=== PATIENT | female | born 1960 | race Caucasian/White ===

== ENCOUNTER 2017-10-15 10:32 | Outpatient (RCR) | payer MEDICAID, SELFPAY ==
[2017-10-15 11:37] VITALS: BP 133/98; PULSE 84; RESP 18; TEMP 37.3; BMI 32.3
--- NOTE | 2017-10-15 20:39 | PCM.WC.PN ---
Type of Wound Date of Service: 10/15/17 Chief Complaint: Nonhealing ulcer proximal dorsal ulnar aspect left forearm. History of Wound: Surgery 08/28/17 - Surgical preparation proximal dorsal ulnar aspect left forearm with extension to elbow with incision and drainage and excisional debridement abscess (60 cm2). Wound care - VAC. Operative culture - Staphylococcus aureus. She was discharged on Doxycycline and has finished them. Prealbumin from 08/28/17 was 12.0. Encourage nutritional supplementation with protein to help the healing process. CT Left Forearm on 08/27/17 showed diffuse subcutaneous edema overlying the medial posterior aspect of the. forearm and region of the elbow joint with findings suggestive of a. localized abscess collection just medial to the proximal ulna. Today patient denies fever. Her appetite is good. Progress of Wound: Improved. - Physical Exam Vital Signs Temp Pulse Resp BP 99.1 F 84 18 133/98 H 10/15/17 11:37 10/15/17 11:37 10/15/17 11:37 10/15/17 11:37 Debridement Note Post-Debridement Measurements/Treatment WC - Nurse 2 - General Ulcer CM Notes Start: 10/15/17 11:32 Freq: Status: Active Protocol: Activity Type Activity Date Activity User E-Sign Co-Sign Detail Recorded Client Recorded Date Recorded By Document 10/15/17 12:27 [id number] 10/15/17 12:28 10/15/17 12:27 Wound Center Nurse 2 #1 left elbow -Time 12:27 -Correct Patient Yes -Correct Side, Site, Position Yes -Correct Procedure Yes -Procedure Performed Yes -Type of Procedure Debridement -Clinical Debridement Subcutaneous -Post Debridement Size (cm) - Length 7.5 -Post Debridement Size (cm) - Width 3.4 -Post Debridement Size (cm) - Depth 0.3 -Total Square Cm 25.50 -Wound/Ulcer Outcome Not Healed -Ulcer Cleansing Rinsed/ Irrigated with Saline -Foul Odor after Cleansing No -Bioengineered Tissue No -Cetacaine [place] No -Bleeding Controlled with Pressure -Treatment Response Procedure Tolerated Well Pain Scale: 0-10 Numeric Is Patient Pain Free? Yes Wound debrided: #1 Left forearm. Laterality: Left Wound Grade/Stage: 2. Type of Debridement: Excisional debridement Anesthesia Used: 4% Lidocaine Solution Depth: Down to and including healthy tissue, in the subcutaneous layer Percentage of wound debrided: 100 Instrument Used: 5mm curette Tissue Removed: subcutaneous tissue. Severity: Fat Layer Exposed Amount of bleeding with debridement: Mild Bleeding Controlled with: Pressure Patient tolerated procedure well Assessment/Plan Assessment: 1. Abscess proximal dorsal ulnar aspect left forearm with extension to elbow. 2. Nonhealing ulcer proximal dorsal ulnar aspect left forearm. 3. Smoker. 4. s/p surgical preparation proximal dorsal ulnar aspect left forearm with extension to elbow with incision and drainage and excisional debridement abscess (60 cm2). Plan: The VAC can be removed. Continue daily dressing changes with Aquacel Silver. Encourage range of motion exercises to minimize stiffness. Operative culture showed Staphylococcus aureus. She was discharged on Doxycycline and has finished them. Prealbumin in the hospital was 12.0 on 08/28/17. Encourage nutritional supplementation with protein to help the healing process. Encouraged the patient to stop smoking as it may have deleterious effects on wound healing. Followup 2 weeks.
--- NOTE | 2017-10-18 21:50 | PN.PCM_ITS ---
Type of Wound Date of Service: 10/15/17 Chief Complaint: Nonhealing ulcer proximal dorsal ulnar aspect left forearm. History of Wound: Surgery 08/28/17 - Surgical preparation proximal dorsal ulnar aspect left forearm with extension to elbow with incision and drainage and excisional debridement abscess (60 cm2). Wound care - VAC. Operative culture - Staphylococcus aureus. She was discharged on Doxycycline and has finished them. Prealbumin from 08/28/17 was 12.0. Encourage nutritional supplementation with protein to help the healing process. CT Left Forearm on showed diffuse subcutaneous edema overlying the medial posterior aspect of the. forearm and region of the elbow joint with findings suggestive of a. localized abscess collection just medial to the proximal ulna. Today patient denies fever. Her appetite is good. Progress of Wound: Improved. - Physical Exam Vital Signs Temp Pulse Resp BP 99.1 F 84 18 133/98 H 10/15/17 11:37 10/15/17 11:37 10/15/17 11:37 10/15/17 11:37 Debridement Note Post-Debridement Measurements/Treatment WC - Nurse 2 - General Ulcer CM Notes Start: 10/15/17 11:32 Freq: Status: Active Protocol: Activity Type Activity Date Activity User E-Sign Co-Sign Detail Recorded Client Recorded Date Recorded By Document 10/15/17 12:27 [id number] 10/15/17 12:28 10/15/17 12:27 Wound Center Nurse 2 #1 left elbow -Time 12:27 -Correct Patient Yes -Correct Side, Site, Position Yes -Correct Procedure Yes -Procedure Performed Yes -Type of Procedure Debridement -Clinical Debridement Subcutaneous -Post Debridement Size (cm) - Length 7.5 -Post Debridement Size (cm) - Width 3.4 -Post Debridement Size (cm) - Depth 0.3 -Total Square Cm 25.50 -Wound/Ulcer Outcome Not Healed -Ulcer Cleansing Rinsed/ Irrigated with Saline -Foul Odor after Cleansing No -Bioengineered Tissue No -Cetacaine [place] No -Bleeding Controlled with Pressure -Treatment Response Procedure Tolerated Well Pain Scale: 0-10 Numeric Is Patient Pain Free? Yes Wound debrided: #1 Left forearm. Laterality: Left Wound Grade/Stage: 2. Type of Debridement: Excisional debridement Anesthesia Used: 4% Lidocaine Solution Depth: Down to and including healthy tissue, in the subcutaneous layer Percentage of wound debrided: 100 Instrument Used: 5mm curette Tissue Removed: subcutaneous tissue. Severity: Fat Layer Exposed Amount of bleeding with debridement: Mild Bleeding Controlled with: Pressure Patient tolerated procedure well Assessment/Plan Assessment: 1. Abscess proximal dorsal ulnar aspect left forearm with extension to elbow. 2. Nonhealing ulcer proximal dorsal ulnar aspect left forearm. 3. Smoker. 4. s/p surgical preparation proximal dorsal ulnar aspect left forearm with extension to elbow with incision and drainage and excisional debridement abscess (60 cm2). Plan: The VAC can be removed. Continue daily dressing changes with Aquacel Silver. Encourage range of motion exercises to minimize stiffness. Operative culture showed Staphylococcus aureus. She was discharged on Doxycycline and has finished them. Prealbumin in the hospital was 12.0 on 08/28/17. Encourage nutritional supplementation with protein to help the healing process. Encouraged the patient to stop smoking as it may have deleterious effects on wound healing. Followup 2 weeks.
== END 2017-10-17 23:59 ==
LOC: WC 10:32
PROVIDERS: Family Provider Family Medicine Geriatric Medicine; PCP Family Medicine Geriatric Medicine; Visit Provider Surgery
DX: L98.492 Non-pressure chronic ulcer of skin of other sites with fat layer exposed (principal); F17.200 Nicotine dependence, unspecified, uncomplicated
CPT/HCPCS: 11042; 11045; 99213; G0463

== ENCOUNTER → 2017-10-16 15:59 | Outpatient (CLI) | payer MEDICAID, SELFPAY ==
[2017-10-16 17:13] LABS: Absolute Lymphocyte Count 3.86 X10^3/ul (0.83-4.51); Absolute Neutrophil Count 6.4 X10^3/uL (2.0-7.7); Basophil# 0.11 X10^3/uL; Basophil% 0.9 % (0-1); Eosinophil# 0.49 X10^3/uL; Eosinophils% 4.2 % (0-5); Hematocrit 47.2 % (37-47); Hemoglobin 15.6 g/dl (12.0-15.0); Lymphocyte # 3.86 X10^3/ul (4.0); Lymphocyte % 33.1 % (19-41); Mean Corp Hgb Conc 33.1 g/gl (32-36); Mean Corpuscular Hgb 31.7 pg (27.0-32.0); Mean Corpuscular Volume 95.9 fL (81-99); Mean Platelet Vol. 9.4 fl (6.2-12.0); Monocyte% 6.9 % (0-10); Neutrophil # 6.37 X10^3/uL (2.7-7.7); Neutrophil % 54.7 % (47-70); Platelet Count 429 K/mm3 (150-450); RBC Distribution Width CV 13.3 % (11.6-14.6); RBC Distribution Width SD 46.8 fl (35.1-43.9); Red Blood Count 4.92 M/mm3 (4.2-5.4); White Blood Count 11.7 K/mm3 (4.4-11.0)
[2017-10-16 17:14] LABS: POSITIVE COUNT NO; POSITIVE DIFFERENTIAL NO; POSITIVE MORPHOLOGY NO
[2017-10-16 17:37] LABS: ALB/GLOB Ratio 0.8 RATIO (0.9-2.4); AST(SGOT) 24 U/L (15-37); Alanine Aminotransfer ALT/SGPT 28 U/L (13-56); Albumin, Serum 3.8 g/dL (3.2-5.0); Alkaline Phosphatase 135 U/L (45-117); Anion Gap 9 (5-15); BUN 25 mg/dL (7-18); BUN/Creat Ratio 22.3 RATIO (10-20); Calcium,Total 9.1 mg/dL (8.5-10.1); Chloride 99 mmol/L (98-107); Creatinine, Serum 1.12 mg/dL (0.55-1.02); EST Glomerular Filtration Rate 54 mL/min (>60); Est Glom Filt Rate - Afr Amer 65 mL/min (>60); Globulin 4.6 g/dL (2.2-4.2); Glucose 124 mg/dL (70-110); Potassium 4.3 mmol/L (3.5-5.1); Protein, Total 8.4 g/dL (6.4-8.2); Sodium Level 135 mmol/L (136-145); Thyroid Stim Hormone (TSH) 1.09 uIU/mL (0.358-3.74)
[2017-10-17 10:05] LABS: Vitamin D,25 Hydroxy 9.4 ng/mL (19.95-100.01)
== END ==
PROVIDERS: Family Provider Family Medicine Geriatric Medicine; PCP Family Medicine Geriatric Medicine; Visit Provider Family Medicine Geriatric Medicine
DX: I10 Essential (primary) hypertension (principal); E55.9 Vitamin D deficiency, unspecified
CPT/HCPCS: 36415; 80053; 82306; 84443; 85025

== ENCOUNTER → 2018-02-26 16:57 | Outpatient (CLI) | payer MEDICAID, SELFPAY ==
[2018-02-26 17:17] LABS: Absolute Lymphocyte Count 4.33 X10^3/ul (0.83-4.51); Basophil# 0.09 X10^3/uL; Basophil% 0.6 % (0-1); Eosinophil# 0.33 X10^3/uL; Eosinophils% 2.3 % (0-5); Hematocrit 44.5 % (37-47); Lymphocyte # 4.33 X10^3/ul (4.0); Lymphocyte % 29.5 % (19-41); Mean Corp Hgb Conc 33.7 g/gl (32-36); Mean Corpuscular Hgb 31.3 pg (27.0-32.0); Mean Corpuscular Volume 92.9 fL (81-99); Mean Platelet Vol. 9.6 fl (6.2-12.0); Monocyte# 0.85 X10^3/uL; Monocyte% 5.8 % (0-10); Neutrophil # 9.01 X10^3/uL (2.7-7.7); Neutrophil % 61.5 % (47-70); Platelet Count 423 K/mm3 (150-450); RBC Distribution Width CV 14.4 % (11.6-14.6); RBC Distribution Width SD 47.4 fl (35.1-43.9); Red Blood Count 4.79 M/mm3 (4.2-5.4); White Blood Count 14.7 K/mm3 (4.4-11.0)
[2018-02-26 17:28] LABS: POSITIVE COUNT NO; POSITIVE DIFFERENTIAL NO; POSITIVE MORPHOLOGY NO
[2018-02-26 17:55] LABS: ALB/GLOB Ratio 0.9 RATIO (0.9-2.4); AST(SGOT) 12 U/L (15-37); Alanine Aminotransfer ALT/SGPT 29 U/L (13-56); Albumin, Serum 3.7 g/dL (3.2-5.0); Alkaline Phosphatase 147 U/L (45-117); Anion Gap 10 (5-15); BUN 24 mg/dL (7-18); BUN/Creat Ratio 21.2 RATIO (10-20); Calcium,Total 9.2 mg/dL (8.5-10.1); Chloride 104 mmol/L (98-107); Creatinine, Serum 1.13 mg/dL (0.55-1.02); EST Glomerular Filtration Rate 53 mL/min (>60); Est Glom Filt Rate - Afr Amer 64 mL/min (>60); Globulin 4.3 g/dL (2.2-4.2); Glucose 103 mg/dL (74-106); Potassium 4.6 mmol/L (3.5-5.1); Sodium Level 140 mmol/L (136-145); Thyroid Stim Hormone (TSH) 1.37 uIU/mL (0.358-3.74)
[2018-03-01 07:11] LABS: Hep C Antibodies <0.1 s/co ratio (0.0-0.9)
== END ==
PROVIDERS: Family Provider Family Medicine Geriatric Medicine; PCP Family Medicine Geriatric Medicine; Visit Provider Family Medicine Geriatric Medicine
DX: I10 Essential (primary) hypertension (principal); Z13.89 Encounter for screening for other disorder
CPT/HCPCS: 36415; 80053; 84443; 85025; 86803

== ENCOUNTER → 2018-03-11 15:25 | Outpatient (CLI) | payer MEDICAID, SELFPAY ==
--- NOTE | 2018-03-11 15:27 | CT_ITS ---
STUDY: LOW DOSE CT LUNG CANCER SCREENING REASON FOR EXAM: Female, 57 years old. 30 pack-year smoker. One month history of shortness of breath. History of renal cell carcinoma. RADIATION DOSAGE (If Supplied By Facility): CTDIvol = ( 4.02 ) mGy, DLP = ( 156.02 ) mGycm TECHNIQUE: No contrast was administered. Low dose technique was utilized (average mAS-38 and kVp 120). 1.25 mm axial source images with a slice interval of 1.25-mm were reconstructed in lung windows. 2.5 mm axial source images with a slice interval of 2.5-mm were reconstructed in lung windows. 5.0 mm axial source images with a slice interval of 5.0-mm were reconstructed in soft tissue windows. Nodule measured using lung windows on PACS and/or independent workstation with automated measurement of minimum and maximum diameter. Nodule measurement reported as average diameter rounded to the nearest whole number. Growth is defined as an increase ins size of greater than 1.5 mm. COMPARISON: Comparison is made with prior chest radiograph dated March 23, 2016. NODULES: 2 mm calcified granuloma in the posterior aspect of the right upper lobe as seen on axial image #62. Findings suggest mild scarring in both lung apices. Aorta: Atherosclerotic calcification of the aortic arch. Coronary arteries: Mild coronary artery calcification. Mediastinal nodes: Several small benign-appearing mediastinal lymph nodes. CT/Low Dose CT Lung Screening IMPRESSION: Lung-RADS category 2 - Continue annual screening with LDCT in 12 months. IMPORTANT NOTES FOR USE: ACR Lung-RADS Version 1.0 Assessment Categories Release Date: January 12, 2014 Category: Coded 0-4 bases on nodule(s) with highest degree of suspicion. Negative screen is defined as categories 1 and 2; a positive screen is defined as categories 3 and 4. Category 3 and 4A nodules that are unchanged on interval CT should be coded as category 2, and individuals returned to screening in 12 months. Category 4X: Category 3 or 4 nodules with additional imaging findings that increase the suspicion of lung cancer, such as spiculation, GGN that doubles in size in 1 year, enlarged lymph notes, etc. Category Modifiers: S (significant finding unrelated to lung cancer) and C (prior history of treated lung cancer) may be added to the 0-4 Lung-RADS Electronically Signed: Mario Mckenzie MD at 12:56 EDT Tel [phone], Service support ,
== END ==
PROVIDERS: Family Provider Family Medicine Geriatric Medicine; PCP Family Medicine Geriatric Medicine; Visit Provider Family Medicine Geriatric Medicine
DX: Z12.2 Encounter for screening for malignant neoplasm of respiratory organs (principal); Z87.891 Personal history of nicotine dependence
CPT/HCPCS: G0297

== ENCOUNTER → 2019-02-27 | Outpatient (CLI) | payer MEDICAID, SELFPAY ==
[2019-02-27 17:28] LABS: Absolute Lymphocyte Count 4.66 X10^3/ul (0.83-4.51); Absolute Neutrophil Count 4.9 X10^3/uL (2.0-7.7); Basophil# 0.11 X10^3/uL; Eosinophil# 0.73 X10^3/uL; Eosinophils% 6.6 % (0-5); Hematocrit 42.9 % (37-47); Hemoglobin 14.4 g/dl (12.0-15.0); Lymphocyte # 4.66 X10^3/ul (4.0); Lymphocyte % 41.9 % (19-41); Mean Corp Hgb Conc 33.6 g/gl (32-36); Mean Corpuscular Hgb 31.1 pg (27.0-32.0); Mean Corpuscular Volume 92.7 fL (81-99); Mean Platelet Vol. 9.7 fl (6.2-12.0); Monocyte# 0.75 X10^3/uL; Monocyte% 6.8 % (0-10); Neutrophil # 4.85 X10^3/uL (2.7-7.7); Neutrophil % 43.6 % (47-70); POSITIVE COUNT NO; POSITIVE DIFFERENTIAL NO; POSITIVE MORPHOLOGY NO; Platelet Count 500 K/mm3 (150-450); RBC Distribution Width CV 13.8 % (11.6-14.6); RBC Distribution Width SD 46.4 fl (35.1-43.9); Red Blood Count 4.63 M/mm3 (4.2-5.4); White Blood Count 11.1 K/mm3 (4.4-11.0)
[2019-02-27 17:37] LABS: ALB/GLOB Ratio 0.9 RATIO (0.9-2.4); AST(SGOT) 22 U/L (15-37); Alanine Aminotransfer ALT/SGPT 25 U/L (13-56); Albumin, Serum 3.6 g/dL (3.2-5.0); Alkaline Phosphatase 174 U/L (45-117); Anion Gap 6 (5-15); BUN 19 mg/dL (7-18); BUN/Creat Ratio 15.4 RATIO (10-20); Calcium,Total 8.8 mg/dL (8.5-10.1); Chloride 106 mmol/L (98-107); Creatinine, Serum 1.23 mg/dL (0.55-1.02); EST Glomerular Filtration Rate 48 mL/min (>60); Est Glom Filt Rate - Afr Amer 58 mL/min (>60); Glucose 104 mg/dL (74-106); Potassium 3.9 mmol/L (3.5-5.1); Protein, Total 7.6 g/dL (6.4-8.2); Sodium Level 135 mmol/L (136-145); Thyroid Stim Hormone (TSH) 1.59 uIU/mL (0.358-3.74)
== END | disposition home or self-care (01) ==
LOC: POLAB3 08:56
PROVIDERS: Family Provider Family Medicine Geriatric Medicine; PCP Family Medicine Geriatric Medicine; Visit Provider Family Medicine Geriatric Medicine
DX: I10 Essential (primary) hypertension (principal)
CPT/HCPCS: 36415; 80053; 84443; 85025

== ENCOUNTER 2019-11-13 19:18 | Emergency (ER) | payer MEDICAID, SELFPAY ==
[2019-11-13 19:19] VITALS: BP 125/93; PULSE 98; RESP 18; TEMP 36.6; O2SAT 97; BMI 32.3
--- NOTE | 2019-11-13 20:48 | ED.DCSUM_ITS ---
History of Present Illness Chief Complaint: Upper Extremity Injury Informant: Patient Onset: Today - 14-15 hrs, approx Context: Gradual Onset Timing: Continuous Quality of Pain: - - swollen, not painful Location: right elbow Current Severity: Mild Maximum Severity: Mild Worsened by: n/a Relieved by: n/a Associated Symptoms: Negative for: Parasthesia, Weakness, Loss of Funtion Narrative: Patient has had mild swelling at her right olecranon since early this morning. She denies any pain or fevers or redness or discharge or injury or resting her elbow on anything repetitively recently. She had something similar on the left side and states that it was infectious. She takes medicines for the issues below but is on no immunocompromising medications and is not a diabetic. - Past Medical History (1) Hyperlipidemia Status: Chronic (2) Arthritis Status: Chronic (3) Hypertension Status: Chronic (4) Asthma Status: Chronic (5) Anxiety and depression Status: Chronic Past Medical History - Allergies and Home Meds Allergies/Adverse Reactions: Allergies amoxicillin trihydrate [From Augmentin] Allergy (Severe, Verified 11/13/19 19:22) Vomiting potassium clavulanate [From Augmentin] Allergy (Severe, Verified 11/13/19 19:22) Vomiting acetaminophen [From Vicodin] Adverse Reaction (Verified 11/13/19 19:22) Vomiting hydrocodone bitartrate [From Vicodin] Adverse Reaction (Verified 11/13/19 19:22) Vomiting oxycodone HCl [From Percocet] Adverse Reaction (Verified 11/13/19 19:22) Vomiting Primary Care Physician: Pro Brown Chi, MD [Primary Care Provider] - Surgical History: cholecystectomy, - - kidney surgery for cancer. Smoking Status: Current every day smoker - Family History Maternal Family History: Reports: No pertinent history Review of Systems General: Denies: Chills, Fever, Sweats Musculoskeletal: Reports: Swelling. Denies: Extremity Pain Neurological: Denies: Headache, Weakness, Numbness Physical Exam Vital Signs/Narrative: Vital Signs Temp Pulse Resp BP Pulse Ox 11/13/19 19:19 97.8 F 98 18 125/93 H 97 General: Well nourished, Well developed, - - Well-appearing, NAD Head: Normocephalic, Atraumatic Extremeties: Full range of motion right elbow. She has a mildly boggy swollen bursa at the right olecranon. It is nontender and without erythema or signs of a foreign body entry site or nidus for infection. Skin: Normal color - No erythema right elbow, No rash Neurological: Alert, Oriented x3, Cranial nerves II-XII grossly intact, Normal Strength, Normal Sensation, Normal Gait Psychological: Normal affect, Normal Mood Diagnostic/Tx/Re-eval - Medical Decision Making The patient's right olecranon has no excessive warmth, erythema, pain, or tenderness. Therefore I suspect this is inflammatory in nature. She was given some ibuprofen, and I sent the fluid that we aspirated for culture. I do not think she needs antibiotics empirically. If the culture returns positive, or if she worsens, she was advised to return to the ER. She is comfortable with this overall plan. Procedures Procedure(s): Needle aspiration, right olecranon bursitis. After prep with isopropanol, and locally anesthetizing with 0.5 cc 1% plain lidocaine, and re- prepping/sterilizing, an 18-gauge needle was used and inserted into the bursa, approximately 5 cc of bloody mildly viscous fluid that was otherwise transparent was aspirated. Patient tolerated well without any pain. Dressing placed. ED Disposition - Plan for ED Patient: Disposition: Home or Assisted Living Diagnosis: Olecranon bursitis of right elbow Instructions: Bursitis, Elbow (Olecranon) Referrals: Pro Brown Chi, MD [Primary Care Provider] - 3-5 Days if not improving
[2019-11-13 21:20] VITALS: BP 125/87; PULSE 81; RESP 18; TEMP 36.9; O2SAT 94
[2019-11-13] MEDS: Ibuprofen 600 MG Tablet PO (22:26)
[2019-11-13 22:30] VITALS: RESP 18
== END 2019-11-13 22:32 | disposition home or self-care (01) ==
PROVIDERS: Emergency Provider Emergency Medicine; PCP Family Medicine Geriatric Medicine
DX: M70.21 Olecranon bursitis, right elbow (principal); I10 Essential (primary) hypertension; Z72.0 Tobacco use; Z79.899 Other long term (current) drug therapy; E78.5 Hyperlipidemia, unspecified; M19.90 Unspecified osteoarthritis, unspecified site; J45.909 Unspecified asthma, uncomplicated; F32.9 Major depressive disorder, single episode, unspecified; F41.9 Anxiety disorder, unspecified
CPT/HCPCS: 20605; 20610; 87070; 87075; 87205; 99283

== ENCOUNTER → 2019-11-26 16:43 | Outpatient (CLI) | payer MEDICAID, SELFPAY ==
[2019-11-13 19:19] VITALS: BMI 32.3
[2019-11-26 18:08] LABS: ALB/GLOB Ratio 0.9 RATIO (0.9-2.4); AST(SGOT) 15 U/L (15-37); Alanine Aminotransfer ALT/SGPT 28 U/L (13-56); Albumin, Serum 3.5 g/dL (3.2-5.0); Alkaline Phosphatase 143 U/L (45-117); Anion Gap 4 (5-15); BUN 22 mg/dL (7-18); BUN/Creat Ratio 19.8 RATIO (10-20); Calcium,Total 8.6 mg/dL (8.5-10.1); Chloride 107 mmol/L (98-107); Creatinine, Serum 1.11 mg/dL (0.55-1.02); EST Glomerular Filtration Rate 54 mL/min (>60); Est Glom Filt Rate - Afr Amer 65 mL/min (>60); Globulin 3.8 g/dL (2.2-4.2); Glucose 99 mg/dL (74-106); Potassium 4.4 mmol/L (3.5-5.1); Protein, Total 7.3 g/dL (6.4-8.2); Sodium Level 138 mmol/L (136-145); Thyroid Stim Hormone (TSH) 1.38 uIU/mL (0.358-3.74)
[2019-11-26 18:09] LABS: Absolute Lymphocyte Count 2.69 X10^3/uL (0.83-4.51); Absolute Neutrophil Count 4.4 X10^3/uL (2.0-7.7); Basophil# 0.13 X10^3/uL; Basophil% 1.7 % (0-1); Eosinophil# 0.28 X10^3/uL; Eosinophils% 3.6 % (0-5); Hematocrit 40.6 % (37-47); Hemoglobin 13.2 g/dL (12.0-15.0); Lymphocyte # 2.69 X10^3/ul (4.0); Lymphocyte % 34.2 % (19-41); Mean Corp Hgb Conc 32.5 g/dL (32-36); Mean Corpuscular Hgb 30.7 pg (27.0-32.0); Mean Corpuscular Volume 94.4 fL (81-99); Monocyte# 0.36 X10^3/uL; Monocyte% 4.6 % (0-10); NRBC Flagged by Analyzer 0 % (0-5); Neutrophil # 4.38 X10^3/uL (2.7-7.7); Neutrophil % 55.6 % (47-70); Platelet Count 374 K/mm3 (150-450); RBC Distribution Width CV 13.2 % (11.6-14.6); RBC Distribution Width SD 45.9 fl (35.1-43.9); White Blood Count 7.9 K/mm3 (4.4-11.0)
== END ==
PROVIDERS: PCP Family Medicine Geriatric Medicine; Visit Provider Family Medicine Geriatric Medicine
DX: I10 Essential (primary) hypertension (principal)
CPT/HCPCS: 36415; 80053; 84443; 85025

== ENCOUNTER → 2020-03-10 | Outpatient (CLI) | payer MEDICAID, SELFPAY ==
[2020-03-10 16:51] LABS: Absolute Lymphocyte Count 3.55 X10^3/uL (0.83-4.51); Absolute Neutrophil Count 5.8 X10^3/uL (2.0-7.7); Basophil# 0.13 X10^3/uL; Basophil% 1.2 % (0-1); Eosinophil# 0.46 X10^3/uL; Eosinophils% 4.3 % (0-5); Hematocrit 39.6 % (37-47); Hemoglobin 12.7 g/dL (12.0-15.0); Lymphocyte # 3.55 X10^3/ul (4.0); Lymphocyte % 33.4 % (19-41); Mean Corp Hgb Conc 32.1 g/dL (32-36); Mean Corpuscular Volume 93.6 fL (81-99); Mean Platelet Vol. 9.8 fl (6.2-12.0); Monocyte# 0.68 X10^3/uL; Monocyte% 6.4 % (0-10); NRBC Flagged by Analyzer 0 % (0-5); Neutrophil % 54.5 % (47-70); Platelet Count 412 K/mm3 (150-450); RBC Distribution Width CV 13.3 % (11.6-14.6); RBC Distribution Width SD 45.4 fl (35.1-43.9); Red Blood Count 4.23 M/mm3 (4.2-5.4); White Blood Count 10.6 K/mm3 (4.4-11.0)
[2020-03-10 17:20] LABS: Vitamin D,25 Hydroxy 49.3 ng/mL
[2020-03-10 17:26] LABS: ALB/GLOB Ratio 0.8 RATIO (0.9-2.4); AST(SGOT) 16 U/L (15-37); Alanine Aminotransfer ALT/SGPT 33 U/L (13-56); Albumin, Serum 3.4 g/dL (3.2-5.0); Alkaline Phosphatase 179 U/L (45-117); Anion Gap 8 (5-15); BUN 15 mg/dL (7-18); BUN/Creat Ratio 15.3 RATIO (10-20); Calcium,Total 8.9 mg/dL (8.5-10.1); Chloride 107 mmol/L (98-107); Creatinine, Serum 0.98 mg/dL (0.55-1.02); EST Glomerular Filtration Rate 62 mL/min (>60); Est Glom Filt Rate - Afr Amer 75 mL/min (>60); Glucose 108 mg/dL (74-106); Potassium 4.1 mmol/L (3.5-5.1); Protein, Total 7.4 g/dL (6.4-8.2); Sodium Level 138 mmol/L (136-145); Thyroid Stim Hormone (TSH) 1.38 uIU/mL (0.358-3.74)
== END | disposition home or self-care (01) ==
PROVIDERS: PCP Family Medicine Geriatric Medicine; Visit Provider Family Medicine Geriatric Medicine
DX: I10 Essential (primary) hypertension (principal); E55.9 Vitamin D deficiency, unspecified
CPT/HCPCS: 36415; 80053; 82306; 84443; 85025

== ENCOUNTER → 2020-03-30 14:36 | Outpatient (CLI) | payer MEDICAID, SELFPAY ==
--- NOTE | 2020-03-30 14:40 | CT_ITS ---
STUDY: LOW DOSE CT LUNG CANCER SCREENING REASON FOR EXAM: Female, 59 years old. LUNG CANCER SCREEN. 1PPD X 42 YEARS RADIATION DOSAGE (If Supplied By Facility): CTDIvol = ( 2.55 ) mGy, DLP = ( 79.77 ) mGycm TECHNIQUE: No contrast was administered. Low dose technique was utilized (average mAS-38 and kVp 120). 1.25 mm axial source images with a slice interval of 1.25-mm were reconstructed in lung windows. 2.5 mm axial source images with a slice interval of 2.5-mm were reconstructed in lung windows. 5.0 mm axial source images with a slice interval of 5.0-mm were reconstructed in soft tissue windows. Nodule measured using lung windows on PACS and/or independent workstation with automated measurement of minimum and maximum diameter. Nodule measurement reported as average diameter rounded to the nearest whole number. Growth is defined as an increase ins size of greater than 1.5 mm. COMPARISON: CT of the chest, March 11, 2018 NODULES: Nodule #: 1 Density: Solid Lung location: Right upper lobe: Pleural-based Location in series: Series Number: 1002 Image: 28 Size - D1 x D2 mm: 2 x 2 mm: 2 mm average diameter Margin: Smooth Shape: Round Calcification: No Fat: No Temporal comparison: Stable Nodule #: 2 Density: Solid Lung location: Right upper lobe: Pleural-based Location in series: Series Number: [id number] Image: 52 Size - D1 x D2 mm: 2.5 x 2.5 mm: 2.5 mm average diameter Margin: Smooth Shape: Round Calcification: Yes Fat: No Temporal comparison: Stable Total lung nodules (excluding granulomas): 1 Emphysema: None Endobronchial lesion: None Aorta: Stable calcifications without aneurysm. Coronary arteries: Stable coronary artery calcifications. Heart: Normal Pulmonary artery: Normal Mediastinal nodes: Nonspecific subcentimeter mediastinal lymphadenopathy unchanged from prior study. Other chest and abdominal findings: Degenerative changes of the thoracic spine. CT/Low Dose CT Lung Screening IMPRESSION: No major interval change from the prior study. Lung-RADS category 2 - Continue annual screening with LDCT in 12 months. IMPORTANT NOTES FOR USE: ACR Lung-RADS Version 1.0 Assessment Categories Release Date: January 12, 2014 Category: Coded 0-4 bases on nodule(s) with highest degree of suspicion. Negative screen is defined as categories 1 and 2; a positive screen is defined as categories 3 and 4. Category 3 and 4A nodules that are unchanged on interval CT should be coded as category 2, and individuals returned to screening in 12 months. Category 4X: Category 3 or 4 nodules with additional imaging findings that increase the suspicion of lung cancer, such as spiculation, GGN that doubles in size in 1 year, enlarged lymph notes, etc. Category Modifiers: S (significant finding unrelated to lung cancer) and C (prior history of treated lung cancer) may be added to the 0-4 Lung-RADS Electronically Signed: Christiano Alston DO at 16:02 EDT Tel [phone], Service support ,
== END ==
PROVIDERS: PCP Family Medicine Geriatric Medicine; Referring Provider Family Medicine Geriatric Medicine; Visit Provider Family Medicine Geriatric Medicine
DX: T65.222S Toxic effect of tobacco cigarettes, intentional self-harm, sequela (principal)
CPT/HCPCS: G0297

== ENCOUNTER → 2020-09-21 13:57 | Outpatient (CLI) | payer MEDICAID, SELFPAY ==
[2020-09-21 16:11] LABS: Absolute Lymphocyte Count 3.51 X10^3/uL (0.83-4.51); Absolute Neutrophil Count 4.6 X10^3/uL (2.0-7.7); Basophil# 0.11 X10^3/uL; Basophil% 1.1 % (0-1); Eosinophil# 0.81 X10^3/uL; Eosinophils% 8.4 % (0-5); Hematocrit 37.8 % (37-47); Hemoglobin 11.7 g/dL (12.0-15.0); Lymphocyte # 3.51 X10^3/ul (4.0); Lymphocyte % 36.6 % (19-41); Mean Corpuscular Hgb 27.7 pg (27.0-32.0); Mean Corpuscular Volume 89.4 fL (81-99); Mean Platelet Vol. 9.6 fl (6.2-12.0); Monocyte# 0.57 X10^3/uL; Monocyte% 5.9 % (0-10); NRBC Flagged by Analyzer 0 % (0-5); Neutrophil # 4.57 X10^3/uL (2.7-7.7); Neutrophil % 47.8 % (47-70); POSITIVE MORPHOLOGY YES; Platelet Count 442 K/mm3 (150-450); RBC Distribution Width CV 13.2 % (11.6-14.6); RBC Distribution Width SD 43.2 fl (35.1-43.9); Red Blood Count 4.23 M/mm3 (4.2-5.4); White Blood Count 9.6 K/mm3 (4.4-11.0)
[2020-09-21 16:20] LABS: Differential Indicated SCAN CRITERIA MET
[2020-09-21 16:39] LABS: ALB/GLOB Ratio 0.8 RATIO (0.9-2.4); AST(SGOT) 12 U/L (15-37); Alanine Aminotransfer ALT/SGPT 22 U/L (13-56); Albumin, Serum 3.3 g/dL (3.2-5.0); Alkaline Phosphatase 163 U/L (45-117); Anion Gap 8 (5-15); BUN 22 mg/dL (7-18); BUN/Creat Ratio 16.7 RATIO (10-20); Calcium,Total 8.5 mg/dL (8.5-10.1); Chloride 107 mmol/L (98-107); Creatinine, Serum 1.32 mg/dL (0.55-1.02); EST Glomerular Filtration Rate 44 mL/min (>60); Est Glom Filt Rate - Afr Amer 53 mL/min (>60); Glucose 113 mg/dL (74-106); Potassium 3.7 mmol/L (3.5-5.1); Protein, Total 7.3 g/dL (6.4-8.2); Sodium Level 138 mmol/L (136-145); Thyroid Stim Hormone (TSH) 1.64 uIU/mL (0.358-3.74)
== END ==
PROVIDERS: PCP Family Medicine Geriatric Medicine; Visit Provider Family Medicine Geriatric Medicine
DX: E55.9 Vitamin D deficiency, unspecified (principal); I10 Essential (primary) hypertension
CPT/HCPCS: 36415; 80053; 82306; 84443; 85025; 87086

== ENCOUNTER → 2021-05-25 15:23 | Outpatient (CLI) | payer MEDICAID, SELFPAY ==
[2021-05-25 16:58] LABS: ALB/GLOB Ratio 0.8 RATIO (0.9-2.4); AST(SGOT) 15 U/L (15-37); Alanine Aminotransfer ALT/SGPT 32 U/L (13-56); Albumin, Serum 3.4 g/dL (3.2-5.0); Alkaline Phosphatase 225 U/L (45-117); Anion Gap 5 (5-15); BUN 16 mg/dL (7-18); Calcium,Total 8.9 mg/dL (8.5-10.1); Chloride 108 mmol/L (98-107); Cholesterol 142 mg/dL (200); Creatinine, Serum 1.07 mg/dL (0.55-1.02); EST Glomerular Filtration Rate 56 mL/min (>60); Est Glom Filt Rate - Afr Amer 68 mL/min (>60); Globulin 4.5 g/dL (2.2-4.2); Glucose 106 mg/dL (74-106); High Density Lipoprotein 47 mg/dL; Potassium 4.4 mmol/L (3.5-5.1); Protein, Total 7.9 g/dL (6.4-8.2); Sodium Level 137 mmol/L (136-145); Triglycerides 148 mg/dL; Very Low Density Lipoprotein 30 mg/dL (5-40)
[2021-05-25 17:04] LABS: Absolute Lymphocyte Count 2.37 X10^3/uL (0.83-4.51); Absolute Neutrophil Count 5.1 X10^3/uL (2.0-7.7); Basophil# 0.11 X10^3/uL; Basophil% 1.3 % (0-1); Eosinophil# 0.46 X10^3/uL; Eosinophils% 5.4 % (0-5); Hematocrit 38.1 % (37-47); Hemoglobin 11.7 g/dL (12.0-15.0); Lymphocyte # 2.37 X10^3/ul (0.83-4.51); Lymphocyte % 27.7 % (19-41); Mean Corp Hgb Conc 30.7 g/dL (32-36); Mean Corpuscular Hgb 27.5 pg (27.0-32.0); Mean Corpuscular Volume 89.6 fL (81-99); Mean Platelet Vol. 9.6 fl (6.2-12.0); Monocyte# 0.46 X10^3/uL; Monocyte% 5.4 % (0-10); NRBC Flagged by Analyzer 0 % (0-5); Neutrophil # 5.14 X10^3/uL (2.7-7.7); Neutrophil % 59.8 % (47-70); Platelet Count 479 K/mm3 (150-450); RBC Distribution Width CV 15.1 % (11.6-14.6); RBC Distribution Width SD 49.7 fl (35.1-43.9); Red Blood Count 4.25 M/mm3 (4.2-5.4); White Blood Count 8.6 K/mm3 (4.4-11.0)
[2021-05-31 09:25] LABS: Ferritin 15 ng/mL (8-252); Iron 57 ug/dL (50-170); Iron Binding Capacity,Total 358 ug/dL (250-450)
== END ==
PROVIDERS: PCP Internal Medicine; Referring Provider Internal Medicine; Visit Provider Internal Medicine
DX: E78.5 Hyperlipidemia, unspecified (principal); I10 Essential (primary) hypertension; E66.9 Obesity, unspecified
CPT/HCPCS: 36415; 80053; 80061; 82728; 83036; 83540; 83550; 85025

== ENCOUNTER 2021-06-20 15:00 | Outpatient (RCR) | payer MEDICAID, SELFPAY ==
--- NOTE | 2021-06-06 15:16 | HP.PTEVAL ---
Patient's Visit Information YULISA WHEELER is a 61 year old F referred to Physical Therapy by Dr. J Carlos Casey DO with a diagnosis of LUMBAR STENOSIS AND RADICULITIS. VIK HIP DJD.. Date of Evaluation: 06/06/21 Physical Therapist: Jolene Resendiz, PT, Cert MDT - Visit Plan Frequency: 2X'S A WK PER PATIENT Duration: 3 WKS PER PATIENT Plan: POSTURE CORRECTION/STRENGTHENING, INSTRUCTION IN APPROPRIATE BODY MECHANICS AND ACTIVITY MODIFICATIONS. DLS WITH A NEUTRAL SPINE ONLY TOLERATED. VIK LE ROM, STRETCHING AND STRENGTHENING. HEP INSTRUCTION. - Subjective Work/Leisure: UNEMPLOYEED. Disability: SINCE 2017 BUT PATIENT REPORTS SHE ISN'T SURE WHY. OTHER: PATIENT LIVES BY HERSELF AND HER DAUGHTER LIVES UPSTAIRS AND HELPS NEEDED. Present symptoms: VIK LOW BACK AND HIP PAIN. CURRENTLY PAIN IS WORSE ON THE RIGHT. Present since: ABOUT 4 YEARS AGO. Pain Scale: WORSE 9/10, LEAST 4/10. Currently: 5/10. Commenced as a result of: NO APPARENT REASON. Symptoms at onset: LOW BACK PAIN. Worse: MOVING AROUND, WALKING AND STANDING. Better: SITTING. Disturbed sleep: YES. Previous history/Previous treatment: PATIENT REPORTS SHE BROKE HER BACK ABOUT 30 YEARS AGO. L5 WAS CRUSHED, HOSPITALIZED AND WORE A BRACE FOR ABOUT 6 MONTHS. EPISODIC LBP EVER SINCE. PHYSICAL THERAPY. CHIROPRACTOR. MOST RECENT CHIROPRACTIC SESSIONS WERE ABOUT A YEAR AGO BUT IT DIDN'T HELP PER PATIENT REPORT. NO BACK SURGERY. NO GOGO'S. PATIENT REPORTS DR. CASEY ASKED HER TO CONSIDER GOGO'S BUT SHE REFUSED. I DON'T WANT TO DO THE INJECTION THINGS. I WOULD RATHER SUFFER WITH THE PAIN THAN DO THE SHOTS. Coughing/sneezing/straining: NEGATIVE. Gait: PATIENT REPORTS GREAT DIFFICULTY WALKING FOR ABOUT SIX MONTHS. USES CANE AND WALKER TO GET AROUND - PREFERS TO USE THE CANE. LESS PAIN WITH WALKER THOUGH. Difficulty initiating urination: NO. Accidents: JUMPED OUT 2ND STORY WINDOW AND BROKE BACK A LONG TIME AGO. Unexplained weight loss: NO. Imaging: RECENT X-RAYS OF LOW BACK SEE [facility] EMR. NOTE UNHEALED RIGHT RIB FRACTURES ON X-RAY THAT PATIENT REPORTS SHE IS NOT AWARE OF AND DENIES ANY FALLS. SEVERE VIK HIP OA ALSO SEEN ON HIP X-RAYS. PATIENT REPORTS SHE HAS TO LOSE 10 LBS BEFORE SHE CAN HAVE HIP SURGERY. REPORTS SHE IS SCARED TO HAVE HER HIPS REPLACED BUT SHE IS GOING TO DO IT THIS TIME BECAUSE SHE IS IN SO MUCH PAIN. - Objective Sitting/Standing Posture: POOR. FH. RS'S. INCREASED TRUNK FLEXION. RIGHT ILIAC CREST HIGHER THAN LEFT. Active Correction of posture: BETTER. Other Observations: THIS PATIENT REPORTS SHE CAN'T WALK VERY FAR AND WAS FOUND IN LOBBY IN W/C. ASKED TO BE BROUGHT BACK IN W/C. AMUBLATED INDEP'LY WITH STRAIGHT CANE ABOUT 10 FEET INTO TREATMENT ROOM. PATIENT IS VERY UE DEPENDENT TO TRANSFER FROM SIT TO STAND AND REVERSE. VERY ANTALGIC SLOW GAIT WITH STRAIGHT CANE - INCREASED TRUNK FLEXION. Motor deficit: VIK LE WEAKNESS: HIPS 3+/5, KNEE EXT 4-/5, KNEE FLEX 4/5, ANKLES 5/5. Sensory deficit: VIK LE LIGHT TOUCH SENSATION APPEARS INTACT AND SYMMETRICAL. ROM deficit: VIK HIP FLEXOR TIGHTNESS. Dural Signs: NEGATIVE VIK LE'S. Lumbar mvmt loss: flex - MIN. ext - JHONATAN. R SG - JHONATAN. L SG - JHONATAN. PATIENT C/O INCREASED BACK AND VIK HIP PAIN WITH LUMBAR ROM TESTING ALL PLANES RIGHT HIP > LEFT. Core strength: POOR. Palpation: RIGHT LATERAL HIP TENDERNESS. TREATMENT: NEUROMUSCULAR REEDUCATION - RETRAINING OF MVMT AND POSTURE FOR SITTING, LYING AND STANDING ACTIVITIES. PATIENT IS A HIGH FALL RISK AND THIS PT STRONGLY ENCOURAGED PATIENT TO USE WALKER VS CANE AND SHE WILL CONSIDER BUT STATES IT IS EMBARRASING. CANE ADJUSTED FOR PROPER FIT. PATIENT REPORTED SOME IMMEDIATE PAIN RELIEF WITH USE OF LUMBAR SUPPORT IN SITTING IN CLINIC TODAY. - Balance/Special Test Scores Oswestry Low Back Score: 34 - Goals Goal 1:: DECREASE C/O LOW BACK AND VIK HIP PAIN. Goal Time Frame: 4-6 Weeks Goal 2:: IMPROVE PERSONAL CARE, LIFTING, WALKING, SITTING, STANDING, SLEEP, SOCIAL LIFE, TREAVEL AND HOMEMAKING FUNCTION. Goal Time Frame: 4-6 Weeks Goal 3:: INSTRUCT IN PROPHYLAXIS Goal Time Frame: 4-6 Weeks - Anticipated Interventions Patient/Client Instruction: Educate patient on: Condition, Plan of Care, Risk Factors For the Purpose of:: To improve self management Therapeutic Exercise to Include: Strength training, Balance training, Body mechanics, Postural training, Flexibilty training, Gait and locomotor training, Neuromotor development, In an aquatic setting, Dynamic Lumbar Stabilization For the Purpose of:: To decrease pain, To improve muscle performance and motor function, To increase tolerance to activity/condition/position, To improve ability of physical actions for home/community/work/leisure, To improve gait and locomotor functions Thank you for the opportunity to evaluate your patient. For Medicare and Medicare HMO plans, please review the plan of care and approve it. It will need to be FAXED BACK to us at [phone] for Medicare purposes. For Medicare only, by signing this I certify the plan of care. Please let me know if there are questions or concerns regarding this plan of care. Physician Signature: Date:
--- NOTE | 2021-06-23 11:24 | HP.PT.NRP ---
YULISA WHEELER was seen in my office for initial evaluation on 06/06/21. The following Plan of Care was established for this patient: Initial Frequency: 2X'S A WK PER PATIENT Initial Duration: 3 WKS PER PATIENT Patient/Client Instruction: Educate patient on: Condition, Plan of Care, Risk Factors For the Purpose of:: To improve self management Therapeutic Exercise to Include: Strength training, Balance training, Body mechanics, Postural training, Flexibilty training, Gait and locomotor training, Neuromotor development, In an aquatic setting, Dynamic Lumbar Stabilization For the Purpose of:: To decrease pain, To improve muscle performance and motor function, To increase tolerance to activity/condition/position, To improve ability of physical actions for home/community/work/leisure, To improve gait and locomotor functions This patient was last seen in our office . Pertinent comments regarding their Physical therapy will appear below: This patient has not returned to Physical Therapy and is appropriate to return to MD for further follow-up as needed. This PT rec'd a note stating patient cancelled all remaining manuel'ts and wants to save her visits for after surgery. At this point I will be discontinuing this patient from physical therapy. I would be happy to see this patient again in the future if found appropriate by the physician. Thank you! Jolene Resendiz, PT, Cert MDT Balance/Gait/Functional tests - Balance/Special Test Scores Oswestry Low Back Score: 34
== END 2021-06-20 19:00 | disposition home or self-care (01) ==
LOC: PT 15:00
PROVIDERS: PCP Internal Medicine; Referring Provider Orthopaedic Surgery; Visit Provider Orthopaedic Surgery
DX: M16.0 Bilateral primary osteoarthritis of hip (principal); M48.061 Spinal stenosis, lumbar region without neurogenic claudication; M54.16 Radiculopathy, lumbar region
CPT/HCPCS: 97110; 97112; 97162

== ENCOUNTER → 2022-01-20 | Outpatient (CLI) | payer MEDICAID, SELFPAY ==
[2022-01-20 14:56] LABS: Absolute Lymphocyte Count 2.71 X10^3/uL (0.83-4.51); Absolute Neutrophil Count 7.6 X10^3/uL (2.0-7.7); Basophil% 0.9 % (0-1); Eosinophils% 1.8 % (0-5); Hematocrit 38.8 % (37-47); Hemoglobin 11.8 g/dL (12.0-15.0); Lymphocyte # 2.71 X10^3/ul (0.83-4.51); Lymphocyte % 23.9 % (19-41); Mean Corp Hgb Conc 30.4 g/dL (32-36); Mean Corpuscular Hgb 26.1 pg (27.0-32.0); Mean Corpuscular Volume 85.8 fL (81-99); Mean Platelet Vol. 9.4 fl (6.2-12.0); Monocyte# 0.65 X10^3/uL; Monocyte% 5.7 % (0-10); NRBC Flagged by Analyzer 0 % (0-5); Neutrophil # 7.63 X10^3/uL (2.7-7.7); Neutrophil % 67.4 % (47-70); Platelet Count 507 K/mm3 (150-450); RBC Distribution Width CV 14.6 % (11.6-14.6); RBC Distribution Width SD 45.9 fl (35.1-43.9); Red Blood Count 4.52 M/mm3 (4.2-5.4); White Blood Count 11.3 K/mm3 (4.4-11.0)
[2022-01-20 15:07] LABS: Anion Gap 4 (5-15); BUN 18 mg/dL (7-18); BUN/Creat Ratio 20.2 RATIO (10-20); Calcium,Total 9.2 mg/dL (8.5-10.1); Chloride 103 mmol/L (98-107); Creatinine, Serum 0.89 mg/dL (0.55-1.02); EST Glomerular Filtration Rate 69 mL/min (>60); Est Glom Filt Rate - Afr Amer 83 mL/min (>60); Glucose 119 mg/dL (74-106); Potassium 4.3 mmol/L (3.5-5.1); Sodium Level 136 mmol/L (136-145)
[2022-01-20 15:56] LABS: Hemoglobin A1c 6.3 % (3.8-5.6)
== END | disposition home or self-care (01) ==
LOC: BIMLAB 14:04
PROVIDERS: PCP Internal Medicine; Referring Provider Internal Medicine; Visit Provider Internal Medicine
DX: I10 Essential (primary) hypertension (principal); R73.03 Prediabetes
CPT/HCPCS: 36415; 80048; 83036; 85025

== ENCOUNTER 2022-03-06 16:30 | Outpatient (RCR) | payer MEDICAID, SELFPAY ==
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
== END 2022-03-06 19:00 | disposition home or self-care (01) ==
LOC: PT 16:30
PROVIDERS: PCP Internal Medicine; Referring Provider Specialist; Visit Provider Specialist
DX: M16.0 Bilateral primary osteoarthritis of hip (principal); E66.8 Other obesity; Z68.42 Body mass index [BMI] 45.0-49.9, adult
CPT/HCPCS: 97113; 97162

== ENCOUNTER → 2023-04-24 | Outpatient (CLI) | payer MEDICAID, SELFPAY ==
[2023-04-24 15:57] LABS: Absolute Lymphocyte Count 3.01 X10^3/uL (0.83-4.51); Absolute Neutrophil Count 4.2 X10^3/uL (2.0-7.7); Basophil% 1.2 % (0-1); Eosinophil# 0.26 X10^3/uL; Eosinophils% 3.2 % (0-5); Hematocrit 44.2 % (37-47); Hemoglobin 14.4 g/dL (12.0-15.0); Lymphocyte # 3.01 X10^3/ul (0.83-4.51); Lymphocyte % 36.8 % (19-41); Mean Corp Hgb Conc 32.6 g/dL (32-36); Mean Corpuscular Volume 89.1 fL (81-99); Mean Platelet Vol. 9.8 fl (6.2-12.0); Monocyte# 0.55 X10^3/uL; Monocyte% 6.7 % (0-10); NRBC Flagged by Analyzer 0 % (0-5); Neutrophil # 4.24 X10^3/uL (2.7-7.7); Platelet Count 424 K/mm3 (150-450); RBC Distribution Width CV 15.7 % (11.6-14.6); RBC Distribution Width SD 51.3 fl (35.1-43.9); Red Blood Count 4.96 M/mm3 (4.2-5.4); White Blood Count 8.2 K/mm3 (4.4-11.0)
[2023-04-24 16:12] LABS: Erythrocyte Sedimentation Rate 23 mm/hr (0-30)
[2023-04-24 18:03] LABS: ALB/GLOB Ratio 0.8 RATIO (0.9-2.4); AST(SGOT) 17 U/L (15-37); Alanine Aminotransfer ALT/SGPT 31 U/L (13-56); Albumin, Serum 3.3 g/dL (3.2-5.0); Alkaline Phosphatase 122 U/L (45-117); Anion Gap 6 (5-15); BUN 10 mg/dL (7-18); BUN/Creat Ratio 9.5 RATIO (10-20); Calcium,Total 8.7 mg/dL (8.5-10.1); Chloride 110 mmol/L (98-107); Creatinine, Serum 1.05 mg/dL (0.55-1.02); EST Glomerular Filtration Rate 57 mL/min (>60); Est Glom Filt Rate - Afr Amer 69 mL/min (>60); Glucose 89 mg/dL (74-106); Potassium 4.3 mmol/L (3.5-5.1); Protein, Total 7.3 g/dL (6.4-8.2); Rheumatoid Factor < 10.0 IU/mL (<15); Sodium Level 138 mmol/L (136-145)
[2023-04-26 14:09] LABS: CCP IgG Antibodies 7 units (0-19)
== END | disposition home or self-care (01) ==
LOC: BIMLAB 14:57
PROVIDERS: PCP Internal Medicine; Visit Provider Internal Medicine
DX: M19.90 Unspecified osteoarthritis, unspecified site (principal); I10 Essential (primary) hypertension
CPT/HCPCS: 36415; 80053; 85025; 85652; 86200; 86431

== ENCOUNTER → 2023-08-01 | Outpatient (CLI) | payer MEDICAID, SELFPAY ==
[2023-08-01 16:50] LABS: Absolute Lymphocyte Count 2.96 X10^3/uL (0.83-4.51); Absolute Neutrophil Count 5.6 X10^3/uL (2.0-7.7); Basophil# 0.07 X10^3/uL; Basophil% 0.7 % (0-1); Eosinophil# 0.28 X10^3/uL; Eosinophils% 2.9 % (0-5); Hematocrit 42.5 % (37-47); Hemoglobin 13.1 g/dL (12.0-15.0); Lymphocyte # 2.96 X10^3/ul (0.83-4.51); Lymphocyte % 30.3 % (19-41); Mean Corp Hgb Conc 30.8 g/dL (32-36); Mean Corpuscular Hgb 28.2 pg (27.0-32.0); Mean Corpuscular Volume 91.6 fL (81-99); Mean Platelet Vol. 9.5 fl (6.2-12.0); Monocyte# 0.71 X10^3/uL; Monocyte% 7.3 % (0-10); NRBC Flagged by Analyzer 0 % (0-5); Neutrophil # 5.59 X10^3/uL (2.7-7.7); Neutrophil % 57.3 % (47-70); Platelet Count 472 K/mm3 (150-450); RBC Distribution Width CV 13.6 % (11.6-14.6); RBC Distribution Width SD 45.9 fl (35.1-43.9); Red Blood Count 4.64 M/mm3 (4.2-5.4); White Blood Count 9.8 K/mm3 (4.4-11.0)
[2023-08-01 17:10] LABS: ALB/GLOB Ratio 0.9 RATIO (0.9-2.4); AST(SGOT) 14 U/L (15-37); Alanine Aminotransfer ALT/SGPT 26 U/L (13-56); Albumin, Serum 3.5 g/dL (3.2-5.0); Alkaline Phosphatase 166 U/L (45-117); Anion Gap 7 (5-15); BUN 14 mg/dL (7-18); BUN/Creat Ratio 14.3 RATIO (10-20); Calcium,Total 8.6 mg/dL (8.5-10.1); Chloride 106 mmol/L (98-107); Cholesterol 127 mg/dL (200); Creatinine, Serum 0.98 mg/dL (0.55-1.02); EST Glomerular Filtration Rate 61 mL/min (>60); Est Glom Filt Rate - Afr Amer 74 mL/min (>60); Globulin 4.1 g/dL (2.2-4.2); Glucose 115 mg/dL (74-106); High Density Lipoprotein 46 mg/dL; Potassium 4.3 mmol/L (3.5-5.1); Protein, Total 7.6 g/dL (6.4-8.2); Sodium Level 139 mmol/L (136-145); Triglycerides 164 mg/dL; Very Low Density Lipoprotein 33 mg/dL (5-40)
== END | disposition home or self-care (01) ==
LOC: BIMLAB 15:23
PROVIDERS: PCP Internal Medicine; Referring Provider Internal Medicine; Visit Provider Internal Medicine
DX: Z01.818 Encounter for other preprocedural examination (principal); I10 Essential (primary) hypertension
CPT/HCPCS: 36415; 80053; 80061; 85025

== ENCOUNTER 2023-11-14 09:40 | Inpatient (IN) | payer MEDICAID, SELFPAY ==
--- NOTE | 2023-10-31 11:55 | RAD_ITS ---
STUDY: X-RAY CHEST REASON FOR EXAM: Female, 63 years old. PREOP TECHNIQUE: PA and lateral views of the chest. COMPARISON: Comparison is made with prior study dated March 23, 2016. FINDINGS: Hyperinflation. The lungs are clear. There is no demonstrated pleural abnormality. Normal size heart. Normal mediastinum and song. Normal visualized pulmonary arteries. Normal visualized aortic arch and descending thoracic aorta. There are degenerative changes of the visualized thoracic spine. Normal visualized ribs, clavicles, and shoulders. There is no demonstrated abnormality of the visualized soft tissue structures of the upper abdomen. RAD/Chest PA and Lateral IMPRESSION: Hyperinflation. The lungs are clear. Electronically Signed: Mario Mckenzie MD at 15:21 EST ,
--- NOTE | 2023-10-31 11:55 | EKG12_ITS ---
Test Reason : PRE OP Blood Pressure : / mmHG Vent. Rate : 083 BPM Atrial Rate : 083 BPM P-R Int : 166 ms QRS Dur : 080 ms QT Int : 364 ms P-R-T Axes : 042 021 062 degrees QTc Int : 427 ms Normal sinus rhythm NORMAL LIMITS Confirmed by Edward Gamboa ([id number]), book or script editor JACQUELINE RICHARDS ([id number]) on 10/31/2023 1:45:19 PM Referred By: FREDO Confirmed By:Edward Gamboa
[2023-10-31 13:11] LABS: Absolute Lymphocyte Count 3.06 X10^3/uL (0.83-4.51); Absolute Neutrophil Count 7.1 X10^3/uL (2.0-7.7); Basophil% 0.9 % (0-1); Eosinophil# 0.02 X10^3/uL; Eosinophils% 0.2 % (0-5); Hematocrit 39.6 % (37-47); Lymphocyte # 3.06 X10^3/ul (0.83-4.51); Mean Corp Hgb Conc 30.3 g/dL (32-36); Mean Corpuscular Hgb 26.7 pg (27.0-32.0); Mean Corpuscular Volume 88.2 fL (81-99); Mean Platelet Vol. 9.3 fl (6.2-12.0); Monocyte# 0.65 X10^3/uL; Monocyte% 5.9 % (0-10); NRBC Flagged by Analyzer 0 % (0-5); Neutrophil # 7.06 X10^3/uL (2.7-7.7); Neutrophil % 64.6 % (47-70); Platelet Count 482 K/mm3 (150-450); RBC Distribution Width SD 42.1 fl (35.1-43.9); Red Blood Count 4.49 M/mm3 (4.2-5.4); White Blood Count 10.9 K/mm3 (4.4-11.0)
[2023-10-31 13:41] LABS: Albumin, Serum 3.3 g/dL (3.2-5.0); Anion Gap 5 (5-15); BUN 21 mg/dL (7-18); BUN/Creat Ratio 21.7 RATIO (10-20); Calcium,Total 8.8 mg/dL (8.5-10.1); Chloride 104 mmol/L (98-107); Creatinine, Serum 0.97 mg/dL (0.55-1.02); EST Glomerular Filtration Rate 62 mL/min (>60); Est Glom Filt Rate - Afr Amer 75 mL/min (>60); Glucose 123 mg/dL (74-106); Potassium 4.2 mmol/L (3.5-5.1); Sodium Level 136 mmol/L (136-145)
[2023-10-31 14:10] LABS: Magnesium 1.9 mg/dL (1.6-2.6)
--- NOTE | 2023-11-08 06:12 | HP.PCM_ITS ---
History and Physical History and Physical? Patient Name: Teena Lawrence : 1960 From:? LYNDA HERNANDEZ PA-C? DATE OF PRE-OPERATIVE EXAM: 11/05/2023 DATE OF SURGERY:? 11/14/2023 SCHEDULED PROCEDURE:? Revision right total hip arthroplasty femoral component with possible acetabular component posterior approach HISTORY OF PRESENT ILLNESS: Preoperative history and physical exam was performed on November 05, 2023.? This is a 63-year-old female who underwent a direct anterior right total hip arthroplasty by Dr. Edd Trejo on August 28, 2023.? Initially after the surgery while in the hospital patient stated that she was doing much better than preoperatively.? While at [facility] they attempted to set her up with multiple agencies for home health in which no agencies were able to be found with her insurance.? She fell at that time she was able to go home with outpatient therapy with help from friends in [place].? On postoperative day #2 she was having a very difficult time and was readmitted into the hospital.? At that time she was placed in a senior living facility however she left as she was concerned due to the hygiene and poor care she was getting.? While at home she continued to struggle.? At her 2 week postoperative visit she was continued to have problems at home taking care of herself and went back to the emergency room in which she was placed in a senior living facility.? She felt as if she was doing better but then progressively became worse with more difficulty with weightbearing.? At her 6 week follow-up repeat x-rays were obtained which did show subsidence of the component.? She presents in a wheelchair.? She has been using Tylenol for pain.? She was participating in physical therapy in the care home.? She has increased pain with any walking, stairs, sitting.? Postoperatively she was treated with oxycodone and meloxicam.? She was also treated with 2 weeks doxycycline postoperatively due to BMI greater than 40.0.? There has been no change in medical history.? She has had repeat clearance from primary care physician Dr. Thornton.? She currently denies any chest pain, shortness of breath, fevers chills or recent infections.? She did have repeat lab work which did show one of 2 low nutritional markers.? Our office attempted to get a hold of her but was unable to due to her phone not accepting messages.? I did discuss with the patient today that she should be doing diabetic friendly protein drinks twice daily.? She voiced understanding.? Patient denies past history of DVT or pulmonary embolism.? After discussion with Dr. Edd Trejo, the patient does wish to proceed with a revision right total hip arthroplasty femoral component and possible acetabulum posterior approach. REVIEW OF SYSTEMS: Review Of Systems: Constitutional: Reports weight change, but denies change in appetite and fever. Cardiovasular: Denies chest pain, heart murmur and irregular heartbeat. Respiratory: Denies cough, pneumonia, shortness of breath, tuberculosis and wheezing. Gastrointestinal: Denies constipation, diarrhea, heartburn, nausea, rectal itching, bloody stools and vomiting. Genitourinary: Denies incontinence. Musculoskeletal: Reports gait disturbance, leg swelling, pain, trouble walking and weakness. Skin: Denies Raynaud's, history of shingles and tattoo. Neurological: Denies ambulatory dysfunction, dizziness, numbness/tingling and tremor. Psychiatric: Denies anxiety, insomnia and stress. Hematologic/Lymphatic: Reports anemia, but denies bleeding/bruising tendency and past transfusion. Reviewed and updated. PAST MEDICAL HISTORY: Advance Care Plan: No Advance Directives Effective Date: 12/20/2021 Past Medical History: Medical Problems: Arthritis, High Blood Pressure, Hypercholesterolemia Cancer - KIDNEY-PAST Diabetes, restless leg syndrome anemia - history? edema -? history? Accidents: None Surgical Hx: Gallbladder - (2014) [facility] Kidney Cancer Removal - (2013) [facility] LT Elbow Infection - (2017) Hip Replacement RT - (08/28/2023) DIRECT ANTERIOR DR. TREJO AT [facility] Anesthesia Complications: None Assistive Devices: Dentures Reviewed and updated. SOCIAL HISTORY: Social History: Marital: Single.Occupation: Retired.Work Status: Retired.Hand Dominance: Right- handed. Personal Habits:? Cigarette Use: Former.Smokeless Tobacco: Never Used Smokeless Tobacco.E-Cigarette Use: Never used.Alcohol: Has consumed alcohol in the past.Drug Use: Denies Use.Enjoy Exercising: Never Exercises. Reviewed, no changes. VITALS: Ht: 64 Wt: 242lb Wt k.771 BMI: 41.5 BP: 130/84 Pulse: 88 Resp: 14 T: 96.8 T: 36.0C Pain Level: 8 O2SatR: 100 ALLERGIES: No Known Drug Allergy? MEDICATIONS: Acetaminophen Extra Strength 500 mg take 2 tablets (1,000 mg) every 8 hours as needed for pain, Aspirin 81 81 mg dose : 81 mg = 1 tab(s), oral, bid, take 81 mg aspirin twice daily with food for 4 weeks postoperatively for dvt prophylaxis., # 60 tab(s), 0 refill(s), pharmacy: [facility] #[id number], 167.6, cm, 08/28/23 14:23:00 est, height, kg, 08/28/23 14:23:00 est, dosing weight, Oxycodone HCL 5 mg 1 tab by mouth every 6 hours as needed pain, Doxepin HCL 25 mg take 1 capsule by mouth at bedtime, Bupropion Hydrochloride ER (SR) 100 mg take 1 tablet by mouth twice a day, Vitamin D3 25 mcg (1000 Ut) 1 a day, Atorvastatin Calcium 40 mg 1 by mouth every day, Doxepin HCL 100 mg 1po qday, Amlodipine Besylate 10 mg 1 by mouth every day, Valsartan 80 mg take 1 tablet by mouth every day, Meloxicam 15 mg take 1 tablet by mouth daily with food, Metformin HCL 500 mg take 1 tablet by mouth twice daily PRE-OP EXAM:? General appearance:NORMAL? ? ? Other: Eyes: Conjunctivae and lids: NORMAL? Pupils: ERR Ears, Nose, Mouth, and Throat: NORMAL? Other: Inspection of lips, teeth and gums: NORMAL? ?Other: Neck: Examination of neck: no masses noted. Respiratory: Assessment of respiratory effort: NORMAL? ?Other: ?Auscultation of lungs: clear to auscultation no wheezes, rhonchi or rales. Cardiovascular:? Auscultation of heart: regular rate and rhythm, no murmurs, gallops or rubs. PHYSICAL EXAMINATION: Patient does present in a wheelchair at the preoperative visit.? The incision is overall well healed with the anterior hip.? There is no erythema or signs of infection.? Range of motion was deferred due to difficulty in wheelchair.? She had increased pain with any attempted motion.? Sensation was intact to light touch. IMAGING STUDIES: Previous x-rays of the right hip revealed significant subsidence of the femoral implant without distinct fracture.? The femoral component is further subsided and more varus position.? The acetabulum does appear to be stably fixed. IMPRESSION: 1.? Painful right total hip arthroplasty with subsidence 2.? Hypertension 3.? Type 2 diabetes mellitus:? A1c 6.0 4.? Restless leg syndrome 5.? History of anemia 6.? History of bilateral edema 7.? Morbid obesity with BMI 41.5 PLAN: Dr. Edd Trejo did discuss and review with the patient all treatment options including surgical versus nonsurgical options.? Patient does wish to proceed with the above-stated procedure.? Potential risks, benefits, and complications of the procedure were discussed in detail including but not limited to , infection, nerve and blood vessel damage, persistent pain, numbness, tingling, paresthesias, blood clot, pulmonary embolism, and requirement for possible further surgery.? The patient expressed full understanding and has no further questions for the doctor.? Patient does agree to proceed with the above-stated procedure and has signed the surgery consent form. POST-OP MEDICATION PLAN: Pain Medications:? Postoperative pain regimen will be initiated by Dr. Edd Trejo at the hospital.? Due to patient's revision and morbid obesity she will be placed on doxycycline postoperatively while following cultures.? I did discuss with the patient hypersensitivity to sunlight and taking appropriate precautions.? Also recommended probiotic.? I did discuss with the patient today her lab work and instructed her to take diabetic friendly protein drinks twice daily.? She voiced understanding.? Also due to patient living home alone we will have case management involved for appropriate discharge planning.? Patient had significant difficulty after primary right total hip arthroplasty and did require senior living facility placement. DVT Prophylaxis:? Aspirin 81 mg twice daily for 4 weeks postoperatively.? Denies past history of DVT or pulmonary embolism This dictation was created using voice recognition software. Phonetic and/or grammatical errors may exist. ___? I have re-examined the patient.? There are no clinical changes since date of exam. ___? See progress notes for changes. ___? Dictated on admission Date: ? ? ?Time: Signature:
[2023-11-14] VITALS (18 sets, daily range): BP systolic 91–136; BP diastolic 55–73; PULSE 77–92; RESP 16–20; TEMP 36.4–37.4; O2SAT 95–100; BMI 48.0; BMI 58.4
--- NOTE | 2023-11-14 10:20 | RAD_ITS ---
STUDY: X-RAY - PELVIS AND RIGHT HIP REASON FOR EXAM: Female, 63 years old. Pain. Preoperative planning. TECHNIQUE: 3 views of the pelvis and hip. COMPARISON: X-rays of the pelvis and hips dated 05/26/2021 FINDINGS: Right total hip arthroplasty in anatomic alignment without complications. Severe stable arthrosis of the left hip. RAD/HIP, UNI W/ Pelvis 2-3 Views IMPRESSION: Uncomplicated right total hip arthroplasty. Severe arthrosis of the left hip unchanged. No acute abnormality. Electronically Signed: Cruz Syed MD at 10:41 EST ,
[2023-11-14] MEDS: Acetaminophen 500 MG Tablet 1000 MG PO ×2 (10:50→22:20)
[2023-11-14] MEDS: Lactated Ringers 1,000 ML 999 ML IV (10:50)
[2023-11-14] MEDS: Gabapentin 600 MG Tablet PO (10:51)
[2023-11-14] MEDS: Celecoxib 200 MG Capsule 400 MG PO (10:51)
[2023-11-14] MEDS: Magnesium 2 GM for ERAS IV (10:52)
[2023-11-14] MEDS: Lactated Ringers 1,000 ML 75 ML IV ×2 (11:51→14:31)
[2023-11-14 11:54] LABS: Bedside Glucose 117 mg/dL (74-106)
[2023-11-14] MEDS: Cefazolin 2 GM in 0.9% Normal Saline (100mL Bag) 100 ML IV (13:03)
[2023-11-14] MEDS: TXA 1000mg in NS100 100ml (IVPB at Incision) 660 MG IV (13:20)
[2023-11-14] MEDS: dexAMETHasone 10 MG/ML Vial IV (13:24)
[2023-11-14] MEDS: Heparin 10,000 UNITS/10 ML Vial 10000 UNITS (13:39)
[2023-11-14] MEDS: TXA 1000mg in NS100 100ml (IVPB at Closure) 660 MG IV (15:14)
[2023-11-14] MEDS: JPS (Morphine 10mg/ml) OPERA.SITE (15:24)
--- NOTE | 2023-11-14 15:56 | PCM.OPRPT ---
Report of Operation Date of Procedure: 11/14/23 Pre-Operative Diagnosis: Failed right total replacement subsidence and loosening Post-Operative Diagnosis: Failed right total replacement, subsidence loosening and calcar fracture with interval healing. Surgery/Procedure Performed:: Revision right total replacement femoral and acetabular components. Description of Surgical Findings:: Acetabular component was revised to an MDM liner for greater stability due to posterior approach and patient's body habitus. Femoral stem was grossly loose. Calcar showed evidence of healed fracture. Surgeon: Edd Trejo concrete stone finishing supervisor: Bunny Escalera concrete stone finishing supervisor: Ana Allen Type of Anesthesia: General Anesthesiologist: Brock Roldan Special Medications: 3 g Ancef, 1 g TXA at incision, 1 g TXA closure, 10 mg Decadron, joint cocktail (5 mg Duramorph, 30 mL of 0.5% Ropivicaine, 1000 units of epinephrine, 30 mg of Toradol) Estimated Blood Loss (mL): 750 mL Fluids Replaced: 1500 mL crystalloid, 155 mL Cell Saver Description of Procedure: 63-year-old female presents today for operation on her right hip. Patient has a history of morbid obesity and avascular necrosis bilaterally with right total replacement in August of last year. Patient presented at the 6-week visit with evidence of subsidence of her implant and increased pain. Abnormal appearance of the lesser trochanter. Based on this I discussed with the patient returning to the operating room for revision to a diaphyseal fitting stem versus cemented stem. Patient's previous anterior approach would be difficult to proceed with the diaphyseal fitting stem based on her body habitus therefore we also discussed a posterior approach. Risk and benefits of the procedure were discussed the patient is noted in the H&P the patient wished to proceed with the right revision total hip replacement. On the date of the procedure patient was seen and evaluated in the preoperative area. Right hip was marked verified and the operative site. Patient was then brought back to the operating room with her transferred the table in the supine position. Anesthesia assumed control of the C-spine and airway and remained controlled throughout the remainder of the procedure. Once the patient was appropriately anesthetized patient was placed in the lateral decubitus position with the help my assistanceS. This required multiple assistance based on patient's morbid obesity. Once the patient was adequately positioned and secured with axillary roll placed using the pegboard we verified all bony prominences were identified and well-padded and the right lower extremity was then prepped in a sterile fashion while the surgeon scrubbed. Upon reentering the room the right lower extremity was draped in a standard orthopedic fashion with Ioban placed over the exposed skin. Incision was then marked out and timeout was called. Everyone agreed upon the side, the site, the procedure to be performed, patient's identity. Incision was then taken down through skin and subcutaneous tissue. There were numerous layers of subcutaneous tissue to get down to the fascia. Hemostasis was obtained as we approached the fascia and prior to incising it. Once we had hemostasis and identified the fascia the fascia was incised in line with the incision and over the greater trochanter. Charnley retractor was placed we carefully identified the posterior aspect of the greater trochanter and took down the posterior external rotators. Once were able to identify the capsule and get into the joint we able to identify the femoral neck and release it enough so that we could dislocate the hip. Once the hip was dislocated still difficult to access. Based on this we need to do greater releases this was based on her morbid obese body habitus. Additionally we had to extend the incision proximally and distally to obtain better visualization. Once we are able to do this we were able to remove the femoral stem which had no evidence of ingrowth. Once removed the femoral stem we then exposed the acetabulum and remove the polyethylene acetabular minor so we could place an MDM the acetabulum liner for improved stability based on her posterior approach and multiple surgeries. Once this was completed we again directed our attention back to the femur. Further releases were required in order to fully expose it based on the depth of the incision and working wound. Once we are able to expose the femur we then reamed the femur for a 22 mm x 155 mm stem. Once this was completed the wound was copiously irrigated out with normal saline under low-pressure lavage 6 total liters. Once this was completed the acetabulum was again exposed and the MDM metal liner was impacted into place. Locking mechanism was verified. Proximal femur was again exposed and the 22 mm x 155 mm MDM restorationist modular stem was impacted into place. Once this was impacted into place we carefully reamed the proximal femur to 21 mm and used a 21 mm cone body. We trialed using a neutral cone body with a -2.7 mm femoral head which gave us good stability with flexion and 30 degrees internal rotation. Based on patient's body habitus we did require an additional physical therapy assistant instructor during reduction of the hip. Once this was completed we then dislocated the hip. Proximal femur was again exposed. Again additional physical therapy assistant instructor was needed. Final cone body was opened and impacted into place. Final MDM femoral head and polyethylene liner were opened and assembled. Trunnion was cleaned and this was impacted into place. Hip was then again reduced and remained stable as noted before. Posterior structures were repaired where appropriate and able. There was a small portion of the abductors that we were able to repair which had chronic tear which was worsened during exposure. The wound was copiously irrigated out with a 500 mL dilute Betadine lavage for 3 minutes then a chlorhexidine lavage for 1 minute followed by copious amounts of normal saline. Fascia was closed with #1 Vicryl first with interrupted sutures then with runners proximally distally. Deep tissue was closed #1 Vicryl. Skin was closed with 2-0 Vicryl and final skin closure was done with 2-0 nylon sutures. Prevena wound VAC was then placed on the incision. Patient was placed in the supine position and anesthesia awaken the patient. Patient was transferred to the [facility] and to the PACU for recovery. Implants: Femur?Mark Anthony restorationist modular 122 mm x 155 mm diaphyseal fitting conical stem. Conical proximal body 21 mm, standard Femoral head?28 mm -2.7 mm Biolox delta ceramic femoral head from Mark Anthony, Mark Anthony X3 polyethylene 42 E liner Acetabulum?Mark Anthony alpha code E cobalt-chromium MDM liner Postop plan: Weightbearing as tolerated. Posterior hip precautions for 6 weeks. 81 mg aspirin p.o. twice daily for DVT prophylaxis. Doxycycline 100 mg p.o. twice daily for 2 weeks due to revision surgery and patient's morbid obesity resulting in increased risk factors for this patient. During the course of the procedure the physician bindery library technical assistant (PE) played a vital role. Their intimate knowledge of my steps in the procedure aided in safe and expedient completion of the procedure. The PE played a vital rolls in positioning particularly in obtaining the appropriate lateral decubitus position. The PE was also vital in the retraction of soft tissues during the exposure and especially the femoral work as this is a vital part of the procedure to prevent complications and fractures. The PE was also vital and protecting soft tissues during times of bony cuts and reaming. He also played a vital role in closure with my direct supervision. The PE was also important during reduction and dislocation of the joint and trials intraoperatively. Modifier 22: Patient's body habitus increased the difficulty of this case should be accounted for. It took additional assistance, as well as additional time. This included additional time with closure as well as additional time during the procedure due to extensive nature of the exposure as we had to extend the exposure multiple times in order to obtain appropriate visualization in relation to the depth of the patient's wound. Complications No intraoperative complications Admit VTE Documentation VTE Present on Admission: No VTE Mechan Device Prophylaxis: SCD's and Thigh High GREG Hose VTE Pharm Prophylaxis ordered?: Yes
--- NOTE | 2023-11-14 17:00 | RAD_ITS ---
EXAM: XR RIGHT HIP WITH PELVIS WHEN PERFORMED, 2 OR 3 VIEWS CLINICAL INDICATION: Post Op -- AP both hips on single swathi/lateral of op hip PACU TECHNIQUE: Two or three views of the right hip with pelvis when performed. COMPARISON: 11/14/2023 at 1016 hours FINDINGS: BONES/JOINTS: There is been a revision of a right hip prosthesis which is in anatomic alignment. There are severe degenerative changes in the left hip. No displaced fracture. No destructive or sclerotic lesions. Note that overlapping bowel shadows may however obscure fine detail. Sacroiliac joint is unremarkable. No widening of the pubic symphysis. SOFT TISSUES: Unremarkable. No soft tissue swelling or gas. RAD/Hip Min 2 Views (Portable) IMPRESSION: 1. Revision of a right hip prosthesis which is in anatomic alignment. There are no acute osseous abnormalities. 2. Severe arthritic changes in the left hip with loss of hip joint space and sclerosis. Electronically Signed: Herbert Owusu MD at 18:13 EST ,
[2023-11-14 18:08] LABS: Bedside Glucose 179 mg/dL (74-106)
--- NOTE | 2023-11-14 18:54 | PCM.PN.HOSP ---
Reason for Visit Reason for Visit: Diagnoses Encounter for other preprocedural examination (11/14/23) Subjective Subjective Patient was seen and examined today at the request of orthopedic surgery, she underwent a revision of her right total replacement femoral and acetabular component, medical history includes type 2 diabetes, essential hypertension, morbid obesity, and hyperlipidemia. Patient was seen in PACU, she does not appear to be in any distress and she has no complaints of chest discomfort or shortness of breath. Objective Data Objective Data Vital Signs: Vital Signs Temp Pulse Resp BP Pulse Ox O2 Del Method O2 Flow Rate 97.5 F L 86 16 115/73 98 Room Air 4 11/14/23 18:30 11/14/23 18:30 11/14/23 18:30 11/14/23 18:30 11/14/23 18:30 11/14/23 18:30 11/14/23 18:15 Oxygen Flow Rate (L/min) 4 Oxygen Delivery Method Room Air Weight: 127 kg Body Mass Index (BMI) 48.0 Intake & Output: Intake and Output for Last 24 Hours 11/12/23 11/13/23 11/14/23 23:59 23:59 23:59 Intake Total 2434 / 2434 Balance 2434 / 2434 Lab / Micro Data 10/31/23 12:24 10/31/23 12:24 Labs: Laboratory Results - last 24 hr 11/14/23 10:31: POC Glucose 117 H 11/14/23 17:44: POC Glucose 179 H Micro: Microbiology 10/31/23 12:24 Swab (Method) Nasal Screen MRSA/MSSA - Final Radiography Diagnostic Testing: Radiology Impression Hip/Pelvis X-Ray 11/14/23 10:20 IMPRESSION: Uncomplicated right total hip arthroplasty. Severe arthrosis of the left hip unchanged. No acute abnormality. Electronically Signed: Cruz Syed MD at 10:41 EST , Hip X-Ray 11/14/23 17:00 IMPRESSION: 1. Revision of a right hip prosthesis which is in anatomic alignment. There are no acute osseous abnormalities. 2. Severe arthritic changes in the left hip with loss of hip joint space and sclerosis. Electronically Signed: Herbert Owusu MD at 18:13 EST , Physical Exam Const alert, oriented x3 and no apparent distress Constitutional Narrative: Patient is morbidly obese General Appearance: cooperative, well kempt and well developed Orientation / Consciousness: awake, oriented to person, oriented to place and oriented to time HEENT normocephalic, head/scalp atraumatic and moist oral mucous membranes Eyes PERRL, EOMs intact bilaterally and conjunctivae normal Neck supple, no JVD, thyroid normal and no carotid bruits General: trachea midline Resp normal respiratory effort, no retractions, no use of accessory muscles and clear to auscultation bilaterally Auscultation: Negative for rales, rhonchi or wheezes Cardio regular rate, regular rhythm, S1 normal heart sound, S2 normal heart sound, no murmurs, no rub and no gallops GI normal to inspection, nondistended, normoactive bowel sounds, soft to palpation, non-tender and non-distended GI Narrative: Patient is morbidly obese Extremity no clubbing, cyanosis or edema Skin no rashes or lesions noted Neuro oriented x3, CN's II-XII intact bilaterally, no focal motor deficits and no sensory deficits noted Sensorium / Orientation: awake and alert Speech: speech normal Psych affect normal Assessment & Plan Assessment/Plan (1) Hypertension: QUALIFIERS: Hypertension type: primary hypertension Qualified Code(s): I10 - Essential (primary) hypertension PLAN: Plan 1. Essential hypertension-patient will remain on her current medications, blood pressure medicines will be adjusted if needed #2 type 2 diabetes-patient will have fingerstick blood sugars and sliding scale insulin will be administered as needed #3 hyperlipidemia-patient is on atorvastatin #4 morbid obesity-complicates care, medical course, recovery, and prognosis #5 failed right total knee replacement-postop day 0 revision right total knee replacement femoral and acetabular components-patient will be seen by PT and OT, orthopedic surgery will manage her orthopedic care Total clinical time spent by myself addressing the patient's medical issues, reviewing all of her data, and collaborating with patient's care team: 35 minutes Charges/Coding Visit Charges Inpatient E&M: 05907 Subs Hosp L2
[2023-11-14] MEDS: oxyCODONE 5 MG Tablet PO (20:12)
[2023-11-14] MEDS: Cefazolin 1 GM/50 ML BAG IV (21:58)
[2023-11-14] MEDS: Insulin Lispro 100 UNIT/ML INSULN.PEN SC (22:16)
[2023-11-14] MEDS: Aspirin 81 MG TAB.CHEW PO (22:17)
[2023-11-14] MEDS: Senna/Docusate Sodium 1 Tablet 2 TABLET PO (22:20)
[2023-11-14] MEDS: Atorvastatin Calcium 40 MG Tablet PO (22:20)
[2023-11-14] MEDS: Doxepin Hcl 25 MG Capsule PO (22:23)
--- NOTE | 2023-11-14 22:37 | NURSING ---
needed to replace the suction piece since it plastic eliezer weaver while assisting her to the bsc.
[2023-11-14] MEDS: Morphine 4 MG/ML Syringe IV (23:51)
[2023-11-15] VITALS (8 sets, daily range): BP systolic 99–117; BP diastolic 58–69; PULSE 78–110; RESP 16–18; TEMP 36.5–37.6; O2SAT 94–99
[2023-11-15 00:06] LABS: Bedside Glucose 162 mg/dL (74-106)
[2023-11-15] MEDS: Cefazolin 1 GM/50 ML BAG IV (04:35)
[2023-11-15] MEDS: Acetaminophen 500 MG Tablet 1000 MG PO ×3 (06:00→21:57)
[2023-11-15 06:57] LABS: Bedside Glucose 136 mg/dL (74-106)
[2023-11-15 08:29] LABS: Hematocrit 28.8 % (37-47); Hemoglobin 8.9 g/dL (12.0-15.0); Mean Corp Hgb Conc 30.9 g/dL (32-36); Mean Corpuscular Hgb 26.6 pg (27.0-32.0); Mean Platelet Vol. 9.5 fl (6.2-12.0); Platelet Count 436 K/mm3 (150-450); RBC Distribution Width CV 13.8 % (11.6-14.6); Red Blood Count 3.35 M/mm3 (4.2-5.4); White Blood Count 18.3 K/mm3 (4.4-11.0)
[2023-11-15] MEDS: oxyCODONE 5 MG Tablet PO ×2 (08:47→13:43)
[2023-11-15] MEDS: metFORMIN HCl 500 MG Tablet PO ×2 (08:48→17:15)
[2023-11-15] MEDS: Aspirin 81 MG TAB.CHEW PO ×2 (08:48→17:14)
[2023-11-15] MEDS: Famotidine 20 MG Tablet PO (08:49)
[2023-11-15] MEDS: Glucerna Shake 120 ML LIQUID PO ×3 (08:53→17:14)
[2023-11-15 09:06] LABS: Anion Gap 5 (5-15); BUN 33 mg/dL (7-18); BUN/Creat Ratio 30.8 RATIO (10-20); Calcium,Total 8.2 mg/dL (8.5-10.1); Chloride 106 mmol/L (98-107); Creatinine, Serum 1.07 mg/dL (0.55-1.02); EST Glomerular Filtration Rate 55 mL/min (>60); Est Glom Filt Rate - Afr Amer 67 mL/min (>60); Estimated Creatinine Clearance 82.47 ml/min; Glucose 133 mg/dL (74-106); Sodium Level 134 mmol/L (136-145)
--- NOTE | 2023-11-15 09:11 | CASEMGMT ---
Discharge Planning A list of?SNF providers including quality and resource use data and consistent with the patient's preferred geographic region, medical needs, and insurance network was created in [employer] Guide.? This list was provided to the SW. Kizzy Jain Discharge Planning Asst.
--- NOTE | 2023-11-15 10:57 | CASEMGMT ---
Discharge Planning Referral sent to [facility] via [facility]. Kizzy Jain, Discharge Planning Asst.
--- NOTE | 2023-11-15 11:05 | CASEMGMT ---
Social Work SW?to room to meet with patient for initial transition planning/care coordination?assessment.?SW?introduced self and role at [facility].? Pt voices understanding and consents to?assessment.? Pt is A/Ox4 and answers all questions appropriately.?? Care providers, pharmacy, and demographics verified. PCP: Norberto Specialists: oscar Trejo Pref[facility]: [facility] Insurance: [place] Medicaid Prescription Benefit:?yes Living Will/HPOA:?No, pt would like additional information and SW will provide LNOK: Yesenia Lawrence, daughter Living Arrangements: Pt lives at home alone in a one story apartment in a care home community. Pt has been wheelchair bound at home and is able to transfer independently. Pt is independent with bathing, dressing, cooking and household tasks. Transportation:? pt is currently not able to drive due to hip issues. Pt uses a taxi or friends and family for transportation and has no trouble getting in and out of a car. DME: ? wheelchair, walker, cane, high rise toilet, shower chair, grab bars HHC/SNF: No previous home health care. Pt was at [facility] for two days and chose to leave AMA as she did not feel this facility was clean or safe. Pt then went to [facility] and was there for 28 days with discharge home on 10/18/23. [facility] had set pt up with services through [facility]. Phone call to Coverage Team at [facility] and informed that has been approved for services and although pt has not been assigned a Embedded Systems Software Engineer, it will most likely be Jessica Siddiqui. Pt has been approved for 14 home delivered meals a week and 9 hours of home aids a week. No services have been started as pt was to come in the hospital for surgery and then to rehab. Services to start after rehab. PLAN: Pt feels she will need a SNF at time of discharge for short term rehab prior to returning home alone and starting services through [facility]. A list of SNF providers including quality and resource use data and consistent with the patient?s preferred geographic region, medical needs, and insurance network were provided from the [employer]Port Guide. Pt's preferred provider is [facility]. [place] certified registered dental assistant updated and to send referral. [facility] to be updated when pt is discharged. S. Gucker, CASE REVIEWER
[2023-11-15] MEDS: Cholecalciferol (VIT D3) 25 MCG TABLET (1,000 UNITS) 50 MCG PO (11:12)
[2023-11-15] MEDS: Senna/Docusate Sodium 1 Tablet 2 TABLET PO ×2 (11:12→21:57)
--- NOTE | 2023-11-15 11:15 | PN.ORTHO_ITS ---
Subjective Subjective The patient was sitting in bedside chair upon examination. Patient denies any chest pain, shortness of breath, dizziness, lightheadedness, nausea or vomiting, or calf pain. Pain is controlled on medications. No adverse overnight events. Patient overall is doing well. She does have incisional wound VAC due to body habitus and prevention of infection. She is on antibiotics due to revision. Patient will require additional care upon discharge in which case management is currently involved for discharge planning to detention facility. After patient's initial right hip replacement she had very difficult time for home health therapy secondary to her insurance. This did require her to go to the emergency room in which she was admitted into detention facility as she was unable to care for herself. Objective Data Objective Data Vital Signs: Vital Signs Temp Pulse Resp BP Pulse Ox O2 Del Method O2 Flow Rate 98.0 F 78 18 99/58 L 99 Room Air 2 11/15/23 09:23 11/15/23 09:23 11/15/23 09:23 11/15/23 09:23 11/15/23 10:30 11/15/23 09:23 11/15/23 02:45 Oxygen Flow Rate (L/min) 2 Oxygen Delivery Method Room Air Weight: 154.5 kg Body Mass Index (BMI) 58.4 Intake & Output: Intake and Output for Last 24 Hours 11/13/23 11/14/23 11/15/23 23:59 23:59 23:59 Intake Total 2484 / 2484 810.00 / 810.00 Balance 2484 / 2484 810.00 / 810.00 Lab / Micro Data 11/15/23 08:01 11/15/23 08:01 Labs: Laboratory Results - last 24 hr 11/14/23 10:31: POC Glucose 117 H 11/14/23 17:44: POC Glucose 179 H 11/14/23 22:06: POC Glucose 162 H 11/15/23 06:40: POC Glucose 136 H 11/15/23 08:01: WBC 18.3 H, RBC 3.35 L, Hgb 8.9 L, Hct 28.8 L, MCV 86.0, MCH 26.6 L, MCHC 30.9 L, RDW Std Deviation 43.0, RDW Coeff of Nitza 13.8, Plt Count 436, MPV 9.5, Sodium 134 L, Potassium 5.0, Chloride 106, Carbon Dioxide 23.0, Anion Gap 5, BUN 33 H, Creatinine 1.07 H, Estim Creat Clear Calc 82.47, Est GFR (MDRD) Af Amer 67, Est GFR (MDRD) Non-Af 55 L, BUN/Creatinine Ratio 30.8 H, Glucose 133 H, Calcium 8.2 L Micro: Microbiology 10/31/23 12:24 Swab (Method) Nasal Screen MRSA/MSSA - Final Radiography Diagnostic Testing: Radiology Impression Hip X-Ray 11/14/23 17:00 IMPRESSION: 1. Revision of a right hip prosthesis which is in anatomic alignment. There are no acute osseous abnormalities. 2. Severe arthritic changes in the left hip with loss of hip joint space and sclerosis. Electronically Signed: Herbert Owusu MD at 18:13 EST , Physical Exam Narrative Vital signs stable and afebrile. SCDs and GREG hose are in place bilaterally Patient is able to plantarflex and dorsiflex actively. Sensation is intact to light touch to saphenous, sural, superficial and deep peroneal, and tibial distribution. Incisional wound VAC in place without any drainage and tubing or canister. Negative Homans bilaterally, negative signs and symptoms of DVT. Const alert, oriented x3 and no apparent distress Assessment & Plan Assessment/Plan (1) History of revision of total replacement of right hip joint: PLAN: 1. S/P revision right total hip arthroplasty posterior approach POD #1 2. Continue Pain Medications: Tylenol, meloxicam and oxycodone. I am going to place meloxicam on hold at this time as she has had some postoperative elevation in kidney function and GFR was lower. 3. DVT Prophylaxis: Take 81 mg aspirin twice daily for 4 weeks postoperatively for DVT prophylaxis. Patient denies past history of DVT or pulmonary embolism 4. PT/OT: Weightbearing as tolerated with walker. Continue posterior dislocation precautions. Also appreciate recommendations for discharge planning as there is concern for safety upon discharge. Patient will require detention facility. 5. H & H: 8.9/28.8, asymptomatic. Patient does have past history of anemia in which she has seen a drop in her hemoglobin postoperatively secondary to blood loss versus delusional component. Estimated blood loss was 750 mL in which patient had 1500 mL crystalloid fluid replacement and 155 mL Cell Saver re placement. She will be placed on ferrous sulfate and folic acid postoperatively. We will continue to monitor while in the hospital. Repeat CBC and BMP tomorrow 6. Reactive leukocytosis: 18.3, Afebrile. Patient did receive Decadron intraoperatively. No clinical signs of infection. 7. Continue postoperative medical management per medicine 8. Currently on doxycycline for 2 weeks postoperatively due to revision total hip arthroplasty and BMI greater than 40.0. I discussed with the patient p otential side effects of doxycycline including sensitivity to the sunlight and increased risk of skin burn. Recommend patient take appropriate precautions. Also recommend patient to take probiotic while on the antibiotic. Patient voiced understanding agreement. 9. Continue incisional wound VAC postoperatively for 1 week 10. Encouraged Incentive Spirometry 11. Disposition: Due to patient's morbid obesity as well as concern for safety and increased risk for fall postoperatively case management is currently involved for appropriately discharge planning. Patient will require detention facility and they are currently on board. States insurance requires pre-CERT. We will continue with physical therapy while in the hospital. Continue with posterior dislocation precautions. Patient was having some difficulty with her pulse ox in the room. This is being addressed by nursing. I have reviewed the [place] Automated Rx Reporting System (OARRS) report for this patient for refill pattern and other prescriber involvement as part of the appropriate surveillance for the provision of acute and chronic controlled medications. The report was requested and reviewed on the date of this entry and was considered in the prescribing process. This dictation was created using voice recognition software. Phonetic and/or grammatical errors may exist.
--- NOTE | 2023-11-15 11:16 | PCM.PN.HOSP ---
Reason for Visit Reason for Visit: Diagnoses Essential (primary) hypertension (11/14/23) Encounter for other preprocedural examination (11/14/23) Subjective Subjective Feels well. Got up with therapy but only could walk to her side of her bed and she had to return. Objective Data Objective Data Vital Signs: Vital Signs Temp Pulse Resp BP Pulse Ox O2 Del Method O2 Flow Rate 36.7 C 78 18 99/58 L 99 Room Air 2 11/15/23 09:23 11/15/23 09:23 11/15/23 09:23 11/15/23 09:23 11/15/23 10:30 11/15/23 09:23 11/15/23 02:45 Oxygen Flow Rate (L/min) 2 Oxygen Delivery Method Room Air Weight: 154.5 kg Body Mass Index (BMI) 58.4 Intake & Output: Intake and Output for Last 24 Hours 11/13/23 11/14/23 11/15/23 23:59 23:59 23:59 Intake Total 2484 / 2484 810.00 / 810.00 Balance 2484 / 2484 810.00 / 810.00 Lab / Micro Data 11/15/23 08:01 11/15/23 08:01 Labs: Laboratory Results - last 24 hr 11/14/23 10:31: POC Glucose 117 H 11/14/23 17:44: POC Glucose 179 H 11/14/23 22:06: POC Glucose 162 H 11/15/23 06:40: POC Glucose 136 H 11/15/23 08:01: WBC 18.3 H, RBC 3.35 L, Hgb 8.9 L, Hct 28.8 L, MCV 86.0, MCH 26.6 L, MCHC 30.9 L, RDW Std Deviation 43.0, RDW Coeff of Nitza 13.8, Plt Count 436, MPV 9.5, Sodium 134 L, Potassium 5.0, Chloride 106, Carbon Dioxide 23.0, Anion Gap 5, BUN 33 H, Creatinine 1.07 H, Estim Creat Clear Calc 82.47, Est GFR (MDRD) Af Amer 67, Est GFR (MDRD) Non-Af 55 L, BUN/Creatinine Ratio 30.8 H, Glucose 133 H, Calcium 8.2 L Micro: Microbiology 10/31/23 12:24 Swab (Method) Nasal Screen MRSA/MSSA - Final Radiography Diagnostic Testing: Radiology Impression Hip X-Ray 11/14/23 17:00 IMPRESSION: 1. Revision of a right hip prosthesis which is in anatomic alignment. There are no acute osseous abnormalities. 2. Severe arthritic changes in the left hip with loss of hip joint space and sclerosis. Electronically Signed: Herbert Owusu MD at 18:13 EST , Physical Exam Const alert HEENT head/scalp atraumatic Resp normal respiratory effort, no retractions, no use of accessory muscles and clear to auscultation bilaterally Cardio regular rate, regular rhythm, S1 normal heart sound and S2 normal heart sound GI normal to inspection, nondistended, normoactive bowel sounds, soft to palpation, non-tender and non-distended Assessment & Plan Assessment/Plan (1) Hypertension: QUALIFIERS: Hypertension type: primary hypertension Qualified Code(s): I10 - Essential (primary) hypertension PLAN: Plan Status post replacement of right total knee. Management per orthopedics. Chronic conditions: Asthma, arthritis, hypertension. Stable. Continue with aspirin, atorvastatin, valsartan. Patient waiting on insurance authorization for placement. Patient medically stable for discharge. The hospital service will follow peripherally over the weekend. Please call with questions or concerns, however. Charges/Coding Visit Charges Inpatient E&M: 09778 Subs Hosp L1
[2023-11-15] MEDS: Insulin Lispro 100 UNIT/ML INSULN.PEN SC ×2 (11:34→17:16)
[2023-11-15 11:43] LABS: Bedside Glucose 201 mg/dL (74-106)
--- NOTE | 2023-11-15 13:04 | CASEMGMT ---
Discharge Planning Patient has been accepted by [facility] and precert will be submitted today. Kizzy Jain, Discharge Planning Asst.
--- NOTE | 2023-11-15 15:40 | CHAPLAIN ---
Type of Pastoral Visit _x__ Initial Visit ___ Follow-up Visit ___ On-call Visit ___ General Patient Visit ___ Spiritual Assessment ___ Family Conference ___ Bereavement ___ Rapid Response ___ Code Blue ___ Other (describe below) Pastoral Care Referral From _x__ Patient ___ Family ___ Nurse ___ Physician ___ Cloth Bleaching Range Operator Chief ___ Coil Tier ___ Other (describe below) Sacrament/Intervention _x__ Active listening ___ Anointing ___ Spiritism ___ Bereavement ___ Communion ___ Gerri exploration ___ _x__ Life review _x__ Prayer ___ Reconciliation ___ Sacrament of Sick ___ Supportive presence ___ Wedding ___ Other (describe below) Pastoral Comments patient and family members are in the room; pt is welcoming and invites a prayer for her recovery; pt gives some life review and interacts with her family members well
--- NOTE | 2023-11-15 16:31 | CASEMGMT ---
Social Work [facility] is able to accept pt. Per [facility], pt's insurance has changed and precert is not needed but a level of care is. BERNICE updated registration on change of insurance. Level of Care will be obtained tomorrow. BERNIEC met with pt and updated that [facility] has accepted and that pt can discharge tomorrow if she is medically ready. Pt is agreeable. Plan: [facility], when medically ready OZZY Ortega
[2023-11-15] MEDS: Ketorolac 15 MG/ML Vial IV (17:13)
[2023-11-15] MEDS: Doxycycline 100 MG CAPSULE PO ×2 (17:14→21:58)
[2023-11-15 17:38] LABS: Bedside Glucose 155 mg/dL (74-106)
[2023-11-15] MEDS: Doxepin Hcl 25 MG Capsule PO (21:58)
[2023-11-15] MEDS: Atorvastatin Calcium 40 MG Tablet PO (21:58)
[2023-11-15 22:19] LABS: Bedside Glucose 117 mg/dL (74-106)
[2023-11-15] MEDS: Morphine 4 MG/ML Syringe IV (23:59)
[2023-11-16] MEDS: oxyCODONE 5 MG Tablet PO ×3 (02:21→17:37)
[2023-11-16 02:30] VITALS: BP 125/72; PULSE 98; RESP 16; TEMP 37; O2SAT 100
[2023-11-16] MEDS: Morphine 2 MG/ML Syringe IV ×3 (05:00→14:10)
[2023-11-16] MEDS: Acetaminophen 500 MG Tablet 1000 MG PO ×2 (05:01→14:10)
[2023-11-16 07:02] LABS: Hematocrit 24.7 % (37-47); Hemoglobin 7.6 g/dL (12.0-15.0); Mean Corp Hgb Conc 30.8 g/dL (32-36); Mean Corpuscular Hgb 26.6 pg (27.0-32.0); Mean Corpuscular Volume 86.4 fL (81-99); Mean Platelet Vol. 9.6 fl (6.2-12.0); Platelet Count 369 K/mm3 (150-450); RBC Distribution Width CV 14.5 % (11.6-14.6); RBC Distribution Width SD 44.6 fl (35.1-43.9); Red Blood Count 2.86 M/mm3 (4.2-5.4); White Blood Count 11.4 K/mm3 (4.4-11.0)
--- NOTE | 2023-11-16 07:19 | PN.ORTHO_ITS ---
Subjective Subjective The patient was sitting in bed upon examination. Patient denies any chest pain, shortness of breath, dizziness, lightheadedness, nausea or vomiting, or calf pain. No adverse overnight events. Patient states she was having increased pain but she was not asking for her narcotics. Patient did not understand that the narcotics are as needed. We did have a lengthy discussion about appropriate pain regimen. She will have the scheduled Tylenol however she can use the oxycodone 1-2 tablets every 4 hours as needed for pain. She is aware that she must ask the nursing staff for this medication. When she takes the medications they are helpful with her pain. Patient again today accidentally pulled off some of the drape on the wound VAC and now the unit constantly beeps. We are having wound nurse evaluate patient to put on an appropriate VAC via versus Prevena. I explained to the patient she has to be very careful with this area. She pulled her blanket this morning causing this to affect the wound VAC. Medicine is also on board for medical management. Patient did have a drop in hemoglobin from 8.9 down to 7.6. She is asymptomatic and her vitals are stable. I did discuss case with Edd Trejo. Patient is on ferrous sulfate and folic acid. Patient did get approval to go to [facility] today. Objective Data Objective Data Vital Signs: Vital Signs Temp Pulse Resp BP Pulse Ox O2 Del Method O2 Flow Rate 98.6 F 98 16 125/72 H 100 Room Air 2 11/16/23 02:30 11/16/23 02:30 11/16/23 02:30 11/16/23 02:30 11/16/23 02:30 11/16/23 02:30 11/15/23 02:45 Oxygen Flow Rate (L/min) 2 Oxygen Delivery Method Room Air Weight: 154.5 kg Body Mass Index (BMI) 58.4 Intake & Output: Intake and Output for Last 24 Hours 11/14/23 11/15/23 11/16/23 23:59 23:59 23:59 Intake Total 2484 / 2484 810.00 / 810.00 Output Total 400 / 400 Balance 2484 / 2484 810.00 / 810.00 -400 / -400 Lab / Micro Data 11/16/23 06:29 11/15/23 08:01 Labs: Laboratory Results - last 24 hr 11/15/23 08:01: WBC 18.3 H, RBC 3.35 L, Hgb 8.9 L, Hct 28.8 L, MCV 86.0, MCH 26.6 L, MCHC 30.9 L, RDW Std Deviation 43.0, RDW Coeff of Nitza 13.8, Plt Count 436, MPV 9.5, Sodium 134 L, Potassium 5.0, Chloride 106, Carbon Dioxide 23.0, Anion Gap 5, BUN 33 H, Creatinine 1.07 H, Estim Creat Clear Calc 82.47, Est GFR (MDRD) Af Amer 67, Est GFR (MDRD) Non-Af 55 L, BUN/Creatinine Ratio 30.8 H, Glucose 133 H, Calcium 8.2 L 11/15/23 11:26: POC Glucose 201 H 11/15/23 16:41: POC Glucose 155 H 11/15/23 21:54: POC Glucose 117 H 11/16/23 06:29: WBC 11.4 H, RBC 2.86 L, Hgb 7.6 L, Hct 24.7 L, MCV 86.4, MCH 26.6 L, MCHC 30.8 L, RDW Std Deviation 44.6 H, RDW Coeff of Nitza 14.5, Plt Count 369, MPV 9.6 Micro: Microbiology 10/31/23 12:24 Swab (Method) Nasal Screen MRSA/MSSA - Final Physical Exam Narrative Vital signs stable and afebrile. Vitals are stable. Patient did have 1 reading of low blood pressure yesterday evening with some mild tachycardia. She is currently with pulse rate of 98 and blood pressure 125/72. Patient is able to plantarflex and dorsiflex actively. Sensation is intact to light touch to saphenous, sural, superficial and deep peroneal, and tibial distribution. Prevena incisional wound VAC appears to be intact however the unit keeps beeping. We are having wound nurse evaluate the wound VAC and may have to replace this with either a another Prevena or VAC via. Case was discussed with wound nurse Negative Homans bilaterally, negative signs and symptoms of DVT. Const alert, oriented x3 and no apparent distress Assessment & Plan Assessment/Plan (1) History of revision of total replacement of right hip joint: PLAN: 1. S/P revision right total hip arthroplasty posterior approach POD #2 2. Continue Pain Medications: Tylenol, meloxicam and oxycodone. We did discontinue the meloxicam secondary to some elevated kidney function. 3. DVT Prophylaxis: Take 81 mg aspirin twice daily for 4 weeks postoperatively for DVT prophylaxis. Patient denies past history of DVT or pulmonary embolism 4. PT/OT: Weightbearing as tolerated with walker. Continue posterior dislocation precautions. Patient states she had some dizziness with therapy yes terday and had to stop. However today she has not had any dizziness. Also appreciate recommendations for discharge planning as there is concern for safety upon discharge. 5. H & H: 7.6/24.7, asymptomatic. Patient does have past history of anemia in which she has seen a drop in her hemoglobin postoperatively secondary to blood loss versus delusional component. Estimated blood loss was 750 mL in which patient had 1500 mL crystalloid fluid replacement and 155 mL Cell Saver replacement. She was placed on ferrous sulfate and folic acid postoperatively. We will have patient repeat CBC and BMP in the long term in which orders will be placed on discharge instructions. I have also reached out to medicine to evaluate patient with regards to discharge planning and any further treatment. 6. Reactive leukocytosis: Trending down and currently 11.4, patient afebrile. Patient did receive Decadron intraoperatively. No clinical signs of infection. 7. Continue postoperative medical management per medicine 8. Currently on doxycycline for 2 weeks postoperatively due to revision total hip arthroplasty and BMI greater than 40.0. I discussed with the patient potential side effects of doxycycline including sensitivity to the sunlight and increased risk of skin burn. Recommend patient take appropriate precautions. Also recommend patient to take probiotic while on the antibiotic. Patient voiced understanding agreement. 9. Continue incisional wound VAC postoperatively for 1 week 10. Encouraged Incentive Spirometry 11. Disposition: Due to patient's morbid obesity as well as concern for safety and increased risk for fall postoperatively case management is currently involved for appropriately discharge planning. Patient will require jail facility and they are currently on board. Per case management note patient does not need pre-CERT and she is able to go to [facility] once level of care has been established. We will continue with physical therapy while in the hospital. Continue with posterior dislocation precautions. I would also like physical therapy to evaluate patient to make sure she is appropriate for discharge to jail facility today. She did have some dizziness yesterday with therapy but today she denies any dizziness or lightheadedness. I do appreciate recommendations from medicine with regards to discharge planning today. If she is medically stable plan will be for discharge to jail facility with continued monitoring of her CBC and BMP while at the long term. [facility] facility documentation will be filled out with narcotic medication prescription placed on chart. Patient will follow-up per posto perative instructions. I do recommend when she is out of the long term she should schedule appointment with her primary care physician. I have reviewed the [place] Automated Rx Reporting System (OARRS) report for this patient for refill pattern and other prescriber involvement as part of the [facility] surveillance for the provision of acute and chronic controlled medications. The report was requested and reviewed on the date of this entry and was considered in the prescribing process. This dictation was created using voice recognition software. Phonetic and/or grammatical errors may exist.
--- NOTE | 2023-11-16 07:31 | PCM.TXEXTCAR ---
Diet Diet Order/Speech Therapy: 11/15/23 07:15 Diet: Carbohydrate Controlled Is pt able to select menu?: Yes Routine Orders/Code Status Routine Lab Work: CBC (Repeat CBC BMP on November 18, 2023) and BMP Code Status: Full Code Wound(s) RIGHT HIP: Wound Type: Surgical Incision Therapies Weight Bearing: Weight bearing as tolerated (With walker) Extremity Affected:: Right Lower Physical Therapy: Eval and Treat (Weightbearing as tolerated with walker, continue posterior hip dislocation precautions) Occupational Therapy: Eval and Treat (Weightbearing as tolerated with walker, continue posterior hip dislocation precautions) Problem/Diagnosis (1) History of revision of total replacement of right hip joint: Status: Acute Code(s): Z96.641 - Presence of right artificial hip joint Plan: 1. S/P revision right total hip arthroplasty posterior approach POD #2 2. Continue Pain Medications: Tylenol, meloxicam and oxycodone. We did discontinue the meloxicam secondary to some elevated kidney function. 3. DVT Prophylaxis: Take 81 mg aspirin twice daily for 4 weeks postoperatively for DVT prophylaxis. Patient denies past history of DVT or pulmonary embolism 4. PT/OT: Weightbearing as tolerated with walker. Continue posterior dislocation precautions. Patient states she had some dizziness with therapy yesterday and had to stop. However today she has not had any dizziness. Also appreciate recommendations for discharge planning as there is concern for safety upon discharge. 5. H & H: 7.6/24.7, asymptomatic. Patient does have past history of anemia in which she has seen a drop in her hemoglobin postoperatively secondary to blood loss versus delusional component. Estimated blood loss was 750 mL in which patient had 1500 mL crystalloid fluid replacement and 155 mL Cell Saver replacement. She was placed on ferrous sulfate and folic acid postoperatively. We will have patient repeat CBC and BMP in the retirement in which orders will be placed on discharge instructions. I have also reached out to medicine to evaluate patient with regards to discharge planning and any further treatment. 6. Reactive leukocytosis: Trending down and currently 11.4, patient afebrile. Patient did receive Decadron intraoperatively. No clinical signs of infection. 7. Continue postoperative medical management per medicine 8. Currently on doxycycline for 2 weeks postoperatively due to revision total hip arthroplasty and BMI greater than 40.0. I discussed with the patient potential side effects of doxycycline including sensitivity to the sunlight and increased risk of skin burn. Recommend patient take appropriate precautions. Also recommend patient to take probiotic while on the antibiotic. Patient voiced understanding agreement. 9. Continue incisional wound VAC postoperatively for 1 week 10. Encouraged Incentive Spirometry 11. Disposition: Due to patient's morbid obesity as well as concern for safety and increased risk for fall postoperatively case management is currently involved for appropriately discharge planning. Patient will require detention facility and they are currently on board. Per case management note patient does not need pre-CERT and she is able to go to [facility] once level of care has been established. We will continue with physical therapy while in the hospital. Continue with posterior dislocation precautions. I would also like physical therapy to evaluate patient to make sure she is appropriate for discharge to detention facility today. She did have some dizziness yesterday with therapy but today she denies any dizziness or lightheadedness. I do appreciate recommendations from medicine with regards to discharge planning today. If she is medically stable plan will be for discharge to detention facility with continued monitoring of her CBC and BMP while at the retirement. long term facility documentation will be filled out with narcotic medication prescription placed on chart. Patient will follow-up per postoperative instructions. I do recommend when she is out of the retirement she should schedule appointment with her primary care physician. I have reviewed the [place] Automated Rx Reporting System (OARRS) report for this patient for refill pattern and other prescriber involvement as part of the appropriate surveillance for the provision of acute and chronic controlled medications. The report was requested and reviewed on the date of this entry and was considered in the prescribing process. This dictation was created using voice recognition software. Phonetic and/or grammatical errors may exist. Allergies/Procedures Done in Hospital Allergies amoxicillin trihydrate [From Augmentin] Allergy (Severe, Verified 11/14/23 10:12) Vomiting potassium clavulanate [From Augmentin] Allergy (Severe, Verified 11/14/23 10:12) Vomiting acetaminophen [From Vicodin] Adverse Reaction (Verified 11/14/23 10:12) Vomiting hydrocodone bitartrate [From Vicodin] Adverse Reaction (Verified 11/14/23 10:12) Vomiting oxycodone HCl [From Percocet] Adverse Reaction (Verified 11/14/23 10:12) Vomiting Procedures: Wound Vac placement (Remove incisional wound VAC on November 21, 2023. Do not get dressing wet. Once removed okay to shower and get incision wet. Only placed gentle soap and water on incision. No tape on skin) Type of Care/Length of Stay Estimated LOS: Convalescent Care Less Than 30 days Type of Care Needed: Skilled Rehab Potential: Good Prognosis: Good Additional Orders/Day of Discharge Day of Discharge: 11/16/23 Discharge Plan Admission Admit Date/Time: 11/14/23 09:40 Attending Provider: Edd Trejo Primary Care Provider: Muriel Thornton Consulting Providers: Cirilo Teran Instructions Additional Instructions / Restrictions: I would recommend upon discharge from the detention facility that patient will need postoperative follow-up with her primary care physician to continue to follow her acute on chronic anemia. Discharge Orders/Prescriptions Prescriptions: New acetaminophen 500 mg Tablet 1,000 mg PO TID Qty: 0 0RF Rx Instructions: Do not take more than 3000 mg Tylenol in a 24-hour period. famotidine 20 mg Tablet 20 mg PO DAILY 30 Days Qty: 30 0RF doxycycline monohydrate 100 mg Capsule 100 mg PO BID 12 Days Qty: 24 0RF Rx Instructions: Take for 2 weeks postoperatively aspirin 81 mg Tablet,Chewable 81 mg PO BIDCM Qty: 0 0RF Rx Instructions: Take 81 mg aspirin twice daily for 4 weeks postoperatively for DVT prophylaxis. Glucerna 1.2 Vasu 0.06-1.2 gram-kcal/mL Liquid 120 ml PO BID 14 Days Qty: 0 0RF oxycodone 5 mg Tablet 5 - 10 mg PO Q4H PRN PRN (Reason: Pain Score 4-10) 7 Days Qty: 30 0RF Continued (DME) blood pressure monitor Kit See Rx Instructions .MEDSUPPLY Qty: 1 0RF Rx Instructions: Check blood pressure daily for hypertension I10 (DME) blood-glucose meter [FreeStyle Lite Meter] Kit See Rx Instructions .MEDSUPPLY Qty: 1 0RF Rx Instructions: As directed, check blood glucose daily for type 2 DM (DME) FreeStyle Lite Strips Strip See Rx Instructions .MEDSUPPLY Qty: 100 3RF Rx Instructions: check blood glucose daily for type 2 DM (DME) lancets [FreeStyle Lancets] 28 gauge misc See Rx Instructions .MEDSUPPLY Qty: 200 3RF Rx Instructions: check blood glucose daily for type 2 DM (DME) Handicap Marcelleard See Rx Instructions .ROUTE .MEDSUPPLY Qty: 1 0RF Rx Instructions: As directed, length of time 3 years atorvastatin 40 mg tablet 40 mg PO QHS Qty: 90 1RF metformin 500 mg tablet 500 mg PO BID Qty: 180 1RF cholecalciferol (vitamin D3) [Vitamin D3] 25 mcg (1,000 unit) capsule 2,000 unit PO DAILY Qty: 90 1RF doxepin 25 mg capsule 25 mg PO QHS Qty: 90 1RF valsartan 80 mg tablet 80 mg PO DAILY Rx Instructions: TAKE 1 TABLET BY MOUTH EVERY DAY (DME) compr.stocking,knee,long,large Misc See Rx Instructions .ROUTE .MEDSUPPLY Qty: 12 0RF Rx Instructions: Wear Daily cyclobenzaprine 5 mg tablet 5 mg PO TID PRN (Reason: muscle spasm) Qty: 30 0RF Discontinued acetaminophen 325 mg capsule 650 mg PO QHS PRN (Reason: MILD PAIN) aspirin 81 mg tablet,chewable 81 mg PO DAILY Referrals / Follow Up: Muriel Thornton MD [Primary Care Provider] - Bunny Escalera PA-C [Med Staff - Adv Practice Prof] - 11/29/23 3:15 pm Disposition Disposition (needs filled in before D/C Order can be placed): Longterm Facility
[2023-11-16 07:35] LABS: Bedside Glucose 107 mg/dL (74-106)
[2023-11-16 08:19] LABS: Anion Gap 5 (5-15); BUN 31 mg/dL (7-18); BUN/Creat Ratio 31.1 RATIO (10-20); Calcium,Total 7.7 mg/dL (8.5-10.1); Chloride 109 mmol/L (98-107); EST Glomerular Filtration Rate 60 mL/min (>60); Est Glom Filt Rate - Afr Amer 73 mL/min (>60); Estimated Creatinine Clearance 88.25 ml/min; Glucose 111 mg/dL (74-106); Potassium 3.9 mmol/L (3.5-5.1); Sodium Level 137 mmol/L (136-145)
[2023-11-16] MEDS: Doxycycline 100 MG CAPSULE PO (08:51)
[2023-11-16] MEDS: Senna/Docusate Sodium 1 Tablet 2 TABLET PO (08:51)
[2023-11-16] MEDS: Aspirin 81 MG TAB.CHEW PO ×2 (08:51→16:28)
[2023-11-16] MEDS: Cholecalciferol (VIT D3) 25 MCG TABLET (1,000 UNITS) 50 MCG PO (08:51)
[2023-11-16] MEDS: Famotidine 20 MG Tablet PO (08:51)
[2023-11-16] MEDS: Losartan Potassium 25 MG Tablet PO (08:51)
[2023-11-16] MEDS: metFORMIN HCl 500 MG Tablet PO ×2 (08:52→16:27)
[2023-11-16] MEDS: Ensure Surgery 237 ML LIQUID PO ×3 (08:54→16:26)
[2023-11-16] MEDS: Glucerna Shake 120 ML LIQUID PO ×3 (08:54→16:29)
[2023-11-16 09:08] VITALS: BP 100/53; PULSE 89; RESP 16; TEMP 36.8; O2SAT 96
--- NOTE | 2023-11-16 09:45 | WOUNDNOTE ---
wound photo: right hip
[2023-11-16 10:15] LABS: Absolute Lymphocyte Count 4.53 X10^3/uL (0.83-4.51); Absolute Neutrophil Count 7.5 X10^3/uL (2.0-7.7); Basophil# 0.09 X10^3/uL; Basophil% 0.7 % (0-1); Eosinophil# 0.39 X10^3/uL; Eosinophils% 2.9 % (0-5); Hematocrit 27.6 % (37-47); Hemoglobin 8.3 g/dL (12.0-15.0); Lymphocyte # 4.53 X10^3/ul (0.83-4.51); Lymphocyte % 33.6 % (19-41); Mean Corp Hgb Conc 30.1 g/dL (32-36); Mean Corpuscular Hgb 26.4 pg (27.0-32.0); Mean Corpuscular Volume 87.9 fL (81-99); Mean Platelet Vol. 9.5 fl (6.2-12.0); Monocyte% 6.7 % (0-10); NRBC Flagged by Analyzer 0 % (0-5); Neutrophil # 7.52 X10^3/uL (2.7-7.7); Neutrophil % 55.7 % (47-70); POSITIVE MORPHOLOGY YES; Platelet Count 403 K/mm3 (150-450); RBC Distribution Width CV 14.3 % (11.6-14.6); RBC Distribution Width SD 45.4 fl (35.1-43.9); Red Blood Count 3.14 M/mm3 (4.2-5.4); White Blood Count 13.5 K/mm3 (4.4-11.0)
[2023-11-16 10:18] LABS: Differential Indicated SCAN CRITERIA MET
[2023-11-16 10:40] LABS: Differential Comment SCANNED
[2023-11-16 11:28] VITALS: BP 124/75; PULSE 105; RESP 16; TEMP 36.9; O2SAT 100
--- NOTE | 2023-11-16 11:53 | PCM.PN.HOSP ---
Reason for Visit Reason for Visit: Diagnoses Essential (primary) hypertension (11/14/23) Encounter for other preprocedural examination (11/14/23) Presence of right artificial hip joint (11/14/23) Subjective Subjective Feels well. Objective Data Objective Data Vital Signs: Vital Signs Temp Pulse Resp BP Pulse Ox O2 Del Method O2 Flow Rate 36.9 C 105 H 16 124/75 H 100 Room Air 2 11/16/23 11:11/16/23 11:11/16/23 11:11/16/23 11:11/16/23 11:11/16/23 11:11/15/23 02:45 Oxygen Flow Rate (L/min) 2 Oxygen Delivery Method Room Air Weight: 154.5 kg Body Mass Index (BMI) 58.4 Intake & Output: Intake and Output for Last 24 Hours 11/14/23 11/15/23 11/16/23 23:59 23:59 23:59 Intake Total 2484 / 2484 810.00 / 810.00 450 / 450 Output Total 400 / 400 Balance 2484 / 2484 810.00 / 810.00 50 / 50 Lab / Micro Data 11/16/23 09:50 11/16/23 06:29 Labs: Laboratory Results - last 24 hr 11/15/23 16:41: POC Glucose 155 H 11/15/23 21:54: POC Glucose 117 H 11/16/23 06:29: WBC 11.4 H, RBC 2.86 L, Hgb 7.6 L, Hct 24.7 L, MCV 86.4, MCH 26.6 L, MCHC 30.8 L, RDW Std Deviation 44.6 H, RDW Coeff of Nitza 14.5, Plt Count 369, MPV 9.6, Sodium 137, Potassium 3.9, Chloride 109 H, Carbon Dioxide 23.0, Anion Gap 5, BUN 31 H, Creatinine 1.00, Estim Creat Clear Calc 88.25, Est GFR (MDRD) Af Amer 73, Est GFR (MDRD) Non-Af 60, BUN/Creatinine Ratio 31.1 H, Glucose 111 H, Calcium 7.7 L 11/16/23 07:13: POC Glucose 107 H 11/16/23 09:50: WBC 13.5 H, RBC 3.14 L, Hgb 8.3 L, Hct 27.6 L, MCV 87.9, MCH 26.4 L, MCHC 30.1 L, RDW Std Deviation 45.4 H, RDW Coeff of Nitza 14.3, Plt Count 403, MPV 9.5, Immature Gran % (Auto) 0.400, Neut % (Auto) 55.7, Lymph % (Auto) 33.6, [place] % (Auto) 6.7, Eos % (Auto) 2.9, Baso % (Auto) 0.7, Absolute Neuts (auto) 7.5, Absolute Lymphs (auto) 4.53 H, Nucleated RBC % 0, Differential Comment SCANNED Micro: Microbiology 10/31/23 12:24 Swab (Method) Nasal Screen MRSA/MSSA - Final Physical Exam Const alert and no apparent distress HEENT head/scalp atraumatic Assessment & Plan Assessment/Plan (1) Acute blood loss anemia: PLAN: Acute blood loss. 8.9 post op. Stable. No additional work up. Notified Bunny Escalera. PLAN: Plan Medically stable for discharge. Will sign off. Please call with questions. Charges/Coding Visit Charges Inpatient E&M: 52576 Subs Hosp L1
[2023-11-16 11:57] LABS: Bedside Glucose 141 mg/dL (74-106)
[2023-11-16] MEDS: Ondansetron 4 MG/2 ML Vial IV (12:51)
[2023-11-16] MEDS: 0.9% Saline Lock 10 ML Syringe IV ×2 (12:51→14:11)
--- NOTE | 2023-11-16 14:11 | CASEMGMT ---
Social Work PASRR completed in [facility] and Level of Care submitted to [facility] [place]. Pt approved for admission to [facility] under Skilled level of care. Physician updated and pt is ready for discharge today. DC pharmacy technician assistant notified and to complete discharge. Dispostion: [facility] at [facility], skilled level of care OZZY Aponte
[2023-11-16 14:52] VITALS: BP 110/68; PULSE 102; RESP 16; TEMP 37.1; O2SAT 100
[2023-11-16 16:05] LABS: Bedside Glucose 114 mg/dL (74-106)
--- NOTE | 2023-11-16 16:06 | CASEMGMT ---
Discharge Planning Discharge orders, signed med list, and transport time sent to [facility] via [facility]. Physicians will transport patient by cot at 7p. Nursing, SW, and patient updated. VM left for patients daughter. Kizzy Jian, Discharge Planning Asst.
--- NOTE | 2023-11-16 17:35 | NURSING ---
attempted to call report to ron but no answer
== END 2023-11-16 19:50 | disposition skilled nursing facility (03) | DRG 323 ==
LOC: ACINP 09:43 → MS3 18:37
PROVIDERS: Anesthesiology; Physician Assistant Surgical; Admitting Provider Specialist; PCP Internal Medicine; Referring Provider Specialist; Visit Provider Specialist
PROC: 0SP90JZ Removal of Synthetic Substitute from Right Hip Joint, Open Approach (ICD-10-PCS; CPT 27134; principal; 2023-11-14 12:05)
DX: T84.030A Mechanical loosening of internal right hip prosthetic joint, initial encounter (principal); D62 Acute posthemorrhagic anemia; E66.01 Morbid (severe) obesity due to excess calories; E11.9 Type 2 diabetes mellitus without complications; Z68.41 Body mass index [BMI] 40.0-44.9, adult; G25.81 Restless legs syndrome; I10 Essential (primary) hypertension; E78.00 Pure hypercholesterolemia, unspecified; X58.XXXA Exposure to other specified factors, initial encounter; Z96.641 Presence of right artificial hip joint; Z90.5 Acquired absence of kidney; Z79.1 Long term (current) use of non-steroidal anti-inflammatories (NSAID); Z79.84 Long term (current) use of oral hypoglycemic drugs; Z79.899 Other long term (current) drug therapy; Z85.528 Personal history of other malignant neoplasm of kidney; Z87.891 Personal history of nicotine dependence
CPT/HCPCS: 36415; 71046; 73502; 80048; 82040; 82962; 83036; 83735; 85025; 85027; 87081; 93005; 94668; 97162; 97166; 97530; 99252; C1776; J7120; A4216; G0463; J2405

== ENCOUNTER → 2023-12-03 | Outpatient (CLI) | payer MEDICAID, SELFPAY ==
[2023-12-03 17:03] LABS: Absolute Neutrophil Count 4.6 X10^3/uL (2.0-7.7); Basophil# 0.08 X10^3/uL; Eosinophil# 0.73 X10^3/uL; Eosinophils% 8.7 % (0-5); Hematocrit 30.8 % (37-47); Hemoglobin 9.2 g/dL (12.0-15.0); Lymphocyte % 28.7 % (19-41); Mean Corp Hgb Conc 29.9 g/dL (32-36); Mean Corpuscular Hgb 25.6 pg (27.0-32.0); Mean Corpuscular Volume 85.8 fL (81-99); Mean Platelet Vol. 8.7 fl (6.2-12.0); NRBC Flagged by Analyzer 0 % (0-5); Neutrophil # 4.62 X10^3/uL (2.7-7.7); Neutrophil % 55.4 % (47-70); POSITIVE MORPHOLOGY YES; Platelet Count 582 K/mm3 (150-450); RBC Distribution Width CV 14.1 % (11.6-14.6); RBC Distribution Width SD 43.8 fl (35.1-43.9); Red Blood Count 3.59 M/mm3 (4.2-5.4); White Blood Count 8.4 K/mm3 (4.4-11.0)
[2023-12-03 17:35] LABS: Ferritin 20 ng/mL (8-252); Iron 25 ug/dL (50-170); Iron Binding Capacity,Total 369 ug/dL (250-450); Vitamin D,25 Hydroxy 44.2 ng/mL
[2023-12-03 17:48] LABS: Differential Indicated SCAN CRITERIA MET
== END | disposition home or self-care (01) ==
LOC: BIMLAB 15:06
PROVIDERS: PCP Internal Medicine; Visit Provider Nurse Practitioner
DX: M16.0 Bilateral primary osteoarthritis of hip (principal); D62 Acute posthemorrhagic anemia
CPT/HCPCS: 36415; 82306; 82728; 83540; 83550; 85025

== ENCOUNTER → 2024-01-28 | Outpatient (CLI) | payer MEDICAID, SELFPAY ==
[2024-01-28 15:51] LABS: Absolute Lymphocyte Count 3.32 X10^3/uL (0.83-4.51); Absolute Neutrophil Count 5.4 X10^3/uL (2.0-7.7); Basophil# 0.12 X10^3/uL; Basophil% 1.2 % (0-1); Eosinophil# 0.37 X10^3/uL; Eosinophils% 3.8 % (0-5); Hematocrit 37.5 % (37-47); Hemoglobin 11.1 g/dL (12.0-15.0); Lymphocyte # 3.32 X10^3/ul (0.83-4.51); Lymphocyte % 33.8 % (19-41); Mean Corp Hgb Conc 29.6 g/dL (32-36); Mean Corpuscular Hgb 24.2 pg (27.0-32.0); Mean Corpuscular Volume 81.7 fL (81-99); Mean Platelet Vol. 9.3 fl (6.2-12.0); Monocyte# 0.55 X10^3/uL; Monocyte% 5.6 % (0-10); NRBC Flagged by Analyzer 0 % (0-5); Neutrophil # 5.42 X10^3/uL (2.7-7.7); Neutrophil % 55.3 % (47-70); Platelet Count 627 K/mm3 (150-450); RBC Distribution Width CV 15.3 % (11.6-14.6); RBC Distribution Width SD 45.4 fl (35.1-43.9); Red Blood Count 4.59 M/mm3 (4.2-5.4); White Blood Count 9.8 K/mm3 (4.4-11.0)
[2024-01-28 16:14] LABS: ALB/GLOB Ratio 0.8 RATIO (0.9-2.4); AST(SGOT) 21 U/L (15-37); Alanine Aminotransfer ALT/SGPT 26 U/L (13-56); Albumin, Serum 3.5 g/dL (3.2-5.0); Alkaline Phosphatase 141 U/L (45-117); Anion Gap 7 (5-15); BUN 15 mg/dL (7-18); BUN/Creat Ratio 15.6 RATIO (10-20); Calcium,Total 9.2 mg/dL (8.5-10.1); Chloride 107 mmol/L (98-107); Creatinine, Serum 0.96 mg/dL (0.55-1.02); EST Glomerular Filtration Rate 62 mL/min (>60); Est Glom Filt Rate - Afr Amer 76 mL/min (>60); Globulin 4.2 g/dL (2.2-4.2); Glucose 121 mg/dL (74-106); Potassium 4.2 mmol/L (3.5-5.1); Protein, Total 7.7 g/dL (6.4-8.2); Sodium Level 138 mmol/L (136-145)
== END | disposition home or self-care (01) ==
LOC: BIMLAB 14:32
PROVIDERS: PCP Internal Medicine; Visit Provider Internal Medicine
DX: I10 Essential (primary) hypertension (principal)
CPT/HCPCS: 36415; 80053; 83735; 85025

== ENCOUNTER → 2024-04-23 | Outpatient (CLI) | payer MEDICAID, SELFPAY ==
--- NOTE | 2024-04-23 12:38 | CT_ITS ---
INDICATION: adrenal mass COMPARISON: 05/12/[address] IV Contrast dosage and agent: 75 cc [id number]-300 IV. A radiation dose optimization technique was used for this scan. RADIATION DOSAGE (If Supplied By Facility): CTDIvol/DLP = ( 35.78 ) / ( 2890.31 ) mGy/mGycm FINDINGS: Serial CT axial images through the abdomen and pelvis with noncontrast, arterial, and delayed series. Coronal and sagittal reformatted series of the abdomen and pelvis provided. PANCREAS: No peripancreatic fat stranding. BOWEL/MESENTERY: No dilated bowel loops. No significant free fluid. No free air. Colonic diverticulosis without focus of diverticulitis. GALLBLADDER: Absent gallbladder with surgical clips in the gallbladder fossa. LIVER/STOMACH: No obvious abnormality. URINARY COLLECTING SYSTEM/ KIDNEYS: No obstructing ureteral calculus. Dysmorphic appearing right kidney, consistent with stated history of partial nephrectomy with 4 hypoattenuating renal lesions, which do not measure simple fluid attenuation. Noncontrast series [id number] only includes superior most, exophytic, simple fluid attenuating lesion. APPENDIX: Normal caliber gas containing appendix. ADRENALS: Left adrenal nodule 14 mm size is unchanged from 2016 although now containing punctate calcification, which results in suboptimal evaluation for washout characteristics. LUNG BASES: Unremarkable. BONES: Severe left femoral acetabular joint degenerative change. Right total hip arthroplasty, incompletely imaged, although no obvious hardware complication. Again is noted lateral L1 vertebral body height loss. Old right posterior rib fracture deformities. CT/CT Abd/Pelvis W/WO Contrast IMPRESSION: Stable left adrenal nodule from 2016 as above. Dysmorphic appearing right kidney, consistent with stated history of partial nephrectomy with 4 hypoattenuating renal lesions, which do not measure simple fluid attenuation. Although these likely represent milk of calcium or proteinaceous cyst, recommend nonemergent follow-up renal ultrasound to better characterize as solid neoplastic process is not excluded. Severe left hip degenerative change. Electronically Signed: Jose Miles MD at 0:22 EDT ,
[2024-04-23 13:05] LABS: CREATININE FINGERSTICK < 1.0 mg/dL (0.55-1.02); EGFR FINGERSTICK > 60.0000 mL/min (>60)
== END | disposition home or self-care (01) ==
PROVIDERS: PCP Internal Medicine; Referring Provider Nurse Practitioner; Visit Provider Nurse Practitioner
DX: E27.8 Other specified disorders of adrenal gland (principal)
CPT/HCPCS: 74178; Q9967

== ENCOUNTER → 2024-04-30 | Outpatient (CLI) | payer MEDICAID, SELFPAY ==
--- NOTE | 2024-04-30 12:46 | US_ITS ---
STUDY: RENAL ULTRASOUND - COMPLETE REASON FOR EXAM: Female, 63 [address] TECHNIQUE: Ultrasound evaluation of the kidneys was performed with real-time and static marie-scale imaging. COMPARISON: 04/03/2016, CT 04/23/2024 FINDINGS: RIGHT KIDNEY: Normal location of the right kidney, which is normal in size. The right kidney measures 10.7 cm. There is a normal cortex of the right kidney. The renal cortex measures 1.1 cm. There is no right renal mass or cyst. 2.3 cm cyst in the midsection of right kidney. 1.2 cm cyst lower pole right kidney. Another 1.3 cm cyst lower pole right kidney. Another 1.7 cm cyst lower pole right kidney. There is no right hydronephrosis. DISTAL RIGHT URETER: There is non-visualization of the distal right ureter. There is no demonstrated right ureterovesical junction calculus. There is a visualized right ureteral jet. LEFT KIDNEY: Normal location of the left kidney, which is normal in size. The left kidney measures 12.3 cm. There is a normal cortex of the left kidney. The renal cortex measures 1.5 cm. There is no left renal mass or cyst. There are no left renal calculi. There is no left hydronephrosis. DISTAL LEFT URETER: There is non-visualization of the distal left ureter. There is no demonstrated left ureterovesical junction calculus. There is a visualized left ureteral jet. BLADDER: The distended urinary bladder has a volume of 48 ml. The empty urinary bladder has a volume of ml. There is a normal wall thickness of the distended urinary bladder. There is no demonstrated mass within the urinary bladder. There are no demonstrated bladder calculi. US/Kidney and Bladder IMPRESSION: Ultrasound confirms multiple right renal cysts. Electronically Signed: Surya Mena MD at 11:56 EDT ,
[2024-04-30 13:28] LABS: Absolute Lymphocyte Count 3.47 X10^3/uL (0.83-4.51); Absolute Neutrophil Count 6.5 X10^3/uL (2.0-7.7); Basophil# 0.12 X10^3/uL; Basophil% 1.1 % (0-1); Eosinophil# 0.03 X10^3/uL; Eosinophils% 0.3 % (0-5); Hematocrit 41.7 % (37-47); Hemoglobin 12.8 g/dL (12.0-15.0); Lymphocyte # 3.47 X10^3/ul (0.83-4.51); Lymphocyte % 32.3 % (19-41); Mean Corp Hgb Conc 30.7 g/dL (32-36); Mean Corpuscular Hgb 25.9 pg (27.0-32.0); Mean Corpuscular Volume 84.2 fL (81-99); Mean Platelet Vol. 9.6 fl (6.2-12.0); Monocyte# 0.59 X10^3/uL; Monocyte% 5.5 % (0-10); NRBC Flagged by Analyzer 0 % (0-5); Neutrophil # 6.51 X10^3/uL (2.7-7.7); Neutrophil % 60.5 % (47-70); Platelet Count 518 K/mm3 (150-450); RBC Distribution Width CV 18.3 % (11.6-14.6); RBC Distribution Width SD 55.8 fl (35.1-43.9); Red Blood Count 4.95 M/mm3 (4.2-5.4); White Blood Count 10.8 K/mm3 (4.4-11.0)
[2024-04-30 14:03] LABS: ALB/GLOB Ratio 0.9 RATIO (0.9-2.4); AST(SGOT) 15 U/L (15-37); Alanine Aminotransfer ALT/SGPT 21 U/L (13-56); Albumin, Serum 3.4 g/dL (3.2-5.0); Alkaline Phosphatase 143 U/L (45-117); Anion Gap 11 (5-15); BUN 10 mg/dL (7-18); BUN/Creat Ratio 9.8 RATIO (10-20); Chloride 105 mmol/L (98-107); Creatinine, Serum 1.02 mg/dL (0.55-1.02); EST Glomerular Filtration Rate 58 mL/min (>60); Est Glom Filt Rate - Afr Amer 71 mL/min (>60); Globulin 3.8 g/dL (2.2-4.2); Glucose 141 mg/dL (74-106); Potassium 3.9 mmol/L (3.5-5.1); Protein, Total 7.2 g/dL (6.4-8.2); Sodium Level 139 mmol/L (136-145)
== END | disposition home or self-care (01) ==
LOC: US 12:37
PROVIDERS: PCP Internal Medicine; Referring Provider Internal Medicine; Visit Provider Internal Medicine
DX: E78.5 Hyperlipidemia, unspecified (principal); R93.429 Abnormal radiologic findings on diagnostic imaging of unspecified kidney; I10 Essential (primary) hypertension; Z85.528 Personal history of other malignant neoplasm of kidney
CPT/HCPCS: 36415; 76770; 80053; 85025

== ENCOUNTER → 2024-12-19 | Outpatient (CLI) | payer MEDICAID, SELFPAY ==
[2024-12-19 18:10] LABS: Absolute Neutrophil Count 4.8 X10^3/uL (2.0-7.7); Basophil# 0.11 X10^3/uL; Basophil% 1.1 % (0-1); Eosinophil# 0.25 X10^3/uL; Eosinophils% 2.6 % (0-5); Hematocrit 41.2 % (37-47); Hemoglobin 13.4 g/dL (12.0-15.0); Lymphocyte % 40.7 % (19-41); Mean Corp Hgb Conc 32.5 g/dL (32-36); Mean Corpuscular Hgb 29.3 pg (27.0-32.0); Mean Platelet Vol. 10.2 fl (6.2-12.0); Monocyte# 0.49 X10^3/uL; Monocyte% 5.1 % (0-10); NRBC Flagged by Analyzer 0 % (0-5); Neutrophil # 4.81 X10^3/uL (2.7-7.7); Neutrophil % 50.3 % (47-70); Platelet Count 420 K/mm3 (150-450); RBC Distribution Width CV 13.8 % (11.6-14.6); RBC Distribution Width SD 45.5 fl (35.1-43.9); Red Blood Count 4.58 M/mm3 (4.2-5.4); White Blood Count 9.6 K/mm3 (4.4-11.0)
[2024-12-19 18:34] LABS: ALB/GLOB Ratio 1.4 RATIO (0.9-2.4); AST(SGOT) 19 U/L (<=31); Alanine Aminotransfer ALT/SGPT 16 U/L (<=34); Albumin, Serum 4.2 g/dL (3.4-4.8); Alkaline Phosphatase 149 U/L (35-104); Anion Gap 12 (5-15); BUN 18 mg/dL (4-19); BUN/Creat Ratio 19.7 RATIO (10-20); Calcium,Total 9.3 mg/dL (7.6-11.0); Carbon Dioxide 23.6 mmol/L (21.0-32.0); Chloride 103 mmol/L (98-108); Cholesterol 122 mg/dL (<=200); EST Glomerular Filtration Rate 72 (>60); Globulin 3.1 g/dL (2.2-4.2); Glucose 117 mg/dL (70-99); High Density Lipoprotein 46 mg/dL; Low Density Lipoprotein Calc. 43 mg/dL; Potassium 4.7 mmol/L (3.3-5.1); Protein, Total 7.3 g/dL (5.9-8.4); Sodium Level 139 mmol/L (133-145); Total Bilirubin 0.32 mg/dL (0.00-1.30); Triglycerides 163 mg/dL; Very Low Density Lipoprotein 33 mg/dL (5-40); cholesterol:hdl ratio screen 2.65
== END | disposition home or self-care (01) ==
LOC: BIMLAB 15:04
PROVIDERS: PCP Internal Medicine; Referring Provider Physician Assistant; Visit Provider Physician Assistant
DX: E78.5 Hyperlipidemia, unspecified (principal); I10 Essential (primary) hypertension
CPT/HCPCS: 36415; 80053; 80061; 84443; 85025

== ENCOUNTER → 2025-03-31 | Outpatient (CLI) | payer MEDICAID, SELFPAY ==
--- NOTE | 2025-03-31 12:22 | RAD_ITS ---
EXAM: XR Left Wrist, 2 Views CLINICAL INDICATION: POLYARTHRITIS TECHNIQUE: Frontal and lateral views of the left wrist. COMPARISON: No relevant prior studies available. FINDINGS: BONES/JOINTS: Moderate to severe degenerative changes of the intercarpal joints. Severe degenerative changes of the radiocarpal joint. Moderate degenerative change of the 1st carpometacarpal joint. No acute fracture. No dislocation. SOFT TISSUES: Soft tissue swelling. No radiopaque foreign body. RAD/Wrist 2 Views IMPRESSION: Degenerative changes as above. Reading Location: [id number]
--- NOTE | 2025-03-31 12:22 | RAD_ITS ---
EXAM: XR Lumbosacral Spine, 2 or 3 Views CLINICAL INDICATION: POLYARTHRITIS TECHNIQUE: Frontal and lateral views of the lumbar spine and sacrum. COMPARISON: No relevant prior studies available. FINDINGS: VERTEBRAE: Moderate endplate degenerative changes and disc disease of the visualized spine, most prominent at L4-L5. Moderate facet arthropathy of L3-S1. No acute fracture. Normal alignment. SACRUM/COCCYX: Unremarkable as visualized. No acute fracture. DISC SPACES: See above. SOFT TISSUES: Unremarkable. RAD/Lumbar Spine 2 or 3 Views IMPRESSION: Degenerative changes as above. [facility]
--- NOTE | 2025-03-31 12:22 | RAD_ITS ---
EXAM: XR Left Knee Complete, 4 or More Views CLINICAL INDICATION: POLYARTHRITIS TECHNIQUE: Four or more views of the left knee. COMPARISON: No relevant prior studies available. FINDINGS: BONES/JOINTS: [id number] degenerative changes of the medial compartment of the knee joint. No acute fracture. No dislocation. SOFT TISSUES: Unremarkable. RAD/Knee 4 or More Views IMPRESSION: Degenerative changes as above. Reading Location: [facility]
--- NOTE | 2025-03-31 12:22 | RAD_ITS ---
EXAM: XR Right Wrist, 2 Views CLINICAL INDICATION: POLYARTHRITIS TECHNIQUE: Frontal and lateral views of the right wrist. COMPARISON: No relevant prior studies available. FINDINGS: BONES/JOINTS: Moderate degenerative change of the intercarpal joints. Severe degenerative change of the 1st carpometacarpal joint. No acute fracture. No dislocation. SOFT TISSUES: Soft tissue swelling. No radiopaque foreign body. RAD/Wrist 2 Views IMPRESSION: Degenerative changes as above. Reading [facility]
--- NOTE | 2025-03-31 12:22 | RAD_ITS ---
EXAM: XR Right Hand, 2 Views CLINICAL INDICATION: POLYARTHRITIS TECHNIQUE: Frontal and lateral views of the right hand. COMPARISON: No relevant prior studies available. FINDINGS: BONES/JOINTS: Moderate degenerative changes of the intercarpal joint. Severe degenerative change of the 1st carpometacarpal joint. Moderate degenerative change of the D IP joints. No acute fracture. No dislocation. SOFT TISSUES: Soft tissue swelling. No radiopaque foreign body. RAD/Hand 2 Views IMPRESSION: Degenerative changes as above. Reading Location: [facility]
--- NOTE | 2025-03-31 12:22 | RAD_ITS ---
EXAM: XR Right Knee Complete, 4 or More Views CLINICAL INDICATION: POLYARTHRITIS TECHNIQUE: Four or more views of the right knee. COMPARISON: No relevant prior studies available. FINDINGS: BONES/JOINTS: Moderate tricompartmental degenerative change of the knee joint. No acute fracture. No dislocation. SOFT TISSUES: Soft tissue swelling. RAD/Knee 4 or More Views IMPRESSION: Degenerative changes as above. Reading [facility]
--- NOTE | 2025-03-31 12:22 | RAD_ITS ---
EXAM: XR Left Knee Complete, 4 or More Views CLINICAL INDICATION: POLYARTHRITIS TECHNIQUE: Four or more views of the left knee. COMPARISON: No relevant prior studies available. FINDINGS: BONES/JOINTS: [id number] degenerative changes of the medial compartment of the knee joint. No acute fracture. No dislocation. SOFT TISSUES: Unremarkable. RAD/Knee 4 or More Views IMPRESSION: Degenerative changes as above. Reading Location: [facility]
--- NOTE | 2025-03-31 12:22 | RAD_ITS ---
EXAM: XR Right Wrist, 2 Views CLINICAL INDICATION: POLYARTHRITIS TECHNIQUE: Frontal and lateral views of the right wrist. COMPARISON: No relevant prior studies available. FINDINGS: BONES/JOINTS: Moderate degenerative change of the intercarpal joints. Severe degenerative change of the 1st carpometacarpal joint. No acute fracture. No dislocation. SOFT TISSUES: Soft tissue swelling. No radiopaque foreign body. RAD/Wrist 2 Views IMPRESSION: Degenerative changes as above. Reading [facility]
--- NOTE | 2025-03-31 12:22 | RAD_ITS ---
EXAM: XR Right Knee Complete, 4 or More Views CLINICAL INDICATION: POLYARTHRITIS TECHNIQUE: Four or more views of the right knee. COMPARISON: No relevant prior studies available. FINDINGS: BONES/JOINTS: Moderate tricompartmental degenerative change of the knee joint. No acute fracture. No dislocation. SOFT TISSUES: Soft tissue swelling. RAD/Knee 4 or More Views IMPRESSION: Degenerative changes as above. Reading [facility]: [facility]
--- NOTE | 2025-03-31 12:22 | RAD_ITS ---
EXAM: XR Left Wrist, 2 Views CLINICAL INDICATION: POLYARTHRITIS TECHNIQUE: Frontal and lateral views of the left wrist. COMPARISON: No relevant prior studies available. FINDINGS: BONES/JOINTS: Moderate to severe degenerative changes of the intercarpal joints. Severe degenerative changes of the radiocarpal joint. Moderate degenerative change of the 1st carpometacarpal joint. No acute fracture. No dislocation. SOFT TISSUES: Soft tissue swelling. No radiopaque foreign body. RAD/Wrist 2 Views IMPRESSION: Degenerative changes as above. Reading Location: [id number]
--- NOTE | 2025-03-31 12:22 | RAD_ITS ---
EXAM: XR Left Hand, 2 Views CLINICAL INDICATION: POLYARTHRITIS TECHNIQUE: Frontal and lateral views of the left hand. COMPARISON: No relevant prior studies available. FINDINGS: BONES/JOINTS: Moderate degenerative change of the intercarpal joints. Moderate degenerative change of the 1st and 2nd carpometacarpal joint. Moderate degenerative changes of the D IP joints. No acute fracture. No dislocation. SOFT TISSUES: Soft tissue swelling. No radiopaque foreign body. RAD/Hand 2 Views IMPRESSION: Degenerative changes as above. Reading Location: [facility]
--- NOTE | 2025-03-31 12:22 | RAD_ITS ---
EXAM: XR Lumbosacral Spine, 2 or 3 Views CLINICAL INDICATION: POLYARTHRITIS TECHNIQUE: Frontal and lateral views of the lumbar spine and sacrum. COMPARISON: No relevant prior studies available. FINDINGS: VERTEBRAE: Moderate endplate degenerative changes and disc disease of the visualized spine, most prominent at L4-L5. Moderate facet arthropathy of L3-S1. No acute fracture. Normal alignment. SACRUM/COCCYX: Unremarkable as visualized. No acute fracture. DISC SPACES: See above. SOFT TISSUES: Unremarkable. RAD/Lumbar Spine 2 or 3 Views IMPRESSION: Degenerative changes as above. Reading [facility]
--- NOTE | 2025-03-31 12:22 | RAD_ITS ---
EXAM: XR Right Hand, 2 Views CLINICAL INDICATION: POLYARTHRITIS TECHNIQUE: Frontal and lateral views of the right hand. COMPARISON: No relevant prior studies available. FINDINGS: BONES/JOINTS: Moderate degenerative changes of the intercarpal joint. Severe degenerative change of the 1st carpometacarpal joint. Moderate degenerative change of the D IP joints. No acute fracture. No dislocation. SOFT TISSUES: Soft tissue swelling. No radiopaque foreign body. RAD/Hand 2 Views IMPRESSION: Degenerative changes as above. Reading Location: [facility]
--- NOTE | 2025-03-31 12:22 | RAD_ITS ---
EXAM: XR Left Hand, 2 Views CLINICAL INDICATION: POLYARTHRITIS TECHNIQUE: Frontal and lateral views of the left hand. COMPARISON: No relevant prior studies available. FINDINGS: BONES/JOINTS: Moderate degenerative change of the intercarpal joints. Moderate degenerative change of the 1st and 2nd carpometacarpal joint. Moderate degenerative changes of the D IP joints. No acute fracture. No dislocation. SOFT TISSUES: Soft tissue swelling. No radiopaque foreign body. RAD/Hand 2 Views IMPRESSION: Degenerative changes as above. Reading Location: [facility]
== END | disposition home or self-care (01) ==
LOC: RAD 12:01
PROVIDERS: PCP Internal Medicine; Referring Provider Anesthesiology; Visit Provider Anesthesiology
DX: M13.0 Polyarthritis, unspecified (principal)
CPT/HCPCS: 72100; 73100; 73120; 73564

== ENCOUNTER → 2025-04-09 | Outpatient (CLI) | payer MEDICAID, SELFPAY | END | disposition home or self-care (01) | LOC: SL 21:17 | PROVIDERS: PCP Internal Medicine; Referring Provider Internal Medicine; Visit Provider Internal Medicine | DX: G47.10 Hypersomnia, unspecified (principal) | CPT/HCPCS: 95810 ==

== ENCOUNTER → 2025-04-23 | Outpatient (CLI) | payer MEDICAID, SELFPAY ==
--- OUTSIDE RECORDS SUMMARY | 2025-04-23 22:36 | XMS RPT_ITS | CCD ---
Author Organization [facility] ion Partnership [facility] ([facility] Care Team Providers Care Retail Customer Service Representative Name Role Phone Abhi King MD Unavailable Jenni Thornton Primary Care Provider Dr. Jenni Thornton Primary Care Provider [phone] Dr. Jenni Thornton Attending Provider [phone] Dr. Jenni Thornton Referring Provider [phone] JUAN Cleary Attending Provider Unavailab Dr. Jenni Genao Primary Care Provider [phone] [phone]) Dr. Jenni Thornton Referring Provider [phone] KRISSY Mccarty NP Attending Provider [phone] Dr. Jenni Thornton Primary Care Provider [phone] [phone]) Dr. Jenni Thornton Attending Provider [phone] Dr. Jenni Thornton Referring Provider [phone] Dr. Jenni Thornton Primary Care Provider 1(33 0) Dr. Jenni Thornton Attending Provider [phone] Dr. Jenni Thornton Referring Provider [phone] Dr. Jenni Thornton Primary Care Provider 1(33 0) Dr. Jenni Thornton Attending Provider [phone] Dr. Jenni Thornton Referring Provider [phone] JUAN Maldonado Attending Provider Dr. Edward Gamboa Attending Provider Dr. Jamie Yoo Referring Provider Dr. Jamie Yoo Admit Provider Dr. Jamie Yoo Other Provider Dr. Brandon Mckeon Attending Provider Dr. Brandon Mckeon Other Provider Dr. Cirilo Teran Attending Provider Dr. Cirilo Teran Other Provider Dr. Jenni Thornton Primary Care Provider [phone] Dr. Jenni Thornton Referring Provider [phone] JUNA Maldonado Attending Provider [phone] Dr. Edward Gamboa Attending Provider Dr. Jamie Yoo Referring Provider Dr. Jenni Thornton Attending Provider [phone] Jamie Yoo Admit Provider Dr. Jamie Yoo Other Provider Dr. Brandon Mckeon Attending Provider Dr. Brandon Mckeon Other Provider Dr. Cirilo Teran Attending Provider Dr. Cirilo Teran Other Provider KRISSY Poole Attending Provider NORBERTO ARCOS, JENNI Salinas Primary Care Unavailab MAHNAZ Genao MD Admitting Unavailable ANABELLE CARPENTER MD Attending Rosalva Genao MD, JENNI Salinas Consulting Unavailab tevin RUBY MD, AZAEL Consulting Unavailable LEANN ARCOS, WESLEY Consulting Unavailable ERICKSON JASSO MD Consulting Unavailable SHABNAM ARCOS, JI Reich Consulting Unavailable SHAHID ARCOS, DR KYAW Schaeffer Consulting Unavailable FREDO ARCOS, DR JAMIE Ramos Attending Unavailab le PHYSICIAN, NONE Primary Care Unavailable DAVID MOORE, BUNNY Vasquez Attending Unavailable JENNI THORNTON MD Primary Care Unavailab tevin HERNANDEZ PA-C, BUNNY Vasquez Attending Unavailable NORBERTO ARCOS, JENNI Salinas Primary Care Unavailab tevin YOO MD, DR JAMIE Ramos Admitting Unavailab tevin THORNTON MD, JENNI Salinas Consulting Unavailab tevin THORNTON MD, JENNI Salinas Primary Care Unavailab tevin YOO MD, DR JAMIE Ramos Referring Unavailab le KAPPMAXI CLINICAL APPEALS AUDITOR-MANAGER PROCESS IMPROVEMENT, FREDRICK Vincent Attending Unavaila lauri PEPE CLINICAL APPEALS AUDITOR-MANAGER PROCESS IMPROVEMENT, WILY Jacob Consulting Jb THORNTON MD, JENNI Salinas Primary Care Unavailab le KAPPMAXI CLINICAL APPEALS AUDITOR-MANAGER PROCESS IMPROVEMENT, FREDRICK Vincent Admitting Unavaila ble KAPPMAXI CLINICAL APPEALS AUDITOR-MANAGER PROCESS IMPROVEMENT, FREDRICK Vincent Attending Unavaila SHAHEED Zambrano DO Referring Unavailable NORBERTO ARCOS, JENNI Salinas Primary Care Unavailab tevin BOWERS DO, GUILLERMO Attending Unavailable MAHNAZ HEADLEY MD Consulting Unavailable TANIA QUIÑONES, DR NICOLÁS Jacob Attending Unavailabl bradley THORNTON MD, JENNI Salinas Primary Care Unavailab tevin Thornton MD, Dr. Llamas Primary Care Provider Norberto ARCOS, Dr. Llamas Referring Provider [phone] Tyson Maldonado Attending Provider [phone] Tyson Maldonado Referring Provider [phone] Norberto ARCOS, Dr. Llamas Attending Provider [phone] Dr. Dontae Thomas MD Attending Provider [phone] Dr. Dnotae Thomas MD Referring Provider [phone] Tyson Maldonado Attending Unavailable Oleghe, Efewongfadia Referring Unavailable Oleghe, Efewongbe Primary Care Unavailable Oleghe, Efewongbe Attending Unavailable Oleghe, Efewongbe Referring Unavailable Oleghe, Efewongbe Primary Care Unavailable Oleghe, Efewongbe Attending Unavailable Oleghe, Efewongbe Referring Unavailable Oleghe, Efewongbe Primary Care Unavailable Oleghe, Efewongbe Attending Unavailable Shylae, Efewongbe Referring Unavailable Oleghe, Efewongbe Primary Care Unavailable Oleghe, Efewongbe Attending Unavailable Oleghe, Efewongbe Referring Unavailable Oleghe, Efewongbe Primary Care Unavailable Oleghe, Efewongbe Primary Care Unavailable Aida Thomass Attending Unavailable Prayson Dontae Referring Unavailable Oleghe, Efewongbe Primary Care Unavailable Oleghe, Efewongbe Attending Unavailable Oleghe, Efewongbe Referring Unavailable Tyson Maldonado Attending Unavailable Noemy MARTINEZ, Tyson Referring Unavailable Oleghe, Efewongbe Primary Care Unavailable HairTerrenceBennett Attending Unavailable Oleghe, Efewongbe Referring Unavailable Oleghe, Efewongbe Primary Care Unavailable Oleghe, Efewongbe Attending Unavailable Oleghe, Efewongbe Referring Unavailable Oleghe, Efewongbe Primary Care Unavailable Oleghe, Efewongbe Primary Care Unavailable Oleghe, Efewongbe Attending Unavailable Oleghe, Efewongbe Referring Unavailable Oleghe, Efewongbe Attending Unavailable Oleghe, Efewongbe Referring Unavailable Oleghe, Efewongbe Primary Care Unavailable Allergies Allergy Classification Reported Allergen(s) Allergy Type Date of Onset Reaction(s) Facility (10 sources) Acetaminophen Drug Allergy 2 [facility] (11 sources) Amoxicillin; Translations: [amoxicillin trihydrate] Drug Allergy 2 [facility] (11 sources) HYDROcodone; Translations: [hydrocodone bitartrate] Drug Allergy 2 [facility] (11 sources) oxyCODONE; Translations: [oxycodone HCl] Drug Allergy 2 [facility] (11 sources) potassium clavulanate; Translations: [potassium clavulanate] Allergy to substance 2 [facility] (1 source) Acetaminophen Drug Allergy 5 [facility] Repository Medications Current Medications Medication Drug Class(es) Dates Sig (Normalized) Sig (Original) Blood Pressure Monitor (6 sources) Start: 11-17-2021 Blood Pressure Monitor Active 0 .MEDSUPPLY 1 November 17, 2021 5:54pm Check blood pressure daily for hypertension I10 Start: 11-17-2021 Blood Pressure Monitor Active 0 .MEDSUPPLY 1 November 17, 2021 1:00am Check blood pressure daily for hypertension I10 Start: 11-17-2021 Blood Pressure Monitor Active 0 .MEDSUPPLY 1 November 17, 2021 12:00am Check blood pressure daily for hypertension I10 Blood Pressure Monitor kit (4 sources) Start: 11-17-2021 Blood Pressure Monitor kit Active 0 .MEDSUPPLY 1 0 November 17, 2021 1:00am Essential (primary) hypertension Check blood pressure daily for hypertension I10 Start: 11-17-2021 Blood Pressure Monitor kit Active 0 .MEDSUPPLY 1 November 17, 2021 1:00am Check blood pressure daily for hypertension I10 Blood-Glucose Meter (Freesty le Lite Meter) kit (14 sources) Start: 05-05-2024 Blood-Glucose Meter (Freestyle Lite Meter) kit Active 0 .MEDSUPPLY 1 0 May 05, 2024 12:00am Type 2 diabetes mellitus with hyperglycemia As directed, check blood glucose daily for type 2 DM Start: 05-05-2024 Blood-Glucose Meter (Freestyle Lite Meter) kit Active 0 .MEDSUPPLY 1 May 05, 2024 12:00am As directed, check blood glucose daily for type 2 DM Start: 01-20-2022 Blood-Glucose Meter (Freestyle Lite Meter) kit Active 0 .MEDSUPPLY 1 January 20, 2022 4:16pm As directed, check blood glucose daily for type 2 DM Start: 01-20-2022 Blood-Glucose Meter (Freestyle Lite Meter) kit Active 0 .MEDSUPPLY 1 0 January 20, 2022 12:00am Type 2 diabetes mellitus with hyperglycemia As directed, check blood glucose daily for type 2 DM Start: 01-20-2022 Blood-Glucose Meter (Freestyle Lite Meter) kit Active 0 .MEDSUPPLY 1 January 20, 2022 12:00am As directed, check blood glucose daily for type 2 DM Start: 01-20-2022 Blood-Glucose Meter (Freestyle Lite Meter) kit Active 0 .MEDSUPPLY 1 January 19, 2022 11:00pm As directed, check blood glucose daily for type 2 DM cholecalciferol 0.025 mg oral capsule (20 sources) Vitamin D Start: 03-18-2025 take 1 capsule by mouth once daily Cholecalciferol (Vitamin D3) (Vitamin D3) 25 mcg (1,000 unit) capsule Active 1000 U PO DAILY March 18, 2025 4:18pm SUPPLEMENT Start: 10-19-2023 End: 03-18-2025 take 1 capsule by mouth once daily Cholecalciferol (Vitamin D3) (Vitamin D3) 25 mcg (1,000 unit) capsule Discontinued 2000 U PO DAILY 90 December 19, 2024 2:23pm March 18, 2025 4:18pm SUPPLEMENT Start: 08-01-2023 End: 10-19-2023 Cholecalciferol (Vitamin D3) (Vitamin D3) 25 mcg (1,000 unit) capsule Discontinued PO August 01, 2023 1:00am October 19, 2023 11:33am Compr.Stocking,Knee,Long,Lar ge (16 sources) Start: 03-24-2022 Compr.Stocking,Knee,Long,Lar ge Active 0 .ROUTE .MEDSUPPLY March 24, 2022 4:13pm Wear Daily Start: 03-24-2022 Compr.Stocking ,Knee,Long,Large Active 0 .ROUTE .MEDSUPPLY March 24, 2022 3:13pm Wear Daily Start: 02-20-2022 End: 03-24-2022 Compr.Stocking,Knee,Long,Lar ge Discontinued 0 .ROUTE .MEDSUPPLY February 20, 2022 1:47pm March 24, 2022 4:14pm Wear Daily Start: 02-20-2022 End: 03-24-2022 Compr.Stocking,Knee,Long,Lar ge Discontinued 0 .ROUTE .MEDSUPPLY February 20, 2022 12:47pm March 24, 2022 3:14pm Wear Daily Start: 12-05-2021 Compr.Stocking ,Knee,Long,Large Active 0 .ROUTE .MEDSUPPLY December 05, 2021 2:24pm Wear Daily Start: 12-05-2021 End: 02-20-2022 Compr.Stocking,Knee,Long,Lar ge Discontinued 0 .ROUTE .MEDSUPPLY December 05, 2021 12:00am February 20, 2022 1:47pm Wear Daily Start: 12-05-2021 End: 02-20-2022 Compr.Stocking,Knee,Long,Lar ge Discontinued 0 .ROUTE .MEDSUPPLY December 04, 2021 11:00pm February 20, 2022 12:47pm Wear Daily Compr.Stocking,Knee,Long,Lar ge misc (12 sources) Start: 03-24-2022 Compr.Stocking,Knee,Long,Lar ge misc Active 0 .ROUTE .MEDSUPPLY 12 0 March 24, 2022 4:13pm Edema of both lower extremities Localized edema 20-30mmHg, R60.0 Wear Daily Start: 03-24-2022 Compr.Stocking ,Knee,Long,Large misc Active 0 .ROUTE .MEDSUPPLY March 24, 2022 4:13pm Wear Daily Start: 02-20-2022 End: 03-24-2022 Compr.Stocking,Knee,Long,Lar ge misc Discontinued 0 .ROUTE .MEDSUPPLY 12 0 February 20, 2022 1:47pm March 24, 2022 4:14pm Edema of both lower extremities Localized edema Wear Daily Start: 02-20-2022 End: 03-24-2022 Compr.Stocking,Knee,Long,Lar ge misc Discontinued 0 .ROUTE .MEDSUPPLY February 20, 2022 1:47pm March 24, 2022 4:14pm Wear Daily Start: 12-05-2021 End: 02-20-2022 Compr.Stocking,Knee,Long,Lar ge misc Discontinued 0 .ROUTE .MEDSUPPLY 12 0 December 05, 2021 12:00am February 20, 2022 1:47pm Edema of both lower extremities Localized edema Wear Daily Start: 12-05-2021 End: 02-20-2022 Compr.Stocking,Knee,Long,Lar ge misc Discontinued 0 .ROUTE .MEDSUPPLY December 05, 2021 12:00am February 20, 2022 1:47pm Wear Daily ferrous sulfate 60 mg/ml oral solution (20 sources) Start: 12-19-2024 take 300 mg by mouth once daily Ferrous Sulfate 300 mg (60 mg iron)/5 mL liquid Active 300 mg PO daily 120 December 19, 2024 12:00am Start: 12-10-2023 End: 12-19-2024 take 1 tablet by mouth every other day Ferrous Sulfate (Feosol) 325 mg (65 mg iron) tablet Discontinued 325 mg PO every other day 45 90 2 May 05, 2024 4:17pm December 19, 2024 2:01pm Anemia due to acute blood loss Restless legs syndrome Acute posthemorrhagic anemia Restless legs syndrome Start: 12-04-2023 End: 12-10-2023 take 1 tablet by mouth once daily Ferrous Sulfate 324 mg (65 mg iron) tablet,delayed release (DR/EC) Discontinued 324 mg PO DAILY 30 December 04, 2023 12:00am December 10, 2023 3:56pm Start: 07-08-2015 take 1 tablet by emeterio th once daily, then take 1 tablet by mouth twice daily FERROUS SULFATE 324 (65 Fe) MG TBEC One tablet by mouth daily for 2 days; then one tablet by mouth twice daily for 2 days; followed by one tablet by mouth three times daily. FERROUS SULFATE [id number] Fidelina Buckleyen [employer] Handicap Placard (8 sources) Start: 04-20-[address] Active 0 .ROUTE .MEDSUPPLY 1 April 20, 2023 12:00am Other reduced mobility As directed, length of time 3 years Start: 04-20-[address] Active 0 .ROUTE .MEDSUPPLY April 19, 2023 11:00pm As directed, length of time 3 years Start: 04-20-[address] Active 0 .ROUTE .MEDSUPPLY April 20, 2023 12:00am As directed, length of time 3 years Tirzepatide (Weight Loss) (3 sources) Start: 04-14-2025 Tirzepatide (W eight Loss) (Zepbound) 2.5 mg/0.5 mL pen injector Active 2.5 mg SC EVERY WEEK 2 0 April 14, 2025 11:51am Obstructive sleep apnea syndrome Morbid obesity Borderline type 2 diabetes mellitus Obstructive sleep apnea (adult) (pediatric) Morbid (severe) obesity due to excess calories Prediabetes for 4 weeks Start: 04-14-2025 End: 04-14-2025 Tirzepatide (Weight Loss) (Z epbound) 2.5 mg/0.5 mL pen injector Discontinued 2.5 mg SC EVERY WEEK 2 0 April 14, 2025 10:50am April 14, 2025 11:51am Obstructive sleep apnea syndrome Morbid obesity Borderline type 2 diabetes mellitus Obstructive sleep apnea (adult) (pediatric) Morbid (severe) obesity due to excess calories Prediabetes for 4 weeks Start: 04-13-2025 End: 04-13-2025 Tirzepatide (Weight Loss) (Z epbound) 2.5 mg/0.5 mL pen injector Discontinued 2.5 mg SC EVERY WEEK 2 April 13, 2025 12:00am April 13, 2025 6:38pm for 4 weeks Completed/Discontinued Medications Medication Drug Class(es) Dates Sig (Normalized) Sig (Original) acetaminophen 500 mg oral tablet (20 sources) Start: 11-16-2023 End: 01-02-2024 Acetaminophen 500 mg tablet Discontinued 1000 mg PO THREE TIMES A DAY 180 30 0 December 03, 2023 2:52pm January 01, 2024 12:00am January 02, 2024 12:10am Do not take more than 3000 mg Tylenol in a 24-hour period. Start: 11-16-2023 End: 12-03-2023 take 3000 mg by mouth three times daily Acetaminophen Active 1000 MG PO THREE TIMES A DAY 180 30 December 03, 2023 2:52pm Do not take more than 3000 mg Tylenol in a 24-hour period. Start: 10-19-2023 End: 10-19-2023 take 1 capsule by mouth every six hours as needed for pain Acetaminophen 325 mg capsule Discontinued 325 mg PO EVERY 6 HOURS as needed for pain October 19, 2023 1:00am October 19, 2023 12:24pm Start: 10-19-2023 End: 11-16-2023 take 2 capsules by mouth at bedtime as needed for pain Acetaminophen 325 mg capsule Discontinued 650 mg PO AT BEDTIME as needed for MILD PAIN October 19, 2023 1:00am November 16, 2023 8:41am Start: 10-19-2023 End: 11-16-2023 take 650 mg by mouth at bedtime Acetaminophen Disconti nued 650 MG PO AT BEDTIME October 19, 2023 1:00am November 16, 2023 8:41am Start: 06-22-2023 End: 10-19-2023 take 8 tablets by mouth once as needed for pain Acetaminophen 500 mg tablet Discontinued 1000 mg PO .Q8 as needed for fever or pain 240 3 June 22, 2023 12:00am October 19, 2023 11:33am Start: 06-22-2023 End: 10-19-2023 Acetaminophen Discontinued 1 000 MG PO .Q8 240 June 22, 2023 12:00am October 19, 2023 11:33am Start: 05-25-2021 End: 11-17-2021 take 1 capsule by mouth every six hours as needed Acetaminophen 500 mg capsule Discontinued 500 mg PO EVERY 6 HOURS as needed May 25, 2021 12:00am November 17, 2021 5:26pm acetaminophen / phenylephrine (4 sources) alpha-1 Adrenergic Agonist take 2 tablets by mouth every four hours as needed PAIN RELIEF SINUS PE DAYTIME TABS Two tablets by mouth every 4 hours as needed PHENYLEPHRINE-ACETAMINOPHEN TABS [id number] Natasha Welchpie [facility] [id number] actuat albuterol 0.09 mg/actuat metered dose inhaler (14 sources) beta2-Adrenergic Agonist Start: 2016 End: 2020 Albuterol Sulfate (Ventolin Hfa) 108 HFA aerosol inhaler Discontinued 2 NMA 4 TIMES DAILY NEEDED as needed for Dyspnea/Wheezing/Sob August 28, 2017 1:00am May 25, 2021 2:21pm Start: 08-28-2017 End: 05-25-2021 take 1 puff(s) by inhalation four times daily as needed Albuterol Sulfate (Ventolin Hfa) 108 HFA aerosol inhaler Discontinued 2 PUFF 4 TIMES DAILY NEEDED August 28, 2017 1:00am May 25, 2021 2:21pm PROAIR HFA 108 ( 90 Base) MCG/ACT AERS as needed ALBUTEROL SULFATE [id number] Devan Schwartz DO amLODIPine 5 mg oral tablet (20 sources) Dihydropyridine Calcium Channel Amrita Start: 01-20-2022 End: 10-19-2023 take 1 tablet by mouth once daily Amlodipine 5 mg tablet Discontinued 5 mg PO DAILY 90 0 July 17, 2023 11:58am October 19, 2023 12:20pm Start: 12-05-2021 End: 01-20-2022 take 5 mg by mouth once daily Amlodipine 10 mg tablet Discontinued 5 mg PO DAILY December 05, 2021 2:19pm January 20, 2022 1:54pm Start: 12-05-2021 End: 01-20-2022 take 5 mg by mouth once daily Amlodipine Discontinued 5 MG PO DAILY December 05, 2021 2:19pm January 20, 2022 1:54pm Start: 11-17-2021 End: 12-05-2021 take 1 tablet by mouth once daily Amlodipine 10 mg tablet Discontinued 10 mg PO DAILY 90 November 17, 2021 1:00am December 05, 2021 2:19pm take 1 tablet by emeterio once daily NORVASC 10 MG TABS One tablet by mouth daily AMLODIPINE BESYLATE [id number] Natasha Welchpie [employer] amoxicillin 875 mg / clavulanate 125 mg oral tablet (4 sources) Penicillin-class Antibacterial Start: 04-02-2024 End: 05-05-2024 Amoxicillin-Pot Clavulanate 875-125 mg tablet Discontinued 1 {tbl} PO TWICE A DAY April 02, 2024 12:00am May 05, 2024 2:47pm ascorbic acid 500 mg oral tablet (4 sources) Start: 07-08-2015 take 1 tablet by mouth once daily VITAMIN C 500 MG TABS One tablet by mouth daily. ASCORBIC ACID [id number] Fidelina Burns [employer] aspirin 81 mg chewable tablet (20 sources) Platelet Aggregation Inhibitor, Nonsteroidal Anti-inflammatory Drug Start: 12-19-2024 take 1 tablet by mouth once daily Aspirin 81 mg tablet,delayed release (DR/EC) Active 81 mg PO daily 100 1 December 19, 2024 12:00am Start: 11-16-2023 End: 12-19-2024 take 1 tablet by mouth twice daily Aspirin 81 mg tablet,chewable Discontinued 81 mg PO ONCE 100 December 19, 2024 2:32pm December 19, 2024 2:32pm Take 81 mg aspirin twice daily for 4 weeks postoperatively for DVT prophylaxis. Start: 10-19-2023 End: 11-16-2023 take 1 tablet by mouth once daily Aspirin 81 mg tablet,chewable Discontinued 81 mg PO DAILY October 19, 2023 1:00am November 16, 2023 8:41am HEART atorvastatin 40 mg oral tablet (20 sources) HMG-CoA Reductase Inhibitor Start: 05-25-2021 End: 12-19-2024 take 1 tablet by mouth at bedtime Atorvastatin 40 mg tablet Discontinued 40 mg PO AT BEDTIME 90 0 July 17, 2023 11:58am October 19, 2023 12:24pm 12 hr buPROPion hydrochloride 100 mg extended release oral tablet (20 sources) Aminoketone Start: 04-19-2023 End: 10-19-2023 take 1 tablet by mouth twice daily Bupropion Hcl 100 mg tablet sustained-release 12 hr Discontinued 0 .ROUTE .COMPLEX 180 0 August 17, 2023 3:47pm October 19, 2023 12:19pm TAKE 1 TABLET BY MOUTH TWICE A DAY cyclobenzaprine hydrochloride 5 mg oral tablet (20 sources) Muscle Relaxant Start: 10-19-2023 End: 05-05-2024 take 1 tablet by mouth three times daily as needed for muscle spasms Cyclobenzaprine 5 mg tablet Discontinued 5 mg PO THREE TIMES A DAY as needed for muscle spasm 30 0 November 12, 2023 1:21pm December 03, 2023 2:54pm take 1 tablet by mouth at bedtim e CYCLOBENZAPRINE HCL 10 MG TABS One tablet by mouth at bedtime. CYCLOBENZAPRINE HCL [id number] Natasha Shields LPN dapagliflozin 10 mg oral tablet (9 sources) Sodium-Glucose Cotransporter 2 Inhibitor Start: 05-11-2022 End: 04-19-2023 take 1 tablet by mouth once daily in the morning Dapagliflozin Propanediol (Farxiga) 10 mg tablet Discontinued 10 mg PO EVERY MORNING 90 1 May 11, 2022 12:00am April 19, 2023 4:54pm diclofenac sodium 0.01 mg/mg topical gel (18 sources) Nonsteroidal Anti-inflammatory Drug Start: 04-27-2023 End: 10-19-2023 Diclofenac Sodium (Voltaren Arthritis Pain) 1 % gel Discontinued 2 g TOPICAL ONCE 100 3 April 27, 2023 12:00am October 19, 2023 11:32am apply to single elbow, wrist or hand; for hand includes palm/fingers/back of hand Start: 04-27-2023 End: 10-19-2023 Diclofenac Sodium (Voltaren Arthritis Pain) 1 % gel Discontinued 2 GM TOPICAL ONCE 100 April 27, 2023 12:00am October 19, 2023 11:32am apply to single elbow, wrist or hand; for hand includes palm/fingers/back of hand Start: 05-25-2021 End: 07-18-2021 take 1 tablet by mouth twice daily Diclofenac Sodium 75 mg tablet,delayed release (DR/EC) Discontinued 75 mg PO TWICE A DAY May 25, 2021 12:00am July 18, 2021 2:55pm docusate sodium 100 mg oral tablet (4 sources) Start: 07-08-2015 take 1 tablet by mouth once daily DOCUSATE SODIUM 100 MG TABS One tablet by mouth daily. DOCUSATE SODIUM [id number] Fidelina A Posten [employer] doxepin hydrochloride 25 mg oral capsule (20 sources) Tricyclic Antidepressant Start: 10-19-2023 End: 10-19-2023 take 4 capsules by mouth at bedtime Doxepin 25 mg capsule Discontinued 100 mg PO AT BEDTIME October 19, 2023 11:28am October 19, 2023 12:24pm Start: 10-19-2023 End: 10-19-2023 take 100 mg by mouth at bedtime Doxepin Discontinued 1 00 MG PO AT BEDTIME October 19, 2023 11:28am October 19, 2023 12:24pm Start: 04-19-2023 End: 04-02-2024 take 1 capsule by mouth at bedtime Doxepin 25 mg capsule Discontinued 25 mg PO AT BEDTIME 30 2 July 24, 2023 6:14pm October 19, 2023 11:33am Start: 05-25-2021 End: 04-19-2023 take 1 capsule by mouth at bedtime Doxepin 100 mg capsule Discontinued 100 mg PO AT BEDTIME 30 0 March 29, 2022 1:48pm April 19, 2023 4:54pm doxycycline monohydrate 100 mg oral capsule (6 sources) Tetracycline-class Drug Start: 11-16-2023 End: 12-03-2023 take 1 capsule by mouth twice daily Doxycycline Monohydrate 100 mg Capsule Discontinued 100 mg PO TWICE A DAY 24 12 November 16, 2023 1:00am December 03, 2023 2:53pm Take for 2 weeks postoperatively famotidine 20 mg oral tablet (10 sources) Histamine-2 Receptor Antagonist Start: 11-16-2023 End: 12-03-2023 take 1 tablet by mouth once daily Famotidine 20 mg Tablet Discontinued 20 mg PO DAILY 30 30 0 November 16, 2023 1:00am December 03, 2023 2:53pm take 1 tablet by mouth twice beronica ly FAMOTIDINE 20 MG TABS One tablet by mouth twice daily FAMOTIDINE [id number] Natasha Cornelius ZHOU flu vac qs 2019(4 yr up)CD(PF) (1 source) Start: 05-25-2021 End: 05-25-2021 inject 60 ug by intramuscular injection once flu vac qs 2019(4 yr up)CD(PF) Discontinued 60 MCG IM ONCE 0.5 May 25, 2021 2:01pm May 25, 2021 5:37pm FLUoxetine 20 mg oral tablet (10 sources) Serotonin Reuptake Inhibitor Start: 05-25-2021 End: 05-25-2021 take 1 tablet by mouth once daily Fluoxetine 20 mg tablet Discontinued 20 mg PO DAILY May 25, 2021 12:00am May 25, 2021 2:48pm gabapentin 300 mg oral tablet (4 sources) Anti-epileptic Agent take 1 tablet by mouth at bedtime NEURONTIN 300 MG CAPS One tablet by mouth at bedtime. GABAPENTIN [id number] Natasha Shields LPN 12 hr guaiFENesin 600 mg extended release oral tablet (4 sources) Start: 04-02-2024 End: 05-05-2024 take 1 mg by mouth every twelve hours Guaifenesin (Mucus Relief Er) 600 mg tablet extended release 12hr Discontinued mg PO April 02, 2024 12:00am May 05, 2024 2:47pm hydroCHLOROthiazide 25 mg / valsartan 320 mg oral tablet (10 sources) Thiazide Diuretic, Angiotensin 2 Receptor Amrita Start: 08-25-2017 End: 05-25-2021 Valsartan-Hydroc hlorothiazide 1 EACH tablet Discontinued 1 NMA PO DAILY August 25, 2017 1:00am May 25, 2021 2:21pm Start: 08-25-2017 End: 05-25-2021 Valsartan-Hydrochlorothiazid e Discontinued 1 EACH PO DAILY August 25, 2017 1:00am May 25, 2021 2:21pm LEVOMILNACIPRAN HCL (4 sources) Serotonin and Norepinephrine Reuptake Inhibitor take 1 tablet by mouth once daily FETZIMA 40 MG [id number] One tablet by mouth daily LEVOMILNACIPRAN HCL [id number] Natasha Shields [employer] metFORMIN hydrochloride 500 mg oral tablet (20 sources) Biguanide Start: 024 End: 025 take 1 tablet by mouth twice daily Metformin 500 mg tablet Discontinued 500 mg PO TWICE A DAY 180 May 05, 2024 3:16pm December 19, 2024 2:23pm DIABETES Start: 01-20-2022 End: 05-11-2022 take 1 tablet by mouth twice daily Metformin 500 mg tablet Discontinued 500 mg PO TWICE A DAY 60 January 20, 2022 12:00am May 11, 2022 3:23pm 24 hr metoprolol succinate 50 mg extended release oral tablet (12 sources) beta-Adrenergic Amrita Start: 04-02-2024 End: 12-19-2024 take 1 tablet by mouth once daily Metoprolol Succinate 50 mg tablet extended release 24 hr Discontinued 50 mg PO daily 90 May 05, 2024 3:16pm December 19, 2024 2:23pm nortriptyline 25 mg oral capsule (10 sources) Tricyclic Antidepressant Start: 08-25-2017 End: 05-25-2021 take 1 capsule by mouth at bedtime Nortriptyline 25 MG capsule Discontinued 25 mg PO AT BEDTIME August 25, 2017 1:00am May 25, 2021 2:21pm Nut.Tx.Gluc Intol,Lf,Soy-Fiber (Glucerna 1.2 Vasu) 0.06-1.2 gram-kcal/mL Liquid (6 sources) Start: 11-16-2023 End: 01-28-2024 take 1 mL by mouth twice daily Nut.Tx.Gluc Intol,Lf,Soy-Fiber (Glucerna 1.2 Vasu) 0.06-1.2 gram-kcal/mL Liquid Discontinued 120 mL PO TWICE A DAY 0 14 0 November 16, 2023 1:00am January 28, 2024 2:11pm Start: 11-16-2023 End: 01-28-2024 take 1 mL by mouth twice daily Nut.Tx.Gluc Intol,Lf,Soy-Fiber (Glucerna 1.2 Vasu) 0.06-1.2 gram-kcal/mL Liquid Discontinued 120 mL PO TWICE A DAY 0 14 November 16, 2023 1:00am January 28, 2024 2:11pm Start: 11-16-2023 take 1 mL by mouth t wice daily Nut.Tx.Gluc Intol,Lf,Soy-Fiber (Glucerna 1.2 Vasu) 0.06-1.2 gram-kcal/mL Liquid Active 120 ML PO TWICE A DAY 0 November 16, 2023 1:00am Start: 11-16-2023 take 1 mL by mouth t wice daily Nut.Tx.Gluc Intol,Lf,Soy-Fiber (Glucerna 1.2 Vasu) 0.06-1.2 gram-kcal/mL Liquid Active 120 ML PO TWICE A DAY 0 November 16, 2023 12:00am nystatin 100 unt/mg topical powder (6 sources) Polyene Antifungal Start: 10-19-2023 End: 10-19-2023 Nystatin 100,000 unit/gram powder Discontinued 1 NMA TOPICAL TWICE A DAY as needed October 19, 2023 1:00am October 19, 2023 12:19pm APPLY TO GROIN TOPICALLY EVERY 12 HOURS NEEDED FOR SKIN INTEGRITY Start: 10-19-2023 End: 10-19-2023 Nystatin Discontinued 1 APPL IC TOPICAL TWICE A DAY October 19, 2023 1:00am October 19, 2023 12:19pm APPLY TO GROIN TOPICALLY EVERY 12 HOURS NEEDED FOR SKIN INTEGRITY oxyCODONE hydrochloride 5 mg oral tablet (6 sources) Opioid Agonist Start: 11-16-2023 End: 01-28-2024 take 5-10 mg by mouth every four hours as needed for pain Oxycodone 5 mg Tablet Discontinued 5 - 10 mg PO EVERY 4 HOURS NEEDED as needed for Pain Score 4-10 30 7 0 November 16, 2023 January 28, 2024 2:11pm History of revision of total replacement of right hip joint Presence of right artificial hip joint PARoxetine hydrochloride 20 mg oral tablet (10 sources) Serotonin Reuptake Inhibitor Start: 08-25-2017 End: 05-25-2021 take 1 tablet by mouth once daily Paroxetine Hcl 20 MG tablet Discontinued 20 mg PO DAILY August 25, 2017 1:00am May 25, 2021 2:18pm POTASSIUM CHLORIDE (4 sources) take 1 tablet by mouth once daily KLOR-CON 10 10 MEQ CR-TABS One tablet by mouth daily POTASSIUM CHLORIDE [id number] Natasha Shields LPN pravastatin sodium 40 mg oral tablet (10 sources) HMG-CoA Reductase Inhibitor Start: 08-25-2017 End: 05-25-2021 take 1 tablet by mouth once daily Pravastatin 40 MG tablet Discontinued 40 mg PO DAILY August 25, 2017 1:00am May 25, 2021 2:19pm rOPINIRole 0.25 mg oral tablet (15 sources) Nonergot Dopamine Agonist Start: 12-03-2023 End: 05-05-2024 take 1 tablet by mouth at bedtime Ropinirole 0.25 mg tablet Discontinued 0.25 mg PO AT BEDTIME 30 December 03, 2023 12:00am May 05, 2024 2:53pm administer 1-3 hours before bedtime Start: 05-25-2021 End: 11-17-2021 take 1 tablet by mouth at bedtime Ropinirole 0.5 mg tablet Discontinued 0.5 mg PO AT BEDTIME May 25, 2021 12:00am November 17, 2021 5:26pm administer 1-3 hours before bedtime sacubitril 24 mg / valsartan 26 mg oral tablet (12 sources) Angiotensin 2 Receptor Amrita Start: 04-02-2024 End: 12-19-2024 Sacubitril-Valsartan (Entresto) 24-26 mg tablet Discontinued 1 {tbl} PO TWICE A DAY 180 May 05, 2024 3:15pm December 19, 2024 2:23pm traMADol hydrochloride 50 mg oral tablet (4 sources) Opioid Agonist take 1 tablet by mouth once daily as needed TRAMADOL HCL 50 MG TABS One tablet by mouth daily as needed TRAMADOL HCL [id number] Natasha Shields LPN valsartan 80 mg oral tablet (20 sources) Angiotensin 2 Receptor Amrita Start: 12-05-2021 End: 04-02-2024 take 1 tablet by mouth once daily Valsartan 80 mg tablet Discontinued 0 .ROUTE .COMPLEX 90 August 22, 2023 11:29am October 19, 2023 12:24pm TAKE 1 TABLET BY MOUTH EVERY DAY Problems Active Problems Problem Classification Problem Date Documented Date Episodic/Chronic Acute myocardial infarction (4 sources) Acute non-ST segment elevation myocardial infarction; Translations: [Non-ST elevation (NSTEMI) myocardial infarction] Onset: 03-28-2024 05-01-2024 Chronic Acute posthemorrhagic anemia (9 sources) Acute posthemorrhagic anemia; Translations: [Acute posthemorrhagic anemia] 11-16-2023 Episodic Administrative/social admission (10 sources) Counseling procedure with explicit context; Translations: [Tobacco abuse counseling] 04-19-2023 Episodic Anxiety disorders (14 sources) Mixed anxiety and depressive disorder; Translations: [Anxiety disorder, unspecified] Chronic Asthma (10 sources) Asthma; Translations: [Unspecified asthma, uncomplicated] 11-13-2019 Chronic Cancer of kidney and renal pelvis (4 sources) Clear cell carcinoma of kidney; Translations: [Malignant neoplasm of right kidney, except renal pelvis] Onset: 08-09-2015 08-09-2015 Chronic Cancer of kidney and renal pelvis (4 sources) History of malignant neoplasm of retroperitoneum; Translations: [Personal history of other malignant neoplasm of kidney] 04-02-2024 Episodic Congestive heart failure; nonhypertensive (8 sources) Congestive heart failure; Translations: [Heart failure, unspecified] Onset: 03-18-2025 04-02-2024 Chronic Congestive heart failure; nonhypertensive (6 sources) Congestive heart failure; nonhypertensive Deficiency and other anemia (10 sources) Anemia; Translations: [Anemia, unspecified] 05-30-2021 Episodic Diabetes mellitus with complications (1 source) Type 2 diabetes mellitus with other specified complication; Translations: [Type 2 diabetes mellitus with other specified complication] Onset: 03-18-2025 Chronic Diabetes mellitus without complication (8 sources) Diabetes mellitus; Translations: [Type 2 diabetes mellitus without complications] 12-19-2024 Chronic Comment on above: ON MED Diseases of white blood cells (4 sources) Leukocytosis; Translations: [Elevated white blood cell count, unspecified] Onset: 07-08-2015 07-08-2015 Chronic Disorders of lipid metabolism (19 sources) Hyperlipidemia; Translations: [Hyperlipidemia, unspecified] Onset: 12-22-2024 01-04-2022 Chronic Esophageal disorders (4 sources) Gastroesophageal reflux disease; Translations: [Gastro-esophageal reflux disease without esophagitis] 05-01-2024 Chronic Essential hypertension (20 sources) Hypertensive disorder; Translations: [Essential (primary) hypertension] Onset: 12-19-2024 01-04-2022 Chronic Immunizations and screening for infectious disease (7 sources) Needs influenza immunization; Translations: [Encounter for immunization] 05-25-2021 Episodic Malaise and fatigue (7 sources) Asthenia; Translations: [Other malaise] 09-18-2023 Episodic Nausea and vomiting (1 source) Nausea with vomiting, unspecified; Translations: [Nausea with vomiting] Episodic Nonspecific chest pain (2 sources) Chest pain, unspecified; Translations: [Chest pain, unspecified] Onset: 03-27-2024 Episodic Osteoarthritis (20 sources) Osteoarthritis of bilateral hip joints; Translations: [Bilateral primary osteoarthritis of hip] Onset: 03-18-2025 Chronic Other connective tissue disease (6 sources) History of revision of right total hip arthroplasty; Translations: [Presence of right artificial hip joint] 11-15-2023 Chronic Other connective tissue disease (3 sources) Presence of right artificial hip joint; Translations: [Hip joint replacement] 11-16-2023 Chronic Other connective tissue disease (10 sources) Bursitis of olecranon of right elbow; Translations: [Olecranon bursitis, right elbow] 11-14-2019 Episodic Other diseases of kidney and ureters (4 sources) Cyst of kidney; Translations: [Cyst of kidney, acquired] 05-07-2024 Episodic Other endocrine disorders (4 sources) Adrenal mass; Translations: [Other specified disorders of adrenal gland] 04-02-2024 Chronic Other hereditary and degenerative nervous system conditions (5 sources) Restless legs; Translations: [Restless legs syndrome] 12-03-2023 Chronic Comment on above: OCC Other hereditary and degenerative nervous system conditions (1 source) Restless legs syndrome; Translations: [Restless legs syndrome (RLS)] 12-03-2023 Chronic Other lower respiratory disease (4 sources) Nodule of lung; Translations: [Solitary pulmonary nodule] 04-02-2024 Episodic Other lower respiratory disease (4 sources) Dyspnea; Translations: [Shortness of breath] 05-05-2024 Episodic Other nervous system disorders (1 source) Other chronic pain; Translations: [Other chronic pain] Onset: 03-18-2025 Chronic Other non-traumatic joint disorders (1 source) Polyarthritis, unspecified; Translations: [Polyarthritis, unspecified] Onset: 04-06-2025 Chronic Other non-traumatic joint disorders (6 sources) Pain in right knee; Translations: [Pain in both knees] Onset: 03-18-2025 03-18-2025 Episodic Other non-traumatic joint disorders (1 source) Pain in left knee; Translations: [Pain in left knee] Onset: 03-18-2025 Episodic Other nutritional; endocrine; and metabolic disorders (13 sources) Morbid obesity; Translations: [Morbid (severe) obesity due to excess calories] Onset: 12-30-2021 12-30-2021 Chronic Other nutritional; endocrine; and metabolic disorders (6 sources) Obesity; Translations: [Obesity, unspecified] 05-26-2021 Chronic Other nutritional; endocrine; and metabolic disorders (1 source) Morbid (severe) obesity due to excess calories; Translations: [Morbid obesity] Chronic Other nutritional; endocrine; and metabolic disorders (2 sources) Obesity, unspecified; Translations: [Obesity, unspecified] 10-19-2023 Chronic Other screening for suspected conditions (not mental disorders or infectious disease) (4 sources) Imaging of genitourinary system abnormal; Translations: [Abnormal radiologic findings on diagnostic imaging of unspecified kidney] 04-24-2024 Episodic Monica-; endo-; and myocarditis; cardiomyopathy (except that caused by tuberculosis or sexually transmitted disease) (8 sources) Cardiomyopathy; Translations: [Cardiomyopathy, unspecified] Onset: 03-18-2025 05-01-2024 Chronic Prolapse of female genital organs (10 sources) Uterine prolapse; Translations: [Uterovaginal prolapse, unspecified] 05-25-2021 Chronic Residual codes; unclassified (5 sources) Hypersomnia; Translations: [Hypersomnia, unspecified] 03-18-2025 Chronic Residual codes; unclassified (1 source) Obstructive sleep apnea syndrome; Translations: [Obstructive sleep apnea (adult) (pediatric)] 04-14-2025 Chronic Residual codes; unclassified (1 source) Obstructive sleep apnea (adult) (pediatric); Translations: [Obstructive sleep apnea (adult) (pediatric)] Onset: 04-22-2025 Chronic Residual codes; unclassified (1 source) Hypersomnia, unspecified; Translations: [Hypersomnia, unspecified] Onset: 04-16-2025 Chronic Residual codes; unclassified (6 sources) Chronic back pain Episodic Spondylosis; intervertebral disc disorders; other back problems (17 sources) Backache; Translations: [Dorsalgia, unspecified] Onset: 03-18-2025 2 Episodic Unclassified (6 sources) M54.9 - Dorsalgia, unspecified,G89.29 - Other chronic pain Unclassified (3 sources) Pain in both knees Unclassified (3 sources) Osteoarthritis of left hip Unclassified (3 sources) Osteoarthritis of right hip Unclassified (3 sources) M54.9 - Dorsalgia, unspecified,G89.29 - Other chronic pain,M25.561 - Pain in right knee,M25.562 - Pain in left knee,M16.12 - Unilateral primary osteoarthritis, left hip,M16.11 - Unilateral primary osteoarthritis, right hip Past or Other Problems Problem Classification Problem Date Documented Da te Episodic/Chronic Deficiency and other anemia (8 sources) Iron deficiency anemia; Translations: [Anemia] Onset: 07-08-2015 07-20-2015 Episodic Diabetes mellitus without complication (20 sources) Prediabetes; Translations: [Prediabetes] Onset: 12-19-2024 Episodic Other bone disease and musculoskeletal deformities (4 sources) Bone pain; Translations: [Disorder of bone, unspecified] Onset: 08-11-2015 08-11-2015 Episodic Other hematologic conditions (4 sources) Thrombocytosis; Translations: [Essential (hemorrhagic) thrombocythemia] Onset: 07-08-2015 07-08-2015 Episodic Other lower respiratory disease (1 source) Shortness of breath; Translations: [Shortness of breath] Onset: 05-14-2024 Episodic Unclassified (12 sources) Family history of malignant melanoma; Translations: [Family history of stroke] 07-08-2015 Episodic Results Test Name Value Interpretation Reference Range Facility Hand 2 Viewson 03-31-2025 Hand 2 Views [facility] Imaging Services [address] [place], [place] [id number] Hand 2 Views MR#: [id number] Acct: [id number] Name: TEENA LAWRENCE Rep #: [id number] : 1960 F 64 From: Brandon Hassan MD PCP: Dr. Jenni Thornton MD Status: [facility] CLI Study: Hand 2 Views Date of Exam: 03/31/25 Exam# [id number] Ordering Dr: Dontae Thomas MD EXAM: XR Right Hand, 2 Views CLINICAL INDICATION: POLYARTHRITIS TECHNIQUE: Frontal and lateral views of the right hand. COMPARISON: No relevant prior studies available. FINDINGS: BONES/JOINTS: Moderate degenerative changes of the intercarpal joint. Severe degenerative change of the 1st carpometacarpal joint. Moderate degenerative change of the D IP joints. No acute fracture. No dislocation. SOFT TISSUES: Soft tissue swelling. No radiopaque foreign body. RAD/Hand 2 Views IMPRESSION: Degenerative changes as above. Reading Location: [facility] CC: Dr. Jenni Thornton MD; Dr. Dontae Thomas MD Television Schedule Coordinator: Signed Normal [facility] Hand 2 Views [facility] Imaging Services [address] [place] [address] Hand 2 Views MR#: [id number] Acct: [id number] Name: TEENA LAWRENCE Rep #: [id number] : 1960 F 64 From: Brandon Hassan MD PCP: Dr. Jenni Thornton MD Status: REG CLI Study: Hand 2 Views Date of Exam: 03/31/25 Exam# [id number] Ordering Dr: Dontae Thomas MD EXAM: XR Left Hand, 2 Views CLINICAL INDICATION: POLYARTHRITIS TECHNIQUE: Frontal and lateral views of the left hand. COMPARISON: No relevant prior studies available. FINDINGS: BONES/JOINTS: Moderate degenerative change of the intercarpal joints. Moderate degenerative change of the 1st and 2nd carpometacarpal joint. Moderate degenerative changes of the D IP joints. No acute fracture. No dislocation. SOFT TISSUES: Soft tissue swelling. No radiopaque foreign body. RAD/Hand 2 Views IMPRESSION: Degenerative changes as above. Reading Location: [facility] CC: Dr. Jenni Thornton MD; Dr. Dontae Thomas MD Television Schedule Coordinator: Signed Normal [facility] Knee 4 or More Viewson 03-31 Knee 4 or More Views [facility] Imaging Services [address] [place] [address] Knee 4 or More Views MR#: [id number] Acct: [id number] Name: TEENA LAWRENCE Rep #: [id number] : 1960 F 64 From: Brandon Hassan MD PCP: Dr. Jenni Thornton MD Status: REG CLI Study: Knee 4 or More Views Date of Exam: 03/31/25 Exam# [id number] Ordering Dr: Dontae Thomas MD EXAM: XR Left Knee Complete, 4 or More Views CLINICAL INDICATION: POLYARTHRITIS TECHNIQUE: Four or more views of the left knee. COMPARISON: No relevant prior studies available. FINDINGS: BONES/JOINTS: [id number] degenerative changes of the medial compartment of the knee joint. No acute fracture. No dislocation. SOFT TISSUES: Unremarkable. RAD/Knee 4 or More Views IMPRESSION: Degenerative changes as above. Reading Location: [facility] CC: Dr. Jenni Thornton MD; Dr. Dontae Thomas MD Television Schedule Coordinator: Signed Normal [facility] Knee 4 or More Views [facility] Imaging Services [address] [place] [id number] Knee 4 or More Views MR#: [id number] Acct: [id number] Name: TEENA LAWRENCE Rep #: [id number] : 1960 F 64 From: Brandon Hassan MD PCP: Dr. Jenni Thornton MD Status: REG CLI Study: Knee 4 or More Views Date of Exam: 03/31/25 Exam# [id number] Ordering Dr: Dontae Thomas MD EXAM: XR Right Knee Complete, 4 or More Views CLINICAL INDICATION: POLYARTHRITIS TECHNIQUE: Four or more views of the right knee. COMPARISON: No relevant prior studies available. FINDINGS: BONES/JOINTS: Moderate tricompartmental degenerative change of the knee joint. No acute fracture. No dislocation. SOFT TISSUES: Soft tissue swelling. RAD/Knee 4 or More Views IMPRESSION: Degenerative changes as above. Reading Location: [facility] CC: Dr. Jenni Thornton MD; Dr. Dontae Thomas MD Television Schedule Coordinator: Signed Normal [facility] Lumbar Spine 2 or 3 Viewson 03-31-2025 Lumbar Spine 2 or 3 Views [facility] Imaging Services [address] [place], [place] [id number] Lumbar Spine 2 or 3 Views MR#: [id number] Acct: [id number] Name: TEENA LAWRENCE Rep #: [id number] : 1960 F 64 From: Brandon Hassan MD PCP: Dr. Jenni Thornton MD Status: REG CLI Study: Lumbar Spine 2 or 3 Views Date of Exam: Exam# [id number] Ordering Dr: Dontae Thomas MD EXAM: XR Lumbosacral Spine, 2 or 3 Views CLINICAL INDICATION: POLYARTHRITIS TECHNIQUE: Frontal and lateral views of the lumbar spine and sacrum. COMPARISON: No relevant prior studies available. FINDINGS: VERTEBRAE: Moderate endplate degenerative changes and disc disease of the visualized spine, most prominent at L4-L5. Moderate facet arthropathy of L3-S1. No acute fracture. Normal alignment. SACRUM/COCCYX: Unremarkable as visualized. No acute fracture. DISC SPACES: See above. SOFT TISSUES: Unremarkable. RAD/Lumbar Spine 2 or 3 Views IMPRESSION: Degenerative changes as above. Reading Location: [facility] CC: Dr. Jenni Thornton MD; Dr. Dontae Thomas MD Television Schedule Coordinator: Signed Normal [facility] Wrist 2 Viewson 03-31-2025 Wrist 2 Views [facility] Imaging Services [address] [place], [place] [id number] Wrist 2 Views MR#: [id number] Acct: [id number] Name: TEENA LAWRENCE Rep #: [id number] : 1960 F 64 From: Brandon Hassan MD PCP: Dr. Jenni Thornton MD Status: REG CLI Study: Wrist 2 Views Date of Exam: 03/31/25 Exam# [id number] Ordering Dr: Dontae Thomas MD EXAM: XR Right Wrist, 2 Views CLINICAL INDICATION: POLYARTHRITIS TECHNIQUE: Frontal and lateral views of the right wrist. COMPARISON: No relevant prior studies available. FINDINGS: BONES/JOINTS: Moderate degenerative change of the intercarpal joints. Severe degenerative change of the 1st carpometacarpal joint. No acute fracture. No dislocation. SOFT TISSUES: Soft tissue swelling. No radiopaque foreign body. RAD/Wrist 2 Views IMPRESSION: Degenerative changes as above. Reading Location: [facility] CC: Dr. Jenni Thornton MD; Dr. Dontae Thomas MD Television Schedule Coordinator: Signed Normal [facility] Wrist 2 Views [facility] Imaging Services [address] [place], [place] [address] Wrist 2 Views MR#: [id number] Acct: [id number] Name: TEENA LAWRENCE Rep #: [id number] : 1960 F 64 From: Brandon Hassan MD PCP: Dr. Jenni Thornton MD Status: REG CLI Study: Wrist 2 Views Date of Exam: 03/31/25 Exam# [id number] Ordering Dr: Dontae Thomas MD EXAM: XR Left Wrist, 2 Views CLINICAL INDICATION: POLYARTHRITIS TECHNIQUE: Frontal and lateral views of the left wrist. COMPARISON: No relevant prior studies available. FINDINGS: BONES/JOINTS: Moderate to severe degenerative changes of the intercarpal joints. Severe degenerative changes of the radiocarpal joint. Moderate degenerative change of the 1st carpometacarpal joint. No acute fracture. No dislocation. SOFT TISSUES: Soft tissue swelling. No radiopaque foreign body. RAD/Wrist 2 Views IMPRESSION: Degenerative changes as above. Reading Location: [facility] CC: Dr. Jenni Thornton MD; Dr. Dontae Thomas MD Television Schedule Coordinator: Signed Normal [facility] Inital Evaluation (1) - PTon 03-25-2025 Inital Evaluation (1) - PT [facility] Physical Therapy [facility] [address] [place] [address] / REHABILITATION SERVICES INITIAL EVALUATION MR#: [id number] Acct: [id number] Name: TEENA LAWRENCE Rep #: [id number] : 1960 64 From: Cirilo Schultz DPT, OCS, CSCS Referring Dr.: Dr. Jenni Thornton MD Status: REG RCR Insurance: MEDICAID SELF PAY INSURANCE Patient's Visit Information Visit Information Visit Information: TEENA LAWRENCE is a 64 year old F referred to Physical Therapy by Dr. Jenni Thornton MD with a diagnosis of Knee pain, B degenerative hip, chronis back pain. Date of Evaluation: 03/25/25 Physical Therapist: Cirilo Schultz DPT, OCS, CSCS Visit Plan Frequency: 2x /Week Duration: 4-6 Weeks Plan: 2x/week for 3-6 weeks(start 3 due to ins approval) for: Pool based LE core , postural strength and ROM, including wrists. Progress to I home program or gym as exit strategy. focus on B hip strength. Subjective Subjective: I have OA from top to bottom and hurts to walk. Had R hip done and needs L hip done. Bones were brittle on L side adn had to be redone. R leeg is longer. Getting shoe lift soon from daughter. Pain is B wrists and hands as she uses rollator and wrists get worse. Broke back yrs ago and back hurts and she hunches. Feels worse hunched over. Used rollator for a year for pain and balance. L hip is painful and knees and ankles. Sleep is not great as she is up every two hours for no apparent reason and will have sleep study. Not employed, don't need it. Sits and watches TV, no exercises. Basic ADLs are I but slow. One bedroom one story without steps. Dtr lives upstairs. R leg is weak since surgery for hip 1.5 yrs ago. Pain widdspread pain: Pain Intensity (Out of 10): 5 Pain Intensity Range: 5 and 8 Comment: with walking is worse. Objective Objective: Walks with rollator and antalgic on L hip. Transfers out of chair I with UE,weakness in hip. Steps with R LE only and needs two railings, painful to try L. Bed transfer I but weak in core 3/5 abs and ext. UE AROM WFL and not painful, wrists B hurt somewhat with movement b ut good motion. Hip aROM 0 ext, 15 abd, 100 flexion, L ir/er painful but WFL. R not tested .Hip strength 3 abd and ext, 3+ flexion R and 3 L. knees painful with end range extension and 0-110 AROM, 3+ strength flexion adn ext B. ankles WFL and 4/5 strength able to stand ec without assist, walks about 15 feet without AD but starts to hunch and L hip discomfort cause great antalgia and instability. Balance/Special Test Scores Lower Extremity Functional Score: 24 Goals Goal 1:: I appropriate pool to home ex program for ROM LE adn back and strength of whole b steven. Goal Time Frame: 4-6 Weeks Goal 2:: Pain 4/10 at worst adn 50% better overall. Goal Time Frame: 4-6 Weeks Goal 3:: sleep without waking due to pain Goal Time Frame: 4-6 Weeks Goal 4:: 34 LEFS Goal Time Frame: 4-6 Weeks Rehabilitation Potential Physical Therapy Diagnosis: widespread pain and weakness limiting funciton and comfort., poorly managed. Rehabilitation Potential: Questionable Anticipated Interventions Patient/Client Instruction: Educate patient on: Condition For the Purpose of:: To decrease pain, To increase ROM, To improve muscle performance and motor function, To increase tolerance to activity/condition/pos ition and To improve ability of physical actions for home/community/work/le isure Therapeutic Exercise to Include: Strength training, Flexibilty training, In an aquatic setting, Passive ROM and Active ROM For the Purpose of:: To decrease pain, To increase ROM, To improve nutrient delivery to tissue, To improve muscle performance and motor function, To increase tolerance to activity/condition/pos ition and To improve gait and locomotor functions Text: Thank you for the opportunity to evaluate your patient. For Medicare and Medicare HMO plans, please review the plan of care and approve it. It will need to be FAXED BACK to us at [phone] for Medicare purposes. For Medicare only, by signing this I certify the plan of care. Please let me know if there are questions or concerns regarding this plan of care. Physician Signature: Date:__ 03/25/25 1353 CC: Dr. Jenni Thornton MD EBG Signed Normal [facility] Internal Medicine Office Vis ito 03-18-2025 Internal Medicine Office Visit [facility] [address] [place] [address] [place] [address] OFFICE VISIT Date of Service: 03/18/25 MR#: [id number] Acct: [id number] Name: ALLISON LAWRENCEA Danielle Rep #: [id number] : 1960 Provider: Dr. Jenni rivera MD Age/Sex: 64/F Location: [facility] Status: Signed Intake Vital Signs 12/19/24 14:06 03/18/25 16:19 Height 5 ft 4 in 5 ft 4 in Weight: 227 lb 4 oz 256 lb BMI 38.9 43.9 BP 142/96 H 116/80 Blood Pressure Location Lt brachial Lt brachial Position Sitting Sitting Respiration 16 18 Pulse 73 64 Pulse Source Monitor Monitor Temp 95.6 F L 97.4 F L Temp Source Temporal Temporal Pulse Oximetry (%) 99 98 Oxygen Delivery Method room air room air Intake Visit Reasons: 3 M FU Chief Complaint: 3m f/u [employer] As[employer]er Required: No Is patient in pain?: No Allergies amoxicillin trihydrate (From Augmentin) Allergy (Severe, Verified 03/18/25 16:07) Vomiting potassium clavulanate (From Augmentin) Allergy (Severe, Verified 03/18/25 16:07) Vomiting acetaminophen (From Vicodin) Adverse Reaction (Verified 03/18/25 16:07) Vomiting hydrocodone bitartrate (From Vicodin) Adverse Reaction (Verified 03/18/25 16:07) Vomiting oxycodone HCl (From Percocet) Adverse Reaction (Verified 03/18/25 16:07) Vomiting Medications ???Medication ???Instructions ???Recorded ???Confirmed ???Type blood pressure monitor #1 ea 11/17/21 03/18/25 Rx blood sugar diagnostic (FreeStyle #100 ea 01/20/22 03/18/25 Rx Lite Strips) blood-glucose meter (FreeStyle #1 ea 01/20/22 03/18/25 Rx Lite Meter kit) compr.stocking,knee,lo ng,large #12 ea 03/24/22 03/18/25 Rx Handicap Placard #1 ea 04/20/23 03/18/25 Rx blood sugar diagnostic (FreeStyle #100 ea 05/05/24 03/18/25 Rx Lite Strips) blood-glucose meter (FreeStyle #1 ea 05/05/24 03/18/25 Rx Lite Meter kit) lancets 28 gauge (FreeStyle #200 ea 05/06/24 03/18/25 Rx Lancets) aspirin 81 mg tablet,delayed 81 mg PO QDAY #100 tabs 12/19/24 0 03/18/25 Rx release atorvastatin 40 mg tablet 40 mg PO QHS CHOLESTEROL #90 tabs 12/19/24 03/18/25 Rx ferrous sulfate 300 mg (60 mg 300 mg (5 mL) PO QDAY #120 mL /01/0903/18/25 Rx iron)/5 mL oral liquid metformin 500 mg tablet 500 mg PO BID DIABETES #180 tabs 0 12/19/24 03/18/25 Rx metoprolol succinate 50 mg 50 mg PO QDAY #90 tabs 12/19/24 Rx tablet,extended release 24 hr sacubitril 24 mg-valsartan 26 mg 1 tab PO BID #180 tabs 12/19/24 Rx tablet (Entresto) cholecalciferol (vitamin D3) 25 1,000 unit PO DAILY SUPPLEMENT 11/11 History mcg (1,000 unit) capsule (Vitamin D3) Nurse's Note: Pt states she is having difficulty walking, she wonders if it is due to her weight, as she has gained weight since quitting smoking. She is also having issues walking w/ walker due to arthritis in hands. [facility]. Pt is concerned about gaining weight as in the past she went back to smoking due to this, was inquiring about a GLP-1 due to having diabetes and about a 30lbs weight gain, she has to have sedentary lifestyle due to mobility issues. Pt has a goal weight of 170lbs [facility] Medical History (Updated 03/18/25 @ 18:[address] Jenni Thornton MD) Chronic back pain Bilateral knee pain Hypersomnolence Renal cyst Shortness of breath Cardiomyopathy Acute non-Q wave non-ST elevation myocardial infarction (NSTEMI) (03/28/24) GERD (gastroesophageal reflux disease) Hypertension Arthritis Hyperlipidemia Asthma Anxiety and depression Abnormal CT scan, kidney Lung nodule seen on imaging study History of renal cell cancer Adrenal mass CHF (congestive heart failure) Diabetes Uses wheelchair Restless legs History of pain when walking History of edema Debility Tobacco abuse counseling Borderline type 2 diabetes mellitus Morbid obesity Osteoarthritis, hip, bilateral Anemia Uterine prolapse High cholesterol Hypertension History of cancer Arthritis History of back injury Surgical History History of revision of total replacement of right hip joint History of partial nephrectomy Hx of tubal ligation History of right hip replacement History of cholecystectomy History of liver biopsy H/O elbow surgery Family History Mother Diabetes Hypertension CAD (coronary artery disease) Father Diabetes Hypertension CAD (coronary artery disease) Sister Hypertension Social History (Updated 03/18/25 @ 16:20 by Magalie Hudson MA) Smoking Status: Former smoker quit date: 09/17/24 Tobacco: How many years used: 25 alcohol intake: never substance use type: does not use what type of physical activity (more content not included)... Normal [facility] Laboratory - Hematology and Cell countsOrdered By: Jenni Thornton on 03-18-2025 HbA1c (Bld) [Mass fraction] 6.3 % 4.2-6.3 [facility] Absolute lymphocyte countOrd ered By: Tyson Salguero on 12-19-2024 Lymphocytes Auto (Unsp spec) [#/Vol] 3.90 10*3/uL 0.83-4.51 [facility] Absolute neutrophil countOrd ered By: Tyson Salguero on 12-19-2024 Neutrophils (Bld) [#/Vol] 4.8 10*3/uL 2.0-7.7 [facility] Anion gap in Serum or Plasma Ordered By: Tyson Salguero on 12-19-2024 Anion gap [Moles/Vol] 12 mmol/L 5-[address] [facility] Automated lymphocyte count a s percentage of total leukocytesOrdered By: Tyson Salguero on 12-19-2024 Lymphocytes/100 WBC Auto (Unsp spec) 40.7 % - [facility] BUN/creatinine ratioOrdered By: Tyson Salguero on 12-19-2024 Urea nitrogen/Creatinine [Mass ratio] 19.7 mg/mg 10- [facility] Basophil percentageOrdered B y: Tyson Salguero on 12-19-2024 Basophils/100 WBC (Bld) 1.1 % High 0-1 [facility] Bilirubin, totalOrdered By: Tyson Salguero on 12-19-2024 Bilirubin [Mass/Vol] 0.32 mg/dL 0.00-1.30 [facility] CBC W/Diff, Automatedon Absolute Lymph 3.90 X10 3/uL Normal 0.83-4.51 [facility] Comment on above: Performed By: #### L 500.4100, L501.9520, L100.0100, L500.4050 #### [facility] [address] [place], [address] Absolute Neut 4.8 X10 3/uL Normal 2.0-7.7 [facility] Comment on above: Performed By: #### L 500.4100, L501.9520, L100.0100, L500.4050 #### [facility] [address] [place], [address] Basophils/100 WBC (Bld) 1.1 % High 0-1 [facility] Comment on above: Performed By: #### L 500.4100, L501.9520, L100.0100, L500.4050 #### [facility] [address] [place], [address] Eosinophils/100 WBC (Bld) 2.6 % Normal 0-5 [facility] Comment on above: Performed By: #### L 500.4100, L501.9520, L100.0100, L500.4050 #### [facility] [address] [place], [address] Erythrocyte distribution width (RBC) [Ratio] 13.8 % Normal 11.6-14.6 [facility] Comment on above: Performed By: #### L 500.4100, L501.9520, L100.0100, L500.4050 #### [facility] [address] [place], [address] Hematocrit (Bld) [Volume fraction] 41.2 % Normal 37-47 [facility] Comment on above: Performed By: #### L 500.4100, L501.9520, L100.0100, L500.4050 #### [facility] [address] [place], [address] Hemoglobin (Bld) [Mass/Vol] 13.4 g/dL Normal 12.0-15.0 [facility] Comment on above: Performed By: #### L 500.4100, L501.9520, L100.0100, L500.4050 #### [facility] [address] [place], [address] IG% 0.200 Normal 0.0-0.9 [facility] Comment on above: Result Comment: IG% - Immature Granulocytes (promyelocytes, myelocytes and metamyelocytes) > 1% indicates that a LEFT SHIFT is Present. Performed By: #### L 500.4100, L501.9520, L100.0100, L500.4050 #### [facility] [address] [place], [address] Lymphocytes/100 WBC (Bld) 40.7 % Normal 19-41 [facility] Comment on above: Performed By: #### L 500.4100, L501.9520, L100.0100, L500.4050 #### [facility] [address] [place], [address] MCH (RBC) [Entitic mass] 29.3 pg Normal 27.0-32.0 [facility] Comment on above: Performed By: #### L 500.4100, L501.9520, L100.0100, L500.4050 #### [facility] [address] [place], [address] MCHC (RBC) [Mass/Vol] 32.5 g/dL Normal 32-[address] [facility] Comment on above: Performed By: #### L 500.4100, L501.9520, L100.0100, L500.4050 #### [facility] [address] [place], [address] MCV (RBC) [Entitic vol] 90.0 fL Normal 81-99 [facility] Comment on above: Performed By: #### L 500.4100, L501.9520, L100.0100, L500.4050 #### [facility] [address] [place], [address] Monocytes/100 WBC (Bld) 5.1 % Normal 0-10 [facility] Comment on above: Performed By: #### L 500.4100, L501.9520, L100.0100, L500.4050 #### [facility] [address] [place], [address] Neutrophils/100 WBC (Bld) 50.3 % Normal 47-70 [facility] Comment on above: Performed By: #### L 500.4100, L501.9520, L100.0100, L500.4050 #### [facility] [address] [place], [address] Nucleated RBC (Bld) [#/Vol] 0 10*3/uL Normal 0-5 [facility] Comment on above: Performed By: #### L 500.4100, L501.9520, L100.0100, L500.4050 #### [facility] [address] [place], [address] Platelet mean volume (Bld) [Entitic vol] 10.2 fL Normal 6.2-12.0 [facility] Comment on above: Performed By: #### L 500.4100, L501.9520, L100.0100, L500.4050 #### [facility] [address] [place], [address] Platelets (Bld) [#/Vol] 420 10*3/uL Normal 150-450 [facility] Comment on above: Performed By: #### L 500.4100, L501.9520, L100.0100, L500.4050 #### [facility] [address] [place], [address] RBC (Bld) [#/Vol] 4.58 10*6/uL Normal 4.2-5.4 [facility] Comment on above: Performed By: #### L 500.4100, [id number], L100.0100, L500.4050 #### [facility] [address] [place], [address] RDW SD 45.5 fl High 35.1-43.9 [facility] Comment on above: Performed By: #### L 500.4100, L501.9520, L100.0100, L500.4050 #### [facility] [address] [place], [address] WBC (Bld) [#/Vol] 9.6 10*3/uL Normal 4.4-11.0 [facility] Comment on above: Performed By: #### L 500.4100, L501.9520, L100.0100, L500.4050 #### [facility] [address] [place], [address] Calculated very low density lipoprotein (VLDL) cholesterol measurementOrdered By: Tyson Salguero on 12-19-2024 Calculated very low density lipoprotein (VLDL) cholesterol measurement 33 mg/dL - [facility] VLDL Cholesterol 33 mg/dL - [facility] Carbon dioxide, total [Moles /volume] in Central venous bloodOrdered By: Tyson Salguero on 12-19-2024 CO2 [Moles/Vol] 23.6 mmol/L 21.0-32.0 [facility] Chloride assayOrdered By: Phong ttdebra Salguero on 12-19-2024 Chloride [Moles/Vol] 103 mmol/L 98-108 [facility] Comprehensive Metabolic Prof ilon 12-19-2024 Albumin [Mass/Vol] 4.2 g/dL Normal 3.4-4.8 [facility] Comment on above: Performed By: #### L 500.4100, L501.9520, L100.0100, L500.4050 #### [facility] [address] [place], [address] Albumin/Globulin [Mass ratio] 1.4 {ratio} Normal 0.9-2.4 [facility] Comment on above: Performed By: #### L 500.4100, L501.9520, L100.0100, L500.4050 #### [facility] [address] [place], [address] ALK PHOS 149 U/L High 35-104 [facility] Comment on above: Performed By: #### L 500.4100, L501.9520, L100.0100, L500.4050 #### [facility] [address] [place], [address] ALT [Catalytic activity/Vol] 16 U/L Normal <=34 [facility] Comment on above: Performed By: #### L 500.4100, L501.9520, L100.0100, L500.4050 #### [facility] [address] [place], [address] AST [Catalytic activity/Vol] 19 U/L Normal <=31 [facility] Comment on above: Performed By: #### L 500.4100, L501.9520, L100.0100, L500.4050 #### [facility] [address] [place], [address] Bilirubin [Mass/Vol] 0.32 mg/dL Normal 0.00-1.30 [facility] Comment on above: Performed By: #### L 500.4100, L501.9520, L100.0100, L500.4050 #### [facility] [address] [place], [address] BUN/CRE 19.7 RATIO Normal 10-20 [facility] Comment on above: Performed By: #### L 500.4100, L501.9520, L100.0100, L500.4050 #### [facility] [address] [place], [address] Calcium [Mass/Vol] 9.3 mg/dL Normal 7.6-11.0 [facility] Comment on above: Performed By: #### L 500.4100, L501.9520, L100.0100, L500.4050 #### [facility] [address] [place], [address] Chloride [Moles/Vol] 103 mmol/L Normal 98-108 [facility] Comment on above: Performed By: #### L 500.4100, L501.9520, L100.0100, L500.4050 #### [facility] [address] [place], [address] CO2 [Moles/Vol] 23.6 mmol/L Normal 21.0-32.0 [facility] Comment on above: Performed By: #### L 500.4100, L501.9520, L100.0100, L500.4050 #### [facility] [address] [place], [address] Creatinine [Mass/Vol] 0.90 mg/dL Normal 0.70-1.[address] [facility] Comment on above: Performed By: #### L 500.4100, L501.9520, L100.0100, L500.4050 #### [facility] [address] [place], [address] GAP 12 Normal 5-15 [facility] Comment on above: Performed By: #### L 500.4100, L501.9520, L100.0100, L500.4050 #### [facility] [address] [place], [address] GFR/1.73 sq M.predicted among non-blacks MDRD (S/P/Bld) [Vol rate/Area] 72 mL/min/{1.73_m2} Normal >60 [facility] Comment on above: Result Comment: mL/m in/1.73m2 CKD-EPI Creatinine Equation (2020) Performed By: #### L 500.4100, L501.9520, L100.0100, L500.4050 #### [facility] [address] [place], [address] Globulin (S) [Mass/Vol] 3.1 g/dL Normal 2.2-4.2 [facility] Comment on above: Performed By: #### L 500.4100, L501.9520, L100.0100, L500.4050 #### [facility] [address] [place], [address] Glucose [Mass/Vol] 117 mg/dL High 70-99 [facility] Comment on above: Performed By: #### L 500.4100, L501.9520, L100.0100, L500.4050 #### [facility] [address] [place], [address] Potassium [Moles/Vol] 4.7 mmol/L Normal 3.3-5.[address] [facility] Comment on above: Performed By: #### L 500.4100, L501.9520, L100.0100, L500.4050 #### [facility] [address] [place], [address] Sodium [Moles/Vol] 139 mmol/L Normal 133-145 [facility] Comment on above: Performed By: #### L 500.4100, L501.9520, L100.0100, L500.4050 #### [facility] [address] [place], [address] T PROT 7.3 g/dL Normal 5.9-8.4 [facility] Comment on above: Performed By: #### L 500.4100, L501.9520, L100.0100, L500.4050 #### [facility] [address] [place], [address] Urea nitrogen [Mass/Vol] 18 mg/dL Normal 4-19 [facility] Comment on above: Performed By: #### L 500.4100, L501.9520, L100.0100, L500.4050 #### [facility] [address] [place], [address] Eosinophil percentageOrdered By: Tyson Salguero on 12-19-2024 Eosinophils/100 WBC (Bld) 2.6 % 0-5 [facility] Erythrocyte distribution wid th (RBC) [Ratio]Ordered By: Tyson Salguero on 12-19-2024 Erythrocyte distribution width (RBC) [Entitic vol] 45.5 fL High 35.1-43.9 [facility] Erythrocyte distribution wid th ratioOrdered By: Tyson Salguero on 12-19-2024 Erythrocyte distribution width (RBC) [Ratio] 13.8 % 11.6-14.6 [facility] Erythrocyte distribution wid th standard deviationOrdered By: Tyson Salguero on 12-19-2024 Erythrocyte distribution width (RBC) [Ratio] 45.5 fl High 35.1-43.9 [facility] GFR/1.73 sq M.predicted mamta g non-blacks MDRD (S/P/Bld) [Vol rate/Area]Ordered By: Tyson Salguero on 12-19-2024 Estimated GFR (MDRD) Non-Af Amer 72 >60 [facility] Comment on above: mL/min/1.73m2 CKD-EP I Creatinine Equation (2020) Glomerular filtration rate ( GFR) estimation/1.73 sq m using serum, plasma, or whole bOrdered By: Tyson Salguero on 12-19-2024 GFR/1.73 sq M.predicted among non-blacks MDRD (S/P/Bld) [Vol rate/Area] 72 mL/min/{1.73_m2} >60 [facility] Comment on above: mL/min/1.73m2 CKD-EP I Creatinine Equation (2020) Hematocrit Auto (Bld) [Volum e fraction]Ordered By: Tyson Salguero on 12-19-2024 Hematocrit (Bld) [Volume fraction] 41.2 % 37-47 [facility] Hemoglobin measurementOrdere d By: Tyson Salguero on 12-19-2024 Hemoglobin (Bld) [Mass/Vol] 13.4 g/dL 12.0-15.0 [facility] Immature granulocytes/100 WB C Auto (Bld)Ordered By: Tyson Salguero on 12-19-2024 Immature granulocytes/100 WBC (Bld) 0.200 % 0.0-0.9 [facility] Comment on above: IG% - Immature Granu locytes (promyelocytes, myelocytes and metamyelocytes) > 1% indicates that a LEFT SHIFT is Present. Internal Medicine Office Vis mykel 12-19-2024 Internal Medicine Office Visit [facility] [address] [place] [address] [address] [place], [place] [address] OFFICE VISIT Date of Service: 12/19/24 MR#: [id number] Acct: [id number] Name: TEENA LAWRENCE Rep #: [id number] : 1960 Provider: JUAN Lee Age/Sex: 64/F Location: [facility] Status: Signed Intake Vital Signs 05/05/24 14:53 12/19/24 14:06 Height 5 ft 4 in 5 ft 4 in Weight: 244 lb 2 oz 227 lb 4 oz BMI 41.9 38.9 BP 140/94 H 142/96 H Blood Pressure Location Lt brachial Lt brachial Position Sitting Sitting Respiration 16 16 Pulse 113 H 73 Pulse Source Monitor Monitor Temp 97.6 F L 95.6 F L Temp Source Temporal Temporal Pulse Oximetry (%) 92 99 Oxygen Delivery Method room air room air Intake Visit Reasons: MED FOLLOW UP Chief Complaint: 3m f/u [employer] As[employer]er Required: No Accompanied by: Self Is patient in pain?: No Allergies amoxicillin trihydrate (From Augmentin) Allergy (Severe, Verified 12/19/24 14:00) Vomiting potassium clavulanate (From Augmentin) Allergy (Severe, Verified 12/19/24 14:00) Vomiting acetaminophen (From Vicodin) Adverse Reaction (Verified 12/19/24 14:00) Vomiting hydrocodone bitartrate (From Vicodin) Adverse Reaction (Verified 12/19/24 14:00) Vomiting oxycodone HCl (From Percocet) Adverse Reaction (Verified 12/19/24 14:00) Vomiting Medications ???Medication ???Instructions ???Recorded ???Confirmed ???Type blood pressure monitor #1 ea 11/17/21 05/05/24 Rx blood sugar diagnostic (FreeStyle #100 ea 01/20/22 05/05/24 Rx Lite Strips) blood-glucose meter (FreeStyle #1 ea 01/20/22 05/05/24 Rx Lite Meter kit) compr.stocking,knee,lo ng,large #12 ea 03/24/22 05/05/24 Rx Handicap Placard #1 ea 04/20/23 05/05/24 Rx blood sugar diagnostic (FreeStyle #100 ea 05/05/24 05/05/24 Rx Lite Strips) blood-glucose meter (FreeStyle #1 ea 05/05/24 05/05/24 Rx Lite Meter kit) lancets 28 gauge (FreeStyle #200 ea 05/06/24 Rx Lancets) aspirin 81 mg tablet,delayed 81 mg PO QDAY #100 tabs 12/19/24 0 12/19/24 Rx release atorvastatin 40 mg tablet 40 mg PO QHS CHOLESTEROL #90 tabs 12/19/24 12/19/24 Rx cholecalciferol (vitamin D3) 25 2,000 unit PO DAILY SUPPLEMENT #90 12/19/24 12/19/24 Rx mcg (1,000 unit) capsule (Vitamin caps D3) ferrous sulfate 300 mg (60 mg 300 mg (5 mL) PO QDAY #120 mL 01/0912/19/24 Rx iron)/5 mL oral liquid metformin 500 mg tablet 500 mg PO BID DIABETES #180 tabs 0 12/19/24 12/19/24 Rx metoprolol succinate 50 mg 50 mg PO QDAY #90 tabs 12/19/24 Rx tablet,extended release 24 hr sacubitril 24 mg-valsartan 26 mg 1 tab PO BID #180 tabs 12/19/24 Rx tablet (Entresto) Have you fallen in the past year?: No PFSH Medical History (Updated 12/19/24 @ 22:57 by Tyson MARTINEZ, PA) Renal cyst Shortness of breath Cardiomyopathy Acute non-Q wave non-ST elevation myocardial infarction (NSTEMI) (03/28/24) GERD (gastroesophageal reflux disease) Hypertension Arthritis Hyperlipidemia Asthma Anxiety and depression Abnormal CT scan, kidney Lung nodule seen on imaging study History of renal cell cancer Adrenal mass CHF (congestive heart failure) Diabetes Uses wheelchair Restless legs History of pain when walking History of edema Debility Tobacco abuse counseling Borderline type 2 diabetes mellitus Morbid obesity Osteoarthritis, hip, bilateral Anemia Uterine prolapse High cholesterol Hypertension History of cancer Arthritis History of back injury Surgical History History of revision of total replacement of right hip joint History of partial nephrectomy Hx of tubal ligation History of right hip replacement History of cholecystectomy History of liver biopsy H/O elbow surgery Family History Mother Diabetes Hypertension CAD (coronary artery disease) Father Diabetes Hypertension CAD (coronary artery disease) Sister Hypertension Social History Smoking Status: Former smoker quit date: 01/15/21 Tobacco: How many years used: 20 alcohol intake: never substance use type: does not use what type of physical activity do you participate in: none HPI HPI Chief Complaint: 3m f/u Details: TEENA LAWRENCE, is a 64 F who presents to the office today for medication refills for her chronic disease states (HTN, and hyperlipidemia). She states that the pharmacy would not give her anymore refills and so she needed to come in. She does not check her sugars at home ever. She states that she used to have a machine to check but didn't then either. 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 Normal [facility] LDL calc ser/plasOrdered By: Tyson Salguero on 12-19-2024 Cholesterol in LDL [Mass/Vol] 43 mg/dL [facility] Comment on above: Fkihrcbztg=592-116 m g/dL & Higher Shjk=688 mg/dL or greater LDL Cholesterol, Calculated 43 mg/dL [facility] Comment on above: Clpskvnbhl=801-712 m g/dL & Higher Xvto=098 mg/dL or greater Laboratory - Chemistry and C hemistry - challengeOrdered By: Tyson Salguero on 12-19-2024 AST [Catalytic activity/Vol] 19 U/L <32 [facility] - Hematology and Cell countsOrdered By: Tyson Salguero on 12-19-2024 HbA1c (Bld) [Mass fraction] 5.9 % 4.2-6.3 [facility] Lipid Profileon 12-19-2024 CHOL:HDL 2.65 Normal [facility] Comment on above: Performed By: #### L 500.1700, L501.6220, L100.0100, L500.4050 ####[facility] [id number] [place], [address] Cholesterol [Mass/Vol] 122 mg/dL Normal <=200 [facility] Comment on above: Result Comment: Chol esterol level, Desirable <200 mg/dL Borderline high cholesterol 200-239 mg/dL High cholesterol >=240 mg/dL Recommendations of the NCEP Adult Treatment Panel for the following risk-cutoff thresholds for the [place] population. Performed By: #### L 500.4100, L501.9520, L100.0100, L500.4050 ####[facility] [address] [place], [address] Cholesterol in HDL [Mass/Vol] 46 mg/dL Normal [facility] Comment on above: Result Comment: Jenny onal Cholesterol Education Program (NCEP) guidelines: <40 mg/dL: Low HDL-cholesterol (major risk factor for CHD) >= 60 mg/dL: High HDL-cholesterol (negative risk factor for CHD) HDL-cholesterol is affected by a number of factors, e.g. smoking, exercise, hormones, sex and age. Performed By: #### L 500.4100, L501.9520, L100.0100, L500.4050 ####[facility] [address] [place], [address] Cholesterol in LDL [Mass/Vol] 43 mg/dL Normal [facility] Comment on above: Result Comment: Bord jklbif=949-106 mg/dL Higher Tiwr=444 mg/dL or greater Performed By: #### L 500.4100, L501.9520, L100.0100, L500.4050 ####[facility] [address] [place], [address] Cholesterol in VLDL [Mass/Vol] 33 mg/dL Normal 5-40 [facility] Comment on above: Performed By: #### L 500.4100, L501.9520, L100.0100, L500.4050 ####[facility] [address] [place], [address] Triglyceride [Mass/Vol] 163 mg/dL Normal [facility] Comment on above: Result Comment: The drugs N-Acetylcysteine and Metamizole may falsely depress this assay. Normal range: <150 mg/dL Borderline High: 150-199 mg/dL High: 200-499 mg/dL Very High: >500 mg/dL Performed By: #### L 500.4100, L501.9520, L100.0100, L500.4050 ####[facility] [address] [place], [address] Lymphocytes Auto (Unsp spec) [#/Vol]Ordered By: Tyson Salguero on 12-19-2024 Lymphocytes (Bld) [#/Vol] 3.90 10*3/uL 0.83-4.51 [facility] Lymphocytes/100 WBC Auto (Un sp spec)Ordered By: Tyson Salguero on 12-19-2024 Lymphocytes/100 WBC (Bld) 40.7 % 19-41 [facility] MCV (mean corpuscular volume ) determinationOrdered By: Tyson Salguero on 12-19-2024 MCV (RBC) [Entitic vol] 90.0 fL 81-99 [facility] Mean corpuscular hemoglobin (MCH) determinationOrdered By: Tyson Salguero on 12-19-2024 MCH (RBC) [Entitic mass] 29.3 pg 27.0-32.0 [facility] Mean corpuscular hemoglobin concentration (MCHC) determinationOrdered By: Tyson Salguero on 12-19-2024 MCHC (RBC) [Mass/Vol] 32.5 g/dL 32-[address] [facility] Mean platelet volume determi nationOrdered By: Tyson Salguero on 12-19-2024 Platelet mean volume (Bld) [Entitic vol] 10.2 fL 6.2-12.0 [facility] Monocyte percentageOrdered B y: Tyson Salguero on 12-19-2024 Monocytes/100 WBC (Bld) 5.1 % 0-10 [facility] Neutrophil percentageOrdered By: Tyson Salguero on 12-19-2024 Neutrophils/100 WBC (Bld) 50.3 % 47-70 [facility] Nucleated red blood cell per centageOrdered By: Tyson Salguero on 12-19-2024 Nucleated RBC/100 WBC (Bld) [Ratio] 0 % 0-5 [facility] Platelet countOrdered By: Phong ttdebra Salguero on 12-19-2024 Platelets (Bld) [#/Vol] 420 10*3/uL 150-450 [facility] Potassium (Unsp spec) [Mass/ Vol]Ordered By: Tyson Salguero on 12-19-2024 Potassium [Moles/Vol] 4.7 mmol/L 3.3-5.[address] [facility] Potassium measurement (mass/ volume)Ordered By: Tyson Salguero on 12-19-2024 Potassium (Unsp spec) [Mass/Vol] 4.7 mmol/L 3.3-5.1 [facility] RBC Auto (Bld) [#/Vol]Ordere d By: Tyson Salguero on 12-19-2024 RBC (Bld) [#/Vol] 4.58 10*6/uL 4.2-5.4 [facility] Screening total cholesterol/ high density lipoprotein (HDL) cholesterol ratioOrdered By: Tyson Salguero on 12-19-2024 Cholesterol.total/Aviva sterol in HDL [Mass ratio] 2.65 {ratio} [facility] Serum creatinine measurement (mass/volume)Ordered By: Tyson Salguero on 12-19-2024 Creatinine [Mass/Vol] 0.90 mg/dL 0.70-1.[address] [facility] Serum globulin measurementOr dered By: Tyson Salguero on 12-19-2024 Globulin (S) [Mass/Vol] 3.1 g/dL 2.2-4.2 [facility] Serum glucose measurement (m ass/volume)Ordered By: Tyson Salguero on 12-19-2024 Glucose [Mass/Vol] 117 mg/dL High 70-99 [facility] Serum or plasma alanine bianchi otransferase (ALT) measurementOrdered By: Tyson Salguero on 12-19-2024 ALT [Catalytic activity/Vol] 16 U/L <35 [facility] Serum or plasma albumin hans urement (mass/volume)Ordered By: Tyson Salguero on 12-19-2024 Albumin [Mass/Vol] 4.2 g/dL 3.4-4.8 [facility] Serum or plasma albumin/glob ulin mass ratioOrdered By: Tyson Salguero on 12-19-2024 Albumin/Globulin [Mass ratio] 1.4 {ratio} 0.9-2.4 [facility] Serum or plasma alkaline mayra sphatase measurementOrdered By: Tyson Salguero on 12-19-2024 ALP [Catalytic activity/Vol] 149 U/L High 35-104 [facility] Serum or plasma calcium hans urement (mass/volume)Ordered By: Tyson Salguero on 12-19-2024 Calcium [Mass/Vol] 9.3 mg/dL 7.6-11.0 [facility] Serum or plasma cholesterol in HDL measurement (mass/volume)Ordered By: Tyson Salguero on 12-19-2024 Cholesterol in HDL [Mass/Vol] 46 mg/dL >40 [facility] Comment on above: National Cholesterol Education Program (NCEP) guidelines:<40 mg/dL: Low HDL-cholesterol (major risk factor for CHD)>= 60 mg/dL: High HDL-cholesterol (negative risk factor for CHD)HDL-cholesterol is affected by a number of factors, e.g. smoking, exercise, hormones, sex and age. Serum or plasma cholesterol measurement (mass/volume)Ordered By: Tyson Salguero on 12-19-2024 Cholesterol [Mass/Vol] 122 mg/dL <201 [facility] Comment on above: Cholesterol level, D esirable <200 mg/dLBorderline high cholesterol 200-239 mg/dLHigh cholesterol >=240 mg/dLRecommendations of the NCEP Adult Treatment Panel for the following risk-cutoff thresholds for the [place] population. Serum or plasma urea nitroge n measurement (mass/volume)Ordered By: Tyson Salguero on 12-19-2024 Urea nitrogen [Mass/Vol] 18 mg/dL 4-19 [facility] Sodium levelOrdered By: Isma Salguero on 12-19-2024 Sodium [Moles/Vol] 139 mmol/L 133-145 [facility] TSH DL <= 0.005 mIU/L QnOrde red By: Tyson Salguero on 12-19-2024 Thyroid Stimulating Hormone (TSH) 2.140 uIU/mL 0.300-4.200 [facility] TSH Qn 2.140 uIU/mL 0.300-4.200 [facility] Thyroid Stim Hormone (TSH)on 12-19-2024 TSH 2.140 uIU/mL Normal 0.300-4.200 [facility] Comment on above: Performed By: #### L 500.4100, L501.9520, L100.0100, L500.4050 ####[facility] [address] [place], [address] Total proteinOrdered By: Per Salguero on 12-19-2024 Protein [Mass/Vol] 7.3 g/dL 5.9-8.4 [facility] Triglycerides measurementOrd ered By: Tsyon Salguero on 12-19-2024 Triglyceride [Mass/Vol] 163 mg/dL <199 [facility] Comment on above: The drugs N-Acetylcy steine and Metamizole may falsely depress this assay. Normal range: <150 mg/dLBorderline High: 150-199 mg/dLHigh: 200-499 mg/dLVery High: >500 mg/dL White blood cell (WBC) count Ordered By: Tyson Salguero on 12-19-2024 WBC (Bld) [#/Vol] 9.6 10*3/uL 4.4-11.0 [facility] Internal Medicine Office Vis itowillie 05-05-2024 Internal Medicine Office Visit [facility] [address] [place] [address] [place] [address] OFFICE VISIT Date of Service: 05/05/24 MR#: [id number] Acct: [id number] Name: TEENA LAWRENCE Rep #: [id number] : 1960 Provider: Dr. Jenni rivera MD Age/Sex: 63/F Location: [facility] Status: Signed Intake Vital Signs 01/28/24 14:14 05/05/24 14:53 Height 5 ft 4 in 5 ft 4 in Weight: 244 lb 2 oz BMI 41.9 BP 140/94 H Blood Pressure Location Lt brachial Position Sitting Respiration 16 Pulse 113 H Pulse Source Monitor Temp 97.6 F L Temp Source Temporal Pulse Oximetry (%) 92 Oxygen Delivery Method room air Intake Visit Reasons: 3 M FU Chief Complaint: 3m f/u [employer] Required: No Accompanied by: Self Is patient in pain?: No Allergies amoxicillin trihydrate (From Augmentin) Allergy (Severe, Verified 05/05/24 14:46) Vomiting potassium clavulanate (From Augmentin) Allergy (Severe, Verified 05/05/24 14:46) Vomiting acetaminophen (From Vicodin) Adverse Reaction (Verified 05/05/24 14:46) Vomiting hydrocodone bitartrate (From Vicodin) Adverse Reaction (Verified 05/05/24 14:46) Vomiting oxycodone HCl (From Percocet) Adverse Reaction (Verified 05/05/24 14:46) Vomiting Medications ???Medication ???Instructions ???Recorded ???Confirmed ???Type blood pressure monitor #1 ea 11/17/21 05/05/24 Rx blood sugar diagnostic (FreeStyle #100 ea 01/20/22 05/05/24 Rx Lite Strips) blood-glucose meter (FreeStyle #1 ea 01/20/22 05/05/24 Rx Lite Meter kit) compr.stocking,knee,lo ng,large #12 ea 03/24/22 05/05/24 Rx Handicap Placard #1 ea 04/20/23 05/05/24 Rx aspirin 81 mg chewable tablet 81 mg PO BIDCM #0 tabs 11/16/23 05/05/24 Rx cholecalciferol (vitamin D3) 25 2,000 unit PO DAILY SUPPLEMENT #90 12/03/23 05/05/24 Rx mcg (1,000 unit) capsule (Vitamin caps D3) atorvastatin 40 mg tablet 40 mg PO QHS CHOLESTEROL #90 tabs 05/05/24 05/05/24 Rx blood sugar diagnostic (FreeStyle #100 ea 05/05/24 05/05/24 Rx Lite Strips) blood-glucose meter (FreeStyle #1 ea 05/05/24 05/05/24 Rx Lite Meter kit) ferrous sulfate 325 mg (65 mg 325 mg PO Q OTHER DAY 90 days #45 05/05/24 05/05/24 Rx iron) tablet (Feosol) tabs lancets 28 gauge (FreeStyle #200 ea 05/05/24 05/05/24 Rx Lancets) metformin 500 mg tablet 500 mg PO BID DIABETES #180 tabs 08/19/24 08/19/24 Rx metoprolol succinate 50 mg 50 mg PO QDAY #90 tabs 05/05/24 05/05/24 Rx tablet,extended release 24 hr sacubitril 24 mg-valsartan 26 mg 1 tab PO BID #180 tabs 05/05/24 05/05/24 Rx tablet (Entresto) [facility] Medical History Cardiomyopathy Acute non-Q wave non-ST elevation myocardial infarction (NSTEMI) (03/28/24) GERD (gastroesophageal reflux disease) Hypertension Arthritis Hyperlipidemia Asthma Anxiety and depression History of revision of total replacement of right hip joint Abnormal CT scan, kidney Lung nodule seen on imaging study History of renal cell cancer Adrenal mass CHF (congestive heart failure) Diabetes Uses wheelchair Restless legs History of pain when walking History of edema Debility Tobacco abuse counseling Borderline type 2 diabetes mellitus Morbid obesity Osteoarthritis, hip, bilateral Anemia Uterine prolapse High cholesterol Hypertension History of cancer Arthritis History of back injury Surgical History History of partial nephrectomy Hx of tubal ligation History of right hip replacement History of cholecystectomy History of liver biopsy H/O elbow surgery Family History Mother Diabetes Hypertension CAD (coronary artery disease) Father Diabetes Hypertension CAD (coronary artery disease) Sister Hypertension Social History Smoking Status: Former smoker quit date: 01/15/21 Tobacco: How many years used: 20 alcohol intake: never substance use type: does not use what type of physical activity do you participate in: none HPI HPI Chief Complaint: 3m f/u Details: TEENA LAWRENCE, is a 63 F who presents to the office today for follow-up of her chronic medical conditions. No acute concerns at this time. Recently had imaging done due to concern for an adrenal mass. Incidental finding of renal cysts for which she went on to have an ultrasound which confirmed cyst and no other acute concerns. Stable adrenal mass. A1c today is at 6.2. Currently on metformin which she reports compliance with. No concerns for hypoglycemia. Blood pressure is elevated. At 140/94 mmHg. Has been out of her medication for a few days,she would like a refill. Other chronic medical conditions are stable. ROS Const C (more content not included)... Normal [facility] CBC W/Diff, Automatedon 08-09 20-2023 Absolute Lymph 3.47 X10 3/uL Normal 0.83-4.51 [facility] Comment on above: Performed By: #### L 500.4050, L100.0100 ####[facility] [address] [place], [address] Absolute Neut 6.5 X10 3/uL Normal 2.0-7.7 [facility] Comment on above: Performed By: #### L 500.4050, L100.0100 ####[facility] [address] [place], [address] Basophils/100 WBC (Bld) 1.1 % High 0-1 [facility] Comment on above: Performed By: #### L 500.4050, L100.0100 ####[facility] [address] [place], [address] Eosinophils/100 WBC (Bld) 0.3 % Normal 0-5 [facility] Comment on above: Performed By: #### L 500.4050, L100.0100 ####[facility] [address] [place], [address] Erythrocyte distribution width (RBC) [Ratio] 18.3 % High 11.6-14.6 [facility] Comment on above: Performed By: #### L 500.4050, L100.0100 ####[facility] [address] [place], [address] Hematocrit (Bld) [Volume fraction] 41.7 % Normal 37-47 [facility] Comment on above: Performed By: #### L 500.4050, L100.0100 ####[facility] [address] [place], [address] Hemoglobin (Bld) [Mass/Vol] 12.8 g/dL Normal 12.0-15.0 [facility] Comment on above: Performed By: #### L 500.4050, L100.0100 ####[facility] [address] [place], [address] IG% 0.300 Normal 0.0-0.9 [facility] Comment on above: Result Comment: IG% - Immature Granulocytes (promyelocytes, myelocytes and metamyelocytes) > 1% indicates that a LEFT SHIFT is Present. Performed By: #### L 500.4050, L100.0100 ####[facility] [address] [place], [address] Lymphocytes/100 WBC (Bld) 32.3 % Normal 19-41 [facility] Comment on above: Performed By: #### L 500.4050, L100.0100 ####[facility] [address] [place], [address] MCH (RBC) [Entitic mass] 25.9 pg Low 27.0-32.0 [facility] Comment on above: Performed By: #### L 500.4050, L100.0100 ####[facility] [address] [place], [address] MCHC (RBC) [Mass/Vol] 30.7 g/dL Low 32-[address] [facility] Comment on above: Performed By: #### L 500.4050, L100.0100 ####[facility] [address] [place], [address] MCV (RBC) [Entitic vol] 84.2 fL Normal 81-99 [facility] Comment on above: Performed By: #### L 500.4050, L100.0100 ####[facility] [address] [place], [address] Monocytes/100 WBC (Bld) 5.5 % Normal 0-10 [facility] Comment on above: Performed By: #### L 500.4050, L100.0100 ####[facility] [address] [place], [address] Neutrophils/100 WBC (Bld) 60.5 % Normal 47-70 [facility] Comment on above: Performed By: #### L 500.4050, L100.0100 ####[facility] [address] [place], [address] Nucleated RBC (Bld) [#/Vol] 0 10*3/uL Normal 0-5 [facility] Comment on above: Performed By: #### L 500.4050, L100.0100 ####[facility] [address] [place], [address] Platelet mean volume (Bld) [Entitic vol] 9.6 fL Normal 6.2-12.0 [facility] Comment on above: Performed By: #### L 500.4050, L100.0100 ####[facility] [address] [place], [address] Platelets (Bld) [#/Vol] 518 10*3/uL High 150-450 [facility] Comment on above: Performed By: #### L 500.4050, L100.0100 ####[facility] [address] [place], [address] RBC (Bld) [#/Vol] 4.95 10*6/uL Normal 4.2-5.4 [facility] Comment on above: Performed By: #### L 500.4050, L100.0100 ####[facility] [address] [place], [address] RDW SD 55.8 fl High 35.1-43.9 [facility] Comment on above: Performed By: #### L 500.4050, L100.0100 ####[facility] [address] [place], [address] WBC (Bld) [#/Vol] 10.8 10*3/uL Normal 4.4-11.0 [facility] Comment on above: Performed By: #### L 500.4050, L100.0100 ####[facility] [address] [place], [address] Comprehensive Metabolic Prof ilon 04-30-2024 Albumin [Mass/Vol] 3.4 g/dL Normal 3.2-5.0 [facility] Comment on above: Performed By: #### L 500.4050, L100.0100 ####[facility] [address] [place], [address] Albumin/Globulin [Mass ratio] 0.9 {ratio} Normal 0.9-2.4 [facility] Comment on above: Performed By: #### L 500.4050, L100.0100 ####[facility] [address] [place], [address] ALK P 143 U/L High 45-117 [facility] Comment on above: Performed By: #### L 500.4050, L100.0100 ####[facility] [address] [place], [address] ALT [Catalytic activity/Vol] 21 U/L Normal 13-56 [facility] Comment on above: Performed By: #### L 500.4050, L100.0100 ####[facility] [address] [place], [address] AST [Catalytic activity/Vol] 15 U/L Normal 15-37 [facility] Comment on above: Performed By: #### L 500.4050, L100.0100 ####[facility] [address] [place], [address] Bilirubin [Mass/Vol] 0.30 mg/dL Normal 0.20-1.00 [facility] Comment on above: Result Comment: For patients on eltrombopag therapy, use of Dimension [place] TBIL is not recommended. Performed By: #### L 500.4050, L100.0100 ####[facility] [address] [place], [address] BUN/CRE 9.8 RATIO Low 10-20 [facility] Comment on above: Performed By: #### L 500.4050, L100.0100 ####[facility] [address] [place], [address] CA,Total 9.0 mg/dL Normal 8.5-10.1 [facility] Comment on above: Performed By: #### L 500.4050, L100.0100 ####[facility] [address] [place], [address] Chloride [Moles/Vol] 105 mmol/L Normal 98-107 [facility] Comment on above: Performed By: #### L 500.4050, L100.0100 ####[facility] [address] [place], [address] CO2 [Moles/Vol] 23.0 mmol/L Normal 21.0-32.0 [facility] Comment on above: Performed By: #### L 500.4050, L100.0100 ####[facility] [address] [place], [address] Creatinine [Mass/Vol] 1.02 mg/dL Normal 0.55-1.[address] [facility] Comment on above: Result Comment: The validity of the calculated GFR GFRAA in patients over 70 years has not been determined. Clinical correlation is essential. Performed By: #### L 500.4050, L100.0100 ####[facility] [address] [place], [address] EST GFR - AA 71 mL/min Normal >60 [facility] Comment on above: Result Comment: Afri can [place] GFR Calc Performed By: #### L 500.4050, L100.0100 ####[facility] [address] [place], [address] GAP 11 Normal 5-15 [facility] Comment on above: Performed By: #### L 500.4050, L100.0100 ####[facility] [address] [place], [address] GFR/1.73 sq M.predicted among non-blacks MDRD (S/P/Bld) [Vol rate/Area] 58 mL/min/{1.73_m2} Low >60 [facility] Comment on above: Result Comment: Non- GFR Calc Performed By: #### L 500.4050, L100.0100 ####[facility] [address] [place], [address] Globulin (S) [Mass/Vol] 3.8 g/dL Normal 2.2-4.2 [facility] Comment on above: Performed By: #### L 500.4050, L100.0100 ####[facility] [address] [place], [address] Glucose [Mass/Vol] 141 mg/dL High 74-106 [facility] Comment on above: Result Comment: Fast ing Glucose result greater than or equal to 126 mg/dL suggests DIABETES MELLITUS per A.D.A. criteria. Performed By: #### L 500.4050, L100.0100 ####[facility] [address] [place], [address] Potassium [Moles/Vol] 3.9 mmol/L Normal 3.5-5.[address] [facility] Comment on above: Performed By: #### L 500.4050, L100.0100 ####[facility] [address] [place], [address] Sodium [Moles/Vol] 139 mmol/L Normal 136-145 [facility] Comment on above: Performed By: #### L 500.4050, L100.0100 ####[facility] [address] [place], [address] T PROT 7.2 g/dL Normal 6.4-8.2 [facility] Comment on above: Performed By: #### L 500.4050, L100.0100 ####[facility] [address] [place], [address] Urea nitrogen [Mass/Vol] 10 mg/dL Normal -18 [facility] Comment on above: Performed By: #### L 500.4050, L100.0100 ####[facility] [address] [place], [address] Kidney and Bladderon 024 Kidney and Bladder [facility] Imaging Services [address] [place] [address] Kidney and Bladder MR#: [id number] Acct: [id number] Name: TEENA LAWRENCE Rep #: [id number] : 1960 F 63 From: Hubert Mena MD PCP: Dr. Jenni Thornton MD Status: [facility] Study: Kidney and Bladder Date of Exam: 04/30/24 Exam# [id number] Ordering Dr: Jenni Thornton [place] [id number] STUDY: RENAL ULTRASOUND - COMPLETE REASON FOR EXAM: Female, [address] TECHNIQUE: Ultrasound evaluation of the kidneys was performed with real-time and static marie-scale imaging. COMPARISON: 04/03/2016, CT 04/23/2024 FINDINGS: RIGHT KIDNEY: Normal location of the right kidney, which is normal in size. The right kidney measures 10.7 cm. There is a normal cortex of the right kidney. The renal cortex measures 1.1 cm. There is no right renal mass or cyst. 2.3 cm cyst in the midsection of right kidney. 1.2 cm cyst lower pole right kidney. Another 1.3 cm cyst lower pole right kidney. Another 1.7 cm cyst lower pole right kidney. There is no right hydronephrosis. DISTAL RIGHT URETER: There is non-visualization of the distal right ureter. There is no demonstrated right ureterovesical junction calculus. There is a visualized right ureteral jet. LEFT KIDNEY: Normal location of the left kidney, which is normal in size. The left kidney measures 12.3 cm. There is a normal cortex of the left kidney. The renal cortex measures 1.5 cm. There is no left renal mass or cyst. There are no left renal calculi. There is no left hydronephrosis. DISTAL LEFT URETER: There is non-visualization of the distal left ureter. There is no demonstrated left ureterovesical junction calculus. There is a visualized left ureteral jet. BLADDER: The distended urinary bladder has a volume of 48 ml. The empty urinary bladder has a volume of ml. There is a normal wall thickness of the distended urinary bladder. There is no demonstrated mass within the urinary bladder. There are no demonstrated bladder calculi. US/Kidney and Bladder IMPRESSION: Ultrasound confirms multiple right renal cysts. Electronically Signed: Hubert Mena MD at 11:56 EDT , CC: Dr. Jenni Thornton MD Television Schedule Coordinator: Signed Normal [facility] [id number] 04-03-2024 Class Description Comment Normal [facility] ([place]) Comment on above: Result Comment: Levels of Specific IgE Class Description of Class ----- < 0.10 0 Negative 0.10 - 0.31 0/I Equivocal/Low 0.32 - 0.55 I Low 0.56 - 1.40 II Moderate 1.41 - 3.90 III High 3.91 - 19.00 IV Very High 19.01 - 100.00 V Very High >100.00 Very High Performed By: #### A DIFF, CBC, BMP, IGE, [id number], GFR, MG, ANEU ####[place] [address] IgE Alternaria alternata M006 <0.10 Normal Class 0 [facility] ([place]) Comment on above: Performed By: #### A DIFF, CBC, BMP, IGE, 608035, GFR, MG, ANEU ####[place] [address] IgE Gustavo White T015 <0.10 Normal Class 0 [facility] ([place]) Comment on above: Performed By: #### A DIFF, CBC, BMP, IGE, 950560, GFR, MG, ANEU ####[place] [address] IgE Aspergillus fumigatus M003 <0.10 Normal Class 0 [facility] ([place]) Comment on above: Performed By: #### A DIFF, CBC, BMP, IGE, 912265, GFR, MG, ANEU ####[place] [address] IgE B[place] G002 <0.10 Normal Class 0 [facility] ([place]) Comment on above: Performed By: #### A DIFF, CBC, BMP, IGE, 719109, GFR, MG, ANEU ####[place] [address] IgE Cat Dander E001 <0.10 Normal Class 0 [facility] ([place]) Comment on above: Performed By: #### A DIFF, CBC, BMP, IGE, 728665, GFR, MG, ANEU ####[place] [address] IgE [place] T006 <0.10 Normal Class 0 [facility] ([place]) Comment on above: Performed By: #### A DIFF, CBC, BMP, IGE, 259110, GFR, MG, ANEU ####[place] [address] IgE Cladosporium herbarum M002 <0.10 Normal Class 0 [facility] ([place]) Comment on above: Performed By: #### A DIFF, CBC, BMP, IGE, 909927, GFR, MG, ANEU ####[place] [address] IgE Cockroach Ethiopian I006 <0.10 Normal Class 0 [facility] ([place]) Comment on above: Performed By: #### A DIFF, CBC, BMP, IGE, 555991, GFR, MG, ANEU ####[place] [address] IgE Common [place] T003 <0.10 Normal Class 0 [facility] ([place]) Comment on above: Performed By: #### A DIFF, CBC, BMP, IGE, 765820, GFR, MG, ANEU ####[place] [address] IgE Brandon T014 <0.10 Normal Class 0 [facility] ([place]) Comment on above: Performed By: #### A DIFF, CBC, BMP, IGE, 456535, GFR, MG, ANEU ####[place] [address] IgE D farinae D002 <0.10 Normal Class 0 [facility] ([place]) Comment on above: Performed By: #### A DIFF, CBC, BMP, IGE, 901083, GFR, MG, ANEU ####[place] [address] IgE D pteronyssinus D001 <0.10 Normal Class 0 [facility] ([place]) Comment on above: Performed By: #### A DIFF, CBC, BMP, IGE, 184730, GFR, MG, ANEU ####[place] [address] IgE Dog Dander E005 <0.10 Normal Class 0 [facility] ([place]) Comment on above: Performed By: #### A DIFF, CBC, BMP, IGE, 419398, GFR, MG, ANEU ####[place] [address] IgE Elm [place] T008 <0.10 Normal Class 0 [facility] ([place]) Comment on above: Performed By: #### A DIFF, CBC, BMP, IGE, 319974, GFR, MG, ANEU ####[place] [address] IgE Maple [place] T011 <0.10 Normal Class 0 [facility] ([place]) Comment on above: Performed By: #### A DIFF, CBC, BMP, IGE, 835078, GFR, MG, ANEU ####[place] [address] IgE Maple/[place] T001 <0.10 Normal Class 0 [facility] ([place]) Comment on above: Performed By: #### A DIFF, CBC, BMP, IGE, 400491, GFR, MG, ANEU ####[place] [address] IgE Mouse Urine E072 <0.10 Normal Class 0 [facility] ([place]) Comment on above: Result Comment: Perf ormed At: BN [facility] [address] [id number] Deniz Gutiérrez MD Ph:[phone] Performed By: #### A DIFF, CBC, BMP, IGE, 848580, GFR, MG, ANEU ####[place] [address] IgE Hurley White T007 <0.10 Normal Class 0 [facility] ([place]) Comment on above: Performed By: #### A DIFF, CBC, BMP, IGE, 215038, GFR, MG, ANEU ####[place] [address] IgE Pecan [place] T022 <0.10 Normal Class 0 [facility] ([place]) Comment on above: Performed By: #### A DIFF, CBC, BMP, IGE, 224407, GFR, MG, ANEU ####[place] [address] IgE Penicillium chrysogen M001 <0.10 Normal Class 0 [facility] ([place]) Comment on above: Performed By: #### A DIFF, CBC, BMP, IGE, 756828, GFR, MG, ANEU ####[place] [address] IgE Pigweed Common W014 <0.10 Normal Class 0 [facility] ([place]) Comment on above: Performed By: #### A DIFF, CBC, BMP, IGE, 555764, GFR, MG, ANEU ####[place] [address] IgE Ragweed Short W001 <0.10 Normal Class 0 [facility] ([place]) Comment on above: Performed By: #### A DIFF, CBC, BMP, IGE, 405743, GFR, MG, ANEU ####[place] [address] IgE Sheep [place] W018 <0.10 Normal Class 0 [facility] ([place]) Comment on above: Performed By: #### A DIFF, CBC, BMP, IGE, 312829, GFR, MG, ANEU ####[place] [address] IgE Thistle [place] W011 <0.10 Normal Class 0 [facility] ([place]) Comment on above: Performed By: #### A DIFF, CBC, BMP, IGE, 317013, GFR, MG, ANEU ####[place] [address] IgE Oliver Grass G006 <0.10 Normal Class 0 [facility] ([place]) Comment on above: Performed By: #### A DIFF, CBC, BMP, IGE, 348523, GFR, MG, ANEU ####[place] [address] IgE Total 32 IU/mL Normal 6-495 [facility] ([place]) Comment on above: Performed By: #### A DIFF, CBC, BMP, IGE, 757068, GFR, MG, ANEU ####[place] [address] IgE Leighton T010 <0.10 Normal Class 0 [facility] ([place]) Comment on above: Performed By: #### A DIFF, CBC, BMP, IGE, 795242, GFR, MG, ANEU ####[address] [address] IgE White [place] T070 <0.10 Normal Class 0 [facility] ([place]) Comment on above: Performed By: #### A DIFF, CBC, BMP, IGE, 683519, GFR, MG, ANEU ####[address] [address] .Auto Diffon 03-30-2024 Basophil, Absolute 0.0 10 3/mcL Normal 0.0-0.3 [facility] ([place]) Comment on above: Performed By: #### C BC, GFR, ANEU, BMP, ADIFF ####[place] [address] Basophils/100 WBC (Bld) 0.3 % Normal 0.0-2.5 [facility] ([place]) Comment on above: Performed By: #### C BC, GFR, ANEU, BMP, ADIFF ####[place] [address] Eosinophil, Absolute 0.0 10 3/mcL Normal 0.0-0.7 [facility] ([place]) Comment on above: Performed By: #### C BC, GFR, ANEU, BMP, ADIFF ####[address] [address] Eosinophils/100 WBC (Bld) 0.2 % Normal 0.0-6.0 [facility] ([place]) Comment on above: Performed By: #### C BC, GFR, ANEU, BMP, ADIFF ####[place] [address] Lymphocyte, Absolute 5.0 10 3/mcL High 0.9-4.3 [facility] ([place]) Comment on above: Performed By: #### C BC, GFR, ANEU, BMP, ADIFF ####[address] [address] Lymphocytes/100 WBC (Bld) 37.8 % Normal 20.0-40.0 [facility] ([place]) Comment on above: Performed By: #### C BC, GFR, ANEU, BMP, ADIFF ####[id number] [place] [address] Monocyte, Absolute 0.9 10 3/mcL Normal 0.1-1.4 [facility] ([place]) Comment on above: Performed By: #### C BC, GFR, ANEU, BMP, ADIFF ####[place] [address] [place] [address] Monocytes/100 WBC (Bld) 6.6 % Normal 2.0-13.0 [facility] ([place]) Comment on above: Performed By: #### C BC, GFR, ANEU, BMP, ADIFF ####[address] [address] Neutrophils/100 WBC (Bld) 55.1 % Normal 50.0-75.0 [facility] ([place]) Comment on above: Performed By: #### C BC, GFR, ANEU, BMP, ADIFF ####[address] [address] .GFRon 03-30-2024 GFR >60 Normal [facility] ([place]) Comment on above: Result Comment: GFR Population mean for , Non- Americans Ages 20-29 = 116 mL/min/1.73 sq.m. Ages 30-39 = 107 mL/min/1.73 sq.m. Ages 40-49 = 99 mL/min/1.73 sq.m. Ages 50-59 = 93 mL/min/1.73 sq.m. Ages 60-69 = 85 mL/min/1.73 sq.m. Ages 70+ = 75 mL/min/1.73 sq.m. Chronic Kidney Disease: Less than 60 mL/min/1.73 square meters End Stage Renal Disease: Less than 15 mL/min/1.73 square meters Performed By: #### C BC, GFR, ANEU, BMP, ADIFF ####[address] [address] GFR Non- >60 Normal [facility] ([place]) Comment on above: Result Comment: GFR Population mean for , Non- Americans Ages 20-29 = 116 mL/min/1.73 sq.m. Ages 30-39 = 107 mL/min/1.73 sq.m. Ages 40-49 = 99 mL/min/1.73 sq.m. Ages 50-59 = 93 mL/min/1.73 sq.m. Ages 60-69 = 85 mL/min/1.73 sq.m. Ages 70+ = 75 mL/min/1.73 sq.m. Chronic Kidney Disease: Less than 60 mL/min/1.73 square meters End Stage Renal Disease: Less than 15 mL/min/1.73 square meters Performed By: #### C BC, GFR, ANEU, BMP, ADIFF ####[address] [address] .NEUABSon 03-30-2024 Neutrophil, Absolute 7.3 10 3/mcL Normal 2.3-8.1 [facility] ([place]) Comment on above: Performed By: #### C BC, GFR, ANEU, BMP, ADIFF ####[address] [address] BMPon 03-30-2024 BUN/Creatinine Ratio 24.7 ratio High 10.0-22.0 [facility] ([place]) Comment on above: Performed By: #### C BC, GFR, ANEU, BMP, ADIFF ####[place] [address] Calcium [Mass/Vol] 8.1 mg/dL Low 8.7-10.4 [facility] ([place]) Comment on above: Performed By: #### C BC, GFR, ANEU, BMP, ADIFF ####[address] [address] Chloride [Moles/Vol] 108 mmol/L Normal 98-110 [facility] ([place]) Comment on above: Performed By: #### C BC, GFR, ANEU, BMP, ADIFF ####[address] [address] CO2 [Moles/Vol] 24 mmol/L Normal 22-32 [facility] ([place]) Comment on above: Performed By: #### C BC, GFR, ANEU, BMP, ADIFF ####[address] [address] Creatinine [Mass/Vol] 0.85 mg/dL Normal 0.50-1.20 [facility] ([place]) Comment on above: Performed By: #### C BC, GFR, ANEU, BMP, ADIFF ####[place] [address] Electrolyte Balance 7.0 mEq/L Normal 4.0-15.0 [facility] ([place]) Comment on above: Performed By: #### C BC, GFR, ANEU, BMP, ADIFF ####[place] [address] Glucose [Mass/Vol] 122 mg/dL High 82-115 [facility] ([place]) Comment on above: Performed By: #### C BC, GFR, ANEU, BMP, ADIFF ####[place] [address] Potassium [Moles/Vol] 4.1 mmol/L Normal 3.5-5.0 [facility] ([place]) Comment on above: Performed By: #### C BC, GFR, ANEU, BMP, ADIFF ####[place] [address] Sodium [Moles/Vol] 139 mmol/L Normal 136-145 [facility] ([place]) Comment on above: Performed By: #### C BC, GFR, ANEU, BMP, ADIFF ####[place] [address] Urea nitrogen [Mass/Vol] 21.0 mg/dL Normal 8.0-22.0 [facility] ([place]) Comment on above: Performed By: #### C BC, GFR, ANEU, BMP, ADIFF ####[address] [address] CBCon 03-30-2024 Erythrocyte distribution width (RBC) [Ratio] 19.6 % High 11.5-15.5 [facility] ([place]) Comment on above: Performed By: #### C BC, GFR, ANEU, BMP, ADIFF ####[place] [address] Hematocrit (Bld) [Volume fraction] 32.1 % Low 34.0-46.0 [facility] ([place]) Comment on above: Performed By: #### C BC, GFR, ANEU, BMP, ADIFF ####[place] [address] Hgb 10.5 G/dL Low 12.0-16.0 [facility] ([place]) Comment on above: Performed By: #### C BC, GFR, ANEU, BMP, ADIFF ####[place] [address] MCH (RBC) [Entitic mass] 25.8 pg Low 27.0-33.0 [facility] ([place]) Comment on above: Performed By: #### C BC, GFR, ANEU, BMP, ADIFF ####[place] [address] MCHC 32.9 G/dL Normal 32.0-36.0 [facility] ([place]) Comment on above: Performed By: #### C BC, GFR, ANEU, BMP, ADIFF ####[place] [address] MCV (RBC) [Entitic vol] 78.5 fL Low 80.0-99.0 [facility] ([place]) Comment on above: Performed By: #### C BC, GFR, ANEU, BMP, ADIFF ####[place] [address] Platelet 464 10 3/mcL High 150-450 [facility] ([place]) Comment on above: Performed By: #### C BC, GFR, ANEU, BMP, ADIFF ####[place] [address] Platelet mean volume (Bld) [Entitic vol] 7.5 fL Normal 6.6-10.5 [facility] ([place]) Comment on above: Performed By: #### C BC, GFR, ANEU, BMP, ADIFF ####[place] [address] RBC 4.09 10 6/mcL Low 4.10-5.30 [facility] ([place]) Comment on above: Performed By: #### C BC, GFR, ANEU, BMP, ADIFF ####[address] [address] WBC 13.2 10 3/mcL High 4.5-10.8 [facility] ([place]) Comment on above: Performed By: #### C BC, GFR, ANEU, BMP, ADIFF ####[address] [address] .Auto Diffon 03-29-2024 Basophil, Absolute 0.0 10 3/mcL Normal 0.0-0.3 [facility] ([place]) Comment on above: Performed By: #### A DIFF, CBC, BMP, IGE, 092861, GFR, MG, ANEU ####[address] [address] Basophils/100 WBC (Bld) 0.1 % Normal 0.0-2.5 [facility] ([place]) Comment on above: Performed By: #### A DIFF, CBC, BMP, IGE, 490996, GFR, MG, ANEU ####[address] [address] Eosinophil, Absolute 0.0 10 3/mcL Normal 0.0-0.7 [facility] ([place]) Comment on above: Performed By: #### A DIFF, CBC, BMP, IGE, 184756, GFR, MG, ANEU ####[address] [address] Eosinophils/100 WBC (Bld) 0.1 % Normal 0.0-6.0 [facility] ([place]) Comment on above: Performed By: #### A DIFF, CBC, BMP, IGE, 033924, GFR, MG, ANEU ####[address] [address] Lymphocyte, Absolute 3.3 10 3/mcL Normal 0.9-4.3 [facility] ([place]) Comment on above: Performed By: #### A DIFF, CBC, BMP, IGE, 271300, GFR, MG, ANEU ####[address] [address] Lymphocytes/100 WBC (Bld) 22.5 % Normal 20.0-40.0 [facility] ([place]) Comment on above: Performed By: #### A DIFF, CBC, BMP, IGE, 544535, GFR, MG, ANEU ####[address] [address] Monocyte, Absolute 0.9 10 3/mcL Normal 0.1-1.4 [facility] ([place]) Comment on above: Performed By: #### A DIFF, CBC, BMP, IGE, 058215, GFR, MG, ANEU ####[address] [address] Monocytes/100 WBC (Bld) 6.4 % Normal 2.0-13.0 [facility] ([place]) Comment on above: Performed By: #### A DIFF, CBC, BMP, IGE, 653764, GFR, MG, ANEU ####[address] [address] Neutrophils/100 WBC (Bld) 70.9 % Normal 50.0-75.0 [facility] ([place]) Comment on above: Performed By: #### A DIFF, CBC, BMP, IGE, 220785, GFR, MG, ANEU ####[address] [address] .GFRon 03-29-2024 GFR >60 Normal [facility] ([place]) Comment on above: Result Comment: GFR Population mean for , Non- Americans Ages 20-29 = 116 mL/min/1.73 sq.m. Ages 30-39 = 107 mL/min/1.73 sq.m. Ages 40-49 = 99 mL/min/1.73 sq.m. Ages 50-59 = 93 mL/min/1.73 sq.m. Ages 60-69 = 85 mL/min/1.73 sq.m. Ages 70+ = 75 mL/min/1.73 sq.m. Chronic Kidney Disease: Less than 60 mL/min/1.73 square meters End Stage Renal Disease: Less than 15 mL/min/1.73 square meters Performed By: #### A DIFF, CBC, BMP, IGE, 706096, GFR, MG, ANEU ####[address] [address] GFR Non- >60 Normal [facility] ([place]) Comment on above: Result Comment: GFR Population mean for , Non- Americans Ages 20-29 = 116 mL/min/1.73 sq.m. Ages 30-39 = 107 mL/min/1.73 sq.m. Ages 40-49 = 99 mL/min/1.73 sq.m. Ages 50-59 = 93 mL/min/1.73 sq.m. Ages 60-69 = 85 mL/min/1.73 sq.m. Ages 70+ = 75 mL/min/1.73 sq.m. Chronic Kidney Disease: Less than 60 mL/min/1.73 square meters End Stage Renal Disease: Less than 15 mL/min/1.73 square meters Performed By: #### A DIFF, CBC, BMP, IGE, 207792, GFR, MG, ANEU ####[place] [address] .NEUABSon 03-29-2024 Neutrophil, Absolute 10.6 10 3/mcL High 2.3-8.1 [facility] ([place]) Comment on above: Performed By: #### A DIFF, CBC, BMP, IGE, 139925, GFR, MG, ANEU ####[place] [address] APTTon 03-29-2024 aPTT Coag (Bld) [Time] 49.4 s High 25.0-35.0 [facility] ([place]) Comment on above: Result Comment: For Heparin anticoagulation therapy, the recommended therapeutic range is: 54-77 seconds (APTT Correlation with Anti-Xa therapeutic range of 0.3-0.7 units/ml). PLEASE REFERENCE THE PHARMACY PROTOCOL FOR DOSING. aPTT Coag (Bld) [Time] 39.3 s High 25.0-35.0 [facility] ([place]) Comment on above: Result Comment: For Heparin anticoagulation therapy, the recommended therapeutic range is: 54-77 seconds (APTT Correlation with Anti-Xa therapeutic range of 0.3-0.7 units/ml). PLEASE REFERENCE THE PHARMACY PROTOCOL FOR DOSING. Performed By: #### A DIFF, CBC, BMP, IGE, 963632, GFR, MG, ANEU ####[place] [address] BMPon 03-29-2024 BUN/Creatinine Ratio 26.2 ratio High 10.0-22.0 [facility] ([place]) Comment on above: Performed By: #### A DIFF, CBC, BMP, IGE, 204919, GFR, MG, ANEU ####[place] [address] Calcium [Mass/Vol] 8.4 mg/dL Low 8.7-10.4 [facility] ([place]) Comment on above: Performed By: #### A DIFF, CBC, BMP, IGE, 117569, GFR, MG, ANEU ####[place] [address] Chloride [Moles/Vol] 107 mmol/L Normal 98-110 [facility] ([place]) Comment on above: Performed By: #### A DIFF, CBC, BMP, IGE, 591696, GFR, MG, ANEU ####[place] [address] CO2 [Moles/Vol] 23 mmol/L Normal 22-32 [facility] ([place]) Comment on above: Performed By: #### A DIFF, CBC, BMP, IGE, 076039, GFR, MG, ANEU ####[place] [address] Creatinine [Mass/Vol] 0.84 mg/dL Normal 0.50-1.20 [facility] ([place]) Comment on above: Performed By: #### A DIFF, CBC, BMP, IGE, 110785, GFR, MG, ANEU ####[place] [address] Electrolyte Balance 6.0 mEq/L Normal 4.0-15.0 [facility] ([place]) Comment on above: Performed By: #### A DIFF, CBC, BMP, IGE, 054514, GFR, MG, ANEU ####[place] [address] Glucose [Mass/Vol] 141 mg/dL High 82-115 [facility] ([place]) Comment on above: Performed By: #### A DIFF, CBC, BMP, IGE, 653644, GFR, MG, ANEU ####[place] [address] Potassium [Moles/Vol] 4.1 mmol/L Normal 3.5-5.0 [facility] ([place]) Comment on above: Performed By: #### A DIFF, CBC, BMP, IGE, 827763, GFR, MG, ANEU ####[place] [address] Sodium [Moles/Vol] 136 mmol/L Normal 136-145 [facility] ([place]) Comment on above: Performed By: #### A DIFF, CBC, BMP, IGE, 770702, GFR, MG, ANEU ####[place] [address] Urea nitrogen [Mass/Vol] 22.0 mg/dL Normal 8.0-22.0 [facility] ([place]) Comment on above: Performed By: #### A DIFF, CBC, BMP, IGE, 107535, GFR, MG, ANEU ####[place] [address] CBCon 03-29-2024 Erythrocyte distribution width (RBC) [Ratio] 19.6 % High 11.5-15.5 [facility] ([place]) Comment on above: Performed By: #### A DIFF, CBC, BMP, IGE, 476441, GFR, MG, ANEU ####[place] [address] Hematocrit (Bld) [Volume fraction] 31.5 % Low 34.0-46.0 [facility] ([place]) Comment on above: Performed By: #### A DIFF, CBC, BMP, IGE, 024665, GFR, MG, ANEU ####[place] [address] Hgb 10.4 G/dL Low 12.0-16.0 [facility] ([place]) Comment on above: Performed By: #### A DIFF, CBC, BMP, IGE, 099050, GFR, MG, ANEU ####[place] [address] MCH (RBC) [Entitic mass] 26.1 pg Low 27.0-33.0 [facility] ([place]) Comment on above: Performed By: #### A DIFF, CBC, BMP, IGE, 182370, GFR, MG, ANEU ####[place] [address] MCHC 33.1 G/dL Normal 32.0-36.0 [facility] ([place]) Comment on above: Performed By: #### A DIFF, CBC, BMP, IGE, 614237, GFR, MG, ANEU ####[place] [address] MCV (RBC) [Entitic vol] 78.9 fL Low 80.0-99.0 [facility] ([place] Comment on above: Performed By: #### A DIFF, CBC, BMP, IGE, 247050, GFR, MG, ANEU ####[place] [address] Platelet 433 10 3/mcL Normal 150-450 [facility] ([place]) Comment on above: Performed By: #### A DIFF, CBC, BMP, IGE, 373755, GFR, MG, ANEU ####[place] [address] Platelet mean volume (Bld) [Entitic vol] 7.9 fL Normal 6.6-10.5 [facility] ([place]) Comment on above: Performed By: #### A DIFF, CBC, BMP, IGE, 865900, GFR, MG, ANEU ####[place] [address] RBC 3.99 10 6/mcL Low 4.10-5.30 [facility] ([place]) Comment on above: Performed By: #### A DIFF, CBC, BMP, IGE, 445810, GFR, MG, ANEU ####[place] [address] WBC 14.9 10 3/mcL High 4.5-10.8 [facility] ([place]) Comment on above: Performed By: #### A DIFF, CBC, BMP, IGE, 004491, GFR, MG, ANEU ####[place] [address] IGEon 03-29-2024 IgE 28.0 IU/mL Normal 0.0-378.0 [facility] ([place]) Comment on above: Result Comment: No te - New Reference Range in effect 20 Performed By: #### A DIFF, CBC, BMP, IGE, 955068, GFR, MG, ANEU ####[place] [address] MGon 03-29-2024 Magnesium [Mass/Vol] 1.9 mg/dL Normal 1.6-2.4 [facility] ([place]) Comment on above: Performed By: #### A DIFF, CBC, BMP, IGE, 802325, GFR, MG, ANEU ####[place] [address] MYCOon 03-29-2024 Mycoplasma IgG Positive Normal [facility] ([place]) Comment on above: Result Comment: INTE RPRETATION OF MYCOPLASMA IgG BY EIA: Negative: No detectable M. pneumoniae IgG antibody. Positive: Mycoplasma pneumoniae IgG antibody Detected. Equivocal: Equivocal for IgG antibodies to Mycoplasma pneumoniae. Suggest repeat testing in 10-14 days. Performed By: #### T SH, TROPHS, A1C, MYCO ####[place] [address] .GFRon 03-28-2024 GFR >60 Normal [facility] ([place]) Comment on above: Result Comment: GFR Population mean for , Non- Americans Ages 20-29 = 116 mL/min/1.73 sq.m. Ages 30-39 = 107 mL/min/1.73 sq.m. Ages 40-49 = 99 mL/min/1.73 sq.m. Ages 50-59 = 93 mL/min/1.73 sq.m. Ages 60-69 = 85 mL/min/1.73 sq.m. Ages 70+ = 75 mL/min/1.73 sq.m. Chronic Kidney Disease: Less than 60 mL/min/1.73 square meters End Stage Renal Disease: Less than 15 mL/min/1.73 square meters Performed By: #### B MP, GFR ####[place] [address] GFR Non- >60 Normal [facility] ([place]) Comment on above: Result Comment: GFR Population mean for , Non- Americans Ages 20-29 = 116 mL/min/1.73 sq.m. Ages 30-39 = 107 mL/min/1.73 sq.m. Ages 40-49 = 99 mL/min/1.73 sq.m. Ages 50-59 = 93 mL/min/1.73 sq.m. Ages 60-69 = 85 mL/min/1.73 sq.m. Ages 70+ = 75 mL/min/1.73 sq.m. Chronic Kidney Disease: Less than 60 mL/min/1.73 square meters End Stage Renal Disease: Less than 15 mL/min/1.73 square meters Performed By: #### B MP, GFR ####[facility] [place] [address] APTTon 03-28-2024 aPTT Coag (Bld) [Time] 48.7 s High 25.0-35.0 [facility] ([place]) Comment on above: Result Comment: For Heparin anticoagulation therapy, the recommended therapeutic range is: 54-77 seconds (APTT Correlation with Anti-Xa therapeutic range of 0.3-0.7 units/ml). PLEASE REFERENCE THE PHARMACY PROTOCOL FOR DOSING. Performed By: #### A PTT #### [facility] [address] [place] [address] aPTT Coag (Bld) [Time] 56.9 s High 25.0-35.0 [facility] ([place]) Comment on above: Result Comment: For Heparin anticoagulation therapy, the recommended therapeutic range is: 54-77 seconds (APTT Correlation with Anti-Xa therapeutic range of 0.3-0.7 units/ml). PLEASE REFERENCE THE PHARMACY PROTOCOL FOR DOSING. Performed By: #### A BOG, ANSG #### [address] [address] aPTT Coag (Bld) [Time] 39.7 s High 25.0-35.0 [facility] ([place]) Comment on above: Result Comment: For Heparin anticoagulation therapy, the recommended therapeutic range is: 54-77 seconds (APTT Correlation with Anti-Xa therapeutic range of 0.3-0.7 units/ml). PLEASE REFERENCE THE PHARMACY PROTOCOL FOR DOSING. Performed By: #### A PTT ####[address] [address] BMPon 03-28-2024 BUN/Creatinine Ratio 24.7 ratio High 10.0-22.0 [facility] ([place]) Comment on above: Performed By: #### B MP, GFR ####[place] [id number] Calcium [Mass/Vol] 8.4 mg/dL Low 8.7-10.4 [facility] ([place]) Comment on above: Performed By: #### B MP, GFR ####[place] [address] Chloride [Moles/Vol] 109 mmol/L Normal 98-110 [facility] ([place]) Comment on above: Performed By: #### B MP, GFR ####[place] [id number] CO2 [Moles/Vol] 19 mmol/L Low 22-32 [facility] ([place]) Comment on above: Performed By: #### B MP, GFR ####[place] [address] Creatinine [Mass/Vol] 0.73 mg/dL Normal 0.50-1.20 [facility] ([place]) Comment on above: Performed By: #### B MP, GFR ####[place] [address] Electrolyte Balance 8.0 mEq/L Normal 4.0-15.0 [facility] ([place]) Comment on above: Performed By: #### B MP, GFR ####[address] [address] Glucose [Mass/Vol] 205 mg/dL High 82-115 [facility] ([place]) Comment on above: Performed By: #### B MP, GFR ####[place] [address] Potassium [Moles/Vol] 3.8 mmol/L Normal 3.5-5.0 [facility] ([place]) Comment on above: Performed By: #### B MP, GFR ####[address] [address] Sodium [Moles/Vol] 136 mmol/L Normal 136-145 [facility] ([place]) Comment on above: Performed By: #### B MP, GFR ####[address] [address] Urea nitrogen [Mass/Vol] 18.0 mg/dL Normal 8.0-22.0 [facility] ([place]) Comment on above: Performed By: #### B MP, GFR ####[address] [address] MRSAPCRon 03-28-2024 MRSA (PCR) Not detected Normal Not Detected [facility] ([place]) Comment on above: Result Comment: [place] [id number] Performed By: #### M RSAPCR ####[place] [address] MRSA PCR Int Normal [facility] ([place]) Comment on above: Result Comment: MRSA DNA not detected by Real-Time Polymerase Chain Reaction (PCR). A negative result may be due to intermittent colonization. Colonization may vary depending on patient treatment, patient status, or exposure to high-risk environments. As with all PCR based in vitro diagnostic tests, extremely low levels of target below the limit of detection of the assay may be detected, but results may not be reproducible. See Below Performed By: #### M RSAPCR ####[place] [address] MYCOon 03-28-2024 Mycoplasma IgM Negative Normal [facility] ([place]) Comment on above: Result Comment: INTE RPRETATION OF MYCOPLASMA IgM: Negative: IgM to M. pneumoniae Absent, or at levels below the assay limit of detection. Positive: IgM to M. pneumoniae Present. Invalid: Test results are invalid due to invalid internal control. Assay was performed in duplicate. Repeat testing is suggested if clinically indicated. Performed By: #### T SH, TROPHS, A1C, MYCO ####[address] [address] XR CHEST 2 VIEWSon XR CHEST 2 VIEWS ORIGINAL EXAMINATION: TWO XRAY VIEWS OF THE CHEST 03/28/2024 7:14 am COMPARISON: Chest x-ray 03/26/[address] chest 03/27/2024 HISTORY: ORDERING SYSTEM PROVIDED HISTORY: Reason for Exam: Pneumonia, follow-up FINDINGS: Cardiomediastinal contours stable. Subtle opacification within the right mid upper lung zone. The left lung is grossly clear. No pneumothorax or pleural effusion. No acute osseous abnormality. IMPRESSION: Subtle opacification within the right mid to upper lung zone. Correlating with patient's known tree-in-bud and consolidative opacities better appreciated on the most recent CT chest. Preliminary Report was Dictated by a Resident Interpreted by: Jaycob Verdugo MD Preliminary Report By: Aldair Chavez Electronically signed By Jaycob Verdugo MD Dictated Date: 03/28/2024 7:21:53 AM Prelim Date: 03/28/2024 7:26:51 AM Sign Date: 03/28/2024 7:58:36 AM Ordering Provider: ANABELLE Ramirez [facility] ([place]) .Auto Diffon 03-27-2024 Basophil, Absolute 0.1 10 3/mcL Normal 0.0-0.3 [facility] ([place]) Comment on above: Performed By: #### A STAR ANSARI #### [address] [address] Basophils/100 WBC (Bld) 0.4 % Normal 0.0-2.5 [facility] ([place]) Comment on above: Performed By: #### A STAR ANSARI #### [address] [address] Eosinophil, Absolute 0.0 10 3/mcL Normal 0.0-0.7 [facility] ([place]) Comment on above: Performed By: #### A STAR ANSARI #### [address] [address] Eosinophils/100 WBC (Bld) 0.1 % Normal 0.0-6.0 [facility] ([place]) Comment on above: Performed By: #### A STAR ANSARI #### [address] [address] Lymphocyte, Absolute 2.9 10 3/mcL Normal 0.9-4.3 [facility] ([place]) Comment on above: Performed By: #### A STAR ANSARI #### [address] [address] Lymphocytes/100 WBC (Bld) 16.8 % Low 20.0-40.0 [facility] ([place]) Comment on above: Performed By: #### A STAR ANSARI #### [address] [address] Monocyte, Absolute 1.5 10 3/mcL High 0.1-1.4 [facility] ([place]) Comment on above: Performed By: #### A STAR ANSARI #### [address] [address] Monocytes/100 WBC (Bld) 8.5 % Normal 2.0-13.0 [facility] ([place]) Comment on above: Performed By: #### STAR KLEIN #### [address] [address] Neutrophils/100 WBC (Bld) 74.2 % Normal 50.0-75.0 [facility] ([place]) Comment on above: Performed By: #### STAR KLEIN #### [address] [address] .GFRon 03-27-2024 GFR 61 ml/min/1.73sqm Normal [facility] ([place]) Comment on above: Result Comment: GFR Population mean for , Non- Americans Ages 20-29 = 116 mL/min/1.73 sq.m. Ages 30-39 = 107 mL/min/1.73 sq.m. Ages 40-49 = 99 mL/min/1.73 sq.m. Ages 50-59 = 93 mL/min/1.73 sq.m. Ages 60-69 = 85 mL/min/1.73 sq.m. Ages 70+ = 75 mL/min/1.73 sq.m. Chronic Kidney Disease: Less than 60 mL/min/1.73 square meters End Stage Renal Disease: Less than 15 mL/min/1.73 square meters Performed By: #### A STAR ANSARI #### Ryne [address] [address] GFR Non- 50 ml/min/1.73sqm Normal [facility] ([place]) Comment on above: Result Comment: GFR Population mean for , Non- Americans Ages 20-29 = 116 mL/min/1.73 sq.m. Ages 30-39 = 107 mL/min/1.73 sq.m. Ages 40-49 = 99 mL/min/1.73 sq.m. Ages 50-59 = 93 mL/min/1.73 sq.m. Ages 60-69 = 85 mL/min/1.73 sq.m. Ages 70+ = 75 mL/min/1.73 sq.m. Chronic Kidney Disease: Less than 60 mL/min/1.73 square meters End Stage Renal Disease: Less than 15 mL/min/1.73 square meters Performed By: #### A STAR ANSARI #### [address] [address] .NEUABSon 03-27-2024 Neutrophil, Absolute 12.8 10 3/mcL High 2.3-8.1 [facility] ([place]) Comment on above: Performed By: #### A STAR ANSARI #### [address] [address] [address] A1Con 03-27-2024 HbA1c (Bld) [Mass fraction] 6.2 % High 4.0-6.0 [facility] ([place]) Comment on above: Performed By: #### T SH TROPHS, A1C, MYCO ####[address] [address] HbA1c (Bld) [Mass fraction] 6.0 % Normal 4.3-6.4 [facility] ([place]) Comment on above: Performed By: #### Rachel 1C, LIPID ####Ryne [address] [address] APTTon 03-27-2024 aPTT Coag (Bld) [Time] 30.2 s Normal 25.0-35.0 [facility] ([place]) Comment on above: Result Comment: For Heparin anticoagulation therapy, the recommended therapeutic range is: 54-77 seconds (APTT Correlation with Anti-Xa therapeutic range of 0.3-0.7 units/ml). PLEASE REFERENCE THE PHARMACY PROTOCOL FOR DOSING. Performed By: #### P RO, CBC, ADIFF, APTT, ANEU ####[address] [address] aPTT Coag (Bld) [Time] 56.8 s High 25.0-35.0 [facility] ([place]) Comment on above: Result Comment: For Heparin anticoagulation therapy, the recommended therapeutic range is: 45.4-75.9 seconds. Patients on heparin therapy may have an extreme result. Performed By: #### A PTT #### [address] [address] aPTT Coag (Bld) [Time] 60.7 s High 25.0-35.0 [facility] ([place]) Comment on above: Result Comment: For Heparin anticoagulation therapy, the recommended therapeutic range is: 45.4-75.9 seconds. Patients on heparin therapy may have an extreme result. Performed By: #### A PTT #### [address] [address] aPTT Coag (Bld) [Time] 52.1 s High 25.0-35.0 [facility] ([place]) Comment on above: Result Comment: For Heparin anticoagulation therapy, the recommended therapeutic range is: 45.4-75.9 seconds. Patients on heparin therapy may have an extreme result. Performed By: #### A PTT #### [address] [address] BMPon 03-27-2024 BUN/Creatinine Ratio 12 ratio Normal 7-27 [facility] ([place]) Comment on above: Performed By: #### A STAR ANSARI #### [address] [address] Calcium [Mass/Vol] 8.7 mg/dL Normal 8.4-10.2 [facility] ([place]) Comment on above: Performed By: #### A STAR ANSARI #### [address] [address] Chloride [Moles/Vol] 100 mmol/L Normal 98-107 [facility] ([place]) Comment on above: Performed By: #### A STAR ANSARI #### [address] [address] CO2 [Moles/Vol] 21 mmol/L Low 23-31 [facility] ([place]) Comment on above: Performed By: #### A STAR ANSARI #### [address] [address] Creatinine [Mass/Vol] 1.11 mg/dL High 0.55-1.02 [facility] ([place]) Comment on above: Performed By: #### A STAR ANSARI #### [address] [address] Electrolyte Balance 14.0 mEq/L Normal 4.0-15.0 [facility] ([place]) Comment on above: Performed By: #### A STAR ANSARI #### [address] [address] Glucose [Mass/Vol] 273 mg/dL High 80-115 [facility] ([place]) Comment on above: Performed By: #### A STAR ANSARI #### [address] [address] Potassium [Moles/Vol] 3.9 mmol/L Normal 3.5-5.1 [facility] ([place]) Comment on above: Performed By: #### A STAR ANSARI #### [address] [address] Sodium [Moles/Vol] 135 mmol/L Low 136-145 [facility] ([place]) Comment on above: Performed By: #### A STAR ANSARI #### [address] [address] Urea nitrogen [Mass/Vol] 13 mg/dL Normal 7-18 [facility] ([place]) Comment on above: Performed By: #### A STAR ANSARI #### Ryne [address] [address] CBCon 03-27-2024 Erythrocyte distribution width (RBC) [Ratio] 20.0 % High 11.5-15.5 [facility] ([place]) Comment on above: Performed By: #### A STAR ANSARI #### [address] [address] Hematocrit (Bld) [Volume fraction] 34.8 % Normal 34.0-46.0 [facility] ([place]) Comment on above: Performed By: #### A STAR ANSARI #### [place] [id number] Hgb 11.5 G/dL Low 12.0-16.0 [facility] ([place]) Comment on above: Performed By: #### A STAR ANSARI #### [address] [address] MCH (RBC) [Entitic mass] 25.7 pg Low 27.0-33.0 [facility] ([place]) Comment on above: Performed By: #### A STAR ANSARI #### [address] [address] MCHC 32.9 G/dL Normal 32.0-36.0 [facility] ([place]) Comment on above: Performed By: #### A STAR ANSARI #### [address] [address] MCV (RBC) [Entitic vol] 78.2 fL Low 80.0-99.0 [facility] ([place]) Comment on above: Performed By: #### A STAR ANSARI #### [address] [address] Platelet 404 10 3/mcL Normal 150-450 [facility] ([place]) Comment on above: Performed By: #### A STAR ANSARI #### [address] [address] Platelet mean volume (Bld) [Entitic vol] 7.8 fL Normal 6.6-10.5 [facility] ([place]) Comment on above: Performed By: #### A STAR ANSARI #### [address] [place], [place] [address] RBC 4.45 10 6/mcL Normal 4.10-5.30 [facility] ([place]) Comment on above: Performed By: #### A STAR ANSARI #### [address] [place] [address] [place], [place] [address] WBC 17.3 10 3/mcL High 4.5-10.8 [facility] ([place]) Comment on above: Performed By: #### A STAR ANSARI #### [address] [place], [place] [address] CT ANGIOGRAPHY CHEST W/CONTR Harini 03-27-2024 CT ANGIOGRAPHY CHEST W/CONTRAST ORIGINAL EXAMINATION: CTA OF THE CHEST 03/27/2024 4:09 am TECHNIQUE: CTA of the chest was performed after the administration of intravenous contrast. Multiplanar reformatted images are provided for review. MIP images are provided for review. Automated exposure control, iterative reconstruction, and/or weight based adjustment of the mA/kV was utilized to reduce the radiation dose to as low as reasonably achievable. COMPARISON: Chest x-ray 11/17/2014. HISTORY: ORDERING SYSTEM PROVIDED HISTORY: Reason for Exam: Pt had a heart attack, non stemi. Her troponin is high and she is currently on heparin. Tachycardia, SOB, hypoxia, elevated d-dimer. FINDINGS: Pulmonary Arteries: Pulmonary arteries are adequately opacified for evaluation. No evidence of intraluminal filling defect to suggest pulmonary embolism. Main pulmonary artery is normal in caliber. Mediastinum: Visualized thyroid is unremarkable. No axillary, or supraclavicular adenopathy. There are enlarged mediastinal and right hilar lymph nodes. Example lymph nodes include a right upper paratracheal 1.1 cm lymph node (series 3, image 69), subcarinal lymph node measuring approximately 1.3 cm (series 3, image 97), and a right hilar lymph node measuring approximately 1.6 cm (series 3, image 97). The heart is normal in size. No pericardial thickening or effusion.. There is no acute abnormality of the thoracic aorta. Minimal atherosclerosis of the aorta. Lungs/pleura: No endotracheal or main endobronchial lesion. Few areas of mucous plugging within the lower lobes bilaterally. No pneumothorax or pleural effusion. Few scattered areas of pleuroparenchymal scarring. There are tree in bud nodules throughout the right upper lobe with more consolidative opacities within the posterior aspect of the right upper lobe. Upper Abdomen: Calcification within the left adrenal gland likely related to prior hemorrhage or infectious insult. Otherwise, limited images of the upper abdomen are noncontributory. Soft Tissues/Bones: No acute osseous abnormality. 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 Grossly stable slight compression deformity of L1. IMPRESSION: No evidence of pulmonary embolism. Tree-in-bud nodules throughout the right upper lobe with developing pneumonia/consolidatio n within the posterior right upper lobe. There are reactive mediastinal and right hilar lymph nodes. Consider short-term follow-up chest x-ray to document clearance after appropriate therapy. I have personally reviewed the images of this examination and agree with the resident's findings and interpretation. Interpreted by: Jaycob Verdugo MD Preliminary Report By: Aldair Chavez Electronically signed By Jaycob Verdugo MD Dictated Date: 03/27/2024 4:11:21 AM Prelim Date: 03/27/2024 4:22:14 AM Sign Date: 03/27/2024 5:16:13 AM Ordering Provider: ADRIEL Ramirez [facility] ([place]) DIMERon 03-27-2024 D-Dimer 1004 ng/mL D-DU High 0-230 [facility] ([place]) Comment on above: Result Comment: Resu lts reported in D-DU ng/mL. Positive for D-dimer. A positive D-Dimer may occur in the following: DVT, PE, DIC, Trauma, Cancer, Sepsis, , Rheumatoid arthritis, Myocardial infarction and Cirrhosis. The presence of Rheumatoid Factor and HAMA (human mouse antibody) produces an overestimation of test results. The result of the D-Dimer test should be evaluated in the context of all the clinical and laboratory data available. In those instances where the laboratory result does not agree with the clinical evaluation, additional tests should be performed accordingly. If the D-Dimer result is used to exclude DVT or PE, the recommended cutoff value is less than 230 ng/mL. The D-Dimer result should not be used alone to rule in DVT/PE, but should be used in conjunction with a clinical pretest probability (PTP)assessment model to exclude venous thromboembolism (VTE) in outpatients suspected of deep venous thrombosis (DVT) and pulmonary embolism (PE). Performed By: #### D JOSEPH ####[address] [address] LIPIDon 03-27-2024 Cholesterol [Mass/Vol] 143 mg/dL Normal 0-200 [facility] ([place]) Comment on above: Result Comment: Chol esterol Reference Interval: Less than 200 Desirable 200-239 Borderline high risk 240 and above High risk Performed By: #### A PTT #### [address] [address] Cholesterol in HDL [Mass/Vol] 56 mg/dL Normal 40-60 [facility] ([place]) Comment on above: Performed By: #### A PTT #### [address] [address] Cholesterol in LDL [Mass/Vol] 69 mg/dL Normal 0-130 [facility] ([place]) Comment on above: Performed By: #### A PTT #### [address] [address] Triglyceride [Mass/Vol] 90 mg/dL Normal 0-150 [facility] ([place]) Comment on above: Result Comment: Trig lyceride Reference Interval: Less than 150 Normal 150-199 Borderline high risk 200-499 High risk 500 or higher Very high risk Performed By: #### A PTT #### [address] [address] MGon 03-27-2024 Magnesium [Mass/Vol] 1.8 mg/dL Normal 1.8-2.4 [facility] ([place]) Comment on above: Performed By: #### A BOG, ANSG #### [address] [address] PROon 03-27-2024 INR Coag (PPP) [Relative time] 1.0 {INR} Normal [facility] ([place]) Comment on above: Result Comment: The [place] [employer] (CHEST, 1992, 102:[id number]) recommended therapeutic range for oral anticoagulant therapy is: LOW RISK: Prophylaxis of venous thrombosis INR: 2.0-3.0 Treatment of pulmonary embolism 2.0-3.0 Prevention of systemic embolism 2.0-3.0 HIGH RISK: Mechanical prosthetic valves 2.5-3.5 Performed By: #### P RO, CBC, ADIFF, APTT, ANEU ####[place] [address] PT Coag (PPP) [Time] 11.3 s Normal 9.0-14.4 [facility] ([place]) Comment on above: Result Comment: Effe ctive 03/31/08, Protime results may be affected by some antibiotics (i.e. Ciprofloxacin, Azithromycin, Bactrim) which may potentiate the action of oral anticoagulants, with further increases in Protime/INR. Performed By: #### P RO, CBC, ADIFF, APTT, ANEU ####[place] [address] RESCVIDon 03-27-2024 Adenovirus Not detected Normal Not Detected [facility] ([place]) Comment on above: Performed By: #### R ESCVID ####[place] [address] Bordetella Parapertussis Not detected Normal Not Detected [facility] ([place]) Comment on above: Performed By: #### R ESCVID ####[place] [address] Bordetella Pertussis Not detected Normal Not Detected [facility] ([place]) Comment on above: Performed By: #### R ESCVID ####[place] [address] Chlamydophila pneumoniae Not detected Normal Not Detected [facility] ([place]) Comment on above: Performed By: #### R ESCVID ####[place] [address] Coronavirus 229E (Not COVID-19) Not detected Normal Not Detected [facility] ([place]) Comment on above: Performed By: #### R ESCVID ####[place] [address] Coronavirus HKU1 (Not COVID-19) Not detected Normal Not Detected [facility] ([place]) Comment on above: Performed By: #### R ESCVID ####[facility] [place] [address] Coronavirus NL63 (Not COVID-19) Not detected Normal Not Detected [facility] ([place]) Comment on above: Performed By: #### R ESCVID ####[facility] [place] [address] Coronavirus OC43 (Not COVID-19) Not detected Normal Not Detected [facility] ([place]) Comment on above: Performed By: #### R ESCVID ####[facility] [place] [address] Human Metapneumovirus Not detected Normal Not Detected [facility] ([place]) Comment on above: Performed By: #### R ESCVID ####[facility] [place] [address] Influenza A Not detected Normal Not Detected [facility] ([place]) Comment on above: Performed By: #### R ESCVID ####[place] [address] Influenza B Not detected Normal Not Detected [facility] ([place]) Comment on above: Performed By: #### R ESCVID ####[place] [address] Mycoplasma pneumoniae Not detected Normal Not Detected [facility] ([place]) Comment on above: Performed By: #### R ESCVID ####[facility] [place] [address] Parainfluenza 1 Not detected Normal Not Detected [facility] ([place]) Comment on above: Performed By: #### R ESCVID ####[facility] [place] [address] Parainfluenza 2 Not detected Normal Not Detected [facility] ([place]) Comment on above: Performed By: #### R ESCVID ####[facility] [place] [address] Parainfluenza 3 Not detected Normal Not Detected [facility] ([place]) Comment on above: Performed By: #### R ESCVID ####[facility] [place] [address] Parainfluenza 4 Not detected Normal Not Detected [facility] ([place]) Comment on above: Performed By: #### R ESCVID ####[facility] [place] [address] Respiratory Syncytial Virus Not detected Normal Not Detected [facility] ([place]) Comment on above: Performed By: #### R ESCVID ####[facility] [place] [address] Rhinovirus/Enterovirus Not detected Normal Not Detected [facility] ([place]) Comment on above: Performed By: #### R ESCVID ####[facility] [place] [address] SARS-CoV-2 (COVID-19) RNA MARGIE+probe Ql (Unsp spec) Not detected Normal Not Detected [facility] ([place]) Comment on above: Result Comment: This assay has been validated in the [facility] for use with nasopharyngeal specimens in [facility]. If a non-validated specimen or test collection method was used, please interpret the results with caution, especially if the test result is negative. A positive test result for COVID-19 indicates that RNA from SARS-CoV-2 was detected, and the patient is infected with the virus and presumed to be contagious. Laboratory test results should always be considered in the context of clinical observations and epidemiological data in making a final diagnosis and patient management decisions. Patient management should follow current CDC guidelines. A negative test result for this test means that SARS-CoV-2 RNA was not present in the specimen above the limit of detection. However, a negative result does not rule out COVID-19 and should not be used as the sole basis for treatment or patient management decisions. A negative result does not exclude the possibility of COVID-19. When diagnostic testing is negative, the possibility of a false negative result should be considered in the context of a patient's recent exposures and the presence of clinical signs and symptoms consistent with COVID-19. The possibility of a false negative result should especially be considered if the patient?s recent exposures or clinical presentation indicate that COVID-19 is likely, and diagnostic tests for other causes of illness (e.g., other respiratory illness) are negative. If COVID-19 is still suspected based on exposure history together with other clinical findings, re-testing should be considered by healthcare providers in consultation with public health authorities. Performed By: #### R ESCVID ####[place] [address] STGIPCRmaria t 03-27-2024 Adenovirus F 40/41 Not detected Normal Not Detected [facility] ([place]) Comment on above: Performed By: #### S TGIPCR ####[place] [address] Astrovirus Not detected Normal Not Detected [facility] ([place]) Comment on above: Performed By: #### S TGIPCR ####[place] [address] Campy (jejuni/coli/ups) Not detected Normal Not Detected [facility] ([place]) Comment on above: Performed By: #### S TGIPCR ####[place] [address] Cryptosporidium Not detected Normal Not Detected [facility] ([place]) Comment on above: Performed By: #### S TGIPCR ####[place] [address] Cyclospora Not detected Normal Not Detected [facility] ([place]) Comment on above: Performed By: #### S TGIPCR ####[place] [address] E. coli (ETEC) Not detected Normal Not Detected [facility] ([place]) Comment on above: Performed By: #### S TGIPCR ####[place] [address] E. coli O157 Not Applicable Normal Not Detected [facility] ([place]) Comment on above: Performed By: #### S TGIPCR ####[place] [address] Entamoeba histolytica Not detected Normal Not Detected [facility] ([place]) Comment on above: Performed By: #### S TGIPCR ####[place] [address] Enteroaggregative E. coli (EAEC) Not detected Normal Not Detected [facility] ([place]) Comment on above: Performed By: #### S TGIPCR ####[id number] [place], [place] [address] Enteropathogenic E. coli (EPEC) Not detected Normal Not Detected [facility] ([place]) Comment on above: Performed By: #### S TGIPCR ####[place] [address] Giardia lamblia Not detected Normal Not Detected [facility] ([place]) Comment on above: Performed By: #### S TGIPCR ####[place] [address] Norovirus GI/GII See Below Normal Not Detected [facility] ([place]) Comment on above: Result Comment: T he site coordinator of the Stool GI PCR panel has identified an increase of potential false positive results for Norovirus. A Norovirus positive result should correlate with the patient?s clinical history and presentation, along with travel history and disease severity. Performed By: #### S TGIPCR ####[place] [address] Plesiomonas shigelloides Not detected Normal Not Detected [facility] ([place]) Comment on above: Performed By: #### S TGIPCR ####[place] [address] Rotavirus A Not detected Normal Not Detected [facility] ([place]) Comment on above: Performed By: #### S TGIPCR ####[place] [address] Salmonella species, stool Not detected Normal Not Detected [facility] ([place]) Comment on above: Performed By: #### S TGIPCR ####[place] [address] Sapovirus I,II,IV,V Not detected Normal Not Detected [facility] ([place] Comment on above: Performed By: #### S TGIPCR ####[place] [address] Shig Tox E. coli (STEC) Not detected Normal Not Detected [facility] ([place]) Comment on above: Performed By: #### S TGIPCR ####[id number] [place], [place] [address] Shigella/Enteroinvasive E. coli (EIEC) Not detected Normal Not Detected [facility] ([place]) Comment on above: Performed By: #### S TGIPCR ####[place] [address] Stool GI Comment See Comment Normal [facility] ([place]) Comment on above: Result Comment: Viru s, bacteria, and parasite nucleic acid may persist in vivo independently of organism viability. Negative Film Array GI panel results in the setting of clinical illness compatible with gastroenteritis may be due to infection by pathogens that are not detected by this test. False negatives may occur due to genetic variability in the region targeted by the primers. Performed By: #### S TGIPCR ####[place] [address] Vibrio cholerae Not detected Normal Not Detected [facility] ([place]) Comment on above: Performed By: #### S TGIPCR ####[place] [address] Vibrio par/vul/chol Not detected Normal Not Detected [facility] ([place]) Comment on above: Performed By: #### S TGIPCR ####[place] [address] Yersinia enterocolitica Not detected Normal Not Detected [facility] ([place]) Comment on above: Performed By: #### S TGIPCR ####[place] [address] TROPHSon 03-27-2024 High Sensitivity Troponin I 881 ng/L High 0-34 [facility] ([place]) Comment on above: Result Comment: High Sensitive Troponin I Reference Ranges: Female: 0-34 ng/L Male: 0-54 ng/L Testing performed on [employer] IM analyzer using direct chemiluminescent technology. Performed By: #### T SH, DIS, A1C, MYCO ####[place] [address] High Sensitivity Troponin I 893 ng/L High 0-51 [facility] ([place]) Comment on above: Result Comment: High Sensitive Troponin I Reference Ranges: Female: 0-51 ng/L Male: 0-76 ng/L Testing performed on [employer] using a homogeneous sandwich chemiluminescent immunoassay based on Pixelpipe technology. Performed By: #### A PTT #### [address] [address] High Sensitivity Troponin I 1080 ng/L High 0-51 [facility] ([place]) Comment on above: Result Comment: High Sensitive Troponin I Reference Ranges: Female: 0-51 ng/L Male: 0-76 ng/L Testing performed on [employer] using a homogeneous sandwich chemiluminescent immunoassay based on Pixelpipe technology. Performed By: #### T [facility] ####[place] [address] [address] TSHon 03-27-2024 TSH 0.747 mIU/mL Normal 0.550-4.780 [facility] ([place]) Comment on above: Result Comment: No te - New Reference Range in effect 20 Performed By: #### T SH, TROPHS, A1C, MYCO ####[place] [address] .Auto Diffon 03-26-2024 Basophil, Absolute 0.1 10 3/mcL Normal 0.0-0.2 [facility] ([place]) Comment on above: Performed By: #### A PTT #### [address] [address] Basophils/100 WBC (Bld) 0.6 % Normal 0.0-2.5 A [facility] ([place]) Comment on above: Performed By: #### A PTT #### [address] [address] Eosinophil, Absolute 0.1 10 3/mcL Normal 0.0-0.4 [facility] ([place]) Comment on above: Performed By: #### A PTT #### [address] [address] Eosinophils/100 WBC (Bld) 0.9 % Normal 0.0-7.0 [facility] ([place]) Comment on above: Performed By: #### A PTT #### [address] [address] Lymphocyte, Absolute 1.5 10 3/mcL Normal 0.8-3.9 [facility] ([place]) Comment on above: Performed By: #### A PTT #### [address] [address] Lymphocytes/100 WBC (Bld) 10.8 % Normal 10.0-50.0 [facility] ([place]) Comment on above: Performed By: #### A PTT #### [address] [address] Monocyte, Absolute 0.8 10 3/mcL Normal 0.2-1.0 [facility] ([place]) Comment on above: Performed By: #### A PTT #### [address] [address] Monocytes/100 WBC (Bld) 6.0 % Normal 1.7-13.0 A [facility] ([place]) Comment on above: Performed By: #### A PTT #### [address] [address] Neutrophils/100 WBC (Bld) 81.7 % High 37.0-80.0 [facility] ([place]) Comment on above: Performed By: #### A PTT #### [address] [address] Basophil, Absolute 0.1 10 3/mcL Normal 0.0-0.2 [facility] ([place]) Comment on above: Performed By: #### A PTT #### [address] [address] Basophils/100 WBC (Bld) 0.6 % Normal 0.0-2.5 A [facility] ([place]) Comment on above: Performed By: #### A PTT #### [address] [address] Eosinophil, Absolute 0.2 10 3/mcL Normal 0.0-0.4 [facility] ([place]) Comment on above: Performed By: #### A PTT #### [address] [address] Eosinophils/100 WBC (Bld) 1.3 % Normal 0.0-7.0 [facility] ([place]) Comment on above: Performed By: #### A PTT #### [address] [address] Lymphocyte, Absolute 2.2 10 3/mcL Normal 0.8-3.9 [facility] ([place]) Comment on above: Performed By: #### A PTT #### [address] [address] Lymphocytes/100 WBC (Bld) 14.7 % Normal 10.0-50.0 [facility] ([place]) Comment on above: Performed By: #### A PTT #### [address] [address] Monocyte, Absolute 1.3 10 3/mcL High 0.2-1.0 [facility] ([place]) Comment on above: Performed By: #### A PTT #### [address] [address] Monocytes/100 WBC (Bld) 8.3 % Normal 1.7-13.0 [facility] ([place]) Comment on above: Performed By: #### A PTT #### [address] [address] Neutrophils/100 WBC (Bld) 75.1 % Normal 37.0-80.0 [facility] ([place]) Comment on above: Performed By: #### A PTT #### [address] [address] .GFRon 03-26-2024 GFR Non- 54 ml/min/1.73sqm Normal [facility] ([place]) Comment on above: Result Comment: GFR Population mean for , Non- Americans Ages 20-29 = 116 mL/min/1.73 sq.m. Ages 30-39 = 107 mL/min/1.73 sq.m. Ages 40-49 = 99 mL/min/1.73 sq.m. Ages 50-59 = 93 mL/min/1.73 sq.m. Ages 60-69 = 85 mL/min/1.73 sq.m. Ages 70+ = 75 mL/min/1.73 sq.m. Chronic Kidney Disease: Less than 60 mL/min/1.73 square meters End Stage Renal Disease: Less than 15 mL/min/1.73 square meters Performed By: #### A PTT #### [address] [address] GFR 65 ml/min/1.73sqm Normal [facility] ([place]) Comment on above: Result Comment: GFR Population mean for , Non- Americans Ages 20-29 = 116 mL/min/1.73 sq.m. Ages 30-39 = 107 mL/min/1.73 sq.m. Ages 40-49 = 99 mL/min/1.73 sq.m. Ages 50-59 = 93 mL/min/1.73 sq.m. Ages 60-69 = 85 mL/min/1.73 sq.m. Ages 70+ = 75 mL/min/1.73 sq.m. Chronic Kidney Disease: Less than 60 mL/min/1.73 square meters End Stage Renal Disease: Less than 15 mL/min/1.73 square meters Performed By: #### A PTT #### [address] [address] .MDWon 03-26-2024 Monocyte Distribution Width 22.98 High 0.00-20.00 [facility] ([place]) Comment on above: Result Comment: For adults in ED, MDW>20.0 may be associated with a higher risk of sepsis during the first 12hrs of hospital admission Performed By: #### A PTT #### [address] [address] Monocyte Distribution Width 27.90 High 0.00-20.00 [facility] ([place]) Comment on above: Result Comment: For adults in ED, MDW>20.0 may be associated with a higher risk of sepsis during the first 12hrs of hospital admission Performed By: #### A PTT #### [address] [address] .NEUABSon 03-26-2024 Neutrophil, Absolute 11.2 10 3/mcL High 2.9-6.2 A [facility] ([place]) Comment on above: Performed By: #### A PTT #### [address] [address] Neutrophil, Absolute 11.3 10 3/mcL High 2.9-6.2 A [facility] ([place]) Comment on above: Performed By: #### A PTT #### [address] [address] .Urinalysis Microscopic (AO) on 03-26-2024 UA RBC 0-5 Abnormal None Seen [facility] ([place]) Comment on above: Performed By: #### A ZEYNEP ANSARIG #### [address] [address] UA Squam Epithelial 10-15 Abnormal None Seen [facility] ([place]) Comment on above: Performed By: #### A ZEYNEP ANSARIG #### [address] [address] UA WBC 0-5 Abnormal None Seen [facility] ([place]) Comment on above: Performed By: #### A ZEYNEP ANSARIG #### [address] [address] APTTon 03-26-2024 aPTT Coag (Bld) [Time] 26.3 s Normal 25.0-35.0 [facility] ([place]) Comment on above: Result Comment: For Heparin anticoagulation therapy, the recommended therapeutic range is: 45.4-75.9 seconds. Patients on heparin therapy may have an extreme result. Performed By: #### A PTT #### [address] [address] CBCon 03-26-2024 Erythrocyte distribution width (RBC) [Ratio] 19.5 % High 11.5-14.5 [facility] ([place]) Comment on above: Performed By: #### A PTT #### [address] [address] Hematocrit (Bld) [Volume fraction] 37.1 % Normal 37.0-47.0 [facility] ([place]) Comment on above: Performed By: #### A PTT #### [address] [address] Hgb 12.0 G/dL Normal 12.0-16.0 [facility] ([place]) Comment on above: Performed By: #### A PTT #### [address] [address] MCH (RBC) [Entitic mass] 25.6 pg Low 27.0-31.2 [facility] ([place]) Comment on above: Performed By: #### A PTT #### [address] [address] MCHC 32.5 G/dL Low 33.0-37.0 [facility] ([place]) Comment on above: Performed By: #### A PTT #### [address] [address] MCV (RBC) [Entitic vol] 78.9 fL Low 80.0-94.0 A [facility] ([place] Comment on above: Performed By: #### A PTT #### [address] [address] Platelet 325 10 3/mcL Normal 130-400 [facility] ([place]) Comment on above: Performed By: #### A PTT #### [address] [address] Platelet mean volume (Bld) [Entitic vol] 7.6 fL Normal 7.4-10.4 [facility] ([place]) Comment on above: Performed By: #### A PTT #### [address] [address] RBC 4.70 10 6/mcL Normal 4.20-5.40 [facility] ([place]) Comment on above: Performed By: #### A PTT #### [address] [address] WBC 13.7 10 3/mcL High 4.6-10.8 [facility] ([place]) Comment on above: Performed By: #### A PTT #### [address] [address] Erythrocyte distribution width (RBC) [Ratio] 19.9 % High 11.5-14.5 [facility] ([place]) Comment on above: Performed By: #### A PTT #### [address] [address] Hematocrit (Bld) [Volume fraction] 39.5 % Normal 37.0-47.0 [facility] ([place]) Comment on above: Performed By: #### A PTT #### [address] [address] Hgb 12.9 G/dL Normal 12.0-16.0 [facility] ([place]) Comment on above: Performed By: #### A PTT #### [address] [address] MCH (RBC) [Entitic mass] 25.9 pg Low 27.0-31.2 [facility] ([place]) Comment on above: Performed By: #### A PTT #### [address] [address] MCHC 32.6 G/dL Low 33.0-37.0 [facility] ([place]) Comment on above: Performed By: #### A PTT #### [address] [address] MCV (RBC) [Entitic vol] 79.4 fL Low 80.0-94.0 A [facility] ([place] Comment on above: Performed By: #### A PTT #### [address] [address] Platelet 373 10 3/mcL Normal 130-400 [facility] ([place]) Comment on above: Performed By: #### A PTT #### [address] [address] Platelet mean volume (Bld) [Entitic vol] 7.7 fL Normal 7.4-10.4 [facility] ([place]) Comment on above: Performed By: #### A PTT #### [address] [address] RBC 4.98 10 6/mcL Normal 4.20-5.40 [facility] ([place]) Comment on above: Performed By: #### A PTT #### [address] [address] WBC 15.1 10 3/mcL High 4.6-10.8 [facility] ([place]) Comment on above: Performed By: #### A PTT #### [address] [address] CMPon 03-26-2024 Albumin Level 3.6 G/dL Normal 3.4-4.8 [facility] ([place]) Comment on above: Performed By: #### A PTT #### [address] [address] Albumin/Globulin [Mass ratio] 0.9 {ratio} Low 1.1-2.5 [facility] ([place]) Comment on above: Performed By: #### A PTT #### [address] [address] ALP [Catalytic activity/Vol] 237 U/L High 40-135 [facility] ([place]) Comment on above: Performed By: #### A PTT #### [address] [address] ALT [Catalytic activity/Vol] 33 U/L Normal 14-59 [facility] ([place]) Comment on above: Performed By: #### A PTT #### [address] [address] AST [Catalytic activity/Vol] 31 U/L Normal 10-40 [facility] ([place]) Comment on above: Performed By: #### A PTT #### [address] [address] Bili Total 0.6 mg/dL Normal 0.2-1.0 [facility] ([place]) Comment on above: Result Comment: Use of this assay is not recommended for patients undergoing treatment with eltrombopag due to the potential for falsely elevated results. Performed By: #### A PTT #### [address] [address] BUN/Creatinine Ratio 10 ratio Normal 7-27 [facility] ([place]) Comment on above: Performed By: #### A PTT #### [address] [address] Calcium [Mass/Vol] 8.9 mg/dL Normal 8.4-10.2 [facility] ([place]) Comment on above: Performed By: #### A PTT #### [address] [address] Chloride [Moles/Vol] 98 mmol/L Normal 98-107 [facility] ([place]) Comment on above: Performed By: #### A PTT #### [address] [address] CO2 [Moles/Vol] 22 mmol/L Low 23-31 [facility] ([place]) Comment on above: Performed By: #### A PTT #### [address] [address] Creatinine [Mass/Vol] 1.04 mg/dL High 0.55-1.02 [facility] ([place]) Comment on above: Performed By: #### A PTT #### [address] [address] Electrolyte Balance 15.0 mEq/L Normal 4.0-15.0 [facility] ([place]) Comment on above: Performed By: #### A PTT #### [address] [address] Globulin 4.0 G/dL Normal [facility] ([place]) Comment on above: Performed By: #### A PTT #### [address] [address] Glucose [Mass/Vol] 147 mg/dL High 80-115 [facility] ([place]) Comment on above: Performed By: #### A PTT #### [address] [address] Potassium [Moles/Vol] 4.1 mmol/L Normal 3.5-5.1 [facility] ([place]) Comment on above: Performed By: #### A PTT #### [address] [address] Sodium [Moles/Vol] 135 mmol/L Low 136-145 [facility] ([place]) Comment on above: Performed By: #### A PTT #### [address] [address] Total Protein 7.6 G/dL Normal 6.4-8.2 [facility] ([place]) Comment on above: Performed By: #### A PTT #### [place] [address] [place], [place] [address] Urea nitrogen [Mass/Vol] 10 mg/dL Normal 7-18 [facility] ([place]) Comment on above: Performed By: #### A PTT #### [address] [address] CVFLURVon 03-26-2024 FLU A PCR Negative Normal Negative [facility] ([place]) Comment on above: Performed By: #### C VFLURV ####[place] [address] FLU B PCR Negative Normal Negative [facility] ([place]) Comment on above: Performed By: #### C VFLURV ####[place] [address] RSV PCR Negative Normal Negative [facility] ([place]) Comment on above: Performed By: #### C VFLURV ####[place] [address] SARS-CoV-2 (COVID-19) RNA MARGIE+probe Ql (Unsp spec) Negative Normal Negative [facility] ([place]) Comment on above: Result Comment: Resu lts from the Xpert Xpress CoV-2/Flu/RSV plus test should be correlated with the clinical history, epidemiological data, and other data available to the clinical evaluating the patient. Performance of the Xpert Xpress CoV-2/Flu/RSV plus test has only been established in nasopharyngeal swab specimen. Erroneous test results might occur from improper specimen collection, failure to follow the recommended sample collection, handling and storage procedures, technical error, or sample mix-up. False negative results may occur if a virus is present at a level below the analytical limit of detection. Viral nucleic acid may persist in vivo, independent of virus viability. Detection of analyte target(s) does not imply that the corresponding virus(es) are infectious or are the causative agents for clinical symptoms. Recent patient exposure to FluMist or other live attenuated influenza vaccines may cause inaccurate positive results. Performed By: #### C VFLURV ####[place] [address] [address] PROon 03-26-2024 PT Coag (PPP) [Time] 12.5 s Normal 9.0-14.4 [facility] ([place]) Comment on above: Performed By: #### A PTT #### [place] [address] [address] PT International Ratio 1.1 Normal [facility] ([place]) Comment on above: Result Comment: The [place] [employer] (CHEST, 1992, [id number]:[id number]) recommended therapeutic range for oral anticoagulant therapy is: LOW RISK: Prophylaxis of venous thrombosis INR: 2.0-3.0 Treatment of pulmonary embolism 2.0-3.0 Prevention of systemic embolism 2.0-3.0 HIGH RISK: Mechanical prosthetic valves 2.5-3.5 Performed By: #### A PTT #### [address] [address] TROPHSon 03-26-2024 High Sensitivity Troponin I 789 ng/L High 0-51 [facility] ([place]) Comment on above: Result Comment: High Sensitive Troponin I Reference Ranges: Female: 0-51 ng/L Male: 0-76 ng/L Testing performed on [employer] using a homogeneous sandwich chemiluminescent immunoassay based on Pixelpipe technology. Performed By: #### A PTT #### [address] [address] UAon 03-26-2024 Color (U) Yellow Normal [facility] ([place]) Comment on above: Performed By: #### A STAR ANSARI #### [address] [address] Glucose (U) [Mass/Vol] Negative Normal Negative [facility] ([place]) Comment on above: Performed By: #### A STAR ANSARI #### [address] [address] Ketones Ql (U) 15 mg/dL Abnormal Negative [facility] ([place]) Comment on above: Performed By: #### A ELAN ANSG #### [place] [address] [address] UA Appear Clear Normal Clear [facility] ([place]) Comment on above: Performed By: #### A ELAN ANSG #### [place] [address] [address] UA Bili Small Abnormal Negative [facility] ([place]) Comment on above: Performed By: #### A ELAN ANSG #### [place] [address] [address] UA Blood Trace Abnormal Negative [facility] ([place]) Comment on above: Performed By: #### A ELAN ANSG #### [place] [address] UA Leuk Est Negative Normal Negative [facility] ([place]) Comment on above: Performed By: #### A ELAN ANSG #### [place] [address] UA Nitrite Negative Normal Negative [facility] ([place]) Comment on above: Performed By: #### A ZEYNEP ANSARIG #### [place] [address] UA pH 7.0 Normal 5.0 - 8.0 [facility] ([place]) Comment on above: Performed By: #### A ELAN ANSG #### [place] [address] UA Protein 100 mg/dL Abnormal Negative [facility] ([place]) Comment on above: Performed By: #### A ELAN ANSG #### [place] [address] [address] UA Spec Grav 1.025 Normal 1.015-1.025 [facility] ([place]) Comment on above: Performed By: #### A ELAN ANSG #### [place] [address] [address] UA Specimen Type Clean Catch Normal [facility] ([place]) Comment on above: Performed By: #### A STAR ANSARI #### [facility] [address] [place], [place] [address] UA Urobilinogen 1.0 E.U./dL Normal 0.2-1.0 [facility] ([place]) Comment on above: Performed By: #### A STAR ANSARI #### [facility] [address] [place], [place] [address] XR CHEST 1 VIEWon 03-26-2024 XR CHEST 1 VIEW ORIGINAL EXAMINATION: ONE XRAY VIEW OF THE CHEST03/26/2024 6:28 pm COMPARISON: None HISTORY: ORDERING SYSTEM PROVIDED HISTORY: Reason for Exam: SOB/cough/fever FINDINGS: Cardiomediastinal contours are within normal limits. No focal consolidation or pulmonary edema. No pleural effusion or visible pneumothorax. The bony thorax appears intact. IMPRESSION: No acute cardiopulmonary process. I have personally reviewed the images of this examination and agree with the resident's findings and interpretation. Interpreted by: Carson Dewitt Preliminary Report By: Parminder Horan Electronically signed By Carson Dewitt Dictated Date: 03/26/2024 6:57:09 PM Prelim Date: 03/26/2024 6:58:04 PM Sign Date: 03/26/2024 7:52:13 PM Ordering Provider: ALDAIR MARTINEZ Normal [facility] ([place]) Absolute lymphocyte countOrd ered By: Claudia Poole on 12-03-2023 Lymphocytes Auto (Unsp spec) [#/Vol] 2.40 10*3/uL 0.83-4.51 [facility] Automated lymphocyte count a s percentage of total leukocytesOrdered By: Claudia Poole on 12-03-2023 Lymphocytes/100 WBC Auto (Unsp spec) 28.7 % 19-41 [facility] Basophil percentageOrdered B y: Claudia Poole on 12-03-2023 Basophils/100 WBC (Bld) 1.0 % 0-1 [facility] Eosinophils/100 WBC (Bld) 8.7 % 0-5 [facility] Hemoglobin (Bld) [Mass/Vol] 9.2 g/dL 12.0-15.0 [facility] Monocytes/100 WBC (Bld) 6.0 % 0-10 [facility] Neutrophils (Bld) [#/Vol] 4.6 10*3/uL 2.0-7.7 [facility] Neutrophils/100 WBC (Bld) 55.4 % 47-70 [facility] WBC (Bld) [#/Vol] 8.4 10*3/uL 4.4-11.0 [facility] Determination of erythrocyte mean corpuscular volume (MCV)Ordered By: Claudia Poole on 12-03-2023 MCV (RBC) [Entitic vol] 85.8 fL 81-99 [facility] Erythrocyte distribution wid th ratioOrdered By: Claudia Poole on 12-03-2023 Erythrocyte distribution width (RBC) [Ratio] 14.1 % 11.6-14.6 [facility] Erythrocyte distribution wid th standard deviationOrdered By: Claudia Poole on 12-03-2023 Erythrocyte distribution width (RBC) [Entitic vol] 43.8 fL 35.1-43.9 [facility] Hematocrit Auto (Bld) [Volum e fraction]Ordered By: Claudia Poole on 12-03-2023 Hematocrit (Bld) [Volume fraction] 30.8 % 37-47 [facility] Immature granulocytes/100 WB C Auto (Bld)Ordered By: Claudia Poole on 12-03-2023 Immature granulocytes/100 WBC (Bld) 0.200 % 0.0-0.9 [facility] Comment on above: IG% - Immature Granu locytes (promyelocytes, myelocytes and metamyelocytes) > 1% indicates that a LEFT SHIFT is Present. Iron measurement (mass/mass) Ordered By: Claudia Poole on 12-03-2023 Iron (Unsp spec) [Mass/Mass] 25 ug/dL 50-170 [facility] Laboratory - Chemistry and C hemistry - challengeOrdered By: Claudia Poole on 12-03-2023 Ferritin [Mass/Vol] 20 ng/mL 8-252 [facility] - Hematology and Cell countsOrdered By: Claudia Poole on 12-03-2023 MCH (RBC) [Entitic mass] 25.6 pg 27.0-32.0 [facility] MCHC (RBC) [Mass/Vol] 29.9 g/dL 32-[address] [facility] Nucleated RBC/100 WBC (Bld) [Ratio] 0 % 0-5 [facility] Platelet mean volume (Bld) [Entitic vol] 8.7 fL 6.2-12.0 [facility] Platelets (Bld) [#/Vol] 582 10*3/uL 150-450 [facility] No Panel InformationOrdered By: Claudia Poole on 12-03-2023 Total Iron Binding Capacity 369 ug/dL 250-450 [facility] Vitamin D 25-Hydroxy 44.2 ng/mL [facility] Comment on above: Vitamin D 25(OH) Sta tus Range Deficiency <20 ng/mL (50nmol/L) Insufficiency 20 - 30 ng/mL (50 - 75 nmol/L) Sufficiency 30 - 100 ng/mL (75 - 250 nmol/L) Toxicity >100 ng/mL (>250 nmol/L) RBC Auto (Bld) [#/Vol]Ordere d By: Claudia Poole on 12-03-2023 RBC (Bld) [#/Vol] 3.59 10*6/uL 4.2-5.4 [facility] Absolute lymphocyte countOrd ered By: Cirilo Teran on 11-16-2023 Lymphocytes Auto (Unsp spec) [#/Vol] 4.53 10*3/uL 0.83-4.51 [facility] Automated lymphocyte count a s percentage of total leukocytesOrdered By: Cirilo Teran on 11-16-2023 Lymphocytes/100 WBC Auto (Unsp spec) 33.6 % 19-41 [facility] Basophil percentageOrdered B y: Cirilo Teran on 11-16-2023 Basophils/100 WBC (Bld) 0.7 % 0-1 [facility] Eosinophils/100 WBC (Bld) 2.9 % 0-5 [facility] Hemoglobin (Bld) [Mass/Vol] 8.3 g/dL 12.0-15.0 [facility] Monocytes/100 WBC (Bld) 6.7 % 0-10 [facility] Neutrophils (Bld) [#/Vol] 7.5 10*3/uL 2.0-7.7 [facility] Neutrophils/100 WBC (Bld) 55.7 % 47-70 [facility] WBC (Bld) [#/Vol] 13.5 10*3/uL 4.4-11.0 [facility] Basophil percentageOrdered B y: Bunny Hernandez on 11-16-2023 Chloride [Moles/Vol] 109 mmol/L 98-107 [facility] Glucose [Mass/Vol] 111 mg/dL 74-106 [facility] Comment on above: Fasting Glucose resu lt from 100 to 125 mg/dL suggests IMPAIRED HOMEOSTASIS per A.D.A. criteria. Potassium [Moles/Vol] 3.9 mmol/L 3.5-5.[address] [facility] Sodium [Moles/Vol] 137 mmol/L 136-145 [facility] Blood manual differential co mment interpretation (narrative result)Ordered By: Cirilo Teran on 11-16-2023 Manual differential comment Laci (Bld) [Interp] SCANNED [facility] Determination of erythrocyte mean corpuscular volume (MCV)Ordered By: Cirilo Teran on 11-16-2023 MCV (RBC) [Entitic vol] 87.9 fL 81-99 [facility] Erythrocyte distribution wid th ratioOrdered By: Cirilo Teran on 11-16-2023 Erythrocyte distribution width (RBC) [Ratio] 14.3 % 11.6-14.6 [facility] Erythrocyte distribution wid th standard deviationOrdered By: Cirilo Teran on 11-16-2023 Erythrocyte distribution width (RBC) [Entitic vol] 45.4 fL 35.1-43.9 [facility] Hematocrit Auto (Bld) [Volum e fraction]Ordered By: Cirilo Teran on 11-16-2023 Hematocrit (Bld) [Volume fraction] 27.6 % 37-47 [facility] Immature granulocytes/100 WB C Auto (Bld)Ordered By: Cirilo Teran on 11-16-2023 Immature granulocytes/100 WBC (Bld) 0.400 % 0.0-0.9 [facility] Comment on above: IG% - Immature Granu locytes (promyelocytes, myelocytes and metamyelocytes) > 1% indicates that a LEFT SHIFT is Present. Laboratory - Chemistry and C hemistry - challengeOrdered By: Bunny Hernandez on 03-01-2024 CO2 [Moles/Vol] 23.0 mmol/L 21.0-32.0 [facility] Urea nitrogen/Creatinine [Mass ratio] 31.1 mg/mg 10-20 [facility] Laboratory - Hematology and Cell countsOrdered By: Cirilo Teran on 11-16-2023 MCH (RBC) [Entitic mass] 26.4 pg 27.0-32.0 [facility] MCHC (RBC) [Mass/Vol] 30.1 g/dL 32-[address] [facility] Nucleated RBC/100 WBC (Bld) [Ratio] 0 % 0-5 [facility] Platelet mean volume (Bld) [Entitic vol] 9.5 fL 6.2-12.0 [facility] Platelets (Bld) [#/Vol] 403 10*3/uL 150-450 [facility] No Panel InformationOrdered By: Bunny Hernandez on 11-16-2023 Estimated Creatinine Clearance Calc 88.25 ml/min [facility] Estimated GFR (MDRD) Amer 73 mL/min >60 [facility] Comment on above: GFR Calc Estimated GFR (MDRD) Non-Af Amer 60 mL/min >60 [facility] Comment on above: Non- GFR Calc RBC Auto (Bld) [#/Vol]Ordere d By: Cirilo Teran on 11-16-2023 RBC (Bld) [#/Vol] 3.14 10*6/uL 4.2-5.4 [facility] Serum or plasma calcium hans urement (mass/volume)Ordered By: Bunny Hernandez on 11-16-2023 Calcium [Mass/Vol] 7.7 mg/dL 8.5-10.1 [facility] Serum or plasma creatinine m easurement (mass/volume)Ordered By: Bunny Hernandez on 11-16-2023 Creatinine [Mass/Vol] 1.00 mg/dL 0.55-1.[address] [facility] Comment on above: The validity of the calculated GFR & GFRAA in patients over 70 years has not been determined. Clinical correlation is essential. Serum or plasma urea nitroge n measurement (mass/volume)Ordered By: Bunny Hernandez on 11-16-2023 Urea nitrogen [Mass/Vol] 31 mg/dL 7-18 [facility] Thin prep Papanicolaou smear with manual screeningOrdered By: Jamie Yoo on 11-16-2023 Thin prep Papanicolaou smear with manual screening 114 mg/dL 74-106 [facility] Comment on above: MANAGEMENT OF PATIEN T CARE PER NURSING PROTOCOL Thin prep Papanicolaou smear with manual screeningOrdered By: Bunny Hernandez on 11-16-2023 Thin prep Papanicolaou smear with manual screening 5 5-15 [facility] Laboratory - Chemistry and C hemistry - challengeOrdered By: Brock Roldan on 10-31-2023 Magnesium [Mass/Vol] 1.9 mg/dL 1.6-2.6 [facility] No Panel InformationOrdered By: Jamie Yoo on 10-31-2023 Nasal Screen MRSA/MSSA [facility] Nasal Screen MRSA/MSSA [facility] Thin prep Papanicolaou smear with manual screeningOrdered By: Jamie Yoo on 10-31-2023 Thin prep Papanicolaou smear with manual screening 3.3 g/dL 3.2-5.0 [facility] Whole blood hemoglobin A1c/t otal hemoglobin ratio (mass fraction)Ordered By: Jamie Yoo on 10-31-2023 HbA1c (Bld) [Mass fraction] 6.0 % 3.8-5.6 [facility] Comment on above: Normal < 5.7 % Predi abetic 5.7 - 6.4 % Diabetic >or= 6.5 % Please note range changes. Laboratory - Hematology and Cell countson 10-19-2023 HbA1c (Bld) [Mass fraction] 6.1 % 4.2-6.3 [facility] .Auto Diffon 09-01-2023 Basophil, Absolute 0.1 10 3/mcL Normal 0.0-0.2 [facility] ([place]) Comment on above: Performed By: #### A STAR ANSARI #### [address] [address] Basophils/100 WBC (Bld) 0.9 % Normal 0.0-2.5 [facility] ([place]) Comment on above: Performed By: #### A STAR ANSARI #### [address] [address] Eosinophil, Absolute 0.4 10 3/mcL Normal 0.0-0.4 [facility] ([place]) Comment on above: Performed By: #### A STAR ANSARI #### [address] [address] Eosinophils/100 WBC (Bld) 4.3 % Normal 0.0-7.0 [facility] ([place]) Comment on above: Performed By: #### A ZEYNEP ANSARIG #### [address] [address] Lymphocyte, Absolute 3.2 10 3/mcL Normal 0.8-3.9 [facility] ([place]) Comment on above: Performed By: #### A ZEYNEP ANSARIG #### [address] [address] Lymphocytes/100 WBC (Bld) 34.0 % Normal 10.0-50.0 [facility] ([place]) Comment on above: Performed By: #### A ZEYNEP ANSARIG #### [address] [address] Monocyte, Absolute 0.6 10 3/mcL Normal 0.2-1.0 [facility] ([place]) Comment on above: Performed By: #### A ZEYNEP ANSARIG #### [address] [address] Monocytes/100 WBC (Bld) 6.9 % Normal 1.7-13.0 [facility] ([place]) Comment on above: Performed By: #### A ZEYNEP ANSARIG #### [address] [address] Neutrophils/100 WBC (Bld) 53.9 % Normal 37.0-80.0 [facility] ([place]) Comment on above: Performed By: #### A ZEYNEP ANSARIG #### [address] [address] .GFRon 09-01-2023 GFR 68 ml/min/1.73sqm Normal [facility] ([place]) Comment on above: Result Comment: GFR Population mean for , Non- Americans Ages 20-29 = 116 mL/min/1.73 sq.m. Ages 30-39 = 107 mL/min/1.73 sq.m. Ages 40-49 = 99 mL/min/1.73 sq.m. Ages 50-59 = 93 mL/min/1.73 sq.m. Ages 60-69 = 85 mL/min/1.73 sq.m. Ages 70+ = 75 mL/min/1.73 sq.m. Chronic Kidney Disease: Less than 60 mL/min/1.73 square meters End Stage Renal Disease: Less than 15 mL/min/1.73 square meters Performed By: #### STAR KLEIN #### [address] [address] GFR Non- 56 ml/min/1.73sqm Normal [facility] ([place]) Comment on above: Result Comment: GFR Population mean for , Non- Americans Ages 20-29 = 116 mL/min/1.73 sq.m. Ages 30-39 = 107 mL/min/1.73 sq.m. Ages 40-49 = 99 mL/min/1.73 sq.m. Ages 50-59 = 93 mL/min/1.73 sq.m. Ages 60-69 = 85 mL/min/1.73 sq.m. Ages 70+ = 75 mL/min/1.73 sq.m. Chronic Kidney Disease: Less than 60 mL/min/1.73 square meters End Stage Renal Disease: Less than 15 mL/min/1.73 square meters Performed By: #### STAR KLEIN #### [address] [address] .NEUABSon 09-01-2023 Neutrophil, Absolute 5.0 10 3/mcL Normal 2.9-6.2 [facility] ([place]) Comment on above: Performed By: ###STAR ALVARADO #### [address] [address] BMPon 09-01-2023 BUN/Creatinine Ratio 21 ratio Normal 7-27 [facility] ([place]) Comment on above: Performed By: #### STAR KLEIN #### [address] [address] Calcium [Mass/Vol] 8.3 mg/dL Low 8.4-10.2 [facility] ([place]) Comment on above: Performed By: #### A ELAN, ANSG #### [address] [address] Chloride [Moles/Vol] 106 mmol/L Normal 98-107 [facility] ([place]) Comment on above: Performed By: #### A ELAN, ANSG #### [address] [address] CO2 [Moles/Vol] 26 mmol/L Normal 23-31 [facility] ([place]) Comment on above: Performed By: #### A ELAN ANSG #### [address] [address] Creatinine [Mass/Vol] 1.01 mg/dL Normal 0.55-1.02 [facility] ([place]) Comment on above: Performed By: #### A ELAN ANSG #### [address] [address] Electrolyte Balance 8.0 mEq/L Normal 4.0-15.0 [facility] ([place]) Comment on above: Performed By: #### A ELAN ANSG #### [address] [address] Glucose [Mass/Vol] 110 mg/dL Normal 80-115 [facility] ([place]) Comment on above: Performed By: #### A ELAN ANSG #### [address] [address] Potassium [Moles/Vol] 5.0 mmol/L Normal 3.5-5.1 [facility] ([place]) Comment on above: Performed By: #### A ELAN, ANSG #### [address] [address] Sodium [Moles/Vol] 140 mmol/L Normal 136-145 [facility] ([place]) Comment on above: Performed By: #### A STAR ANSARI #### [address] [address] Urea nitrogen [Mass/Vol] 21 mg/dL High 7-18 [facility] ([place]) Comment on above: Performed By: #### A ZEYNEP ANSARIG #### [address] [address] CBCon 09-01-2023 Erythrocyte distribution width (RBC) [Ratio] 14.0 % Normal 11.5-14.5 [facility] ([place]) Comment on above: Performed By: #### A STAR ANSARI #### [address] [address] Hematocrit (Bld) [Volume fraction] 30.2 % Low 37.0-47.0 [facility] ([place]) Comment on above: Performed By: #### A ZEYNEP ANSARIG #### [address] [address] Hgb 9.9 G/dL Low 12.0-16.0 [facility] ([place]) Comment on above: Performed By: #### A STAR ANSARI #### [address] [address] MCH (RBC) [Entitic mass] 28.8 pg Normal 27.0-31.2 [facility] ([place]) Comment on above: Performed By: #### A ZEYNEP ANASRIG #### [address] [address] MCHC 32.8 G/dL Low 33.0-37.0 [facility] ([place]) Comment on above: Performed By: #### A ZEYNEP ANSARIG #### [address] [address] MCV (RBC) [Entitic vol] 87.9 fL Normal 80.0-94.0 [facility] ([place]) Comment on above: Performed By: #### A ZEYNEP ANSARIG #### [address] [address] Platelet 348 10 3/mcL Normal 130-400 [facility] ([place]) Comment on above: Performed By: #### A STAR ANSARI #### [address] [address] Platelet mean volume (Bld) [Entitic vol] 7.2 fL Low 7.4-10.4 [facility] ([place]) Comment on above: Performed By: #### A STAR ANSARI #### [address] [address] RBC 3.43 10 6/mcL Low 4.20-5.40 [facility] ([place]) Comment on above: Performed By: #### A STAR ANSARI #### [address] [address] WBC 9.3 10 3/mcL Normal 4.6-10.8 [facility] ([place]) Comment on above: Performed By: #### A STAR ANSARI #### [address] [address] MGon 09-01-2023 Magnesium [Mass/Vol] 1.7 mg/dL Low 1.8-2.4 [facility] ([place]) Comment on above: Performed By: #### A STAR ANSARI #### [address] [address] Final Surgical Pathology Rep [facility] 08-31-2023 Final Surgical Pathology Report . Pathology Reports Accession: Collected Date/Time: Received Date/Time: Pathologist: [id number] 08/28/2023 11:55 EST 08/29/2023 10:07 MD HUBERT WOODWARD Final Surgical Pathology Report DIAGNOSIS: RIGHT FEMORAL HEAD, REPLACEMENT: - OSTEOARTHRITIS WITH IRREGULAR PITTED ARTICULAR SURFACE CLINICAL INFORMATION: UNILATERAL PRIMARY OSTEOARTHRITIS RIGHT HIP Procedure: DIRECT ANTERIOR RIGHT TOTAL HIP ARTHROPLASTY Preoperative diagnosis: UNILATERAL PRIMARY OSTEOARTHRITIS RIGHT HIP Postoperative diagnosis: UNILATERAL PRIMARY OSTEOARTHRITIS RIGHT HIP SPECIMEN: A RIGHT FEMORAL HEAD GROSS DESCRIPTION: A. Received in formalin, labeled with the patients name, Case # [id number], and right femoral head is a flattened and oblong shaped portion of femoral head measuring 5.5 x 4.5 x 5.5 cm. The femoral head is remarkable for marginal osteophyte formation and a overall white - perez roughened surface measuring 5 x 5 cm. The femoral head is sectioned to reveal unremarkable yellow fatty bone marrow. RS -1 following decalcification. Dictated by FELECIA GILBERT MICROSCOPIC DESCRIPTION: The microscopic examination is performed, except in the case of Gross Only. Electronically Signed by Pathology Report verified by [facility] HUBERT GRAY MD Sign out Date: 08/31/2023 14:01 Performing Lab: [facility], [address] [place] [address] Pathology Dept Disclaimer If ancillary studies were utilized, the following Laboratory Developed Test (LDT) disclaimer will apply: Under CLIA requirements, [facility] is qualified to perform high complexity testing. For all ancillary stains, positive and negative controls stain appropriately. Performance characteristics of immunohistochemical and chromogenic in-situ hybridization tests have been determined by [facility]. These tests are used for clinical purposes, They should not be regarded as investigational or for research. Normal [facility] ([place]) .Auto Diffon 08-29-2023 Basophil, Absolute 0.0 10 3/mcL Normal 0.0-0.2 [facility] ([place]) Comment on above: Performed By: #### A DIFF, BMP, GFR, ANEU, CBC ####[address] [place], [place] [address] Basophils/100 WBC (Bld) 0.2 % Normal 0.0-2.5 [facility] ([place]) Comment on above: Performed By: #### A DIFF, BMP, GFR, ANEU, CBC ####[address] [place], [place] [address] Eosinophil, Absolute 0.0 10 3/mcL Normal 0.0-0.4 [facility] ([place]) Comment on above: Performed By: #### A DIFF, BMP, GFR, ANEU, CBC ####[address] [place], [place] [address] Eosinophils/100 WBC (Bld) 0.0 % Normal 0.0-7.0 [facility] ([place]) Comment on above: Performed By: #### A DIFF, BMP, GFR, ANEU, CBC ####[place] [address] [place], [place] [address] Lymphocyte, Absolute 1.5 10 3/mcL Normal 0.8-3.9 [facility] ([place]) Comment on above: Performed By: #### A DIFF, BMP, GFR, ANEU, CBC ####[address] [place], [place] [address] Lymphocytes/100 WBC (Bld) 9.1 % Low 10.0-50.0 [facility] ([place]) Comment on above: Performed By: #### A DIFF, BMP, GFR, ANEU, CBC ####[address] [place], [place] [address] Monocyte, Absolute 0.8 10 3/mcL Normal 0.2-1.0 [facility] ([place]) Comment on above: Performed By: #### A DIFF, BMP, GFR, ANEU, CBC ####[address] [place], [place] [address] Monocytes/100 WBC (Bld) 4.9 % Normal 1.7-13.0 [facility] ([place]) Comment on above: Performed By: #### A DIFF, BMP, GFR, ANEU, CBC ####[address] [place], [place] [address] Neutrophils/100 WBC (Bld) 85.8 % High 37.0-80.0 [facility] ([place]) Comment on above: Performed By: #### A DIFF, BMP, GFR, ANEU, CBC ####[address] [place], [place] [address] .GFRon 08-29-2023 GFR 55 ml/min/1.73sqm Normal [facility] ([place]) Comment on above: Result Comment: GFR Population mean for , Non- Americans Ages 20-29 = 116 mL/min/1.73 sq.m. Ages 30-39 = 107 mL/min/1.73 sq.m. Ages 40-49 = 99 mL/min/1.73 sq.m. Ages 50-59 = 93 mL/min/1.73 sq.m. Ages 60-69 = 85 mL/min/1.73 sq.m. Ages 70+ = 75 mL/min/1.73 sq.m. Chronic Kidney Disease: Less than 60 mL/min/1.73 square meters End Stage Renal Disease: Less than 15 mL/min/1.73 square meters Performed By: #### A STAR ANSARI #### [address] [place], [place] [address] GFR Non- 46 ml/min/1.73sqm Normal [facility] ([place]) Comment on above: Result Comment: GFR Population mean for , Non- Americans Ages 20-29 = 116 mL/min/1.73 sq.m. Ages 30-39 = 107 mL/min/1.73 sq.m. Ages 40-49 = 99 mL/min/1.73 sq.m. Ages 50-59 = 93 mL/min/1.73 sq.m. Ages 60-69 = 85 mL/min/1.73 sq.m. Ages 70+ = 75 mL/min/1.73 sq.m. Chronic Kidney Disease: Less than 60 mL/min/1.73 square meters End Stage Renal Disease: Less than 15 mL/min/1.73 square meters Performed By: #### A ZEYNEP ANSARIG #### [place] [address] GFR 53 ml/min/1.73sqm Normal [facility] ([place]) Comment on above: Result Comment: GFR Population mean for , Non- Americans Ages 20-29 = 116 mL/min/1.73 sq.m. Ages 30-39 = 107 mL/min/1.73 sq.m. Ages 40-49 = 99 mL/min/1.73 sq.m. Ages 50-59 = 93 mL/min/1.73 sq.m. Ages 60-69 = 85 mL/min/1.73 sq.m. Ages 70+ = 75 mL/min/1.73 sq.m. Chronic Kidney Disease: Less than 60 mL/min/1.73 square meters End Stage Renal Disease: Less than 15 mL/min/1.73 square meters Performed By: #### A DIFF, BMP, GFR, ANEU, CBC ####[address] [place], [place] [address] GFR Non- 44 ml/min/1.73sqm Normal [facility] ([place]) Comment on above: Result Comment: GFR Population mean for , Non- Americans Ages 20-29 = 116 mL/min/1.73 sq.m. Ages 30-39 = 107 mL/min/1.73 sq.m. Ages 40-49 = 99 mL/min/1.73 sq.m. Ages 50-59 = 93 mL/min/1.73 sq.m. Ages 60-69 = 85 mL/min/1.73 sq.m. Ages 70+ = 75 mL/min/1.73 sq.m. Chronic Kidney Disease: Less than 60 mL/min/1.73 square meters End Stage Renal Disease: Less than 15 mL/min/1.73 square meters Performed By: #### A DIFF, BMP, GFR, ANEU, CBC ####[address] [place], [place] [address] .NEUABSon 08-29-2023 Neutrophil, Absolute 13.9 10 3/mcL High 2.9-6.2 [facility] ([place]) Comment on above: Performed By: #### A DIFF, BMP, GFR, ANEU, CBC ####[address] [place], [place] [address] BMPon 08-29-2023 BUN/Creatinine Ratio 23 ratio Normal 7-27 [facility] ([place]) Comment on above: Performed By: #### A STAR ANSARI #### [address] [place], [place] [address] Calcium [Mass/Vol] 8.3 mg/dL Low 8.4-10.2 [facility] ([place]) Comment on above: Performed By: #### A STAR ANSARI #### [address] [place], [place] [address] Chloride [Moles/Vol] 106 mmol/L Normal 98-107 [facility] ([place]) Comment on above: Performed By: #### A STAR ANSARI #### [address] [place], [place] [address] CO2 [Moles/Vol] 25 mmol/L Normal 23-31 [facility] ([place]) Comment on above: Performed By: #### A ELAN ANSG #### [address] [address] Creatinine [Mass/Vol] 1.20 mg/dL High 0.55-1.02 [facility] ([place]) Comment on above: Performed By: #### A ELAN, ANSG #### [address] [address] Electrolyte Balance 9.0 mEq/L Normal 4.0-15.0 [facility] ([place]) Comment on above: Performed By: #### A ELAN ANSG #### [address] [address] Glucose [Mass/Vol] 116 mg/dL High 80-115 [facility] ([place]) Comment on above: Performed By: #### A ELAN ANSG #### [address] [address] Potassium [Moles/Vol] 4.8 mmol/L Normal 3.5-5.1 [facility] ([place]) Comment on above: Performed By: #### A ELAN ANSG #### [address] [address] Sodium [Moles/Vol] 140 mmol/L Normal 136-145 [facility] ([place]) Comment on above: Performed By: #### A ELAN ANSG #### [address] [address] Urea nitrogen [Mass/Vol] 28 mg/dL High 7-18 [facility] ([place]) Comment on above: Performed By: #### A ELAN ANSG #### [address] [address] BUN/Creatinine Ratio 21 ratio Normal 7-27 [facility] ([place]) Comment on above: Performed By: #### A DIFF, BMP, GFR, ANEU, CBC ####[address] [address] Calcium [Mass/Vol] 8.8 mg/dL Normal 8.4-10.2 [facility] ([place]) Comment on above: Performed By: #### A DIFF, BMP, GFR, ANEU, CBC ####[address] [place], [place] [address] Chloride [Moles/Vol] 104 mmol/L Normal 98-107 [facility] ([place]) Comment on above: Performed By: #### A DIFF, BMP, GFR, ANEU, CBC ####[address] [place], [place] [address] CO2 [Moles/Vol] 23 mmol/L Normal 23-31 [facility] ([place]) Comment on above: Performed By: #### A DIFF, BMP, GFR, ANEU, CBC ####[address] [place], [place] [address] Creatinine [Mass/Vol] 1.24 mg/dL High 0.55-1.02 [facility] ([place]) Comment on above: Performed By: #### A DIFF, BMP, GFR, ANEU, CBC ####[address] [place], [place] [address] Electrolyte Balance 10.0 mEq/L Normal 4.0-15.0 [facility] ([place]) Comment on above: Performed By: #### A DIFF, BMP, GFR, ANEU, CBC ####[address] [place], [place] [address] Glucose [Mass/Vol] 156 mg/dL High 80-115 [facility] ([place]) Comment on above: Performed By: #### A DIFF, BMP, GFR, ANEU, CBC ####[address] [place], [place] [address] Potassium [Moles/Vol] 5.7 mmol/L High 3.5-5.1 [facility] ([place]) Comment on above: Performed By: #### A DIFF, BMP, GFR, ANEU, CBC ####[address] [place], [place] [address] Sodium [Moles/Vol] 137 mmol/L Normal 136-145 [facility] ([place]) Comment on above: Performed By: #### A DIFF, BMP, GFR, ANEU, CBC ####[address] [place], [place] [address] Urea nitrogen [Mass/Vol] 26 mg/dL High 7-18 [facility] ([place]) Comment on above: Performed By: #### A DIFF, BMP, GFR, ANEU, CBC ####[address] [place], [place] [address] CBCon 08-29-2023 Erythrocyte distribution width (RBC) [Ratio] 13.8 % Normal 11.5-14.5 [facility] ([place]) Comment on above: Performed By: #### A DIFF, BMP, GFR, ANEU, CBC ####[address] [place], [place] [address] Hematocrit (Bld) [Volume fraction] 32.7 % Low 37.0-47.0 [facility] ([place]) Comment on above: Performed By: #### A DIFF, BMP, GFR, ANEU, CBC ####[address] [place], [place] [address] Hgb 10.8 G/dL Low 12.0-16.0 [facility] ([place]) Comment on above: Performed By: #### A DIFF, BMP, GFR, ANEU, CBC ####[address] [place], [place] [address] MCH (RBC) [Entitic mass] 28.8 pg Normal 27.0-31.2 [facility] ([place]) Comment on above: Performed By: #### A DIFF, BMP, GFR, ANEU, CBC ####[address] [place], [place] [address] MCHC 33.1 G/dL Normal 33.0-37.0 [facility] ([place]) Comment on above: Performed By: #### A DIFF, BMP, GFR, ANEU, CBC ####[address] [place], [place] [address] MCV (RBC) [Entitic vol] 87.0 fL Normal 80.0-94.0 [facility] ([place]) Comment on above: Performed By: #### A DIFF, BMP, GFR, ANEU, CBC ####[address] [place], [place] [address] Platelet 371 10 3/mcL Normal 130-400 [facility] ([place]) Comment on above: Performed By: #### A DIFF, BMP, GFR, ANEU, CBC ####[address] [place], [place] [address] Platelet mean volume (Bld) [Entitic vol] 7.9 fL Normal 7.4-10.4 [facility] ([place]) Comment on above: Performed By: #### A DIFF, BMP, GFR, ANEU, CBC ####[address] [place], [place] [address] RBC 3.76 10 6/mcL Low 4.20-5.40 [facility] ([place]) Comment on above: Performed By: #### A DIFF, BMP, GFR, ANEU, CBC ####[address] [place], [place] [address] WBC 16.2 10 3/mcL High 4.6-10.8 [facility] ([place]) Comment on above: Performed By: #### A DIFF, BMP, GFR, ANEU, CBC ####[address] [place], [place] [address] Gel ABOon 08-28-2023 ABO/Rh Interp Positive Invalid Interpretation Code [facility] ([place]) Comment on above: Performed By: #### A STAR ANSARI #### [address] [place], [place] [address] Gel ABSon 08-28-2023 Antibody Screen Gel Negative Normal [facility] ([place]) Comment on above: Performed By: #### A STAR ANSARI #### [address] [place], [place] [address] XR FLUORO 1-2 HRS TECH TIMEo n 08-28-2023 XR FLUORO 1-2 HRS TECH TIME ORIGINAL Images acquired, not reported on this accession number. Normal [facility] ([place]) XR HIP RIGHT W/PELVIS 4 VIEW Son 08-28-2023 XR HIP RIGHT W/PELVIS 4 VIEWS ORIGINAL EXAMINATION: 1 x-ray view of the pelvis and 2 x-ray views of the right hip COMPARISON: None. HISTORY: ORDERING SYSTEM PROVIDED HISTORY: Reason for Exam: Status Post Arthroplasty FINDINGS: The right hip prosthetic components appear well seated, and there is no adjacent fracture identified. Profound osteoarthritis is evident at the left hip and there are degenerative changes at the lower lumbar spine as well. No pelvic fracture seen. IMPRESSION: Expected postoperative changes. Interpreted by: Edward Hills MD Preliminary Report By: Edward Hills MD Electronically signed By Edward Hills MD Dictated Date: 08/28/2023 1:16:34 PM Prelim Date: 08/28/2023 1:17:12 PM Sign Date: 08/28/2023 1:17:12 PM Ordering Provider: JAMIE YOO Normal [facility] ([place]) A1Con 08-02-2023 HbA1c (Bld) [Mass fraction] 6.1 % Normal 4.3-6.4 [facility]) Comment on above: Performed By: #### A PTT #### [address] [address] Gel ABOon 08-02-2023 ABO/Rh Interp Positive Invalid Interpretation Code [facility]) Comment on above: Performed By: #### A PTT #### [address] [address] Gel ABSon 08-02-2023 Antibody Screen Gel Negative Normal [facility]) Comment on above: Performed By: #### A PTT #### [address] [address] MRSAPCRon 08-02-2023 MRSA (PCR) Not detected Normal Not Detected [facility]) Comment on above: Result Comment: [place] [id number] Performed By: #### M RSAPCR #### [facility] [address] [place] [id number] MRSA PCR Int Normal [facility] ([place]) Comment on above: Result Comment: MRSA DNA not detected by Real-Time Polymerase Chain Reaction (PCR). A negative result may be due to intermittent colonization. Colonization may vary depending on patient treatment, patient status, or exposure to high-risk environments. As with all PCR based in vitro diagnostic tests, extremely low levels of target below the limit of detection of the assay may be detected, but results may not be reproducible. See Below Performed By: #### M RSAPCR #### [facility] [address] [place] [id number] Absolute lymphocyte countOrd ered By: Jenni Thornton on 08-01-2023 Lymphocytes Auto (Unsp spec) [#/Vol] 2.96 10*3/uL 0.83-4.51 [facility] Basophil percentageOrdered B y: Jenni Thornton on 08-01-2023 Basophils/100 WBC (Bld) 0.7 % 0-1 [facility] Bilirubin [Mass/Vol] 0.40 mg/dL 0.20-1.00 [facility] Comment on above: For patients on eltr ombopag therapy, use of Dimension [place] TBIL is not recommended. Chloride [Moles/Vol] 106 mmol/L 98-107 [facility] Cholesterol [Mass/Vol] 127 mg/dL <200 [facility] Comment on above: <200 mg/dL Desirable 200-240 mg/dL Borderline >240 mg/dL High Risk Eosinophils/100 WBC (Bld) 2.9 % 0-5 [facility] Glucose [Mass/Vol] 115 mg/dL 74-106 [facility] Comment on above: Fasting Glucose resu lt from 100 to 125 mg/dL suggests IMPAIRED HOMEOSTASIS per A.D.A. criteria. Neutrophils (Bld) [#/Vol] 5.6 10*3/uL 2.0-7.7 [facility] Neutrophils/100 WBC (Bld) 57.3 % 47-70 [facility] Potassium [Moles/Vol] 4.3 mmol/L 3.5-5.[address] [facility] Protein [Mass/Vol] 7.6 g/dL 6.4-8.2 [facility] Sodium [Moles/Vol] 139 mmol/L 136-145 [facility] Triglyceride [Mass/Vol] 164 mg/dL <199 [facility] Comment on above: The drugs N-Acetylcy steine and Metamizole may falsely depress this assay.Serum Triglycerides Reference Interval Normal <150 mg/dL Borderline high 150 - 199 mg/dL High 200 - 499 mg/dL Very High > or = 500 mg/dL WBC (Bld) [#/Vol] 9.8 10*3/uL 4.4-11.0 [facility] Blood erythrocytes count (nu mber/volume)Ordered By: Jenni Thornton on 08-01-2023 RBC (Bld) [#/Vol] 4.64 10*6/uL 4.2-5.4 [facility] Blood hemoglobin measurement (mass/volume)Ordered By: Jenni Thornton on 08-01-2023 Hemoglobin (Bld) [Mass/Vol] 13.1 g/dL 12.0-15.0 [facility] Blood lymphocytes/100 leukoc ytesOrdered By: sairamarion heightsfadia Thornton on 08-01-2023 Lymphocytes/100 WBC (Bld) 30.3 % 19-41 [facility] Blood monocytes/100 leukocyt esOrdered By: sairamarion heightsfadia Thornton on 08-01-2023 Monocytes/100 WBC (Bld) 7.3 % 0-10 [facility] Blood platelet mean volumeOr dered By: Jenni Thornton on 08-01-2023 Platelet mean volume (Bld) [Entitic vol] 9.5 fL 6.2-12.0 [facility] Determination of erythrocyte mean corpuscular volume (MCV)Ordered By: Jenni Thornton on 08-01-2023 MCV (RBC) [Entitic vol] 91.6 fL 81-99 [facility] Hematocrit Auto (Bld) [Volum e fraction]Ordered By: Jenni Thornton on 08-01-2023 Hematocrit (Bld) [Volume fraction] 42.5 % 37-47 [facility] Laboratory - Chemistry and C hemistry - challengeOrdered By: Jenni Thornton on 08-01-2023 ALP [Catalytic activity/Vol] 166 U/L 45-117 [facility] ALT [Catalytic activity/Vol] 26 U/L 13-56 [facility] CO2 [Moles/Vol] 26.0 mmol/L 21.0-32.0 [facility] Globulin (S) [Mass/Vol] 4.1 g/dL 2.2-4.2 [facility] Urea nitrogen/Creatinine [Mass ratio] 14.3 mg/mg 10-20 [facility] Laboratory - Hematology and Cell countsOrdered By: Jenni Thornton on 08-01-2023 Erythrocyte distribution width (RBC) [Entitic vol] 45.9 fL 35.1-43.9 [facility] Erythrocyte distribution width (RBC) [Ratio] 13.6 % 11.6-14.6 [facility] Immature granulocytes/100 WBC (Bld) 1.500 % 0.0-0.9 [facility] Comment on above: IG% - Immature Granu locytes (promyelocytes, myelocytes and metamyelocytes) > 1% indicates that a LEFT SHIFT is Present. MCH (RBC) [Entitic mass] 28.2 pg 27.0-32.0 [facility] Nucleated RBC/100 WBC (Bld) [Ratio] 0 % 0-5 [facility] MCHC Auto (RBC) [Mass/Vol]Or dered By: Jenni Thornton on 08-01-2023 MCHC (RBC) [Mass/Vol] 30.8 g/dL 32-[address] [facility] No Panel InformationOrdered By: Jenni Thornton on 08-01-2023 Estimated GFR (MDRD) Amer 74 mL/min >60 [facility] Comment on above: GFR Calc Estimated GFR (MDRD) Non-Af Amer 61 mL/min >60 [facility] Comment on above: Non- GFR Calc Platelets bldOrdered By: Rayshawn Thornton on 08-01-2023 Platelets (Bld) [#/Vol] 472 10*3/uL 150-450 [facility] Serum or plasma albumin hans urement (mass/volume)Ordered By: Jenni Thornton on 08-01-2023 Albumin [Mass/Vol] 3.5 g/dL 3.2-5.0 [facility] Serum or plasma albumin/glob ulin mass ratioOrdered By: Jenni Thornton on 08-01-2023 Albumin/Globulin [Mass ratio] 0.9 {ratio} 0.9-2.4 [facility] Serum or plasma calcium hans urement (mass/volume)Ordered By: Jenni Thornton on 08-01-2023 Calcium [Mass/Vol] 8.6 mg/dL 8.5-10.1 [facility] Serum or plasma cholesterol in HDL measurement (mass/volume)Ordered By: Jenni Thornton on 08-01-2023 Cholesterol in HDL [Mass/Vol] 46 mg/dL >40 [facility] Comment on above: The drugs N-Acetylcy steine and Metamizole may falsely depress this assay. Reference Range HDL <40 mg/dL Low HDL Cholesterol HDL >or= 60 mg/dL High HDL Cholesterol Serum or plasma cholesterol in VLDL measurement (mass/volume)Ordered By: Jenni Thornton on 08-01-2023 Cholesterol in VLDL [Mass/Vol] 33 mg/dL 5-40 [facility] Serum or plasma creatinine m easurement (mass/volume)Ordered By: Jenni Thornton on 08-01-2023 Creatinine [Mass/Vol] 0.98 mg/dL 0.55-1.[address] [facility] Comment on above: The validity of the calculated GFR & GFRAA in patients over 70 years has not been determined. Clinical correlation is essential. Serum or plasma low density lipoprotein (LDL) cholesterol measurement (mass/volume)Ordered By: Jenni Thornton on 08-01-2023 Cholesterol in LDL [Mass/Vol] 48 mg/dL 0-130 [facility] Serum or plasma urea nitroge n measurement (mass/volume)Ordered By: Jenni Thornton on 08-01-2023 Urea nitrogen [Mass/Vol] 14 mg/dL 7-18 [facility] Thin prep Papanicolaou smear with manual screeningOrdered By: Jenni Thornton on 08-01-2023 Thin prep Papanicolaou smear with manual screening 14 U/L 15-37 [facility] Thin prep Papanicolaou smear with manual screening 7 5-15 [facility] Laboratory - Hematology and Cell countson 06-22-2023 HbA1c (Bld) [Mass fraction] 6.3 % 4.2-6.3 [facility] Absolute lymphocyte countOrd ered By: Jenni Thornton on 04-24-2023 Lymphocytes Auto (Unsp spec) [#/Vol] 3.01 10*3/uL 0.83-4.51 [facility] Basophil percentageOrdered B y: Jenni Thornton on 04-24-2023 Basophils/100 WBC (Bld) 1.2 % 0-1 [facility] Bilirubin [Mass/Vol] 0.50 mg/dL 0.20-1.00 [facility] Comment on above: For patients on eltr ombopag therapy, use of Dimension [place] TBIL is not recommended. Chloride [Moles/Vol] 110 mmol/L 98-107 [facility] Eosinophils/100 WBC (Bld) 3.2 % 0-5 [facility] Glucose [Mass/Vol] 89 mg/dL 74-106 [facility] Neutrophils (Bld) [#/Vol] 4.2 10*3/uL 2.0-7.7 [facility] Neutrophils/100 WBC (Bld) 52.0 % 47-70 [facility] Potassium [Moles/Vol] 4.3 mmol/L 3.5-5.[address] [facility] Protein [Mass/Vol] 7.3 g/dL 6.4-8.2 [facility] Sodium [Moles/Vol] 138 mmol/L 136-145 [facility] WBC (Bld) [#/Vol] 8.2 10*3/uL 4.4-11.0 [facility] Blood erythrocytes count (nu mber/volume)Ordered By: Jenni Thornton on 04-24-2023 RBC (Bld) [#/Vol] 4.96 10*6/uL 4.2-5.4 [facility] Blood hemoglobin measurement (mass/volume)Ordered By: Jenni Thornton on 04-24-2023 Hemoglobin (Bld) [Mass/Vol] 14.4 g/dL 12.0-15.0 [facility] Blood lymphocytes/100 leukoc ytesOrdered By: Jenni Thornton on 04-24-2023 Lymphocytes/100 WBC (Bld) 36.8 % 19-41 [facility] Blood monocytes/100 leukocyt esOrdered By: Jenni Thornton on 04-24-2023 Monocytes/100 WBC (Bld) 6.7 % 0-10 [facility] Blood platelet mean volumeOr dered By: Jenni Thornton on 04-24-2023 Platelet mean volume (Bld) [Entitic vol] 9.8 fL 6.2-12.0 [facility] Determination of erythrocyte mean corpuscular volume (MCV)Ordered By: Jenni Thornton on 04-24-2023 MCV (RBC) [Entitic vol] 89.1 fL 81-99 [facility] Erythrocyte sedimentation ra teOrdered By: Jenni Thornton on 04-24-2023 ESR (Bld) [Velocity] 23 mm/h 0-30 [facility] Hematocrit Auto (Bld) [Volum e fraction]Ordered By: Domoniquemarion heightsfadia Thornton on 04-24-2023 Hematocrit (Bld) [Volume fraction] 44.2 % 37-47 [facility] Laboratory - Chemistry and C hemistry - challengeOrdered By: Jenni Thornton on 04-24-2023 ALP [Catalytic activity/Vol] 122 U/L 45-117 [facility] ALT [Catalytic activity/Vol] 31 U/L 13-56 [facility] CO2 [Moles/Vol] 22.0 mmol/L 21.0-32.0 [facility] Globulin (S) [Mass/Vol] 4.0 g/dL 2.2-4.2 [facility] Urea nitrogen/Creatinine [Mass ratio] 9.5 mg/mg 10-20 [facility] Laboratory - Hematology and Cell countsOrdered By: Jenni Thornton on 04-24-2023 Erythrocyte distribution width (RBC) [Entitic vol] 51.3 fL 35.1-43.9 [facility] Erythrocyte distribution width (RBC) [Ratio] 15.7 % 11.6-14.6 [facility] Immature granulocytes/100 WBC (Bld) 0.100 % 0.0-0.9 [facility] Comment on above: IG% - Immature Granu locytes (promyelocytes, myelocytes and metamyelocytes) > 1% indicates that a LEFT SHIFT is Present. MCH (RBC) [Entitic mass] 29.0 pg 27.0-32.0 [facility] Nucleated RBC/100 WBC (Bld) [Ratio] 0 % 0-5 [facility] MCHC Auto (RBC) [Mass/Vol]Or dered By: Jenni Thornton on 04-24-2023 MCHC (RBC) [Mass/Vol] 32.6 g/dL 32-[address] [facility] No Panel InformationOrdered By: Jenni Thornton on 04-24-2023 Estimated GFR (MDRD) Amer 69 mL/min >60 [facility] Comment on above: GFR Calc Estimated GFR (MDRD) Non-Af Amer 57 mL/min >60 [facility] Comment on above: Non- GFR Calc Platelets bldOrdered By: Rayshawn Thornton on 04-24-2023 Platelets (Bld) [#/Vol] 424 10*3/uL 150-450 [facility] Serum cyclic citrullinated p eptide IgG antibody assay (units/volume)Ordered By: Jenni Thornton on 04-24-2023 Cyclic citrullinated peptide IgG Qn 7 units 0-19 [facility] Comment on above: Negative <20 Weak po sitive 20 - 39 Moderate positive 40 - 59 Strong positive >59Performed at: [facility] Director: Ozzy Rose PhD, Phone: [phone] Serum or plasma albumin hans urement (mass/volume)Ordered By: Jenni Thornton on 04-24-2023 Albumin [Mass/Vol] 3.3 g/dL 3.2-5.0 [facility] Serum or plasma albumin/glob ulin mass ratioOrdered By: Jenni Thornton on 04-24-2023 Albumin/Globulin [Mass ratio] 0.8 {ratio} 0.9-2.4 [facility] Serum or plasma calcium hans urement (mass/volume)Ordered By: Jenni Thornton on 04-24-2023 Calcium [Mass/Vol] 8.7 mg/dL 8.5-10.1 [facility] Serum or plasma creatinine m easurement (mass/volume)Ordered By: Jenni Thornton on 04-24-2023 Creatinine [Mass/Vol] 1.05 mg/dL 0.55-1.[address] [facility] Comment on above: The validity of the calculated GFR & GFRAA in patients over 70 years has not been determined. Clinical correlation is essential. Serum or plasma urea nitroge n measurement (mass/volume)Ordered By: Jenni Thornton on 04-24-2023 Urea nitrogen [Mass/Vol] 10 mg/dL 7-18 [facility] Serum rheumatoid factor dete ctionOrdered By: Jenni Thornton on 04-24-2023 Rheumatoid factor Ql (S) < 10.0 IU/mL <15 [facility] Thin prep Papanicolaou smear with manual screeningOrdered By: myra Thornton on 04-24-2023 Thin prep Papanicolaou smear with manual screening 17 U/L 15-37 [facility] Thin prep Papanicolaou smear with manual screening 6 5-15 [facility] Laboratory - Hematology and Cell countson 04-19-2023 HbA1c (Bld) [Mass fraction] 6.0 % 4.2-6.3 [facility] Laboratory - Hematology and Cell countson 05-11-2022 HbA1c (Bld) [Mass fraction] 6.0 % 4.2-6.3 [facility] Work Phone: Absolute lymphocyte counton 01-20-2022 Lymphocytes Auto (Unsp spec) [#/Vol] 2.71 10*3/uL 0.83-4.51 [facility] Work Phone: Basophil percentageon 2021 Basophils/100 WBC (Bld) 0.9 % 0-1 [facility] Work Phone: Eosinophils/100 WBC (Bld) 1.8 % 0-5 [facility] Work Phone: Neutrophils (Bld) [#/Vol] 7.6 10*3/uL 2.0-7.7 [facility] Work Phone: Neutrophils/100 WBC (Bld) 67.4 % 47-70 [facility] Work Phone: WBC (Bld) [#/Vol] 11.3 10*3/uL 4.4-11.0 [facility] Work Phone: Chloride [Moles/Vol] 103 mmol/L 98-107 [facility] Work Phone: Glucose [Mass/Vol] 119 mg/dL 74-106 [facility] Work Phone: Comment on above: Fasting Glucose resu lt from 100 to 125 mg/dL suggests IMPAIRED HOMEOSTASIS per A.D.A. criteria. Potassium [Moles/Vol] 4.3 mmol/L 3.5-5.1 [facility] Work Phone: [phone] Sodium [Moles/Vol] 136 mmol/L 136-145 [facility] Work Phone: [phone] Blood erythrocytes count (nu mber/volume)on 01-20-2022 RBC (Bld) [#/Vol] 4.52 10*6/uL 4.2-5.4 [facility] Work Phone: [phone] Blood hemoglobin measurement (mass/volume)on 01-20-2022 Hemoglobin (Bld) [Mass/Vol] 11.8 g/dL 12.0-15.0 [facility] Work Phone: Blood lymphocytes/100 leukoc yteson 01-20-2022 Lymphocytes/100 WBC (Bld) 23.9 % 19-41 [facility] Work Phone: Blood monocytes/100 leukocyt eson 01-20-2022 Monocytes/100 WBC (Bld) 5.7 % 0-10 [facility] Work Phone: [phone] Blood platelet mean volumeon 01-20-2022 Platelet mean volume (Bld) [Entitic vol] 9.4 fL 6.2-12.0 [facility] Work Phone: [phone] Determination of erythrocyte mean corpuscular volume (MCV)on 01-20-2022 MCV (RBC) [Entitic vol] 85.8 fL 81-99 [facility] Work Phone: [phone] Hematocrit Auto (Bld) [Volum e fraction]on 01-20-2022 Hematocrit (Bld) [Volume fraction] 38.8 % 37-47 [facility] Work Phone: Laboratory - Chemistry and C hemistry - challengeon 01-20-2022 CO2 [Moles/Vol] 29.0 mmol/L 21.0-32.0 [facility] Work Phone: [phone] Urea nitrogen/Creatinine [Mass ratio] 20.2 mg/mg 10-20 [facility] Work Phone: [phone] Laboratory - Hematology and Cell countson 01-20-2022 Erythrocyte distribution width (RBC) [Entitic vol] 45.9 fL 35.1-43.9 [facility] Work Phone: [phone] Erythrocyte distribution width (RBC) [Ratio] 14.6 % 11.6-14.6 [facility] Work Phone: [phone] Immature granulocytes/100 WBC (Bld) 0.300 % 0.0-0.9 [facility] Work Phone: [phone] Comment on above: IG% - Immature Granu locytes (promyelocytes, myelocytes and metamyelocytes) > 1% indicates that a LEFT SHIFT is Present. MCH (RBC) [Entitic mass] 26.1 pg 27.0-32.0 [facility] Work Phone: [phone] Nucleated RBC/100 WBC (Bld) [Ratio] 0 % 0-5 [facility] Work Phone: [phone] MCHC Auto (RBC) [Mass/Vol]on 01-20-2022 MCHC (RBC) [Mass/Vol] 30.4 g/dL 32-[address] [facility] Work Phone: No Panel Informationon 01-20 Estimated GFR (MDRD) Amer 83 mL/min >60 [facility] Work Phone: [phone] Comment on above: GFR Calc Estimated GFR (MDRD) Non-Af Amer 69 mL/min >60 [facility] Work Phone: [phone] Comment on above: Non- GFR Calc Platelets bldon 01-20-2022 Platelets (Bld) [#/Vol] 507 10*3/uL 150-450 [facility] Work Phone: [phone] Serum or plasma calcium hans urement (mass/volume)on 01-20-2022 Calcium [Mass/Vol] 9.2 mg/dL 8.5-10.1 [facility] Work Phone: Serum or plasma creatinine m easurement (mass/volume)on 01-20-2022 Creatinine [Mass/Vol] 0.89 mg/dL 0.55-1.[address] [facility] Work Phone: Comment on above: The validity of the calculated GFR & GFRAA in patients over 70 years has not been determined. Clinical correlation is essential. Serum or plasma urea nitroge n measurement (mass/volume)on 01-20-2022 Urea nitrogen [Mass/Vol] 18 mg/dL 7-18 [facility] Work Phone: Thin prep Papanicolaou smear with manual screeningon 01-20-2022 Thin prep Papanicolaou smear with manual screening 4 5-15 [facility] Work Phone: Whole blood hemoglobin A1c/t otal hemoglobin ratio (mass fraction)on 01-20-2022 HbA1c (Bld) [Mass fraction] 6.3 % 3.8-5.6 [facility] Work Phone: Comment on above: Normal < 5.7 % Predi abetic 5.7 - 6.4 % Diabetic >or= 6.5 % Please note range changes. Microbiology: Culture, Fungu s w/ [id number] 09-28-2017 GE use only - for [employer] import when terms are not otherwise specified . Invalid Interpretation Code [facility] Work Phone: [phone] Microbiology: Culture, Deep Woundon 09-03-2017 GE use only - for [employer] import when terms are not otherwise specified Cult, AnaerobicNo growth in 5 days. Invalid Interpretation Code [facility] Work Phone: [phone] Microbiology: (P) Culture, D eep Woundon 08-31-2017 GE use only - for [employer] import when terms are not otherwise specified Wound CultureNo growth-Final to follow Invalid Interpretation Code [facility] Work Phone: [phone] Microbiology: (P) Culture, D eep Woundon 08-30-2017 GE use only - for [employer] import when terms are not otherwise specified Cult, AnaerobicNo growth in 48 hours. Invalid Interpretation Code [facility] Work Phone: [phone] Lab Report: Basic Metabolic Profile (BMP)on 08-29-2017 Anion gap 7 mmol/L Invalid Interpretation Code 5-15 [facility] Work Phone: [phone] BUN/Creatinine Ratio 15.6 RATIO Invalid Interpretation Code 10-20 [facility] Work Phone: [phone] Calcium 7.9 mg/dL Low 8.5-10.1 [facility] Work Phone: [phone] Chloride 102 mmol/L Invalid Interpretation Code 98-107 [facility] Work Phone: [phone] CO2 27.0 mmol/L Invalid Interpretation Code 21.0-32.0 [facility] Work Phone: [phone] Creatinine 66.12 mL/min Invalid Interpretation Code [facility] Work Phone: [phone] Creatinine 0.90 mg/dL Invalid Interpretation Code 0.55-1.02 [facility] Work Phone: [phone] eGFR (non-black) 70 mL/min/{1.73_m2} Invalid Interpretation Code >60 [facility] Work Phone: [phone] eGFR (non-black) 84 mL/min/{1.73_m2} Invalid Interpretation Code >60 [facility] Work Phone: [phone] Glucose 90 mg/dL Invalid Interpretation Code 70-110 [facility] Work Phone: [phone] Potassium 4.3 mmol/L Invalid Interpretation Code 3.5-5.1 [facility] Work Phone: [phone] Sodium 136 mmol/L Invalid Interpretation Code 136-145 [facility] Work Phone: [phone] Urea nitrogen 14 mg/dL Invalid Interpretation Code 7-18 [facility] Work Phone: [phone] Lab Report: Bedside Glucoseo n 08-29-2017 Glucose 132 mg/dL High 70-110 [facility] Work Phone: [phone] Lab Report: CBC W/Diff, Auto matedon 08-29-2017 Basophils/100 leukocytes 0.8 % Invalid Interpretation Code 0-1 [facility] Work Phone: [phone] Eosinophils/100 leukocytes 4.1 % Invalid Interpretation Code 0-5 [facility] Work Phone: [phone] Erythrocytes (RBC) 3.33 10*6/uL Low 4.2-5.[address] [facility] Work Phone: [phone] Hematocrit (HCT) 33.0 % Low 37-47 [facility] Work Phone: [phone] Hemoglobin (HGB) 10.4 g/dL Low 12.0-15.0 [facility] Work Phone: [phone] immature granulocytes, percentage of total cells, blood 0.900 % Invalid Interpretation Code 0.0-0.9 [facility] Work Phone: [phone] Lymphocytes 3.15 X10 3/UL Invalid Interpretation Code 0.83-4.51 [facility] Work Phone: [phone] Lymphocytes/100 leukocytes 34.1 % Invalid Interpretation Code 19-41 [facility] Work Phone: [phone] MCH 31.2 pg Invalid Interpretation Code 27.0-32.0 [facility] Work Phone: [phone] MCHC 31.5 G/GL Low 32-36 [facility] Work Phone: [phone] MCV 99.1 fL High 81-99 [facility] Work Phone: [phone] Monocytes/100 leukocytes 6.9 % Invalid Interpretation Code 0-10 [facility] Work Phone: [phone] neutrophil count, blood 4.9 X10 3/UL Invalid Interpretation Code 2.0-7.7 [facility] Work Phone: [phone] Neutrophils/100 leukocytes 53.2 % Invalid Interpretation Code 47-70 [facility] Work Phone: [phone] Platelets 379 10*3/mm3 Invalid Interpretation Code 150-450 [facility] Work Phone: [phone] PMV by Alexx 9.3 fL Invalid Interpretation Code 6.2-12.0 [facility] Work Phone: [phone] RDW-CA 14.3 % Invalid Interpretation Code 11.6-14.6 [facility] Work Phone: [phone] red blood cell distribution width, size density 50.2 fL High 35.1-43.9 [facility] Work Phone: [phone] WBC (Leukocytes) 9.3 10*3/uL Invalid Interpretation Code 4.4-11.0 [facility] Work Phone: [phone] Lab Report: MRSA Wound DNA b y PCRon 08-28-2017 INR in blood by coagulation Negative Invalid Interpretation Code Negative [facility] Work Phone: [phone] Lab Report: Prealbuminon Prealbumin 12.0 mg/dL Low 20.0-40.0 [facility] Work Phone: [phone] Lab Report: Ferritinon 08-05 Ferritin 24 ng/mL Invalid Interpretation Code 8-252 [facility] Work Phone: [phone] Lab Report: Iron+Iron Bindin g Capacityon 08-05-2015 Iron 29 ug/dL Low 50-170 [facility] Work Phone: [phone] iron binding capacity, total 477 ug/dL High 250-450 [facility] Work Phone: [phone] iron saturation percent, serum 6.1 % Low 15.0-55.0 [facility] Work Phone: [phone] Lab Report: Retic Panelon Reticulocytes/100 erythrocytes 3.54 % High 0.5-1.5 [facility] Work Phone: [phone] Office Visiton 08-05-2015 Documentation of current medications (procedure) Done Invalid Interpretation Code [facility] Work Phone: [phone] Office Visiton 07-20-2015 Smoking cessation education (procedure) yes Invalid Interpretation Code [facility] Work Phone: [phone] Tobacco smoking status NHIS Tobacco smoking status NHIS Invalid Interpretation Code [facility] Work Phone: [phone] Lab Report: JAK2 Mutation An alysison 07-14-2015 JAK2 [id number] Mutation Detection Comment Invalid Interpretation Code . [facility] Work Phone: [phone] Lab Report: Protein Electrop h, Son 07-14-2015 Albumin 3.5 g/dL Invalid Interpretation Code 3.2-5.6 [facility] Work Phone: [phone] Albumin/Globulin Ratio 1.0 (?) Invalid Interpretation Code 0.7-2.0 [facility] Work Phone: [phone] Globulin . Invalid Interpretation Code [facility] Work Phone: [phone] Globulin 1.0 g/dL Invalid Interpretation Code 0.5-1.6 [facility] Work Phone: [phone] Globulin 1.3 g/dL Invalid Interpretation Code 0.6-1.3 [facility] Work Phone: [phone] Globulin 0.9 g/dL Invalid Interpretation Code 0.4-1.2 [facility] Work Phone: [phone] Globulin 0.2 g/dL Invalid Interpretation Code 0.1-0.4 [facility] Work Phone: [phone] Globulin 3.4 g/dL Invalid Interpretation Code 2.0-4.5 [facility] Work Phone: [phone] lab comments Comment Invalid Interpretation Code . [facility] Work Phone: [phone] Protein 6.9 g/dL Invalid Interpretation Code 6.0-8.5 [facility] Work Phone: [phone] serum protein electrophoresis, interpretation/comment Comment Invalid Interpretation Code . [facility] Work Phone: [phone] Lab Report: Vitamin B12on vitamin b12, serum 288 pg/mL Invalid Interpretation Code 211-911 [facility] Work Phone: [phone] Lab Report: CBC W/Diff, Auto - EPLAB Onlyon 07-08-2015 Pathologist (cervix/vaginal) May foll Invalid Interpretation Code [facility] Work Phone: [phone] Lab Report: Comprehensive Me tabolic Profilon 07-08-2015 Alanine aminotransferase (ALT) 21 U/L Invalid Interpretation Code 12-78 [facility] Work Phone: [phone] Albumin 3.5 g/dL Invalid Interpretation Code 3.4-5.0 [facility] Work Phone: [phone] Albumin/Globulin Ratio 0.9 {ratio} Invalid Interpretation Code 0.9-2.4 [facility] Work Phone: [phone] Alkaline phosphatase (ALP) 150 U/L High 50-136 [facility] Work Phone: [phone] Aspartate aminotransferase (AST) 5 U/L Low 15-37 [facility] Work Phone: [phone] Bilirubin (total) 0.20 mg/dL Invalid Interpretation Code 0.20-1.00 [facility] Work Phone: [phone] Globulin 3.8 g/dL High 2.3-3.5 [facility] Work Phone: [phone] Protein 7.3 g/dL Invalid Interpretation Code 6.4-8.2 [facility] Work Phone: [phone] Lab Report: Folates, (Folic Acid)on 07-08-2015 Folate 6.00 ng/mL Invalid Interpretation Code 3.1-17.5 [facility] Work Phone: [phone] Lab Report: LDHon 07-08-2015 lactate dehydrogenase - serum 183 U/L Invalid Interpretation Code 84-246 [facility] Work Phone: [phone] Lab Report: Thyroid Stim Hor lucy (TSH)on 07-08-2015 Thyroid stimulating hormone (TSH) 1.53 u[iU]/mL Invalid Interpretation Code 0.358-3.74 [facility] Work Phone: [phone] Lab Report: Uric Acidon 06-18 Urate 3.1 mg/dL Invalid Interpretation Code 2.6-6.0 [facility] Work Phone: [phone] Vital Signs Date Time Vital Sign Value Performing Clinician Facility 03-18-2025 16:19-0400 Body height 162.[address] eJnni Thornton MD Work Phone: [facility] 03-18-2025 16:19-0400 Body mass index (BMI) [Ratio] 43.9 kg/m2 Dr. Jenni Thornton MD Work Phone: [facility] 03-18-2025 16:19-0400 Body temperature 97.4 [degF] Dr. Jenni Thornton MD Work Phone: [facility] 03-18-2025 16:19-0400 Body weight 116.[address] Jenni Thornton MD Work Phone: [facility] 03-18-2025 16:19-0400 Diastolic blood pressure 80 mm[Hg] Dr. Jenni Thornton MD Work Phone: [facility] 03-18-2025 16:19-0400 Heart rate 64 /min Dr. Jenni Thornton MD Work Phone: [facility] 03-18-2025 16:19-0400 Respiratory rate 18 /min Dr. Jenni Thornton MD Work Phone: [facility] 03-18-2025 16:19-0400 SaO2% (BldA) [Mass fraction] 98 % Dr. Jenni Thornton MD Work Phone: [facility] 03-18-2025 16:19-0400 Systolic blood pressure 116 mm[Hg] Dr. Jenni Thornton MD Work Phone: [facility] 12-19-2024 14:06-0400 Body height 162.[address] Jenni Thornton MD Work Phone: [facility] 12-19-2024 14:06-0400 Body mass index (BMI) [Ratio] 38.9 kg/m2 Dr. Jenni Thornton MD Work Phone: [facility] 12-19-2024 14:06-0400 Body temperature 95.6 [degF] Dr. Jenni Thornton MD Work Phone: [facility] 12-19-2024 14:06-0400 Body weight 103.[address] Jenni Thornton MD Work Phone: [facility] 12-19-2024 14:06-0400 Diastolic blood pressure 96 mm[Hg] Dr. Jenni Thornton MD Work Phone: [facility] 12-19-2024 14:06-0400 Heart rate 73 /min Dr. Jenni Thornton MD Work Phone: [facility] 12-19-2024 14:06-0400 Respiratory rate 16 /min Dr. Jenni Thornton MD Work Phone: [facility] 12-19-2024 14:06-0400 SaO2% (BldA) [Mass fraction] 99 % Dr. Jenni Thornton MD Work Phone: [facility] 12-19-2024 14:06-0400 Systolic blood pressure 142 mm[Hg] Dr. Jenni Thornton MD Work Phone: [facility] 12-03-2023 14:14-0400 Body height 162.[address] Jenni Thornton Work Phone: [facility] 12-03-2023 14:14-0400 Body temperature 98.8 [degF] Dr. Jenni Thornton Work Phone: [facility] 12-03-2023 14:14-0400 Diastolic blood pressure 80 mm[Hg] Dr. Jenni Thornton Work Phone: [facility] 12-03-2023 14:14-0400 Heart rate 89 /min Dr. Jenni Thornton Work Phone: [facility] 12-03-2023 14:14-0400 Respiratory rate 16 /min Dr. Jenni Thornton Work Phone: [facility] 12-03-2023 14:14-0400 SaO2% (BldA) [Mass fraction] 99 % Dr. Jenni Thornton Work Phone: [facility] 12-03-2023 14:14-0400 Systolic blood pressure 118 mm[Hg] Dr. Jenni Thornton Work Phone: [facility] 11-16-2023 14:52-0500 Body temperature 98.7 [degF] Dr. Jenni Thornton Work Phone: [facility] 11-16-2023 14:52-0500 Diastolic blood pressure 68 mm[Hg] Dr. Jenni Thornton Work Phone: [facility] 11-16-2023 14:52-0500 Heart rate 102 /min Dr. Jenni Thornton Work Phone: [facility] 11-16-2023 14:52-0500 Respiratory rate 16 /min Dr. Jenni Thornton Work Phone: [facility] 11-16-2023 14:52-0500 SaO2% (BldA) [Mass fraction] 100 % Dr. Jenni Thornton Work Phone: [facility] 11-16-2023 14:52-0500 Systolic blood pressure 110 mm[Hg] Dr. Jenni Thornton Work Phone: [facility] 11-15-2023 14:48-0500 Body height 162.[address] Jenni Thornton Work Phone: [facility] 11-15-2023 14:48-0500 Body weight 154.[address] Jenni Thornton Work Phone: [facility] 11-15-2023 02:45-0500 Inhaled oxygen flow rate 2 L/min Dr. Jenni Thornton Work Phone: [facility] 11-14-2023 19:36-0500 Body mass index (BMI) [Ratio] 58.4 kg/m2 Dr. Jenni Thornton Work Phone: [facility] 10-31-2023 13:16-0500 Body temperature 97.6 [degF] Dr. Jenni Thornton Work Phone: [facility] 10-31-2023 13:16-0500 Diastolic blood pressure 60 mm[Hg] Dr. Jenni Thornton Work Phone: [facility] 10-31-2023 13:16-0500 Heart rate 92 /min Dr. Jenni Thornton Work Phone: [facility] 10-31-2023 13:16-0500 Respiratory rate 16 /min Dr. Jenni Thornton Work Phone: [facility] 10-31-2023 13:16-0500 SaO2% (BldA) [Mass fraction] 99 % Dr. Jenni Thornton Work Phone: [facility] 10-31-2023 13:16-0500 Systolic blood pressure 116 mm[Hg] Dr. Jenni Thornton Work Phone: [facility] 10-19-2023 10:36-0500 Body temperature 97.9 [degF] Dr. Jenni Thornton Work Phone: [facility] 10-19-2023 10:36-0500 Diastolic blood pressure 90 mm[Hg] Dr. Jenni Thornton Work Phone: [facility] 10-19-2023 10:36-0500 Heart rate 94 /min Dr. Jenni Thornton Work Phone: [facility] 10-19-2023 10:36-0500 Respiratory rate 16 /min Dr. Jenni Thornton Work Phone: [facility] 10-19-2023 10:36-0500 SaO2% (BldA) [Mass fraction] 98 % Dr. Jenni Thornton Work Phone: [facility] 10-19-2023 10:36-0500 Systolic blood pressure 126 mm[Hg] Dr. Jenni Thornton Work Phone: [facility] 08-01-2023 14:43-0500 Body height 165.[address] Jenni Thornton Work Phone: [facility] 08-01-2023 14:43-0500 Body mass index (BMI) [Ratio] 41.1 kg/m2 Dr. Jenni Thornton Work Phone: [facility] 08-01-2023 14:43-0500 Body temperature 98.4 [degF] Dr. Jenni Thornton Work Phone: [facility] 08-01-2023 14:43-0500 Body weight 112.[address] Jenni Thornton Work Phone: [facility] 08-01-2023 14:43-0500 Diastolic blood pressure 82 mm[Hg] Dr. Jenni Thornton Work Phone: [facility] 08-01-2023 14:43-0500 Heart rate 98 /min Dr. Jenni Thornton Work Phone: [facility] 08-01-2023 14:43-0500 Respiratory rate 15 /min Dr. Jenni Thornton Work Phone: [facility] 08-01-2023 14:43-0500 SaO2% (BldA) [Mass fraction] 99 % Dr. Jenni Thornton Work Phone: [facility] 08-01-2023 14:43-0500 Systolic blood pressure 122 mm[Hg] Dr. Jenni Thornton Work Phone: [facility] 06-22-2023 13:01-0400 Body mass index (BMI) [Ratio] 40.5 kg/m2 Dr. Jenni Thornton Work Phone: [facility] 06-22-2023 13:01-0400 Body temperature 95.1 [degF] Dr. Jenni Thornton Work Phone: [facility] 06-22-2023 13:01-0400 Body weight 110.[address] Jenni Thornton Work Phone: [facility] 06-22-2023 13:01-0400 Diastolic blood pressure 90 mm[Hg] Dr. Jenni Thornton Work Phone: [facility] 06-22-2023 13:01-0400 Heart rate 82 /min Dr. Jenni Thornton Work Phone: [facility] 06-22-2023 13:01-0400 Respiratory rate 18 /min Dr. Jenni Thornton Work Phone: [facility] 06-22-2023 13:01-0400 SaO2% (BldA) [Mass fraction] 98 % Dr. Jenni Thornton Work Phone: [facility] 06-22-2023 13:01-0400 Systolic blood pressure 132 mm[Hg] Dr. Jenni Thornton Work Phone: [facility] 04-19-2023 17:00-0400 Body temperature 96 [degF] Dr. Jenni Thornton Work Phone: [facility] 04-19-2023 17:00-0400 Diastolic blood pressure 92 mm[Hg] Dr. Jenni Thornton Work Phone: [facility] 04-19-2023 17:00-0400 Heart rate 120 /min Dr. Jenni Thornton Work Phone: [facility] 04-19-2023 17:00-0400 Respiratory rate 18 /min Dr. Jenni Thornton Work Phone: [facility] 04-19-2023 17:00-0400 SaO2% (BldA) [Mass fraction] 96 % Dr. Jenni Thornton Work Phone: [facility] 04-19-2023 17:00-0400 Systolic blood pressure 150 mm[Hg] Dr. Jenni Thornton Work Phone: [facility] 05-11-2022 15:09-0400 Body height 165.[address] Jenni Thornton Work Phone: [facility] Work Phone: 05-11-2022 15:09-0400 Body temperature 96.2 [degF] Dr. Jenni Thornton Work Phone: [facility] Work Phone: 05-11-2022 15:09-0400 Diastolic blood pressure 84 mm[Hg] Dr. Jenni Thornton Work Phone: [facility] Work Phone: 05-11-2022 15:09-0400 Heart rate 122 /min Dr. Jenni Thornton Work Phone: [facility] Work Phone: 05-11-2022 15:09-0400 Respiratory rate 16 /min Dr. Jenni Thornton Work Phone: [facility] Work Phone: 05-11-2022 15:09-0400 SaO2% (BldA) [Mass fraction] 97 % Dr. Jenni Thornton Work Phone: [facility] Work Phone: 05-11-2022 15:09-0400 Systolic blood pressure 124 mm[Hg] Dr. Jenni Thornton Work Phone: [facility] Work Phone: 01-20-2022 13:29-0400 Body temperature 98.1 [degF] Dr. Jenni Thornton Work Phone: [facility] Work Phone: 01-20-2022 13:29-0400 Body weight 119.[address] Jenni Thornton Work Phone: [facility] Work Phone: 01-20-2022 13:29-0400 Diastolic blood pressure 80 mm[Hg] Dr. Jenni Thornton Work Phone: [facility] Work Phone: 01-20-2022 13:29-0400 Heart rate 95 /min Dr. Jenni Thornton Work Phone: [facility] Work Phone: 01-20-2022 13:29-0400 Respiratory rate 16 /min Dr. Jenni Thornton Work Phone: [facility] Work Phone: 01-20-2022 13:29-0400 SaO2% (BldA) [Mass fraction] 95 % Dr. Jenni Thornton Work Phone: [facility] Work Phone: 01-20-2022 13:29-0400 Systolic blood pressure 124 mm[Hg] Dr. Jenni Thornton Work Phone: [facility] Work Phone: 12-05-2021 14:02-0400 Body temperature 97.3 [degF] Dr. Jenni Thornton Work Phone: [facility] Work Phone: 12-05-2021 14:02-0400 Body weight 118.[address] Jenni Thornton Work Phone: [facility] Work Phone: 12-05-2021 14:02-0400 Diastolic blood pressure 78 mm[Hg] Dr. Jenni Thornton Work Phone: [facility] Work Phone: 12-05-2021 14:02-0400 Heart rate 105 /min Dr. Jenni Thornton Work Phone: [facility] Work Phone: 12-05-2021 14:02-0400 Respiratory rate 16 /min Dr. Jenni Thornton Work Phone: [facility] Work Phone: 12-05-2021 14:02-0400 SaO2% (BldA) [Mass fraction] 98 % Dr. Jenni Thornton Work Phone: [facility] Work Phone: 12-05-2021 14:02-0400 Systolic blood pressure 144 mm[Hg] Dr. Jenni Thornton Work Phone: [facility] Work Phone: 11-17-2021 15:13-0500 Body height 165.[address] Jenni Thornton Work Phone: [facility] Work Phone: 11-17-2021 15:13-0500 Body temperature 97.7 [degF] Dr. Jenni Thornton Work Phone: [facility] Work Phone: 11-17-2021 15:13-0500 Diastolic blood pressure 104 mm[Hg] Dr. Jenni Thornton Work Phone: [facility] Work Phone: 11-17-2021 15:13-0500 Heart rate 109 /min Dr. Jenni Thornton Work Phone: [facility] Work Phone: 11-17-2021 15:13-0500 Respiratory rate 16 /min Dr. Jenni Thornton Work Phone: [facility] Work Phone: 11-17-2021 15:13-0500 SaO2% (BldA) [Mass fraction] 99 % Dr. Jenni Thornton Work Phone: [facility] Work Phone: 11-17-2021 15:13-0500 Systolic blood pressure 150 mm[Hg] Dr. Jenni Thornton Work Phone: [facility] Work Phone: 08-05-2015 12:55-0500 BMI (Body Mass Index) 32.01 kg/m2 Abhi King MD [facility] Work Phone: 08-05-2015 12:55-0500 Body Temperature 97.9 [degF] Abhi King MD [facility] Work Phone: 08-05-2015 12:55-0500 BP Diastolic 99 mm[Hg] Abhi King MD [facility] Work Phone: 08-05-2015 12:55-0500 BP Systolic 148 mm[Hg] Abhi King MD [facility] Work Phone: 08-05-2015 12:55-0500 BSA (Body Surface Area) 2.04 m2 Abhi King MD [facility] Work Phone: 08-05-2015 12:55-0500 Height 170.18 cm Abhi King MD [facility] Work Phone: 08-05-2015 12:55-0500 Pulse (Heart Rate) 108 /min Abhi King MD [facility] Work Phone: 08-05-2015 12:55-0500 Respiratory Rate 20 /min Abhi King MD [facility] Work Phone: 08-05-2015 12:55-0500 Weight 92.72 kg Abhi King MD [facility] Work Phone: 08-05-2015 12:55-0500 Weight 92.91 kg Abhi King MD [facility] Work Phone: 07-20-2015 11:30-0500 Body Temperature 98.29 [degF] Abhi King MD [facility] Work Phone: 07-08-2015 10:32-0400 Height 170.18 cm Abhi King MD [facility] Work Phone: Encounters Encounter Date Encounter Type Care Provider Facility Start: 04-23-2025 ambulatory Jenni Ulloa ty:[facility] Start: 04-21-2025 ambulatory Domon[facility]brandifadia [facility] ty:[facility] Start: 04-14-[address] Anabela Thornton MD -Physical Therapy Work Phone: Start: 04-09-2025 End: 04-09-[address] Jenni Thornton MD Work Phone: -Sleep Lab Start: 04-09-2025 End: 04-09-[address] Jenni Thornton MD -Sleep Lab Work Phone: Start: 04-09-2025 End: 04-09-2025 ambulatory [facility] Facility:[facility] Start: 04-02-[address] Anabela Thornton MD -Physical Therapy Work Phone: Start: 03-31-2025 End: 03-31-[address] Jenni Thornton MD Work Phone: -Radiology [facility] Start: 03-31-2025 End: 03-31-[address] Dontae Thomas MD -Radiology [facility] Work Phone: Start: 03-31-2025 End: 03-31-2025 [facility] Start: 03-18-2025 End: 03-18-[address] Jenni Thornton MD -[facility] Work Phone: Start: 03-18-2025 End: 03-18-[address] Jenni Thornton MD Work Phone: -[facility] Start: 12-19-2024 End: 12-19-[address] Jenni Thornton MD Work Phone: [facility] Work Phone: Start: 12-19-2024 End: 12-19-2024 Patient encounter procedure Tyson MARTINEZ -Laboratory, [facility] Start: 12-19-2024 End: 12-19-2024 Patient encounter procedure Tyson MARTINEZ -[facility] Work Phone: Start: 12-19-2024 End: 12-19-2024 ambulatory Tyson MARTINEZ Facility:[facility] Start: 12-19-2024 End: 12-19-2024 ambulatory Tyson MARTINEZ Facility:[facility] Start: 08-07-2024 ambulatory Domoniquemansi Shylae Facili ty:[facility] Start: 06-18-2024 ambulatory Bennett Arndt Facility:[facility] Start: 05-27-2024 ambulatory Efsairaongbe Shylae Facili ty:[facility] Start: 05-05-2024 End: 05-05-2024 ambulatory Jenni Thornton Facility:[facility] Start: 04-30-2024 End: 04-30-2024 ambulatory Jenni Thornton Facility:[facility] Start: 03-27-2024 End: 03-30-2024 Evaluation and management of inpatient JENNI THORNTON MD Facility:[facility] Start: 03-26-2024 End: 03-27-2024 Emergency department patient visit JENNI THORNTON MD Facility:[facility] Start: 12-11-2023 End: 03-11-2024 ambulatory BUNNY HERNANDEZ PA-C Facility:[facility] Start: 12-11-2023 End: 03-11-2024 Encounter for other specified special examinations BUNNY HERNANDEZ PA-C Facility:[facility] Start: 12-03-2023 End: 12-03-[address] Jenni Thornton Work Phone: [facility] Work Phone: Start: 12-03-2023 End: 12-03-[address] Jenni Thornton Work Phone: [facility]-Laboratory, [place] Start: 12-03-2023 End: 12-03-[address] Jenni Thornton Work Phone: [facility] Work Phone: Start: 11-16-2023 Non-patient / Non-visit Dr. Trice Thornton Work Phone: [facility] Work Phone: Start: 11-15-2023 Non-patient / Non-visit Dr. Trice Thornton Work Phone: [facility] Work Phone: Start: 11-14-2023 Non-patient / Non-visit Dr. Trice Thornton Work Phone: [facility] Work Phone: Start: 11-14-2023 End: 11-16-2023 Evaluation and management of inpatient Dr. Jenni Thornton Work Phone: [facility]-Medical Surgical 3 Work Phone: Start: 10-31-2023 End: 10-31-2023 Emergency department patient visit Dr. Jenni Thornton Work Phone: [facility] Start: 10-31-2023 End: 10-31-[address] Jenni Thornton Work Phone: [facility] Work Phone: Start: 10-31-2023 End: 10-31-2023 Non-patient / Non-visit Dr. Jenni Thornton Work Phone: [facility] Work Phone: Start: 10-19-2023 End: 10-19-[address] Jenni Thornton Work Phone: [facility] Internal [facility] Work Phone: Start: 09-13-2023 End: 09-13-2023 Emergency department patient visit DR NICOLÁS MARIN DO Facility:[facility] Start: 08-31-2023 End: 09-04-2023 ambulatory JENNI THORNTON MD Facility:[facility] Start: 08-28-2023 End: 08-30-[address] JAMIE YOO MD Facility:[facility] Start: 08-02-2023 End: 08-02-[address] JAMIE YOO MD Facility:[facility] Start: 08-01-[address] Bradley Thornton Work Phone: [facility] Start: 08-01-2023 End: 08-01-[address] Jenni Thornton Work Phone: [facility] Work Phone: Start: 08-01-[address] Bradley Thornton Work Phone: [facility] Start: 08-01-2023 End: 08-01-2023 Emergency department patient visit Dr. Jenni Thornton Work Phone: [facility] Start: 08-01-2023 End: 08-01-2023 Encounter for general adult medical examination without abnormal findings Dr. Jenni Thornton Work Phone: [facility] Start: 08-01-2023 End: 08-01-[address] Jenni Thornton Work Phone: [facility] Internal Medicine Work Phone: Start: 06-22-2023 End: 06-22-[address] Jenni Thornton Work Phone: [facility] Internal [facility] Work Phone: Start: 04-24-2023 End: 04-24-[address] Jenni Thornton Work Phone: [facility] Work Phone: Start: 04-24-2023 End: 04-24-[address] Jenni Thornton Work Phone: [facility] [place] Start: 04-19-2023 End: 04-19-[address] Jenni Thornton Work Phone: [facility] Internal [facility] Work Phone: Start: 05-11-2022 End: 05-11-[address] Jenni Thornton Work Phone: [facility] Start: 01-20-2022 End: 01-20-[address] Jenni Thornton Work Phone: [facility] Internal Medicine Start: 01-18-[address] Anabela Thornton Work Phone: [facility]-Physical Therapy Start: 01-04-2022 End: 01-04-2022 Subsequent hospital visit by physician Zach Denton MD Work Phone: [facility] Start: 12-05-2021 End: 12-05-[address] Jenni Thornton Work Phone: [facility] Internal Medicine Start: 11-17-2021 End: 11-17-[address] Jenni Thornton Work Phone: [facility] Internal [facility] Procedures Date Procedure Procedure Detail Performing Clinician Start: 03-31-2025 Plain x-ray of hand Dr. Jenni Thornton MD Work Phone: Start: 03-31-2025 Plain x-ray of wrist Dr Corona Thornton MD Work Phone: Start: 03-31-2025 X-ray of knee, four or more views Dr. Jenni Thornton MD Work Phone: Start: 03-31-2025 X-ray of lumbar spin e, two or three views Dr. Jenni Thornton MD Work Phone: Start: 11-14-2023 Plain X-ray of hip Dr. Jenni Thornton Work Phone: Start: 11-14-2023 Revision uncemented total hip replacement Dr. Jenni Thornton Work Phone: Start: 11-14-2023 Plain x-ray of pelvi s and lower extremity Dr. Jenni Thornton Work Phone: Start: 10-31-2023 Nasal Screen MRSA/MSSA Dr. Jenni Thornton Work Phone: Start: 10-31-2023 Plain chest X-ray Dr. Bradley Thornton Work Phone: Start: 07-29-2015 End: 08-06-2015 Desi Schwartz DO Plan of Treatment Date Care Activity Detail Author Start: 04-09-2025 Polysomnography [facility] Start: 12-03-2023 Patient referral [facility] Work Phone: Start: 11-16-2023 Following clinical pathway protocol [facility] Start: 11-16-2023 Patient discharge [facility] Start: 11-14-2023 Application of intermittent pneumatic compression device [facility] Start: 11-14-2023 [facility] Start: 11-14-2023 Care regimes management [facility] Start: 11-14-2023 Notification of physician [facility] Start: 11-14-2023 Provision of overbed trapeze [facility] Start: 11-14-2023 Recommendation to continue with treatment [facility] Start: 11-14-2023 Ambulation therapy management [facility] Start: 11-14-2023 Application of device [facility] Start: 11-14-2023 Assessment of risk of venous thromboembolism [facility] Start: 11-14-2023 Catheterization of vein [facility] Start: 11-14-2023 Consultation [facility] Start: 11-14-2023 Exercises [facility] Start: 11-14-2023 Following clinical pathway protocol [facility] Start: 11-14-2023 Incentive spirometry [facility] Start: 11-14-2023 Introduction of urinary catheter [facility] Start: 11-14-2023 Measuring intake and output [facility] Start: 11-14-2023 Neurovascular assessment [facility] Start: 11-14-2023 Patient education [facility] Start: 11-14-2023 Procedure discontinued [facility] Start: 11-14-2023 Provision of activity privileges [facility] Start: 11-14-2023 Referral to occupational therapist [facility] Start: 11-14-2023 Referral to service [facility] Start: 11-14-2023 Vital signs measurements [facility] Start: 11-14-2023 Wound care [facility] Start: 11-14-2023 [facility] Start: 11-14-2023 Admission procedure [facility] Start: 11-14-2023 Patient referral to dietitian [facility] Start: 08-01-2023 Patient referral [facility] Work Phone: Start: 04-19-2023 Patient referral [facility] Work Phone: Start: 05-18-2022 Influenza vaccination Flu vaccine (Season Ended) [facility] Start: 02-10-2022 End: 02-10-2022 Patient encounter procedure 02/10/2022 Office Visit Weight Management Dayami Salguero MD [address] [place], [place] [id number] W[facility] t [facility] Start: 01-20-2022 Patient referral [facility] Work Phone: Start: 01-18-2022 End: 01-18-2022 Patient encounter procedure 01/18/2022 Office Visit Weight Management Shantel Payne MS, RD, LD [address] [place] [address] W[facility] t [facility] Start: 11-17-2021 Patient referral [facility] Work Phone: Start: 05-04-2021 COVID-19 Vaccine (2 - Pfizer 3-dose series) COVID-19 Vaccine (2 - Pfizer 3-dose series) [facility] Start: 09-02-2015 End: 08-09-2015 *CBC with Differential *CBC with Differential [facility] Work Phone: Start: 09-02-2015 End: 08-09-2015 *CMP Complete Metabolic Panel *CMP Complete Metabolic Panel [facility] Work Phone: Start: 09-02-2015 End: 08-09-2015 Ferritin *Ferritin [facility] Work Phone: Start: 09-02-2015 End: 08-09-2015 Iron *Iron [facility] Work Phone: Start: 09-02-2015 End: 08-09-2015 Lactate dehydrogenase (LDH) *LDH -LDH (Lactate Dehydrogenase) [facility] Work Phone: Start: 09-02-2015 End: 08-09-2015 Reticulocytes/100 erythrocytes *RETIC [facility]ocyte [facility] Work Phone: Start: 09-02-2015 End: 08-09-2015 Urate *Uric Acid Blood [facility] Work Phone: Start: 08-20-2015 End: 08-03-2015 *CBC with Differential *CBC with Differential [facility] Work Phone: Start: 08-06-2015 End: 08-06-2015 Gastroenterology Referral Gastroenterology Referral Ozzy Matamoros, [address] [place] [address], [address], [place], [address] [facility] Work Phone: Start: 07-29-2015 End: 08-06-2015 Ferritin *Ferritin [facility] Work Phone: Start: 07-22-2015 End: 07-09-2015 *CBC with Differential *CBC with Differential [facility] Work Phone: Start: 07-22-2015 End: 07-09-2015 *MISC - Miscellaneous Lab Test #1 *MISC - Miscellaneous Lab Test #1 [facility] Work Phone: Start: 07-22-2015 End: 07-09-2015 Reticulocytes/100 erythrocytes *RETIC Reticulocyte [facility] Work Phone: Start: 2012 Screening for malignant neoplasm of breast Breast cancer screen [facility] Start: 2012 Shingles Vaccine (1 of 2) Shingles Vaccine (1 of 2) [facility] Start: 2007 Screening for malignant neoplasm of colon [facility] Start: 1997 Diabetes screen Diabetes screen [facility] Start: 1992 Screening for malignant neoplasm of cervix [facility] Start: 1983 Screening for malignant neoplasm of cervix Pap smear [facility] Start: 1981 DTaP/Tdap/Td vaccine (1 - Tdap) DTaP/Tdap/Td vaccine (1 - Tdap) [facility] Start: 1980 Creatinine measurement Creatinine [facility] Start: 1980 Hepatitis C screening Hepatitis C screen [facility] Start: 1980 Potassium [Moles/volume] in Serum or Plasma Potassium [facility] Start: 1977 HIV screening HIV screen [facility] Start: 1974 Depression Screen Depression Screen [facility] Start: 1972 Lipid panel Lipids [facility] DXA Bone [Mass/Area] Bone density [facility] MG Breast - bilatera l Screening [facility] Patient referral [facility] Work Phone: Polysomnography [facility] XR Knee GE 4 Views [facility] XR Lumbar spine 2 or 3 Views [facility] Immunizations Immunization Date Immunization Notes Care Provider Fa [facility] 06-22-2023 influenza, injectabl e, quadrivalent, preservative free Dr. Jenni Thornton Work Phone: [facility] 05-25-2021 influenza, injectable,quadrivalent , preservative free, pediatric Dr. Jenni Thornton Work Phone: [facility] 05-18-2017 influenza, injectabl e, quadrivalent, preservative free Dr. Jenni Thornton Work Phone: [facility] 05-18-2017 influenza, seasonal, injectable Dr. Jenni Thornton Work Phone: [facility] Payers Date Payer Category Payer Self-pay [id number] 2023 Medicaid [id number] 2003 Unknown [id number] 1. [id number] 1960 Unknown [id number] 2.16.8 40.1.072438.3.579.2.627 1960 Unknown [id number] 2.16.8 40.1.124531.3.579.2.627 1960 Unknown [id number] 2.16.8 40.1.609406.3.579.2.627 1960 Unknown [id number] 2.16.8 40.1.757615.3.579.2.627 1960 Unknown [id number] 2.16.8 40.1.547166.3.579.2.627 1960 Unknown [id number] 2.16.8 40.1.084251.3.579.2.627 1960 Unknown [id number] 2.16.8 40.1.847356.3.579.2.627 1960 Unknown [id number] 2.16.8 40.1.145062.3.579.2.627 Unknown [id number] 2.16.8 40.1.558822.3.579.2.462 Unknown [id number] 2.16.8 40.1.132963.3.579.2.462 Unknown [id number] 2.16.8 40.1.068112.3.579.2.462 Unknown [id number] 2.16.8 40.1.196583.3.579.2.462 Unknown [id number] 2.16.8 40.1.563913.3.579.2.462 Unknown [id number] 2.16.8 40.1.282013.3.579.2.462 Unknown [id number] 2.16.8 40.1.888571.3.579.2.462 Unknown [id number] 2.16.8 40.1.188599.3.579.2.462 Unknown [id number] 2.16.8 40.1.111764.3.579.2.462 Unknown [id number] 2.16.8 40.1.509295.3.579.2.462 Unknown [id number] 2.16.8 40.1.322106.3.579.2.462 Unknown [id number] 2.16.8 40.1.801391.3.579.2.462 Social History Date Type Detail Facility Start: 01-04-2022 End: 03-18-2025 Tobacco smoking status [facility] Ex-smoker [facility] Work Phone: End: 04-24-2021 History of tobacco use Current smoker [facility] Work Phone: Start: 01-04-2022 Tobacco use and exposure Smokeless tobacco non-user [facility] Work Phone: Start: 01-04-2022 Alcohol intake Ex-drinker (finding) [facility] Work Phone: Start: 1960 Sex Assigned At Not on file [facility] Work Phone: Start: 01-20-2022 End: 12-03-2023 Tobacco smoking status [facility] Unknown if ever smoked [facility] Start: 08-29-2017 Occasional [facility] Start: 08-29-2017 None [facility] Start: 08-29-2017 With Family [facility] Start: 08-29-2017 Cigarettes [facility] Start: 1960 Sex Assigned At Female [facility] Start: 12-22-2024 Sex Female (finding) [facility] NEGATED: Highlighted row [facility] Medical Equipment Procedure Code Equipment Code Equipment Origin al Text Equipment Identifier Dates Revision of uncemented total hip replacement ([id number]) Ceramic femoral head prosthesis ()[id number] FDA Start: 11-14-2023 Revision of uncemented total hip replacement ([id number]) Press-fit femoral stem prosthesis ()[id number] FDA Start: 11-14-2023 Revision of uncemented total hip replacement Press-fit femoral stem prosthesis ()[id number] FDA Start: 11-14-2023 Revision of uncemented total hip replacement ([id number]) Acetabular shell ()[id number] FDA Start: 11-14-2023 Revision of uncemented total hip replacement ([id number]) Internal orthopaedic fixation system, plate/screw, non-bioabsorbable, sterile ()[id number] FDA Start: 11-14-2023 Revision of uncemented total hip replacement ([id number]) Non-constrained polyethylene acetabular liner ()[id number] FDA Start: 11-14-2023 Blood Sugar Diagnostic (Freestyle Lite Strips) strip Start: 01-20-2022 Lancets (Freesty le Lancets) 28 gauge misc Start: 01-20-2022 Blood Sugar Diagnostic (Freestyle Lite Strips) strip Start: 01-20-2022 Lancets (Freesty le Lancets) 28 gauge misc Start: 01-20-2022 Blood Sugar Diagnostic (Freestyle Lite Strips) strip Start: 01-20-2022 Lancets (Freesty le Lancets) 28 gauge misc Start: 01-20-2022 Blood Sugar Diagnostic (Freestyle Lite Strips) strip Start: 01-20-2022 Lancets (Freesty le Lancets) 28 gauge misc Start: 01-20-2022 Blood Sugar Diagnostic (Freestyle Lite Strips) strip Start: 01-20-2022 Lancets (Freesty le Lancets) 28 gauge misc Start: 01-20-2022 Blood Sugar Diagnostic (Freestyle Lite Strips) strip Start: 01-20-2022 Lancets (Freesty le Lancets) 28 gauge misc Start: 01-20-2022 Blood Sugar Diagnostic (Freestyle Lite Strips) strip Start: 01-20-2022 Blood Sugar Diagnostic (Freestyle Lite Strips) strip Start: 05-05-2024 Lancets (Freesty le Lancets) 28 gauge misc Start: 05-06-2024 Lancets (Freesty le Lancets) 28 gauge misc Start: 01-20-2022 End: 05-05-2024 Lancets (Freesty le Lancets) 28 gauge misc Start: 05-05-2024 End: 05-06-2024 Blood Sugar Diagnostic (Freestyle Lite Strips) strip Start: 01-20-2022 Blood Sugar Diagnostic (Freestyle Lite Strips) strip Start: 05-05-2024 Lancets (Freesty le Lancets) 28 gauge misc Start: 05-06-2024 Lancets (Freesty le Lancets) 28 gauge misc Start: 01-20-2022 End: 05-05-2024 Lancets (Freesty le Lancets) 28 gauge misc Start: 05-05-2024 End: 05-06-2024 Blood Sugar Diagnostic (Freestyle Lite Strips) strip Start: 01-20-2022 Blood Sugar Diagnostic (Freestyle Lite Strips) strip Start: 05-05-2024 Lancets (Freesty le Lancets) 28 gauge misc Start: 05-06-2024 Lancets (Freesty le Lancets) 28 gauge misc Start: 01-20-2022 End: 05-05-2024 Lancets (Freesty le Lancets) 28 gauge misc Start: 05-05-2024 End: 05-06-2024 Blood Sugar Diagnostic (Freestyle Lite Strips) strip Start: 01-20-2022 Blood Sugar Diagnostic (Freestyle Lite Strips) strip Start: 05-05-2024 Lancets (Freesty le Lancets) 28 gauge misc Start: 05-06-2024 Lancets (Freesty le Lancets) 28 gauge misc Start: 01-20-2022 End: 05-05-2024 Lancets (Carlosy le Lancets) 28 gauge misc Start: 05-05-2024 End: 05-06-2024 Goals Date Patient Goal Desired Activity /State Functional Status Date Assessment Result Facility 11-16-2023 Functional status Bedside Commode [facility] Work Phone: Mental Status Date Assessment Result Facility 11-16-2023 Cognitive function Voice/Name [facility] Work Phone: Clinical Notes 11-14-2023 to 03-31-2025 Note Date & Type Note Facility 03-31-2025 Radiology Diagnostic study note [facility] Imaging Services [address] [place] [address] Wrist 2 Views MR#: [id number] Acct: [id number] Name: TEENA LAWRENCE Rep #: [id number] : 1960 F 64 From: June Hassan MD PCP: Dr. Jenni Thornton MD Status: R EG CLI Study:Wrist 2 Views Date of Exam: Exam# [id number] Ordering Dr: Dontae Thomas MD EXAM: XR Left Wrist, 2 Views CLINICAL INDICATION: POLYARTHRITIS TECHNIQUE: Frontal and lateral views of the left wrist. COMPARISON: No relevant prior studies available. FINDINGS: BONES/JOINTS: Moderate to severe degenerative changes of the intercarpal joints. Severe degenerative changes of the radiocarpal joint. Moderate degenerative change of the 1st carpometacarpal joint. No acutefracture. No dislocation. SOFT TISSUES: Soft tissue swelling. No radiopaque foreign body. RAD/Wrist 2 Views IMPRESSION: Degenerative changes as above. Reading Location: [id number] CC: Dr. Jenni Thornton MD; Dr. Dontae Thomas MD ~ Television Schedule Coordinator: Signed [facility] 03-31-2025 Radiology Diagnostic study note [facility] Imaging Services [address] [place] [address] Lumbar Spine 2 or 3 Views MR#: [id number] Acct: [id number] Name: TEENA LAWRENCE Rep #: [id number] : 1960 F 64 From: June Hassan MD PCP: Dr. Jenni Thornton MD Status: R CLI Study:Lumbar Spine 2 or 3 Views Date of Exam: 03/31/25 Exam# [id number] Ordering Dr: Dontae Thomas MD EXAM: XR Lumbosacral Spine, 2 or 3 Views CLINICAL INDICATION: POLYARTHRITIS TECHNIQUE: Frontal and lateral views of the lumbar spine and sacrum. COMPARISON: No relevant prior studies available. FINDINGS: VERTEBRAE: Moderate endplate degenerative changes and disc disease of the visualized spine, most prominent at L4-L5. Moderate facet arthropathy of L3-S1. No acute fracture. Normal alignment. SACRUM/COCCYX: Unremarkable as visualized. No acute fracture. DISC SPACES: See above. SOFT TISSUES: Unremarkable. RAD/Lumbar Spine 2 or 3 Views IMPRESSION: Degenerative changes as above. Reading Location: [facility] CC: Dr. Jenni Thornton MD; Dr. Dontae Thomas MD ~ Television Schedule Coordinator: Signed [facility] 03-31-2025 Radiology Diagnostic study note [facility] Imaging Services [address] [place] [address] Knee 4 or More Views MR#: [id number] Acct: [id number] Name: TEENA LAWRENCE Rep #: [id number] : 1960 F 64 From: June Hassan MD PCP: Dr. Jenni Thornton MD Status: R EG CLI Study:Knee 4 or More Views Date of Exam: 03/31/25 Exam# [id number] Ordering Dr: Dontae Thomas MD EXAM: XR Left Knee Complete, 4 or More Views CLINICAL INDICATION: POLYARTHRITIS TECHNIQUE: Four or more views of the left knee. COMPARISON: No relevant prior studies available. FINDINGS: BONES/JOINTS: Zoedreez-nm-eluctc degenerative changes of the medial compartmentof the knee joint. No acute fracture. No dislocation. SOFT TISSUES: Unremarkable. RAD/Knee 4 or More Views IMPRESSION: Degenerative changes as above. Reading Location: [facility] CC: Dr. Jenni Thornton MD; Dr. Dontae Thomas MD ~ Television Schedule Coordinator: Signed [facility] 03-31-2025 Radiology Diagnostic study note [facility] Imaging Services [address] [place], [place] [address] Hand 2 Views MR#: [id number] Acct: [id number] Name: TEENA LAWRENCE Rep #: [id number] : 1960 F 64 From: June Hassan MD PCP: Dr. Jenni Thornton MD Status: R EG CLI Study:Hand 2 Views Date of Exam: 5 Exam# [id number] Ordering Dr: Dontae Thomas MD EXAM: XR Left Hand, 2 Views CLINICAL INDICATION: POLYARTHRITIS TECHNIQUE: Frontal and lateral views of the left hand. COMPARISON: No relevant prior studies available. FINDINGS: BONES/JOINTS: Moderate degenerative change of the intercarpal joints. Moderatedegenerative change of the 1st and 2nd carpometacarpal joint. Moderate degenerative changes of the D IP joints. No acute fracture. No dislocation. SOFT TISSUES: Soft tissue swelling. No radiopaque foreign body. RAD/Hand 2 Views IMPRESSION: Degenerative changes as above. Reading Location: [facility] CC: Dr. Jenni Thornton MD; Dr. Dontae Thomas MD ~ Television Schedule Coordinator: Signed [facility] 03-31-2025 Radiology Diagnostic study note [facility] Imaging Services [address] [place] [address] Wrist 2 Views MR#: [id number] Acct: [id number] Name: TEENA LAWRENCE Rep #: [id number] : 1960 F 64 From: June Hassan MD PCP: Dr. Jenni Thornton MD Status: R EG CLI Study:Wrist 2 Views Date of Exam: Exam# [id number] Ordering Dr: Dontae Thomas MD EXAM: XR Right Wrist, 2 Views CLINICAL INDICATION: POLYARTHRITIS TECHNIQUE: Frontal and lateral views of the right wrist. COMPARISON: No relevant prior studies available. FINDINGS: BONES/JOINTS: Moderate degenerative change of the intercarpal joints. Severe degenerative change of the 1st carpometacarpal joint. No acute fracture. No dislocation. SOFT TISSUES: Soft tissue swelling. No radiopaque foreign body. RAD/Wrist 2 Views IMPRESSION: Degenerative changes as above. Reading Location: [facility] CC: Dr. Jenni Thornton MD; Dr. Dontae Thoams MD ~ Television Schedule Coordinator: Signed [facility] 03-31-2025 Radiology Diagnostic study note [facility] Imaging Services [address] [place], [place] [address] Knee 4 or More Views MR#: [id number] Acct: [id number] Name: TEENA LAWRENCE Rep #: [id number] : 1960 F 64 From: June Hassan MD PCP: Dr. Jenni Thornton MD Status: R EG CLI Study:Knee 4 or More Views Date of Exam: 03/31/25 Exam# [id number] Ordering Dr: Dontae Thomas MD EXAM: XR Right Knee Complete, 4 or More Views CLINICAL INDICATION: POLYARTHRITIS TECHNIQUE: Four or more views of the right knee. COMPARISON: No relevant prior studies available. FINDINGS: BONES/JOINTS: Moderate tricompartmental degenerative change of the knee joint. No acute fracture. No dislocation. SOFT TISSUES: Soft tissue swelling. RAD/Knee 4 or More Views IMPRESSION: Degenerative changes as above. Reading Location: [facility] CC: Dr. Jenni Thornton MD; Dr. Dontae Thomas MD ~ Television Schedule Coordinator: Signed [facility] 03-31-2025 Radiology Diagnostic study note [facility] Imaging Services [address] [place] [address] Hand 2 Views MR#: [id number] Acct: [id number] Name: TEENA LAWRENCE Rep #: [id number] : 1960 F 64 From: June Hassan MD PCP: Dr. Jenni Thornton MD Status: R EG CLI Study:Hand 2 Views Date of Exam: 5 Exam# [id number] Ordering Dr: Dontae Thomas MD EXAM: XR Right Hand, 2 Views CLINICAL INDICATION: POLYARTHRITIS TECHNIQUE: Frontal and lateral views of the right hand. COMPARISON: No relevant prior studies available. FINDINGS: BONES/JOINTS: Moderate degenerative changes of the intercarpal joint. Severe degenerative change of the 1st carpometacarpal joint. Moderate degenerative change of the D IP joints. No acute fracture. Nodislocation. SOFT TISSUES: Soft tissue swelling. No radiopaque foreign body. RAD/Hand 2 Views IMPRESSION: Degenerative changes as above. Reading Location: [facility] CC: Dr. Jenni Thornton MD; Dr. Dontae Thomas MD ~ Television Schedule Coordinator: Signed [facility] 12-19-2024 Evaluation note Diagnosis Onset Date Resolution Diabetes acute December 19 1:49pm Hyperlipidemia chronic December 19, 2024 1:49pm Hypertension chronic December 19, 2 025 1:49pm [facility] Work Phone: 1(326) 677-404404-04-2025 Evaluation note* Diagnosis Onset Date Resolution Status Admit Date Diabetes acute December 19 1:49pm Hyperlipidemia chronic December 19, 2024 1:49pm Hypertension chronic December 19, 2 025 1:49pm Hypersomnolence acute March 18, 2025 3:41pm Bilateral knee pain chronic March 18, 2025 3:41pm Borderline type 2 diabetes mellitus chronic March 18, 2025 3 :41pm Chronic back pain chronic March 3:41pm Hypertension chronic March 18 3:41pm Morbid obesity chronic March 18, 2025 3:41pm [facility] Work Phone: 1(201) 853-855504-04-2025 Evaluation note* Diagnosis Onset Date Resolution Status Admit Date Diabetes acute December 19 1:49pm Hyperlipidemia chronic December 19, 2024 1:49pm Hypertension chronic December 19, 2 025 1:49pm Hypersomnolence acute March 18, 2025 3:41pm Bilateral knee pain chronic March 18, 2025 3:41pm Chronic back pain chronic March 3:41pm Hypertension chronic March 18 3:41pm Morbid obesity chronic March 18, 2025 3:41pm Borderline type 2 diabetes mellitus ruled-out March 18, 2025 3 :41pm [facility] Work Phone: 1(229) 870-896407-16-2024 Note. MICRO - Microbiology PROCEDURE: Blood Culture (bacterial) [*1] SOURCE: Blood BODY SITE: Arm R COLLECTED DATE/TIME: 03/27/2024 05:50 EDT RECEIVED DATE/TIME: 03/27/2024 16:46 EDT START DATE/TIME: 03/27/2024 16:46 EDT FREE TEXT SOURCE: FINAL REPORTS Final Report [] Verified Date/Time/Personnel: 04/01/2024 16:59 EDT Blood Culture: No Growth at 5 days. PRELIMINARY REPORTS Preliminary Report [] Verified Date/Time/Personnel: 03/27/2024 17:59 EDT Culture has been received in lab and is no growth to date. Routine cultures are held for 5 days. Performing Locations *1: This test was performed at: [facility], [address] [place] [address], [facility] , [facility] ([place])04-01-2024 Note. MICRO - Microbiology PROCEDURE: Blood Culture (bacterial) [*1] SOURCE: Blood BODY SITE: Arm L COLLECTED DATE/TIME: 03/27/2024 05:50 EDT RECEIVED DATE/TIME: 03/27/2024 16:46 EDT START DATE/TIME: 03/27/2024 16:46 EDT FREE TEXT SOURCE: FINAL REPORTS Final Report [] Verified Date/Time/Personnel: 04/01/2024 16:59 EDT Blood Culture: No Growth at 5 days. PRELIMINARY REPORTS Preliminary Report [] Verified Date/Time/Personnel: 03/27/2024 17:59 EDT Culture has been received in lab and is no growth to date. Routine cultures are held for 5 days. Performing Locations *1: This test was performed at: [address], [address] [place], [place] [address]3-28-2024 Note. MICRO - Microbiology PROCEDURE: Streptococcus Pneumoniae Urine Antig [^1 *1] SOURCE: Urine, Clean Catch BODY SITE: COLLECTED DATE/TIME: 03/28/2024 05:51 EDT RECEIVED DATE/TIME: 03/28/2024 07:09 EDT START DATE/TIME: 03/28/2024 07:09 EDT FREE TEXT SOURCE: FINAL REPORTS Final Report [] Verified Date/Time/Personnel: 03/28/2024 07:34 EDT Presumptive negative for pneumococcal pneumonia, suggesting no current or recent pneumococcal infection. Infection due to Strep pneumoniae cannot be ruled out since the antigen present in the sample may be below the detection limit of the test. Interpretive Data ^1: Streptococcus Pneumoniae Urine Antig This test has not been evaluated on patients taking antibiotics for greater than 24 hours or on patients who have recently completed an antibiotic regimen. The accuracy of this test has not been proven in young children. Performing Locations *1: This test was performed at: [address], [address] [place], [place] [address]3-27-2024 Note. MICRO - Microbiology PROCEDURE: Legionella Urine Ag [*1] SOURCE: Urine BODY SITE: COLLECTED DATE/TIME: 03/27/2024 08:09 EDT RECEIVED DATE/TIME: 03/27/2024 16:47 EDT START DATE/TIME: 03/27/2024 16:47 EDT FREE TEXT SOURCE: FINAL REPORTS Final Report [] Verified Date/Time/Personnel: 03/27/2024 17:10 EDT Presumptive negative for L. pneumophila serogroup 1 antigen in urine, suggesting no recent or current infection. Legionnaire's disease cannot be ruled out since other serogroups and species may also cause disease. Performing Locations *1: This test was performed at: [facility], [address] [place] [address], [address] , [facility] ([place])11-16-2023 Progress note Author Bunny Hernandez [facility] November 16, 2023 1:16pm Note Date/Time November 16, 2023 7:26 am [facility] Medical Records Department [address] [place] [address] Progress Note - Orthopedic 11/16/23 0719 MR#: [id number] Acct: [id number] Name: TEENA LAWRENCE Rep #:[id number] : 1960 63 From: Bunny MARTINEZ PA-C PCP: Dr. Jenni Thornton MD Status:A DM IN Location: MS3 [id number] Subjective Subjective The patient was sitting in bed upon examination. Patient denies any chest pain,shortness of breath, dizziness, lightheadedness, nausea or vomiting, or calf pain. No adverse overnight events. Patient states she was having increased pain but she was not asking for her narcotics. Patient did not understand that the narcotics are as needed. We did have a lengthy discussion about appropriatepain regimen. She will have the scheduled Tylenol however she can use the oxycodone 1-2 tablets every 4 hours as needed for pain. She is aware that she must ask the nursing staff for this medication. When she takes the medications they are helpful with her pain. Patient again today accidentally pulled off some of the drape on the wound VAC and now the unit constantly beeps. We are having wound nurse evaluate patient to put on an appropriate VAC via versus Prevena. I explained to the patient she has to be very careful with this area. She pulled her blanket this morning causing this to affect the wound VAC. Medicine is also on board for medical management. Patient did have a drop in hemoglobin from 8.9 down to 7.6. She is asymptomatic and her vitals are stable. I did discuss case with Jamie Yoo. Patient is on ferrous sulfate and folicacid. Patient did get approval to go to [facility] today. Objective Data Objective Data Vital Signs: Vital Signs Temp Pulse Resp BP Pulse Ox O2 Del Method O2 Flow Rate 98.6 F 98 16 125/72 H 100 Room Air 2 11/16/23 02:30 11/16/23 02:30 11/16/23 02:30 11/16/23 02:30 11/16/23 02:30 11/16/23 02:30 11/15/23 02:45 Oxygen Flow Rate (L/min) 2 Oxygen Delivery Method Room Air Weight: 154.5 kg Body Mass Index (BMI) 58.4 Intake & Output: Intake and Output for Last 24 Hours 11/14/23 11/15/23 11/16/23 23:59 23:59 23:59 Intake Total 2484 / 2484 810.00 / 810.00 Output Total 400 / 400 Balance 2484 / 2484 810.00 / 810.00 -400 / -400 Lab / Micro Data 11/16/23 06:29 11/15/23 08:01 Labs: Laboratory Results - last 24 hr 11/15/23 08:01: WBC 18.3 H, RBC 3.35 L, Hgb 8.9 L, Hct 28.8 L, MCV 86.0, MCH 26.6 L, MCHC 30.9 L, RDW Std Deviation 43.0, RDW Coeff of Nitza 13.8, Plt Count 436, MPV 9.5, Sodium 134 L, Potassium 5.0, Chloride 106, Carbon Dioxide 23.0, Anion Gap 5, BUN 33 H, Creatinine 1.07 H, Estim Creat Clear Calc 82.47, Est GFR (MDRD) Af Amer 67, Est GFR (MDRD) Non-Af 55 L, BUN/Creatinine Ratio 30.8 H, Glucose 133 H, Calcium 8.2 L 11/15/23 11:26: POC Glucose 201 H 11/15/23 16:41: POC Glucose 155 H 11/15/23 21:54: POC Glucose 117 H 11/16/23 06:29: WBC 11.4 H, RBC 2.86 L, Hgb 7.6 L, Hct 24.7 L, MCV 86.4, MCH 26.6 L, MCHC 30.8 L, RDW Std Deviation 44.6 H, RDW Coeff of Nitza 14.5, Plt Count 369, MPV 9.6 Micro: Microbiology 10/31/23 12:24 Swab (Method) Nasal Screen MRSA/MSSA - Final Physical Exam Narrative Vital signs stable and afebrile. Vitals are stable. Patient did have 1 readingof low blood pressure yesterday evening with some mild tachycardia. She is currently with pulse rate of 98 and blood pressure 125/72. Patient is able to plantarflex and dorsiflex actively. Sensation is intact to light touch to saphenous, sural, superficial and deep peroneal, and tibial distribution. Prevena incisional wound VAC appears to be intact however the unit keeps beeping. We are having wound nurse evaluate the wound VAC and may have to replace this with either a another Prevena or VAC via. Case was discussed with wound nurse Negative Homans bilaterally, negative signs and symptoms of DVT. Const alert, oriented x3 and no apparent distress Assessment & Plan Assessment/Plan (1) History of revision of total replacement of right hip joint: PLAN: 1. S/P revision right total hip arthroplasty posterior approach POD #2 2. Continue Pain Medications: Tylenol, meloxicam and oxycodone. We did discontinue the meloxicam secondary to some elevated kidney function. 3. DVT Prophylaxis: Take 81 mg aspirin twice daily for 4 weeks postoperatively for DVT prophylaxis. Patient denies past history of DVT or pulmonary embolism 4. PT/OT: Weightbearing as tolerated with walker. Continue posterior dislocation precautions. Patient states she had some dizziness with therapy yesterday and had to stop. However today she has not had any dizziness. Also appreciate recommendations for discharge planning as there is concern for safetyupon discharge. 5. H & H: 7.6/24.7, asymptomatic. Patient does have past history of anemia in which she has seen a drop in her hemoglobin postoperatively secondary to blood loss versus delusional component. Estimated blood loss was 750 mL in which patient had 1500 mL crystalloid fluid replacement and 155 mL Cell Saver replacement. She was placed on ferrous sulfate and folic acid postoperatively. We will have patient repeat CBC and BMP in the shelter in which orders willbe placed on discharge instructions. I have also reached out to medicine to evaluate patient with regards to discharge planning and any further treatment. 6. Reactive leukocytosis: Trending down and currently 11.4, patient afebrile. Patient did receive Decadron intraoperatively. No clinical signs of infection. 7. Continue postoperative medical management per medicine 8. Currently on doxycycline for 2 weeks postoperatively due to revision total hip arthroplasty and BMI greater than 40.0. I discussed with the patient potential side effects of doxycycline including sensitivity to the sunlight and increased risk of skin burn. Recommend patient take appropriate precautions. Also recommend patient to take probiotic while on the antibiotic. Patient voiced understanding agreement. 9. Continue incisional wound VAC postoperatively for 1 week 10. Encouraged Incentive Spirometry 11. Disposition: Due to patient's morbid obesity as well as concern for safety and increased risk for fall postoperatively case management is currently involved for appropriately discharge planning. Patient will require half-way facility and they are currently on board. Per case management note patient does not need pre- CERT and she is able to go to [facility] once level of care has been established. We will continue with physical therapy while in the hospital. Continue with posterior dislocation precautions. I would also like physical therapy to evaluate patient to make sure she is appropriate for discharge to half-way facility today. She did have some dizziness yesterday with therapy but today she denies any dizziness or lightheadedness. John appreciate recommendations from medicine with regards to discharge planning today. If she is medically stable [facility] monitoring of her CBC and BMP while at the shelter. long term facility documentation will be filled out with narcotic medication prescription placed on chart. Patient will follow-up per postoperative instructions. I do recommend when she is out of the shelter she should schedule appointment with her primary care physician. I have reviewed the [facility] [employer] Rx Reporting System (OARRS) report for this patient for refill pattern and other prescriber involvement as part of the appropriate surveillance for the provision of acute and chronic controlled medications. The report was requested and reviewed on the date of this entry and was considered in the prescribing process. This dictation was created using voice recognition software. Phonetic and/or grammatical errors may exist. 11/16/23 7330 <Electronically signed by Bunny MARTINEZ PA-C> Cosigner Signature (if applicable): CC: ~ Signed ADDENDUM by OSCAR Hernandez on 11/16/23 at 1316 Addendum Case was discussed with medicine. Repeat lab work showed hemoglobin 8.3. Medicine was okay and cleared patient for discharge to half-way facility today. Discharge order has been placed. I do recommend patient follow-up with primary care physician for continued management of the acute on chronic anemia upon discharge from the nursing facility. 11/16/23 1316<Electronically signed by Bunny MARTINEZ PA-C> Cosigner Signature (if applicable): cc: ~* Signed [facility] Work Phone: [phone] 837-695103-01-2024 Progress note Author Cirilo Teran [facility] November 16, 2023 11:55am Note Date/Time November 16, 2023 11:5 5am [facility] Medical Records Department [address] [place] [address] Progress Note - Hospitalist 11/16/23 1153 MR#: [id number] Acct: [id number] Name: TEENA LAWRENCE Rep #:[id number] : 1960 63 From: Cirilo Teran DO PCP: Dr. Jenni Thornton MD Status:A DM IN Location: [place] [id number] Reason for Visit Reason for Visit: Diagnoses Essential (primary) hypertension (11/14/23) Encounter for other preprocedural examination (11/14/23) Presence of right artificial hip joint (11/14/23) Subjective Subjective Feels well. Objective Data Objective Data Vital Signs: Vital Signs Temp Pulse Resp BP Pulse Ox O2 Del Method O2 Flow Rate 36.9 C 105 H 16 124/75 H 100 Room Air 2 11/16/23 11:28 11/16/23 11:28 11/16/23 11:28 11/16/23 11:28 11/16/23 11:28 11/16/23 11:28 11/15/23 02:45 Oxygen Flow Rate (L/min) 2 Oxygen Delivery Method Room Air Weight: 154.5 kg Body Mass Index (BMI) 58.4 Intake & Output: Intake and Output for Last 24 Hours 11/14/23 11/15/23 11/16/23 23:59 23:59 23:59 Intake Total 2484 / 2484 810.00 / 810.00 450 / 450 Output Total 400 / 400 Balance 2484 / 2484 810.00 / 810.00 50 / 50 Lab / Micro Data 11/16/23 09:50 11/16/23 06:29 Labs: Laboratory Results - last 24 hr 11/15/23 16:41: POC Glucose 155 H 11/15/23 21:54: POC Glucose 117 H 11/16/23 06:29: WBC 11.4 H, RBC 2.86 L, Hgb 7.6 L, Hct 24.7 L, MCV 86.4, MCH 26.6 L, MCHC 30.8 L, RDW Std Deviation 44.6 H, RDW Coeff of Nitza 14.5, Plt Count 369, MPV 9.6, Sodium 137, Potassium 3.9, Chloride 109 H, Carbon Dioxide 23.0, Anion Gap 5, BUN 31 H, Creatinine 1.00, Estim Creat Clear Calc 88.25, Est GFR (MDRD) Af Amer 73, Est GFR (MDRD) Non-Af 60, BUN/Creatinine Ratio 31.1 H, Glucose 111 H, Calcium 7.7 L 11/16/23 07:13: POC Glucose 107 H 11/16/23 09:50: WBC 13.5 H, RBC 3.14 L, Hgb 8.3 L, Hct 27.6 L, MCV 87.9, MCH 26.4 L, MCHC 30.1 L, RDW Std Deviation 45.4 H, RDW Coeff of Nitza 14.3, Plt Count 403, MPV 9.5, Immature Gran % (Auto) 0.400, Neut % (Auto) 55.7, Lymph % (Auto) 33.6, Davis % (Auto) 6.7, Eos % (Auto) 2.9, Baso % (Auto) 0.7, Absolute Neuts (auto) 7.5, Absolute Lymphs (auto) 4.53 H, Nucleated RBC % 0, Differential Comment SCANNED Micro: Microbiology 10/31/23 12:24 Swab (Method) Nasal Screen MRSA/MSSA - Final Physical Exam Const alert and no apparent distress HEENT head/scalp atraumatic Assessment & Plan Assessment/Plan (1) Acute blood loss anemia: PLAN: Acute blood loss. 8.9 post op. Stable. No additional work up. Notified Bunny Hernandez. PLAN: Plan Medically stable for discharge. Will sign off. Please call with questions. Charges/Coding Visit Charges Inpatient E&M: 43578 Subs Hosp L1 11/16/23 1155 <Electronically signed by Cirilo Teran DO> Cosigner Signature (if applicable): CC: ~ Signed [facility] Work Phone: [phone] 119-419502-29-2024 Progress note Author Bunny Hernandez [facility] November 15, 2023 11:22am Note Date/Time November 15, 2023 11:22am [facility] Medical Records Department [address] [place] [address] Progress Note - Orthopedic 11/15/23 1115 MR#: [id number] Acct: [id number] Name: TEENA LAWRENCE Rep #:[id number] : 1960 63 From: Bunny MARTINEZ PA-C PCP: Dr. Jenni Thornton MD Status:A DM IN Location: [place] [id number] Subjective Subjective The patient was sitting in bedside chair upon examination. Patient denies any chest pain, shortness of breath, dizziness, lightheadedness, nausea or vomiting,or calf pain. Pain is controlled on medications. No adverse overnight events. Patient overall is doing well. She does have incisional wound VAC due to body habitus and prevention of infection. She is on antibiotics due to revision. Patient will require additional care upon discharge in which case management is currently involved for discharge planning to half-way facility. After patient's initial right hip replacement she had very difficult time for home health therapy secondary to her insurance. This did require her to go to the emergency room in which she was admitted into half-way facility as she was unable to care for herself. Objective Data Objective Data Vital Signs: Vital Signs Temp Pulse Resp BP Pulse Ox O2 Del Method O2 Flow Rate 98.0 F 78 18 99/58 L 99 Room Air 2 11/15/23 09:23 11/15/23 09:23 11/15/23 09:23 11/15/23 09:23 11/15/23 10:30 11/15/23 09:23 11/15/23 02:45 Oxygen Flow Rate (L/min) 2 Oxygen Delivery Method Room Air Weight: 154.5 kg Body Mass Index (BMI) 58.4 Intake & Output: Intake and Output for Last 24 Hours 11/13/23 11/14/23 11/15/23 23:59 23:59 23:59 Intake Total 2484 / 2484 810.00 / 810.00 Balance 2484 / 2484 810.00 / 810.00 Lab / Micro Data 11/15/23 08:01 11/15/23 08:01 Labs: Laboratory Results - last 24 hr 11/14/23 10:31: POC Glucose 117 H 11/14/23 17:44: POC Glucose 179 H 11/14/23 22:06: POC Glucose 162 H 11/15/23 06:40: POC Glucose 136 H 11/15/23 08:01: WBC 18.3 H, RBC 3.35 L, Hgb 8.9 L, Hct 28.8 L, MCV 86.0, MCH 26.6 L, MCHC 30.9 L, RDW Std Deviation 43.0, RDW Coeff of Nitza 13.8, Plt Count 436, MPV 9.5, Sodium 134 L, Potassium 5.0, Chloride 106, Carbon Dioxide 23.0, Anion Gap 5, BUN 33 H, Creatinine 1.07 H, Estim Creat Clear Calc 82.47, Est GFR (MDRD) Af Amer 67, Est GFR (MDRD) Non-Af 55 L, BUN/Creatinine Ratio 30.8 H, Glucose 133 H, Calcium 8.2 L Micro: Microbiology 10/31/23 12:24 Swab (Method) Nasal Screen MRSA/MSSA - Final Radiography Diagnostic Testing: Radiology Impression Hip X-Ray 11/14/23 17:00 IMPRESSION: 1. Revision of a right hip prosthesis which is in anatomic alignment. There are no acute osseous abnormalities. 2. Severe arthritic changes in the left hip with loss of hip joint space and sclerosis. Electronically Signed: Herbert Owusu MD at 18:13 EST , Physical Exam Narrative Vital signs stable and afebrile. SCDs and GREG hose are in place bilaterally Patient is able to plantarflex and dorsiflex actively. Sensation is intact to light touch to saphenous, sural, superficial and deep peroneal, and tibial distribution. Incisional wound VAC in place without any drainage and tubing or canister. Negative Homans bilaterally, negative signs and symptoms of DVT. Const alert, oriented x3 and no apparent distress Assessment & Plan Assessment/Plan (1) History of revision of total replacement of right hip joint: PLAN: 1. S/P revision right total hip arthroplasty posterior approach POD #1 2. Continue Pain Medications: Tylenol, meloxicam and oxycodone. I am going to place meloxicam on hold at this time as she has had some postoperative elevationin kidney function and GFR was lower. 3. DVT Prophylaxis: Take 81 mg aspirin twice daily for 4 weeks postoperatively for DVT prophylaxis. Patient denies past history of DVT or pulmonary embolism 4. PT/OT: Weightbearing as tolerated with walker. Continue posterior dislocation precautions. Also appreciate recommendations for discharge planningas there is concern for safety upon discharge. Patient will require half-way facility. 5. H & H: 8.9/28.8, asymptomatic. Patient does have past history of anemia in which she has seen a drop in her hemoglobin postoperatively secondary to blood loss versus delusional component. Estimated blood loss was 750 mL in which patient had 1500 mL crystalloid fluid replacement and 155 mL Cell Saver replacement. She will be placed on ferrous sulfate and folic acid postoperatively. We will continue to monitor while in the hospital. Repeat CBCand BMP tomorrow 6. Reactive leukocytosis: 18.3, Afebrile. Patient did receive Decadron intraoperatively. No clinical signs of infection. 7. Continue postoperative medical management per medicine 8. Currently on doxycycline for 2 weeks postoperatively due to revision total hip arthroplasty and BMI greater than 40.0. I discussed with the patient potential side effects of doxycycline including sensitivity to the sunlight and increased risk of skin burn. Recommend patient take appropriate precautions. Also recommend patient to take probiotic while on the antibiotic. Patient voiced understanding agreement. 9. Continue incisional wound VAC postoperatively for 1 week 10. Encouraged Incentive Spirometry 11. Disposition: Due to patient's morbid obesity as well as concern for safety and increased risk for fall postoperatively case management is currently involved for appropriately discharge planning. Patient will require half-way facility and they are currently on board. States insurance requires pre-CERT. We will continue with physical therapy while in the hospital. Continue with posterior dislocation precautions. Patient was having some difficulty with her pulse ox in the room. This is being addressed by nursing. I have reviewed the [employer] [employer] Rx Reporting System (OARRS) report for this patient for refill pattern and other prescriber involvement as part of the appropriate surveillance for the provision of acute and chronic controlled medications. The report was requested and reviewed on the date of this entry and was considered in the prescribing process. This dictation was created using voice recognition software. Phonetic and/or grammatical errors may exist. 11/15/23 1122 <Electronically signed by Bunny MARTINEZ PA-C> Cosigner Signature (if applicable): CC: ~ Signed [facility] Work Phone: [phone] Progress note Author Cirilo Teran [facility] November 15, 2023 11:19am Note Date/Time November 15, 2023 11:19am [facility] Medical Records Department [address] [place] [address] Progress Note - Hospitalist 11/15/23 1116 MR#: [id number] Acct: [id number] Name: TEENA LAWRENCE Rep #:[id number] : 1960 63 From: Cirilo Teran DO PCP: Dr. Jenni Thornton MD Status:A DM IN Location: [place] [id number] Reason for Visit Reason for Visit: Diagnoses Essential (primary) hypertension (11/14/23) Encounter for other preprocedural examination (11/14/23) Subjective Subjective Feels well. Got up with therapy but only could walk to her side of her bed and she had to return. Objective Data Objective Data Vital Signs: Vital Signs Temp Pulse Resp BP Pulse Ox O2 Del Method O2 Flow Rate 36.7 C 78 18 99/58 L 99 Room Air 2 11/15/23 09:23 11/15/23 09:23 11/15/23 09:23 11/15/23 09:23 11/15/23 10:30 11/15/23 09:23 11/15/23 02:45 Oxygen Flow Rate (L/min) 2 Oxygen Delivery Method Room Air Weight: 154.5 kg Body Mass Index (BMI) 58.4 Intake & Output: Intake and Output for Last 24 Hours 11/13/23 11/14/23 11/15/23 23:59 23:59 23:59 Intake Total 2484 / 2484 810.00 / 810.00 Balance 2484 / 2484 810.00 / 810.00 Lab / Micro Data 11/15/23 08:01 11/15/23 08:01 Labs: Laboratory Results - last 24 hr 11/14/23 10:31: POC Glucose 117 H 11/14/23 17:44: POC Glucose 179 H 11/14/23 22:06: POC Glucose 162 H 11/15/23 06:40: POC Glucose 136 H 11/15/23 08:01: WBC 18.3 H, RBC 3.35 L, Hgb 8.9 L, Hct 28.8 L, MCV 86.0, MCH 26.6 L, MCHC 30.9 L, RDW Std Deviation 43.0, RDW Coeff of Nitza 13.8, Plt Count 436, MPV 9.5, Sodium 134 L, Potassium 5.0, Chloride 106, Carbon Dioxide 23.0, Anion Gap 5, BUN 33 H, Creatinine 1.07 H, Estim Creat Clear Calc 82.47, Est GFR (MDRD) Af Amer 67, Est GFR (MDRD) Non-Af 55 L, BUN/Creatinine Ratio 30.8 H, Glucose 133 H, Calcium 8.2 L Micro: Microbiology 10/31/23 12:24 Swab (Method) Nasal Screen MRSA/MSSA - Final Radiography Diagnostic Testing: Radiology Impression Hip X-Ray 11/14/23 17:00 IMPRESSION: 1. Revision of a right hip prosthesis which is in anatomic alignment. There are no acute osseous abnormalities. 2. Severe arthritic changes in the left hip with loss of hip joint space and sclerosis. Electronically Signed: Herbert Owusu MD at 18:13 EST , Physical Exam Const alert HEENT head/scalp atraumatic Resp normal respiratory effort, no retractions, no use of accessory muscles and clearto auscultation bilaterally Cardio regular rate, regular rhythm, S1 normal heart sound and S2 normal heart sound GI normal to inspection, nondistended, normoactive bowel sounds, soft to palpation,non-tender and non-distended Assessment & Plan Assessment/Plan (1) Hypertension: QUALIFIERS: Hypertension type: primary hypertension Qualified Code(s): I10 - Essential (primary) hypertension PLAN: Plan Status post replacement of right total knee. Management per orthopedics. Chronic conditions: Asthma, arthritis, hypertension. Stable. Continue with aspirin, atorvastatin, valsartan. Patient waiting on insurance authorization for placement. Patient medically stable for discharge. The hospital service will follow peripherally over the weekend. Please call with questions or concerns, however. Charges/Coding Visit Charges Inpatient E&M: 17834 Subs Hosp L1 11/15/23 1119 <Electronically signed by Cirilo Teran DO> Cosigner Signature (if applicable): CC: ~ Signed [facility] Work Phone: [phone] Progress note Author Brandon Mckeon [facility] November 14, 2023 6:59pm Note Date/Time November 14, 2023 6:59pm [facility] Medical Records Department [address] [place] [address] Progress Note - Hospitalist 11/14/23 1854 MR#: [id number] Acct: [id number] Name: TEENA LAWRENCE Rep #:[id number] 1 : 1960 63 From: Brandon Mckeon DO PCP: Dr. Jenni Thornton MD Status:A DM IN Location: [place] [address] Reason for Visit Reason for Visit: Diagnoses Encounter for other preprocedural examination (11/14/23) Subjective Subjective Patient was seen and examined today at the request of orthopedic surgery, she underwent a revision of her right total replacement femoral and acetabular component, medical history includes type 2 diabetes, essential hypertension, morbid obesity, and hyperlipidemia. Patient was seen in PACU, she does not appear to be in any distress and she has no complaints of chest discomfort or shortness of breath. Objective Data Objective Data Vital Signs: Vital Signs Temp Pulse Resp BP Pulse Ox O2 Del Method O2 Flow Rate 97.5 F L 86 16 115/73 98 Room Air 4 11/14/23 18:30 11/14/23 18:30 11/14/23 18:30 11/14/23 18:30 11/14/23 18:30 11/14/23 18:30 11/14/23 18:15 Oxygen Flow Rate (L/min) 4 Oxygen Delivery Method Room Air Weight: 127 kg Body Mass Index (BMI) 48.0 Intake & Output: Intake and Output for Last 24 Hours 11/12/23 11/13/23 11/14/23 23:59 23:59 23:59 Intake Total 2434 / 2434 Balance 2434 / 2434 Lab / Micro Data 10/31/23 12:24 10/31/23 12:24 Labs: Laboratory Results - last 24 hr 11/14/23 10:31: POC Glucose 117 H 11/14/23 17:44: POC Glucose 179 H Micro: Microbiology 10/31/23 12:24 Swab (Method) Nasal Screen MRSA/MSSA - Final Radiography Diagnostic Testing: Radiology Impression Hip/Pelvis X-Ray 11/14/23 10:20 IMPRESSION: Uncomplicated right total hip arthroplasty. Severe arthrosis of the left hip unchanged. No acute abnormality. Electronically Signed: Cruz Syed MD at 10:41 EST , Hip X-Ray 11/14/23 17:00 IMPRESSION: 1. Revision of a right hip prosthesis which is in anatomic alignment. There are no acute osseous abnormalities. 2. Severe arthritic changes in the left hip with loss of hip joint space and sclerosis. Electronically Signed: Herbert Owusu MD at 18:13 EST , Physical Exam Const alert, oriented x3 and no apparent distress Constitutional Narrative: Patient is morbidly obese General Appearance: cooperative, well kempt and well developed Orientation / Consciousness: awake, oriented to person, oriented to place and oriented to time HEENT normocephalic, head/scalp atraumatic and moist oral mucous membranes Eyes PERRL, EOMs intact bilaterally and conjunctivae normal Neck supple, no JVD, thyroid normal and no carotid bruits General: trachea midline Resp normal respiratory effort, no retractions, no use of accessory muscles and clearto auscultation bilaterally Auscultation: Negative for rales, rhonchi or wheezes Cardio regular rate, regular rhythm, S1 normal heart sound, S2 normal heart sound, no murmurs, no rub and no gallops GI normal to inspection, nondistended, normoactive bowel sounds, soft to palpation,non-tender and non-distended GI Narrative: Patient is morbidly obese Extremity no clubbing, cyanosis or edema Skin no rashes or lesions noted Neuro oriented x3, CN's II-XII intact bilaterally, no focal motor deficits and no sensory deficits noted Sensorium / Orientation: awake and alert Speech: speech normal Psych affect normal Assessment & Plan Assessment/Plan (1) Hypertension: QUALIFIERS: Hypertension type: primary hypertension Qualified Code(s): I10 - Essential (primary) hypertension PLAN: Plan 1. Essential hypertension-patient will remain on her current medications, bloodpressure medicines will be adjusted if needed #2 type 2 diabetes-patient will have fingerstick blood sugars and sliding scale insulin will be administered as needed #3 hyperlipidemia-patient is on atorvastatin #4 morbid obesity-complicates care, medical course, recovery, and prognosis #5 failed right total knee replacement-postop day 0 revision right total knee replacement femoral and acetabular components-patient will be seen by PT and OT,orthopedic surgery will manage her orthopedic care Total clinical time spent by myself addressing the patient's medical issues, reviewing all of her data, and collaborating with patient's care team: 35 minutes Charges/Coding Visit Charges Inpatient E&M: 67529 Subs Hosp L2 11/14/23 1859 <Electronically signed by Brandon Mckeon DO> Cosigner Signature (if applicable): CC: ~ Signed [facility] Work Phone: [phone] 889-194702-28-2024 Procedure [facility] 11-14-2023 History and physical note Author Jamie Yoo [facility] November 14, 2023 11:14am Note Date/Time November 08, 2023 6:12am [facility] Health System Medical Records Department [address] [place] [address] History & Physical Exam 11/08/23 0612 MR#: [id number] Acct: [id number] Name: TEENA LAWRENCE Rep #:[id number] 2 : 1960 63 From: Bunny MARTINEZ PA-C PCP: Dr. Jenni Thornton MD Status:A DM IN Location: [facility] History and Physical History and Physical? Patient Name: Teena Lawrence : 1960 From:? BUNNY HERNANDEZ PA-C? DATE OF PRE-OPERATIVE EXAM: 11/05/2023 DATE OF SURGERY:? 11/14/2023 SCHEDULED PROCEDURE:? Revision right total hip arthroplasty femoral component with possible acetabular component posterior approach HISTORY OF PRESENT ILLNESS: Preoperative history and physical exam was performed on November 05, 2023.? Thisis a 63-year-old female who underwent a direct anterior right total hip arthroplasty by Dr. Jamie Yoo on August 28, 2023.? Initially after the surgery while in the hospital patient stated that she was doing much better thanpreoperatively.? While at [facility] they attempted to set her upwith multiple agencies for home health in which no agencies were able to be found with her insurance.? She fell at that time she was able to go home with outpatient therapy with help from friends [place] [facility].? On postoperative day #2 she was having a very difficult time and was readmitted into the hospital.? At that time she was placed in a half-way facility however [facility] as she was concerned due to the hygiene and poor care she was getting.? While at home she continued to struggle.? At her 2 week postoperative visit she was continued to have problems at home taking care of herself and went back to the emergency room in which she was placed in a half-way facility.? She felt as if she was doing better but then progressively became worse with more difficulty with weightbearing.? At her 6 week follow-up repeat x-rays were obtained which did show subsidence of the component.? She presents in a wheelchair.? She has been using Tylenol for pain.? She was participating in physical therapy in the shelter.? She has increased pain with any walking, stairs, sitting.? Postoperatively she was treated with oxycodone and meloxicam.?She was also treated with 2 weeks doxycycline postoperatively due to BMI greaterthan 40.0.? There has been no change in medical history.? She has had repeat clearance from primary care physician Dr. Thornton.? She currently denies any chest pain, shortness of breath, fevers chills or recent infections.? She did have repeat lab work which did show one of 2 low nutritional markers.? Our office attempted to get a hold of her but was unable to due to her phone not accepting messages.? I did discuss with the patient today that she should be doing diabetic friendly protein drinks twice daily.? She voiced understanding.? Patient denies past history of DVT or pulmonary embolism.? After discussion withDr. Jamie Yoo, the patient does wish to proceed with a revision right total hip arthroplasty femoral component and possible acetabulum posterior approach. REVIEW OF SYSTEMS: Review Of Systems: Constitutional: Reports weight change, but denies change in appetite and fever. Cardiovasular: Denies chest pain, heart murmur and irregular heartbeat. Respiratory: Denies cough, pneumonia, shortness of breath, tuberculosis and wheezing. Gastrointestinal: Denies constipation, diarrhea, heartburn, nausea, rectal itching, bloody stools and vomiting. Genitourinary: Denies incontinence. Musculoskeletal: Reports gait disturbance, leg swelling, pain, trouble walking and weakness. Skin: Denies Raynaud's, history of shingles and tattoo. Neurological: Denies ambulatory dysfunction, dizziness, numbness/tingling and tremor. Psychiatric: Denies anxiety, insomnia and stress. Hematologic/Lymphatic: Reports anemia, but denies bleeding/bruising tendency andpast transfusion. Reviewed and updated. PAST MEDICAL HISTORY: Advance Care Plan: No Advance Directives Effective Date: 12/20/2021 Past Medical History: Medical Problems: Arthritis, High Blood Pressure, Hypercholesterolemia Cancer - KIDNEY-PAST Diabetes, restless leg syndrome anemia - history? edema -? history? Accidents: None Surgical Hx: Gallbladder - (2015) [facility] Kidney Cancer Removal - (2014) [facility] Elbow Infection - (2018) Hip Replacement RT - (08/28/2023) DIRECT [facility] Anesthesia Complications: None Assistive Devices: Dentures Reviewed and updated. SOCIAL HISTORY: Social History: Marital: Single.Occupation: Retired.Work Status: Retired.Hand Dominance: Right-handed. Personal Habits:? Cigarette Use: Former.Smokeless Tobacco: Never Used Smokeless Tobacco.E-Cigarette Use: Never used.Alcohol: Has consumed alcohol in the past.Drug Use: Denies Use.Enjoy Exercising: Never Exercises. Reviewed, no changes. VITALS: Ht: 64 Wt: 242lb Wt k.771 BMI: 41.5 BP: 130/84 Pulse: 88 Resp: 14 T: 96.8T: 36.0C Pain Level: 8 O2SatR: 100 ALLERGIES: No Known Drug Allergy? MEDICATIONS: Acetaminophen Extra Strength 500 mg take 2 tablets (1,000 mg) every 8 hours as needed for pain, Aspirin 81 81 mg dose : 81 mg = 1 tab(s), oral, bid, take 81 mgaspirin twice daily with food for 4 weeks postoperatively for dvt prophylaxis., # 60 tab(s), 0 refill(s), pharmacy: [facility] #[id number], 167.6, cm, 08/28/23 14:23:00 est, height, kg, 08/28/23 14:23:00 est, dosing weight, Oxycodone HCL 5 mg 1 tab by mouth every 6 hours as needed pain, Doxepin HCL 25 mg take 1 capsuleby mouth at bedtime, Bupropion Hydrochloride ER (SR) 100 mg take 1 tablet by mouth twice a day, Vitamin D3 25 mcg (1000 Ut) 1 a day, Atorvastatin Calcium 40 mg 1 by mouth every day, Doxepin HCL 100 mg 1po qday, Amlodipine Besylate 10 mg 1 by mouth every day, Valsartan 80 mg take 1 tablet by mouth every day, Meloxicam 15 mg take 1 tablet by mouth daily with food, Metformin HCL 500 mg take 1 tablet by mouth twice daily PRE-OP EXAM:? General appearance:NORMAL? ? ? Other: Eyes: Conjunctivae and lids: NORMAL? Pupils: ERR Ears, Nose, Mouth, and Throat: NORMAL? Other: Inspection of lips, teeth and gums: NORMAL? ?Other: Neck: Examination of neck: no masses noted. Respiratory: Assessment of respiratory effort: NORMAL? ?Other: ?Auscultation of lungs: clear to auscultation no wheezes, rhonchi or rales. Cardiovascular:? Auscultation of heart: regular rate and rhythm, no murmurs, gallops or rubs. PHYSICAL EXAMINATION: Patient does present in a wheelchair at the preoperative visit.? The incision isoverall well healed with the anterior hip.? There is no erythema or signs of infection.? Range of motion was deferred due to difficulty in wheelchair.? She had increased pain with any attempted motion.? Sensation was intact to light touch. IMAGING STUDIES: Previous x-rays of the right hip revealed significant subsidence of the femoral implant without distinct fracture.? The femoral component is further subsided and more varus position.? The acetabulum does appear to be stably fixed. IMPRESSION: 1.? Painful right total hip arthroplasty with subsidence 2.? Hypertension 3.? Type 2 diabetes mellitus:? A1c 6.0 4.? Restless leg syndrome 5.? History of anemia 6.? History of bilateral edema 7.? Morbid obesity with BMI 41.5 PLAN: Dr. Jamie Yoo did discuss and review with the patient all treatment options including surgical versus nonsurgical options.? Patient does wish to proceed with the above-stated procedure.? Potential risks, benefits, and complications of the procedure were discussed in detail including but not limited to , infection, nerve and blood vessel damage, persistent pain, numbness, tingling, paresthesias, blood clot, pulmonary embolism, and requirement for possible further surgery.? The patient expressed full understanding and has no further questions for the doctor.? Patient does agree to proceed with the above-stated procedure and has signed the surgery consent form. POST-OP MEDICATION PLAN: Pain Medications:? Postoperative pain regimen will be initiated by Dr. Jamie Yoo at the hospital.? Due to patient's revision and morbid obesity she will be placed on doxycycline postoperatively while following cultures.? I did discuss with the patient hypersensitivity to sunlight and taking appropriate precautions.? Also recommended probiotic.? I did discuss with the patient today her lab work and instructed her to take diabetic friendly protein drinks twice daily.? She voiced understanding.? Also due to patient living home alone we willhave case management involved for appropriate discharge planning.? Patient had significant difficulty after primary right total hip arthroplasty and did require half-way facility placement. DVT Prophylaxis:? Aspirin 81 mg twice daily for 4 weeks postoperatively.? Deniespast history of DVT or pulmonary embolism This dictation was created using voice recognition software. Phonetic and/or grammatical errors may exist. ___? I have re-examined the patient.? There are no clinical changes since date of exam. ___? See progress notes for changes. ___? Dictated on admission Date: ? ? ?Time: Signature: 11/08/23 0612 <Electronically signed by Bunny MARTINEZ PA-C> Cosigner Signature (if applicable): CC: OSCAR Hernandez; Dr. Jenni Thornton MD; Dr. Jamie Yoo MD~ Signed ADDENDUM by Dr. Jamie Yoo MD on 11/14/23 at 1114 Addendum I have examined the patient and the H&P has been reviewed. There are no clinicalchanges since date of exam. 11/14/23 1114<Electronically signed by Jamie Yoo MD> Cosigner Signature (if applicable): cc: OSCAR Hernandez; Dr. Jenni Thornton MD; Dr. Jamie Yoo MD ~* Signed [facility] Work Phone: Chief complaint+Reason for visit Narrative* Chief Complaint ARTHRITIS CONCERNS Reason for Visit Tobacco abuse counse ling Arthritis Borderline type 2 diabetes mellitus Hypertension [facility] Work Phone: Evaluation note* Diagnosis Onset Date Resolution Status Anxiety and depression chron ic Borderline type 2 diabetes mellitus chronic Hypertension chronic Morbid obesity chronic Osteoarthritis, hip, bilateral chronic Hypertension chronic Anxiety and depression chron ic Borderline type 2 diabetes mellitus chronic Hypertension chronic Osteoarthritis, hip, bilateral chronic [facility] Work Phone: Evaluation note* Diagnosis Onset Date Resolution Status Borderline type 2 diabetes mellitus chronic Nausea and vomiting noneacti ve [facility] Work Phone: Evaluation note* Diagnosis Onset Date Resolution Status Tobacco abuse counseling acu te Arthritis chronic Borderline type 2 diabetes mellitus chronic Hypertension chronic [facility] Work Phone: Evaluation note* Diagnosis Onset Date Resolution Status Tobacco abuse counseling acu te Arthritis chronic Borderline type 2 diabetes mellitus chronic Hypertension chronic Flu vaccine need acute Arthritis chronic Borderline type 2 diabetes mellitus chronic Hyperlipidemia chronic Hypertension chronic Health care maintenance acut e Preoperative evaluation to r ule out surgical contraindication acute [facility] Work Phone: Evaluation note* Diagnosis Onset Date Resolution Status Health care maintenance acut e Preoperative evaluation to r ule out surgical contraindication acute Degenerative joint disease of right hip acute Obesity acute Anxiety and depression chron ic Borderline type 2 diabetes mellitus chronic Hyperlipidemia chronic Hypertension chronic Preoperative evaluation to r ule out surgical contraindication acute Hypertension chronic Acute blood loss anemia acut e History of revision of total replacement of right hip joint acute Hypertension chronic [facility] Work Phone: Evaluation note* Diagnosis Onset Date Resolution Status Degenerative joint disease of right hip acute Obesity acute Anxiety and depression chron ic Borderline type 2 diabetes mellitus chronic Hyperlipidemia chronic Hypertension chronic Preoperative evaluation to r ule out surgical contraindication acute Hypertension chronic Acute blood loss anemia acut e History of revision of total replacement of right hip joint acute Hypertension chronic Acute blood loss anemia acut e Debility acute History of revision of total replacement of right hip joint acute Restless legs acute [facility] Work [facility]: Hospital Discharge instructionsAmbulatory Orders* Cardiology Location: None Selected * Pain Management Location: None Selected * PT Referral Location: None Selected [facility] Work Phone: Reason for referral (narrative)No reason for referral information availableWSal[facility] Work Phone: Chief Complaint and Reason for Visit Chief Complaint Admit Date MED FOLLOW UP December 19, 2024 1:49 pm 3 M FU March 18, 2025 3:41p m Reason for Visit Admit Date Diabetes December 19, 2024 1:49 pm Hyperlipidemia December 19, 2024 1:49 pm Hypertension December 19, 2024 1:49 pm Chief Complaint FOLLOW UP - HIP PAIN LEGS SWELLING BILATERAL HIP PAIN. RX HERE 1 M FU Reason for Visit Anxiety and depressi on Borderline type 2 diabetes mellitus Hypertension Morbid obesity Osteoarthritis, hip, bilateral Hypertension Anxiety and depression Borderline type 2 diabetes mellitus Hypertension Osteoarthritis, hip, bilateral Chief Complaint MEDICATION SIDE EFFE CTS, DIARRHEA Reason for Visit Borderline type 2 di abetes mellitus Nausea and vomiting Chief Complaint ARTHRITIS CONCERNS 3 M FU SURGICAL CLEARANCE Reason for Visit Tobacco abuse counse ling Arthritis Borderline type 2 diabetes mellitus Hypertension Flu vaccine need Arthritis Borderline type 2 diabetes mellitus Hyperlipidemia Hypertension Health care maintenance Preoperative evaluation to rule out surgical contraindication Chief Complaint SURGICAL CLEARANCE acute - [place] discharge FU/surgery clearance PREOP SURGICAL CLEARANCE/2 WK FOLLOW UP POSTERIOR REVISION RIGHT HIP ARTHRO POSTERIOR REVISION RIGHT HIP ARTHRO POSTERIOR REVISION RIGHT HIP ARTHRO POSTERIOR REVISION RIGHT HIP ARTHRO Reason for Visit Health care maintena nce Preoperative evaluation to rule out surgical contraindication Degenerative joint disease of right hip Obesity Anxiety and depression Borderline type 2 diabetes mellitus Hyperlipidemia Hypertension Preoperative evaluation to rule out surgical contraindication Hypertension Acute blood loss anemia History of revision of total replacement of right hip joint Hypertension Chief Complaint acute - [place] discharge FU/surgery clearance PREOP SURGICAL CLEARANCE/2 WK FOLLOW UP POSTERIOR REVISION RIGHT HIP ARTHRO POSTERIOR REVISION RIGHT HIP ARTHRO POSTERIOR REVISION RIGHT HIP ARTHRO POSTERIOR REVISION RIGHT HIP ARTHRO acute - shelter fu Reason for Visit Degenerative joint d isease of right hip Obesity Anxiety and depression Borderline type 2 diabetes mellitus Hyperlipidemia Hypertension Preoperative evaluation to rule out surgical contraindication Hypertension Acute blood loss anemia History of revision of total replacement of right hip joint Hypertension Acute blood loss anemia Debility History of revision of total replacement of right hip joint Restless legs Chief Complaint Admit Date MED FOLLOW UP December 19, 2024 1:49 pm Chief Complaint Admit Date MED FOLLOW UP December 19, 2024 1:49 pm 3 M FU March 18, 2025 3:41p m XRAY March 31, 2025 12:0 0pm BACK PN, VIK KNEE PN; DJD VIK HIPS/RX HE RE April 02, 2025 3:30pm Reason for Visit Admit Date Diabetes December 19, 2024 1:49 pm Hyperlipidemia December 19, 2024 1:49 pm Hypertension December 19, 2024 1:49 pm Hypersomnolence March 18, 2025 3:41p m Bilateral knee pain March 18, 2025 3:41p m Borderline type 2 diabetes mellitus March 18, 2025 3:41pm Chronic back pain March 18, 2025 3:41p m Hypertension March 18, 2025 3:41p m Morbid obesity March 18, 2025 3:41p m Chief Complaint Admit Date MED FOLLOW UP December 19, 2024 1:49 pm 3 M FU March 18, 2025 3:41p m XRAY March 31, 2025 12:0 0pm Hypersomnolence April 09, 2025 9:17 pm BACK PN, VIK KNEE PN; DJD VIK HIPS/RX HE RE April 14, 2025 3:30pm Reason for Visit Admit Date Diabetes December 19, 2024 1:49 pm Hyperlipidemia December 19, 2024 1:49 pm Hypertension December 19, 2024 1:49 pm Hypersomnolence March 18, 2025 3:41p m Bilateral knee pain March 18, 2025 3:41p m Chronic back pain March 18, 2025 3:41p m Hypertension March 18, 2025 3:41p m Morbid obesity March 18, 2025 3:41p m Borderline type 2 diabetes mellitus March 18, 2025 3:41pm Family History No Family History Records Found Relationship Condition Age at Onset Recorded Date/T [place] Unknown Family History?No pe rtinent history Unknown August 29, 2017 6:53pm Family History?No pe rtinent history Unknown April 05, 2021 2:34pm Relationship Condition Age at Onset Recorded Date/T [place] Unknown Family History?No pe rtinent history Unknown August 29, 2017 5:53pm Family History?No pe rtinent history Unknown April 05, 2021 1:34pm Relationship Condition Age at Onset Recorded Date/T [place] mother Diabetes mellitus Unknown Hypertension Unknown Coronary artery disease Unknown father Diabetes mellitus Unknown sister Hypertension Unknown Advance Directives No Advanced Directives Records Found Advance Directive Response Recorded Date/ Time Advance Directives No April 05 2:34pm Living Will No April 05, 2021 2:34pm Power of Patient Care Coordinator No April 05 2:34pm Advance Directive Response Recorded Date/ Time Advance Directives No April 05 1:34pm Living Will No April 05, 2021 1:34pm Power of Patient Care Coordinator No April 05 1:34pm Advance Directive Response Recorded Date/ Time Advance Directives No April 05 1:34pm Living Will No November 14 024 7:33pm Power of Patient Care Coordinator No November 14, 2023 7:33pm Advance Directive Response Recorded Date/ Time Advance Directives No April 05 2:34pm Living Will No February 28th, 2 024 8:33pm Power of Patient Care Coordinator No November 14, 2023 8:33pm Advance Directive Response Recorded Date/ Time Advance Directives No April 05 2:34pm Summary Purpose Additional Source Comments Care Teams (unrecognized sec tion and content) Retail Customer Service Representative Relationship Specialty Start Date End Date Jenni Thornton [address] [place] [address] PCP - General Internal Medicine 01/02/22 Team Status: Active Member Role Status Dates Dr. Pro [place] MD Family Provider Active Dr. Jenni Thornton MD Primary Care Provider Active Team Status: Inactive Member Role Status Dates Dr. Jenni Thornton MD Primary Care P rovider, Attending Provider, Referring Provider Active Team Status: Inactive Member Role Status Dates Dr. Jenni Thornton MD Primary Care Provider, Atten ding Provider Active Team Status: Inactive Member Role Status Dates Dr. Jenni Thornton MD Primary Care Provider, Refer ring Provider Active Tyson MARTINEZ, PA Attending Provider Active Team Status: Active Member Role Status Dates Dr. Jenni Thornton MD Primary Care Provider Active Dr. Edward Gamboa MD Attending Provider Active Dr. Jamie Yoo MD Referring Provider Active Team Status: Active Member Role Status Dates Dr. Jenni Thornton MD Primary Care Provider Active Dr. Jamie Yoo MD Admit Provider, R eferring Provider, Other Provider Active Dr. Brandon Mckeon DO Attending Provider, Other Pro vider Active Team Status: Active Member Role Status Dates Dr. Jenni Thornton MD Primary Care Provider Active Dr. Jamie Yoo MD Admit Provider, R eferring Provider, Other Provider Active Dr. Cirilo Teran DO Attending Provider, Other Provid er Active Team Status: Inactive Member Role Status Dates Dr. Jenni Thornton MD Primary Care Provider Active Dr. Jamie Yoo MD Admit Provider, A ttending Provider, Referring Provider Active Dr. Cirilo Teran DO Other Provider Active Team Status: Active Member Role Status Dates Dr. Jenni Thornton MD Primary Care Provider Active Dr. Jamie Yoo MD Admit Provider, Other Provider Active Dr. Cirilo Teran DO Attending Provider, Other Provid er Active Team Status: Inactive Member Role Status Dates Dr. Jenni Thornton MD Primary Care Provider, Refer ring Provider Active KRISSY Thomas Attending Provider Active Team Status: Inactive Member Role Status Dates Dr. Jenni Thornton MD Primary Care Provider Active KRISSY Thomas Attending Provider Active Team Status: Inactive Member Role Status Dates Dr. Jenni Thornton MD Primary Care Provider Active Start: December 19, 2024 End: December 19, 2024 Dr. Jenni Thornton MD Referring Provider Active Start: December 19, 2024 End: December 19, 2024 Tyson MARTINEZ PA Attending Provider Active St art: December 19, 2024 End: December 19, 2024 Team Status: Inactive Member Role Status Dates Dr. Jenni Thornton MD Primary Care Provider Active Start: December 19, 2024 End: December 19, 2024 Tyson MARTINEZ PA Attending Provider Active St art: December 19, 2024 End: December 19, 2024 Tyson MARTINEZ PA Referring Provider Active St art: December 19, 2024 End: December 19, 2024 Team Status: Active Member Role/Relationship Status Dates Dr. Pro [place] MD Family Provider Active Dr. Jenni Thornton MD Primary Care Provider Active Team Status: Inactive Member Role/Relationship Status Dates Dr. Jenni Thornton MD Primary Care Provider Active Start: December 19, 2024 End: December 19, 2024 Dr. Jenni Thornton MD Referring Provider Active Start: December 19, 2024 End: December 19, 2024 Tyson MARTINEZ, PA Attending Provider Active St art: December 19, 2024 End: December 19, 2024 Team Status: Inactive Member Role/Relationship Status Dates Dr. Jenni Thornton MD Primary Care Provider Active Start: December 19, 2024 End: December 19, 2024 Tyson MARTINEZ PA Attending Provider Active St art: December 19, 2024 End: December 19, 2024 Tyson MARTINEZ PA Referring Provider Active St art: December 19, 2024 End: December 19, 2024 Team Status: Inactive Member Role/Relationship Status Dates Dr. Jenni Thornton MD Primary Care Provider Active Start: March 18, 2025 End: March 18, 2025 Dr. Jenni Thornton MD Attending Provider Active Start: March 18, 2025 End: March 18, 2025 Dr. Jenni Thornton MD Referring Provider Active Start: March 18, 2025 End: March 18, 2025 Team Status: Active Member Role/Relationship Status Dates Dr. Jenni Thornton MD Primary Care Provider Active Team Status: Inactive Member Role/Relationship Status Dates Dr. Jenni Thornton MD Primary Care Provider Active Start: March 31, 2025 End: March 31, 2025 Dr. Dontae Thomas MD Attending Provider Active Start: March 31, 2025 End: March 31, 2025 Dr. Dontae Thomas MD Referring Provider Active Start: March 31, 2025 End: March 31, 2025 Team Status: Active Member Role/Relationship Status Dates Dr. Jenni Thornton MD Primary Care Provider Active Start: April 02, 2025 Dr. Jenni Thornton MD Attending Provider Active Start: April 02, 2025 Dr. Jenni Thornton MD Referring Provider Active Start: April 02, 2025 Team Status: Inactive Member Role/Relationship Status Dates Dr. Jenni Thornton MD Primary Care Provider Active Start: April 09, 2025 End: April 09, 2025 Dr. Jenni Thornton MD Attending Provider Active Start: April 09, 2025 End: April 09, 2025 Dr. Jenni Thornton MD Referring Provider Active Start: April 09, 2025 End: April 09, 2025 Team Status: Active Member Role/Relationship Status Dates Dr. Jenni Thornton MD Primary Care Provider Active Start: April 14, 2025 Dr. Jenni Thornton MD Attending Provider Active Start: April 14, 2025 Dr. Jenni Thornton MD Referring Provider Active Start: April 14, 2025 Goals (unrecognized section and content) Goals may be documented in a n alternate sectionGoals may be documented in an alternate sectionGoals may be documented in an alternate sectionGoals may be documented in an alternate sectionGoals may be documented in an alternate sectionGoals may be documented in an alternate sectionGoals may be documented in an alternate sectionGoals may be documented in an alternate section INFORMATION SOURCE (unrecogn ized section and content) DATE CREATED AUTHOR 04/10/2024 [facility] DATE CREATED AUTHOR AUTHOR'S JAMAAL ALLYSONADDIE 04/23/2025 [facility] FOR RECORDS PERTAINING TO PATIENTS WHO ARE OR HAVE BEEN ENROLLED IN A CHEMICAL DEPENDENCY/SUBSTANCEABUSE PROGRAM, SOME INFORMATION MAY BE OMITTED. This clinical summary was aggregated from multiple sources. Caution should be exercised in using it in the provision of clinical care. This summary normalizes information from multiple sources, and as a consequence, information in this document may materially change the coding, format and clinical context of patient data. In addition, data may be omitted in some cases. CLINICAL DECISIONS SHOULD BE BASED ON THE PRIMARY CLINICAL RECORDS. [employer] provides no warranty or guarantee of the accuracy or completeness of information in this document.
== END | disposition home or self-care (01) ==
LOC: SL 22:32
PROVIDERS: PCP Internal Medicine; Referring Provider Internal Medicine; Visit Provider Internal Medicine
DX: G47.33 Obstructive sleep apnea (adult) (pediatric) (principal)
CPT/HCPCS: 95811

== ENCOUNTER 2025-05-25 12:00 | Outpatient (RCR) | payer MEDICAID, SELFPAY ==
--- NOTE | 2025-03-25 13:53 | HP.PTEVAL_ITS ---
Patient's Visit Information Visit Information Visit Information: YULISA WHEELER is a 64 year old F referred to Physical Therapy by Dr. Muriel Thornton MD with a diagnosis of Knee pain, B degenerative hip, chronis back pain. Date of Evaluation: 03/25/25 Physical Therapist: Cirilo Schultz, DPT, OCS, CSCS Visit Plan Frequency: 2x /Week Duration: 4-6 Weeks Plan: 2x/week for 3-6 weeks(start 3 due to ins approval) for: Pool based LE core , postural strength and ROM, including wrists. Progress to I home program or gym as exit strategy. focus on B hip strength. Subjective Subjective: I have OA from top to bottom and hurts to walk. Had R hip done and needs L hip done. Bones were brittle on L side adn had to be redone. R leeg is longer. Getting shoe lift soon from daughter. \ Pain is B wrists and hands as she uses rollator and wrists get worse. Broke back yrs ago and back hurts and she hunches. Feels worse hunched over. Used rollator for a year for pain and balance. L hip is painful and knees and ankles. Sleep is not great as she is up every two hours for no apparent reason and will have sleep study. Not employed, don't need it. Sits and watches TV, no exercises.\ Basic ADLs are I but slow. One bedroom one story without steps. Dtr lives upstairs. R leg is weak since surgery for hip 1.5 yrs ago. Pain widdspread pain: Pain Intensity (Out of 10): 5 Pain Intensity Range: 5 and 8 Comment: with walking is worse. Objective Objective: Walks with rollator and antalgic on L hip. Transfers out of chair I with UE,weakness in hip. Steps with R LE only and needs two railings, painful to try L. Bed transfer I but weak in core 3/5 abs and ext. UE AROM WFL and not painful, wrists B hurt somewhat with movement b ut good motion. Hip aROM 0 ext, 15 abd, 100 flexion, L ir/er painful but WFL. R not tested .Hip strength 3 abd and ext, 3+ flexion R and 3 L. knees painful with end range extension and 0-110 AROM, 3+ strength flexion adn ext B. ankles WFL and 4/5 strength able to stand ec without assist, walks about 15 feet without AD but starts to hunch and L hip discomfort cause great antalgia and instability. Balance/Special Test Scores Lower Extremity Functional Score: 24 Goals Goal 1:: I appropriate pool to home ex program for ROM LE adn back and strength of whole b steven. Goal Time Frame: 4-6 Weeks Goal 2:: Pain 4/10 at worst adn 50% better overall. Goal Time Frame: 4-6 Weeks Goal 3:: sleep without waking due to pain Goal Time Frame: 4-6 Weeks Goal 4:: 34 LEFS Goal Time Frame: 4-6 Weeks Rehabilitation Potential Physical Therapy Diagnosis: widespread pain and weakness limiting funciton and comfort., poorly managed. Rehabilitation Potential: Questionable Anticipated Interventions Patient/Client Instruction: Educate patient on: Condition For the Purpose of:: To decrease pain, To increase ROM, To improve muscle performance and motor function, To increase tolerance to activity/condition/position and To improve ability of physical actions for home/community/work/leisure Therapeutic Exercise to Include: Strength training, Flexibilty training, In an aquatic setting, Passive ROM and Active ROM For the Purpose of:: To decrease pain, To increase ROM, To improve nutrient delivery to tissue, To improve muscle performance and motor function, To inc rease tolerance to activity/condition/position and To improve gait and locomotor functions Text: Thank you for the opportunity to evaluate your patient. For Medicare and Medicare HMO plans, please review the plan of care and approve it. It will need to be FAXED BACK to us at [phone] for Medicare purposes. For Medicare only, by signing this I certify the plan of care. Please let me know if there are questions or concerns regarding this plan of care. Physician Signature: Dat e:
--- NOTE | 2025-05-25 12:20 | HP.PTDCSUM ---
Discharge Summary D/C summary: It has been my pleasure to treat YULISA HWEELER referred by Dr. Muriel Thornton MD, with the diagnosis of Knee pain, B degenerative hip, chronis back pain for a total of 14 visit(s). Discharge Date: 05/25/25 Please see the following information for a summary of their discharge status. Subjective Subjective: doing weell adn much better but still pain ful to 6/10 L hip and LB. Had x rays of all joints hands and knees and degenerative changes throughout. X rays of all major joints and all show degeneration. Bettere than two months ago with strength. Out of chair easier adn less paiknful. Walking better. Still uses rollator and has a lot of pai9n with walkin but it takes longer to kick in. Pain widdspread pain: Pain Intensity (Out of 10): 9 Overall Improvement % Improvement: 60 Objective Objective/Function: Walks with rollator mod I but L hip antalgia. Moves hip, knees, ankles and shoulders well without c/o pain. Overall frustrated with continued pain but happy to be 60% better, cannot continue in pool I so will continue with HEP Goals Goal 1:: I appropriate pool to home ex program for ROM LE adn back and strength of whole body. Goal Progress: Progressing Goal 2:: Pain 4/10 at worst adn 50% better overall. Goal Progress: Goal Met Goal 3:: sleep without waking due to pain Goal Progress: 4 vs 2 Goal 4:: 34 LEFS Goal Progress: not Plan Plan: d/c to HEP D/C Information Discharge Comments: to doctor for next step d/c sentence: If there are questions or concerns regarding this patient's physical therapy, please feel free to call me at [phone]. Thank you for the referral of this patient. Sincerely, Cirilo Schultz, DPT, OCS, CSCS Balance/Gait/Functional tests Balance/Special Test Scores Lower Extremity Functional Score: 19 Improvement % Improvement: 60
== END 2025-05-25 19:00 | disposition home or self-care (01) ==
LOC: PT 12:00
PROVIDERS: PCP Internal Medicine; Referring Provider Internal Medicine; Visit Provider Internal Medicine
DX: M25.561 Pain in right knee (principal); M25.562 Pain in left knee; M16.0 Bilateral primary osteoarthritis of hip; M54.9 Dorsalgia, unspecified; G89.29 Other chronic pain
CPT/HCPCS: 97113; 97162; 97164; 97530

== ENCOUNTER → 2025-05-25 | Outpatient (CLI) | payer MEDICAID, SELFPAY | END | disposition home or self-care (01) | LOC: PSN 09:25 | PROVIDERS: PCP Internal Medicine; Referring Provider Internal Medicine; Visit Provider Internal Medicine | DX: R06.02 Shortness of breath (principal) | CPT/HCPCS: 94010; 94060; 94726; 94729 ==

== ENCOUNTER → 2025-05-29 | Outpatient (CLI) | payer MEDICAID, SELFPAY ==
--- NOTE | 2025-05-29 10:51 | ECHOD_ITS ---
Reason For Study Reason For Study: DILATED CMP Procedure This was a 2D Doppler, Color Flow transthoracic echocardiogram. The study was technically difficult. Due to body habitus. Contrast injection was performed. Left Ventricle Normal LV size. The left ventricular ejection fraction is 50 %. No regional wall motion abnormalities noted. There is borderline global hypokinesis of the left ventricle. Right Ventricle Normal RV size. Normal systolic function. Atria Normal left atrium. Normal right atrium. Mitral Valve Normal mitral valve. Tricuspid Valve Normal tricuspid valve. Mild (1+) tricuspid valve insufficiency. Pulmonary artery systolic pressure is 24 mmHg. Aortic Valve Normal aortic valve. Trisinus/trileaflet aortic valve. Pulmonic Valve Normal pulmonic valve. Great Vessels Normal aortic root. The pulmonary artery is normal size. Inferior vena cava collapse with respiration. Pericardium/Pleural No pericardial effusion. Medication 22 gauge I.V. with prn adaptor inserted into right arm. Diluted definity 1.5ml given slow IV push to enhance endocardial definition. MMode/2D Measurements & Calculations LVIDd: 4.9 cm IVSd: 1.0 cm Ao root diam: 3.4 cm LVIDs: 3.8 cm LVPWd: 1.0 cm RVDd: 3.1 cm FS: 22.0 % LAV(MOD-bp): 67.7 ml LVAd ap4: 34.9 cm2 LVAd ap2: 32.8 cm2 LAV(MOD-bp) Indexed: 30.5 ml/m2 LVLd ap4: 9.1 cm LVLd ap2: 8.7 cm LAV(MOD-sp2): 65.5 ml EDV(MOD-sp4): 109.9 ml EDV(MOD-sp2): 102.8 ml LAV(MOD-sp4): 65.3 ml EDV(sp4-el): 114.1 ml EDV(sp2-el): 104.5 ml LVAs ap4: 22.7 cm2 LVAs ap2: 21.5 cm2 LVLs ap4: 7.7 cm LVLs ap2: 7.6 cm ESV(MOD-sp4): 56.3 ml ESV(MOD-sp2): 50.9 ml ESV(sp4-el): 56.7 ml ESV(sp2-el): 51.7 ml EF(MOD-sp4): 48.8 % EF(MOD-sp2): 50.4 % EF(sp4-el): 50.3 % SV(MOD-sp4): 53.6 ml SV(MOD-sp2): 51.9 ml SV(sp4-el): 57.4 ml SI(MOD-sp4): 24.1 ml/m2 SI(MOD-sp2): 23.3 ml/m2 LA A4 area: 20.3 cm2 LA dimension(2D): 3.5 cm TAPSE: 2.6 cm Time Measurements MV dec time: 0.19 sec Doppler Measurements & Calculations MV E max benjamin: 70.9 cm/sec Lat Peak E' Benjamin: 10.2 cm/sec Med Peak E' Benjamin: 10.8 cm/sec MV A max benjamin: 58.4 cm/sec E/E' lat: 6.9 E/E' med: 6.5 MV E/A: 1.2 MV V2 max: 86.1 cm/sec MV P1/2t max benjamin: 82.3 cm/sec Ao V2 max: 136.3 cm/sec MV max P.0 mmHg MV P1/2t: 58.3 msec Ao max P.4 mmHg MV V2 mean: 55.4 cm/sec MV dec slope: 413.6 cm/sec2 Ao V2 mean: 93.1 cm/sec MV mean P.4 mmHg MVA(P1/2t): 3.8 cm2 Ao mean P.0 mmHg MV V2 VTI: 23.8 cm Ao V2 VTI: 31.2 cm AV (velocity ratio): 0.58 LV V1 max: 80.8 cm/sec PA V2 max: 90.5 cm/sec TR max benjamin: 231.7 cm/sec LV V1 max P.6 mmHg PA V2 mean: 64.5 cm/sec TR max P.5 mmHg LV V1 mean P.6 mmHg LV V1 mean: 61.1 cm/sec LV V1 VTI: 18.1 cm ECHO/Echo Complete W/ Contrast Interpretation Summary Normal LV size. The left ventricular ejection fraction is 50 %. The valves appear to be structurally normal and compared to the previous echoca rdiogram there has been a marked improvement. Contrast injection was performed. Ordering Physician: Bennett Arndt Referring Physician: Muriel Thornton Performed By: Teena Calix, FERNANDO, RVT
== END | disposition home or self-care (01) ==
LOC: CVS 10:48
PROVIDERS: PCP Internal Medicine; Referring Provider Internal Medicine Cardiovascular Disease; Visit Provider Internal Medicine Cardiovascular Disease
DX: I42.9 Cardiomyopathy, unspecified (principal)
CPT/HCPCS: 93306; Q9957; A4216; C8929

== ENCOUNTER → 2025-06-22 | Outpatient (CLI) | payer MEDICAID, SELFPAY ==
[2025-06-22 16:35] LABS: Anion Gap 12 (5-15); BUN 16 mg/dL (4-19); BUN/Creat Ratio 17.3 RATIO (10-20); Calcium,Total 8.9 mg/dL (7.6-11.0); Carbon Dioxide 23.6 mmol/L (21.0-32.0); Chloride 101 mmol/L (98-108); Glucose 111 mg/dL (70-99); Potassium 4.2 mmol/L (3.3-5.1)
== END | disposition home or self-care (01) ==
LOC: BIMLAB 15:13
PROVIDERS: PCP Internal Medicine; Referring Provider Internal Medicine; Visit Provider Internal Medicine
DX: I50.9 Heart failure, unspecified (principal)
CPT/HCPCS: 36415; 80048

== ENCOUNTER → 2025-09-03 | Outpatient (CLI) | payer MEDICAID, SELFPAY ==
[2025-09-03 16:58] LABS: Hematocrit 35.8 % (37-47); Hemoglobin 11.1 g/dL (12.0-15.0); Immature Granulocytes Count 0.030 X10^3/uL (0.0-0.0); Mean Corp Hgb Conc 31.0 g/dL (32-36); Mean Corpuscular Volume 87.7 fL (81-99); Mean Platelet Vol. 9.4 fl (6.2-12.0); NRBC Flagged by Analyzer 0 % (0-5); Platelet Count 404 K/mm3 (150-450); RBC Distribution Width CV 13.6 % (11.6-14.6); RBC Distribution Width SD 43.0 fl (35.1-43.9); Red Blood Count 4.08 M/mm3 (4.2-5.4); White Blood Count 8.5 K/mm3 (4.4-11.0)
[2025-09-03 18:20] LABS: Anion Gap 13 (5-15); BUN 13 mg/dL (4-19); BUN/Creat Ratio 14.5 RATIO (10-20); Calcium,Total 8.9 mg/dL (7.6-11.0); Carbon Dioxide 22.2 mmol/L (21.0-32.0); Chloride 103 mmol/L (98-108); Glucose 93 mg/dL (70-99); Potassium 3.8 mmol/L (3.3-5.1); Pro- Brain NATRIURETIC PEPTIDE 191 pg/mL (<=900)
== END | disposition home or self-care (01) ==
LOC: LAB 16:03
PROVIDERS: PCP Internal Medicine; Referring Provider Nurse Practitioner Gerontology; Visit Provider Nurse Practitioner Gerontology
DX: R06.02 Shortness of breath (principal)
CPT/HCPCS: 36415; 80048; 83880; 85025